=== PATIENT | female | born 1935 | race Caucasian/White ===

== ENCOUNTER 2019-10-03 09:41 | Inpatient (IN) | payer OTHER, BC ==
--- NOTE | 2019-10-04 11:31 | R.PREADM ---
SCREENING DATE AND TIME 10/04/2019 11:08 (CDT) ANTICIPATED REHAB ADMISSION DATE 10/06/2019 REFERRING FACILITY Acute care hospital REFERRAL DATE AND TIME 10/04/2019 11:08 (CDT) REFERRAL OFFICE PHONE REFERRAL ROOM# [id number] ACUTE ADMIT DATE 09/29/2019 Previous Rehabilitation(s): No. 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 Turner Gomes M.D. MR# [id number] NAME RHEA LINK ADDRESS [address] [address] [address] [facility] [id number] DATE OF 1935 AGE 83 SSN# [id number] GENDER female MARITAL STATUS RACE white ADMIT FROM 02 - [facility] PRE-HOSPITAL LIVING SETTING 01 - Home (private home/apt. board/care, assisted living, usp, transitional living) HOME TYPE AND DETAILS Type of home: single family house # of levels in the residence: 1 # of steps within the residence: 0 # of steps to enter the residence: 0 PRE-HOSPITAL LIVING WITH Family/Relatives FAMILY SUPPORT Yes PRIMARY FAMILY CONTACT NAME DAVID MARCELINO PRIMARY FAMILY CONTACT PHONE PHONE PRIMARY FAMILY CONTACT ON ADM.? no IS PRIMARY FAMILY CONTACT AUTH. REP.? no 1ST EMERGENCY CONTACT DAVID MARCELINO 1ST CONTACT PHONE PHONE 1ST CONTACT ON ADM. no IS 1ST CONTACT AUTH. REP.? no PHONE 2ND CONTACT ON ADM.? no PATIENT EMPLOYMENT STATUS Retired (for age) PATIENT EMPLOYER No Employer PAYOR INFORMATION: 1ST PAYOR NAME Medicare 1ST PAYOR PHONE 1ST PAYOR INJURY/ILLNESS DUE TO ACCIDENT? No ANOTHER [employer] PARTY RESPONSIBLE? 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 is a 83 yo Right-handed white female. On 09/25/2019 she was admitted to Acute care hospital with diagnosis THORACIC SPINAL CORD COMPRESSION . Her impairment category is Spinal Cord Dysfunction 04 - Other Non-traumatic Spinal Cord Dysfunction (04.130). Pre-morbidly, Pt. was independent/mod-I in Self-Care, Communication, Transfers Control, Social Cognit ion, and Safety Awareness; and she had good Locomotion and Endurance. Currently, she has deficits of Locomotion, Self-Care, Balance, Endurance, Transfers Control, and Soci al Cognition. Pt. is now referred to [facility] for acute in-patient rehabilitation in order to maximize patient's functional independence in activities of daily living, strength, ROM, and mobi lity. Patient has realistic goal of being discharged at assistance level 3-modA to reside at Home with Fam micaela/Relatives. Rhea Link is a 83 year old female that lives at home independently with her . She has children that live near and help keep them active. She has a history of HTN, DE, CAD, CHF, SSS, Afib, chronic back pain and falls who presented with BLE weakness. She underwent thoracic laminectomy 09/27/19 but condition become unbearable. Bilateral lower weakness has gotten to the point where she is unable to take more than a few steps without lower extremities giving out on her. [facility] not [facility] up for procedure at this time. [facility] Inpatient rehabilitation and is hemodynamically stable with relatively stable labs. She is now medically stable but in need of 24 hour nursing, doctor supervision and The patient is reasonably expected to participate in 3 hours of therapy a day/15 hours per week and receive care with intensive interdisciplinary approach. COVID-19 screening performed; spoke with patient via phone. Patient denies new onset of fever, cough, difficulty breathing, sore throat, body aches and non-allergy nasal congestion in the past 24 hours. Patient denies travel outside of [place] in the past 14 days. Patient denies any contact with someone who has a confirmed diagnosis of or is under investigation for COVID-19 in the past 14 days. MEDICATION ALLERGIES: No Known Drug Allergies (NKDA) ENVIRONMENTAL ALLERGIES: - Substance Allergies None Known - Other Allergies None Known CODE STATUS: Full code WEIGHT/HEIGHT/BMI: WEIGHT 154 lbs HEIGHT 152.4' BMI N/A DIET: - Diet Type Regular - Diet - Solid Texture Regular - Diet - Liquid Texture Regular - Tube Feed N/A REVIEW OF SYSTEMS: - Gen Alert and awake Lying in bed No apparent distress Oriented to: person, time, and place - Vital Signs Temperature: 98.1 F SBP/DBP: 118/67 Pulse: 70 Resp: 20 Vital signs stable, afebrile - CVS RRR VITAL SIGNS Temperature: 98.1 F SBP/DBP: 118/67 Pulse: 70 Resp: 20 Vital signs stable, afebrile MEDICATIONS/TREATMENT: Other- See attached MAR (Medication Administration Record). CURRENT SPHINCTER CONTROL: Pre-hospital bladder status: continent # of bladder accidents in the last 7 days prior to screenin Pre-hospital bowel status: continent # of bowel accidents in the last 7 days prior to screenin Last Bowel Movement Date: 10/02/2019 CURRENT LOCOMOTION STATUS: distance walked 3 feet DETAILED CURRENT FUNCTIONAL STATUS: - Bladder accident frequency: Ind - No accidents in the past 7 days - Bowel accident frequency: Ind - No accidents in the past 7 days - Walking score based on distance walked: 0(N/A) score based on distance walked: 1(<=50ft) - Wheelchair score based on distance traveled: 0(N/A) QI SCORES: - Self-Care A. Eating 06-Independent B. Oral hygiene 06-Independent C. Toileting hygiene 03-Partial/moderate assistance E. Shower/bathe self 03-Partial/moderate assistance F. Upper body dressing 04-Supervision or touching assistance G. Lower body dressing 88-Not attempted due to medical condition or safety concerns H. Putting on/taking off footwear 88-Not attempted due to medical condition or safety concerns - Mobility A. Roll left and right 04-Supervision or touching assistance B. Sit to lying 04-Supervision or touching assistance C. Lying to sitting on side of bed 02-Substantial/maximal assistance D. Sit to stand 02-Substantial/maximal assistance E. Chair/[id number] transfer 02-Substantial/maximal assistance F. Toilet transfer 02-Substantial/maximal assistance G. Car transfer 88-Not attempted due to medical condition or safety concerns I. Walk 10 feet 88-Not attempted due to medical condition or safety concerns J. Walk 50 feet with two turns 88-Not attempted due to medical condition or safety concerns K. Walk 150 feet 88-Not attempted due to medical condition or safety concerns L. Walking 10 feet on uneven surfaces 88-Not attempted due to medical condition or safety concerns M. 1 step (curb) 88-Not attempted due to medical condition or safety concerns N. 4 steps 88-Not attempted due to medical condition or safety concerns O. 12 steps 88-Not attempted due to medical condition or safety concerns P. Picking up object 06-Independent R. Wheel 50 feet with two turns 88-Not attempted due to medical condition or safety concerns S. Wheel 150 feet 88-Not attempted due to medical condition or safety concerns - Bladder and Bowel Bladder continence 0-Always continent Bowel continence 0-Always continent - Endurance Fair - Balance Fair - Safety Awareness Fair CURRENT FUNC. DEFICITS: Mobility, Endurance, Safety Awareness, Balance, and Self-Care CURRENT / PREVIOUS ASSISTIVE DEVICES: 3-in-1 [facility] Bed Rolling Walker Tub Bench Wheelchair HISTORY OF FALLS. HAS THE PATIENT HAD TWO OR MORE FALLS IN THE PAST YEAR OR ANY FALL WITH INJURY IN T HE PAST YEAR?: No PRIOR SURGERY. DID THE PATIENT HAVE MAJOR SURGERY DURING THE 100 DAYS PRIOR TO ADMISSION?: No THERAPY NOTES FROM ACUTE CARE: Attached. SPECIAL NEEDS: - Safety Concerns Skin breakdown precautions needed due to skin breakdown risk PATIENT NEEDS ACTIVE AND ONGOING THERAPEUTIC INTERVENTION OF MULTIPLE THERAPY DISCIPLINES, INCLUDING: - Orthotics/Prosthetics Orthotic Evaluation. Splinting/Casting. - Dietary and Nutrition Adequate Nutrition. Nutritional Education. Nutritional Supplements. PATIENT NEEDS CLOSE MEDICAL SUPERVISION BY A REHABILITATION PHYSICIAN FOR: Coordination of Treatment Team PATIENT REQUIRES 24X7 REHAB NURSING FOR MEDICAL AND FUNCTIONAL MGT. OF THE FOLLOWING DEFICITS: Disease Management Medication Management Patient/Family Education Providing Safe Environment PATIENT REQUIRES INTENSIVE, COORDINATED INTERDISCIPLINARY APPROACH TO REHAB: Arranging Home Equipment/Services Discharge Planning Family Intervention/Training [place] Roofer/Case Management PATIENT REHAB POTENTIAL: Abelardo LINK is able and expected to receive 3 hours of individualized therapy daily on at least 5 of ev samir 7 days Abelardo LINK's prognosis for significant practical improvement within a reasonable period of time appear s Good Expected level of measurable improvement will be of a practical value to Abelardo LINK's functional capac ity or adaptations to impairments Has a viable Discharge Plan Medically appropriate; condition is sufficiently stable to participate in intensive rehab program DISCHARGE PLAN: - Estimated Length of Stay (days) 16. - Consensus on plan Discharge plan has been discussed with primary caregiver. Patient/Family is in agreement with the jazmyne n. Primary caregiver is in agreement with the plan. - Patient/Family Goals Return home independently. - Planned Living Setting Upon Discharge Home, to live with Family/Relatives. Transitional Living. RECOMMENDED CARE LEVEL: IRF RECOMMENDATION DETAILS: Recommended Admission to Comprehensive Rehabilitation Program to Increase Functional [place] SCREENER'S COMPLETENESS CONFIRMATION: - Screening Confirmation The patient data collection on this preadmission screening form is finished PHYSICIANS REVIEW AND ADMISSION DETERMINATION Admit - Based on my review of the Pre-Admission Screening results, in my medical judgment and experie nce, I concur with the findings and recommend admission to [facility], as this patient requires an IRF level of care. SIGNATURE PANEL: Unitizer - [electronically] signed by Jaime Finney on 10/04/2019 at 11:09 (CDT) Clinical Liaison - [electronically] signed by Ally Herrera RN on 10/04/2019 at 11:10 (CDT) Physician Reviewer - [electronically] signed by Dr. Turner Gomes M.D. on 10/04/2019 at 11:30 (CDT )
--- OUTSIDE RECORDS SUMMARY | 2019-10-04 18:41 | XMS REPORT | Clinical Summary ---
:1935 Author Organization [facility] Address [address] [place] [address] Care Team Providers Name Role Phone Lee Mosqueda MD Primary Care Provider Allergies Active Allergy Reactions Severity Noted Date Comments Aspirin Tinnitus High 10/31/2016 Severe ringing in ears and can not hear an ything Povidone-Iodine Other (See Comments) High 09/21/2018 Topi chapis Iodine and betadine cause her skin peel. Patient states she is NOT allergic to the IV Iodine Meperidine Hallucinations 09/27/2019 Iodine Rash Low 12/06/2017 Topical Iodine and betadine cause her skin peel. Patient states she is NOT allergic to the IV Iodine Levofloxacin Rash High 10/31/2016 Red itchy rash all over the body Tramadol Other (See Comments) High 10/31/2016 Halluci nations Medications Medication Sig Dispensed Refills Start Date End Date Status DULoxetine Take 60 mg by 0 Activ e (CYMBALTA) 60 MG mouth 2 (two) capsule times a day. gabapentin Take 800 mg 0 Active (NEURONTIN) 800 mg by mouth 3 tablet (three) times a day. thyroid, pork, Take 60 mg by 0 A ctive (ARMOUR THYROID) 60 mouth daily. mg tablet montelukast Take 10 mg by 0 Acti ve (SINGULAIR) 10 mg mouth tablet nightly. rosuvastatin Take 10 mg by 0 Act karli (CRESTOR) 10 MG mouth tablet nightly. spironolactone Take 25 mg by 0 A ctive (ALDACTONE) 25 MG mouth daily. tablet losartan (COZAAR) Take 25 mg by 0 Active 25 MG tablet mouth daily as needed (SBP>140). SBP > 140 apixaban (ELIQUIS) Take 5 mg by 0 Active 5 mg tablet mouth 2 (two) times a day. carvediloL (COREG) Take 3.125 mg 0 Active 3.125 MG tablet by mouth 2 (two) times a day with meals. furosemide (LASIX) Take 80 mg by 0 Active 40 mg tablet mouth daily. immun glob Inject 1 0 Active G,IgG,/pro/IgA 0-50 Syringe under (HIZENTRA SUBQ) the skin once a week. Home infusion on tuesdays at 3pm pantoprazole Take 1 tablet 30 tablet 0 10/05/2019 11/04/19 Ac tive (PROTONIX) 40 MG EC (40 mg total) 20 tablet by mouth daily for 30 days. sennosides-docusate Take 2 60 tablet 0 10/04/2019 11/03/19 Active sodium (SENOKOT-S) tablets by 20 8.6-50 mg per mouth nightly tablet for 30 days. acetaminophen-codei Take 1 tablet 20 tablet 0 10/04/201910/10 Active ne (TYLENOL WITH by mouth 20 CODEINE #3) 300-30 every 4 mg per (four) hours tabletIndications: as needed for acute pain moderate pain for up to 7 days .acute pain. amIODarone Take 200 mg 0 05/29/19 Discont inued (PACERONE) 200 MG by mouth 20 (M ed List tablet nightly. Cleanup) carvedilol (COREG) Take 12.5 mg 0 05/29/19 Discontinued 12.5 MG tablet by mouth 2 20 (Med List (two) times a Cleanu p) day with meals. furosemide (LASIX) Take 40 mg by 0 0 Discontinued 40 mg tablet mouth 2 (two) 20 (Me d List times a day. Cleanup ) alum-mag Take 30 mL by 3840 mL 0 09/23/2018 10/24/19 Expir ed hydroxide-simeth mouth 4 19 (MAALOX PLUS) (four) times 200-200-20 mg/5 mL a day before suspension meals and nightly for 30 days. colchicine 0.6 mg Take 0.5 30 tablet 0 09/23/2018 10/24/19 E xpired tablet tablets (0.3 19 mg total) by mouth 2 (two) times a day for 30 days. pantoprazole Take 1 tablet 60 tablet 0 09/23/2018 10/24/19 Ex pired (PROTONIX) 40 MG EC (40 mg total) 19 tablet by mouth 2 (two) times a day for 30 days. methocarbamol Take 1 tablet 120 tablet 0 06/02/2019 07/02/19 (ROBAXIN) 500 MG (500 mg 20 tablet total) by mouth 4 (four) times a day for 30 days. Active Problems Problem Noted Date Lumbar stenosis 09/25/2019 Atrial fibrillation, persistent 09/22/2018 Hypotension 12/06/2017 Resolved Problems Problem Noted Date Resolved Date Weakness of both lower extremities 05/29/201906/01 Encounters Date Type Specialty Care Team Description 09/27/2019 Anesthesia Event General Surgery Brenda Salazar MD Felan, Veronica Lynn, NP 09/27/2019 Surgery General Surgery Zeb Jenkins, THORACIC LAMINECTOMY T10 T11 09/25/2019 - Hospital Encounter Neurosurgery Alyssa Thibodeaux M D Spinal stenosis, lumbar region with neur ogenic claudication; 10/04/2019 Gia Galvez, Zachariah spond ylosis with myelopathy, thoracic region Rosita Bustos MD 09/25/2019 Travel 07/04/2019 Documentation Neurosurgery Zeb Jenkins MD 05/29/2019 - Hospital Encounter General Internal Pito Riley Weak ness of both lower extremities (Primary Dx); 06/01/2019 Medicine MD Ramon Chronic bilateral low back pain without sciatica; [facility] [place] MRI safe car diac pacemaker in situ DO Morelia Sigala Umar, MD after 10/03/2018 Social History Tobacco Use Types Packs/Day Years Used Date Never Smoker Smokeless Tobacco: Never Used Alcohol Use Drinks/Week oz/Week Comments No Alcohol Habits Answer Date Recorded How often do you have a drink containing alcohol? Never 07/17/2018 How many drinks containing alcohol do you have on a typical Not asked day when you are drinking? How often do you have six or more drinks on one occasion? No t asked Sex Assigned at Date Recorded Not on file Job Start Date Occupation Industry Not on file Not on file Not on file Travel History Travel Start Travel End No recent travel history available. COVID-19 Exposure Response Date Recorded In the last month, have you been in contact with No / Unsure 09/25/2019 9:23 AM CDT someone who was confirmed or suspected to have Coronavirus / COVID-19? Last Filed Vital Signs Vital Sign Reading Time Taken Comments Blood Pressure 142/73 10/04/2019 11:49 AM CDT Pulse 69 10/04/2019 11:49 AM CDT Temperature 36.6 C (97.9 F) 10/04/2019 11:49 AM CDT Respiratory Rate 18 10/04/2019 11:49 AM CDT Oxygen Saturation 97% 10/04/2019 11:49 AM CDT Inhaled Oxygen Concentration - - Weight 69.9 kg (154 lb) 09/27/2019 10:10 AM CDT Height 152.4 cm (5') 09/27/2019 10:10 AM CDT Body Mass Index 30.08 09/27/2019 10:10 AM CDT Plan of Treatment Health Maintenance Due Date Last Done Comments INFLUENZA VACCINE 11/17/2019 02/28/2019, 01/30/2018, 2016 65+ PNEUMOCOCCAL VACCINE Completed 02/18/2013, 02/18/2009 SHINGLES VACCINES Completed 10/16/2018, 06/21/2018, 2015 Implants Implanted Type Area Social Media Marketing Specialist Device Shelf Model / Identifier Expiration Serial / Date Lot Cardiac Cardiac Pacemakers And Pacemakers and Related Related Products Products Material Bone Hmsts Wtrsolbl 2.5g Ostene - [id number] Orthopedic N/A: N/A 02/16/2024 [id number] / Implanted: 09/27/2019 at [facility] (Quantity not on file) Trauma / Implants [id number] Pacemaker Procedures Procedure Name Priority Date/Time Associated Comments Diagnosis ESTIMATED GFR Routine 10/04/2019 5:35 Results fo r this AM CDT procedure are i n the results section. COMPREHENSIVE METABOLIC Routine 10/04/2019 5:35 Results for this PANEL AM CDT procedure are i n the results section. CBC WITH PLATELET AND Routine 10/04/2019 5:35 Re sults for this DIFFERENTIAL AM CDT procedure are i n the results section. ESTIMATED GFR Routine 10/03/2019 5:35 Results fo r this AM CDT procedure are i n the results section. COMPREHENSIVE METABOLIC Routine 10/03/2019 5:35 Results for this PANEL AM CDT procedure are i n the results section. HC COMPLETE BLD COUNT Routine 10/03/2019 5:35 Re sults for this W/AUTO DIFF AM CDT procedure are i n the results section. XR LUMBAR SPINE 2 OR 3 Routine 10/01/2019 1:34 R esults for this VW PM CDT procedure are i n the results section. XR THORACIC SPINE 2 VW Routine 10/01/2019 1:33 R esults for this PM CDT procedure are i n the results section. ESTIMATED GFR Routine 09/30/2019 12:04 Results fo r this PM CDT procedure are i n the results section. BASIC METABOLIC PANEL Routine 09/30/2019 12:04 Re sults for this PM CDT procedure are i n the results section. PARTIAL THROMBOPLASTIN Routine 09/30/2019 12:04 R esults for this TIME (PTT) PM CDT procedure are i n the results section. PROTHROMBIN TIME WITH Routine 09/30/2019 12:04 Re sults for this INR PM CDT procedure are i n the results section. HC COMPLETE BLD COUNT Routine 09/30/2019 12:04 Re sults for this W/AUTO DIFF PM CDT procedure are i n the results section. ESTIMATED GFR Routine 09/29/2019 3:25 Results fo r this AM CDT procedure are i n the results section. HC COMPLETE BLD COUNT Routine 09/29/2019 3:25 Re sults for this W/AUTO DIFF AM CDT procedure are i n the results section. BASIC METABOLIC PANEL Routine 09/29/2019 3:25 Re sults for this AM CDT procedure are i n the results section. XR THORACOLUMBAR SPINE Routine 09/28/2019 4:09 R esults for this 2 VW PM CDT procedure are i n the results section. ESTIMATED GFR Routine 09/28/2019 3:30 Results fo r this AM CDT procedure are i n the results section. HC COMPLETE BLD COUNT Routine 09/28/2019 3:30 Re sults for this W/AUTO DIFF AM CDT procedure are i n the results section. BASIC METABOLIC PANEL Routine 09/28/2019 3:30 Re sults for this AM CDT procedure are i n the results section. PARTIAL THROMBOPLASTIN Routine 09/28/2019 3:30 R esults for this TIME (PTT) AM CDT procedure are i n the results section. XR LUMBAR SPINE 1 VW Routine 09/27/2019 3:58 Res ults for this PM CDT procedure are i n the results section. ARTERIAL LINE Routine 09/27/2019 2:57 Results fo r this PM CDT procedure are i n the results section. PA AN ELECTIVE Routine 09/27/2019 2:11 Results f or this ENDOTRACHEAL AIRWAY PM CDT procedur e are in the results section. XR LUMBAR SPINE 1 VW Routine 09/27/2019 2:03 Res ults for this PM CDT procedure are i n the results section. FUSION, SPINE, LUMBAR, 09/27/2019 12:55 Spinal stenosi s, POSTERIOR APPROACH PM CDT lumbar region with neurogenic claudication Other spondylosis with myelopathy, thoracic region Case Notes ALLERGY-IODINE, TBA 06/0 9, TF ~1200, REQ EAP, PRONE, MICROSCOPE, PRO-AXIS, TRIMLINE RETRACTOR, MIDAS RE X DRILLL, INSULATED BI POLAR; @ 1234 [facility] ACCEPTED MOVE TO 1030 MED Special Needs ALLERGY-IODINE,TF ~1030, REQ EAP, PRONE, MICROSCOPE, PRO-AXIS, TRIMLINE RETRACTOR, MIDAS JORDI DRILLL, INSULATED BI POLAR LAMINECTOMY, SPINE, 09/27/2019 12:55 PM CDT Spinal maryellen nosis, lumbar region THORACIC, POSTERIOR with neuroge talita claudication APPROACH, FOR Other spondylosis with DECOMPRESSION myelopathy, thoracic region Case Notes ALLERGY-IODINE, TBA 06/0 9, TF ~1200, REQ EAP, PRONE, MICROSCOPE, PRO-AXIS, TRIMLINE RETRACTOR, MIDAS RE X DRILLL, INSULATED BI POLAR; @ 1234 [facility] ACCEPTED MOVE TO 1030 MED Special Needs ALLERGY-IODINE,TF ~1030, REQ EAP, PRONE, MICROSCOPE, PRO-AXIS, TRIMLINE RETRACTOR, MIDAS JORDI DRILLL, INSULATED BI POLAR ECG 12-LEAD STAT 09/27/2019 12:00 PM Results for this CDT procedure are i n the results section. PROTHROMBIN TIME WITH Routine 09/27/2019 2:30 AM Results for this INR CDT procedure are i n the results section. TYPE AND SCREEN Routine 09/27/2019 2:30 AM Resul ts for this CDT procedure are i n the results section. PARTIAL THROMBOPLASTIN Routine 09/27/2019 2:30 AM Results for this TIME (PTT) CDT procedure are i n the results section. COVID-19 QUALITATIVE PCR Routine 09/26/2019 6:30 PM Results for this CDT procedure are i n the results section. ECG 12-LEAD Routine 09/26/2019 9:29 AM Results for this CDT procedure are i n the results section. URINE CULTURE Routine 09/26/2019 7:54 AM Results for this CDT procedure are i n the results section. URINALYSIS SCREEN AND Routine 09/26/2019 6:00 AM Results for this MICROSCOPY, WITH REFLEX CDT proc edure are in TO CULTURE the results section. ESTIMATED GFR Routine 09/26/2019 4:00 AM Results for this CDT procedure are i n the results section. B NATRIURETIC PEPTIDE Routine 09/26/2019 4:00 AM Results for this CDT procedure are i n the results section. HC COMPLETE BLD COUNT Routine 09/26/2019 4:00 AM Results for this W/AUTO DIFF CDT procedure are i n the results section. MAGNESIUM LEVEL Routine 09/26/2019 4:00 AM Resul ts for this CDT procedure are i n the results section. BASIC METABOLIC PANEL Routine 09/26/2019 4:00 AM Results for this CDT procedure are i n the results section. MRI THORACIC SPINE WO Routine 06/01/2019 10:45 AM Results for this CONTRAST TECHNICAL PRODUCT MANAGER procedure are i n the results section. MRI CERVICAL SPINE WO Routine 06/01/2019 10:45 AM Results for this CONTRAST TECHNICAL PRODUCT MANAGER procedure are i n the results section. HC COMPLETE BLD COUNT Routine 06/01/2019 5:20 AM Results for this W/AUTO DIFF TECHNICAL PRODUCT MANAGER procedure are i n the results section. POC GLUCOSE Routine 05/31/2019 9:00 PM Results for this TECHNICAL PRODUCT MANAGER procedure are i n the results section. POC GLUCOSE Routine 05/31/2019 6:00 PM Results for this TECHNICAL PRODUCT MANAGER procedure are i n the results section. POC GLUCOSE Routine 05/31/2019 1:02 PM Results for this TECHNICAL PRODUCT MANAGER procedure are i n the results section. POC GLUCOSE Routine 05/31/2019 8:00 AM Results for this TECHNICAL PRODUCT MANAGER procedure are i n the results section. URINALYSIS, AUTOMATED STAT 05/30/2019 10:10 PM Results for this WITH MICROSCOPY TECHNICAL PRODUCT MANAGER procedure ar e in the results section. URINE DRUGS OF ABUSE STAT 05/30/2019 10:10 PM Results for this SCREEN TECHNICAL PRODUCT MANAGER procedure are i n the results section. POC GLUCOSE Routine 05/30/2019 5:22 PM Results for this TECHNICAL PRODUCT MANAGER procedure are i n the results section. PA MOTOR &/SENS 13/> NRV Routine 05/30/2019 4:30 PM Results for this CNDJ PRECONF ELTRODE TECHNICAL PRODUCT MANAGER procedu re are in LIMB the results section. MRI BRAIN WO CONTRAST Routine 05/30/2019 2:09 PM Results for this TECHNICAL PRODUCT MANAGER procedure are i n the results section. MRI LUMBAR SPINE WO Routine 05/30/2019 2:09 PM R esults for this CONTRAST TECHNICAL PRODUCT MANAGER procedure are i n the results section. XR CHEST 2 VW Routine 05/30/2019 11:00 AM MRI safe cardiac Res ults for this TECHNICAL PRODUCT MANAGER pacemaker in situ procedure are in the results section. MAG ANTIBODY TITER IGM Routine 05/30/2019 9:55 AM Results for this BY IFA TECHNICAL PRODUCT MANAGER procedure are i n the results section. SERUM ELECTROPHORESIS Routine 05/30/2019 9:55 AM Results for this TECHNICAL PRODUCT MANAGER procedure are i n the results section. POC GLUCOSE Routine 05/30/2019 8:52 AM Results for this TECHNICAL PRODUCT MANAGER procedure are i n the results section. ESTIMATED GFR Routine 05/30/2019 1:50 AM Results for this TECHNICAL PRODUCT MANAGER procedure are i n the results section. HIV AG/AB COMBINATION STAT 05/30/2019 1:50 AM Results for this TECHNICAL PRODUCT MANAGER procedure are i n the results section. SYPHILIS TOTAL ANTIBODY STAT 05/30/2019 1:50 AM Results for this TECHNICAL PRODUCT MANAGER procedure are i n the results section. T3 STAT 05/30/2019 1:50 AM Results for this TECHNICAL PRODUCT MANAGER procedure are i n the results section. T4, FREE STAT 05/30/2019 1:50 AM Results for this TECHNICAL PRODUCT MANAGER procedure are i n the results section. THYROID STIMULATING STAT 05/30/2019 1:50 AM R esults for this HORMONE TECHNICAL PRODUCT MANAGER procedure are i n the results section. RHEUMATOID FACTOR STAT 05/30/2019 1:50 AM Res ults for this TECHNICAL PRODUCT MANAGER procedure are i n the results section. SEDIMENTATION RATE STAT 05/30/2019 1:50 AM Re sults for this TECHNICAL PRODUCT MANAGER procedure are i n the results section. VITAMIN D 1,25 DIHYDROXY STAT 05/30/2019 1:50 AM Results for this LEVEL, SERUM TECHNICAL PRODUCT MANAGER procedure are i n the results section. CORTISOL LEVEL, RANDOM STAT 05/30/2019 1:50 AM Results for this TECHNICAL PRODUCT MANAGER procedure are i n the results section. HOMOCYSTINE, PLASMA STAT 05/30/2019 1:50 AM R esults for this TECHNICAL PRODUCT MANAGER procedure are i n the results section. C-REACTIVE PROTEIN STAT 05/30/2019 1:50 AM Re sults for this TECHNICAL PRODUCT MANAGER procedure are i n the results section. VITAMIN B12 LEVEL STAT 05/30/2019 1:50 AM Res ults for this TECHNICAL PRODUCT MANAGER procedure are i n the results section. FOLATE LEVEL STAT 05/30/2019 1:50 AM Results for this TECHNICAL PRODUCT MANAGER procedure are i n the results section. ANGELICA STAT 05/30/2019 1:50 AM Results for this TECHNICAL PRODUCT MANAGER procedure are i n the results section. COMPREHENSIVE METABOLIC Routine 05/30/2019 1:50 AM Results for this PANEL TECHNICAL PRODUCT MANAGER procedure are i n the results section. HC COMPLETE BLD COUNT Routine 05/30/2019 1:50 AM Results for this W/AUTO DIFF TECHNICAL PRODUCT MANAGER procedure are i n the results section. URINE CULTURE Routine 05/29/2019 10:26 PM Results for this TECHNICAL PRODUCT MANAGER procedure are i n the results section. URINALYSIS SCREEN AND Routine 05/29/2019 9:45 PM Results for this MICROSCOPY, WITH REFLEX TECHNICAL PRODUCT MANAGER proc edure are in TO CULTURE the results section. ECG 12-LEAD STAT 05/29/2019 4:31 PM Results for this TECHNICAL PRODUCT MANAGER procedure are i n the results section. ECG ED PRELIMINARY Routine 05/29/2019 2:14 PM Re sults for this INTERPRETATION TECHNICAL PRODUCT MANAGER procedure are in the results section. ESTIMATED GFR STAT 05/29/2019 1:59 PM Results for this TECHNICAL PRODUCT MANAGER procedure are i n the results section. BASIC METABOLIC PANEL STAT 05/29/2019 1:59 PM Results for this TECHNICAL PRODUCT MANAGER procedure are i n the results section. PARTIAL THROMBOPLASTIN STAT 05/29/2019 1:59 PM Results for this TIME (PTT) TECHNICAL PRODUCT MANAGER procedure are i n the results section. PROTHROMBIN TIME WITH STAT 05/29/2019 1:59 PM Results for this INR TECHNICAL PRODUCT MANAGER procedure are i n the results section. HC COMPLETE BLD COUNT STAT 05/29/2019 1:59 PM Results for this W/AUTO DIFF TECHNICAL PRODUCT MANAGER procedure are i n the results section. after 10/03/2018 Results Estimated GFR (10/04/2019 5:35 AM CDT)Only the most recent of8 resultswithin the time period is included. Estimated GFR 68 mL/min/1.73 [facility] Comment: [facility] Catergory Units Interpretation G1 >=90 Normal or high G2 60-89 Mildly decreased G3a 45-59 Mildly to moderately decreas ed G3b 30-44 Moderately to severely decre ased G4 15-29 Severely decreased G5 <15 Kidney failure The eGFR was calculated using the Chronic Kidney Disea se Epidemiology Collaboration (CKD-EPI) equation. Interpretation is based on recommendations of the National Kidney Foundation-Kidney Disease Outcomes Rico lity Initiative (NKF-KDOQI) published in 2014. Specimen Performing Organization Address City/[facility]/Zipcode Phone Number [facility] DEPARTMENT OF PATHOLOGY AND [address] [place] [address] [phone] GENOMIC MEDICINE [facility] [address] [place] [id number] CBC with platelet and differential (10/04/2019 5:35 AM CDT)Only the most recent of9 resultswithin the time period is included. WBC 6.92 4.50 - 11.00 [facility] k/uL [facility] RBC 4.11 (L) 4.20 - 5.50 [facility] m/[facility] HGB 10.0 (L) 12.0 - 16.0 [facility] HCT 33.4 (L) 37.0 - 47.0 % [facility] MCV 81.3 (L) 82.0 - 100.0 [facility] MCH 24.3 (L) 27.0 - 34.0 pg [facility] MCHC 29.9 (L) 31.0 - 37.0 [facility] g/dL [facility] RDW - SD 47.0 37.0 - 55.0 fL [facility] MPV 9.6 8.8 - 13.2 fL [facility] Platelet count 296 150 - 400 k/uL [facility] Nucleated RBC 0.00 /100 WBC [facility] Neutrophils 63.9 39.0 - 69.0 % [facility] Lymphocytes 24.1 (L) 25.0 - 45.0 % [facility] Monocytes 8.8 0.0 - 10.0 % [facility] Eosinophils 2.2 0.0 - 5.0 % [facility] Basophils 0.6 0.0 - 1.0 % [facility] Immature granulocytes 0.4Comment: 0.0 - 1.0 % [facility] "Immature HOSPITAL granulocytes" (promyelocytes , myelocytes, metamyelocytes ) Specimen Blood Performing Organization Address City/[facility]/Zipcode Phone Number [facility] DEPARTMENT OF PATHOLOGY AND [address] [place] [address] [phone] [facility] [address] [place] [address] Comprehensive metabolic panel (10/04/2019 5:35 AM CDT)Only the most recent of3 resultswithin the time period is included. Sodium 139 135 - 148 [facility] mEq/L [facility] Potassium 3.6 3.5 - 5.0 [facility] mEq/L [facility] Chloride 93 (L) 98 - 112 [facility] mEq/L [facility] CO2 33 (H) 24 - 31 mEq/L [facility] Anion gap 13@ANIO 7 - 15 mEq/L [facility] BUN 11 8 - 23 mg/dL [facility] Creatinine 0.81 0.50 - 0.90 [facility] mg/dL [facility] Glucose 99 65 - 99 mg/dL [facility] Calcium 9.4 8.8 - 10.2 [facility] mg/dL [facility] Protein 6.6 6.3 - 8.3 [facility] Comment: g/dL [facility] [place] 4.6-7.0 g/dL 1 week 4.4-7.6 g/dL 7 months-1year 5.1-7.3 g/dL 1-2 years 5.6-7.5 g/dL >3 years 6.0-8.0 g/dL 18-150 6.3-8.3 g/dL Albumin 2.2 (L) 3.5 - 5.0 [facility] g/dL [facility] A/G ratio 0.5 (L) 0.7 - 3.8 [facility] Alkaline phosphatase 129 (H) 35 - 104 U/L [facility] AST 19 10 - 35 U/L [facility] ALT 6 5 - 50 U/L [facility] Total bilirubin <0.2 0.0 - 1.2 [facility] mg/dL [facility] Specimen Blood Performing Organization Address City/State/Zipcode Phone Number [facility] DEPARTMENT OF PATHOLOGY AND [address] [place], [place] [phone] [facility] [address] [place] [address] XR Lumbar Spine 2 Or 3 Vw (10/01/2019 1:34 PM CDT) Specimen Narrative Performed At EXAMINATION: XR LUMBAR SPINE 2 OR 3 VW [facility] COMPARISON: October 27, 2019. CLINICAL HISTORY: back pain COMMENTS: Frontal and lateral views of the lumbar spine are provided. FINDINGS: There is grade 1 anterior subluxation of L 4 upon L5. There is minimal anterior subluxation of L5 on S1. There is mild retrolisthesis of L1 with respect to L2 and to lesser degree L2 with respect to L3. There is moderate anterio r spondylosis. There is multilevel disc height narrowing, endplate sc lerosis and vacuum disc most prominent at L4-5 and L5-S1. Surgical ludin are noted in the midlin e at the posterior skin. IMPRESSION: Degenerative change and young bluxations again noted. [id number] Procedure Note Interface, Radiology Results Incoming - 10/01/2019 1:43 PM CDT EXAMINATION: XR LUMBAR SPINE 2 OR 3 VW COMPARISON: October 27, 2019. CLINICAL HISTORY: back pain COMMENTS: Frontal and lateral views of the lumbar spine are provided. FINDINGS: There is grade 1 anterior sub luxation of L4 upon L5. There is minimal anterior subluxation of L5 on S1. There is mild retrolisthesis of L1 with respect to L2 and to lesser degree L2 with respect to L3. There is moderate anterior spondylosis. There is multilevel disc height narrowin g, endplate sclerosis and vacuum disc most prominent at L4-5 and L5-S1. Surgical ludin are noted in the midlin e at the posterior skin. IMPRESSION: Degenerative change and sub luxations again noted. [id number] Performing Organization Address City/State/Zipcode Phone Number [facility] [address] [place] [address] XR Thoracic Spine 2 Vw (10/01/2019 1:33 PM CDT) Specimen Narrative Performed At EXAMINATION: XR THORACIC SPINE 2 VW [facility] COMPARISON: September 28, 2019. CLINICAL HISTORY: back pain COMMENTS: Frontal and lateral views of the thoracic spine are provided. FINDINGS: There is spondylosis and endplate sclerosi s most prominent in the lower thoracic spine. No definite acute fractur e or subluxation is identified. There is minimal curvature of the lower thoracic spine convex towards the right. This may be positional. Left subclavian dual pacing wires are no jeane. Midline surgical ludin project in the lower thoracic region. IMPRESSION: Degenerative change again noted. [id number] Procedure Note Interface, Radiology Results Incoming - 10/01/2019 1:51 PM CDT EXAMINATION: XR THORACIC SPINE 2 VW COMPARISON: September 28, 2019. CLINICAL HISTORY: back pain COMMENTS: Frontal and lateral views of the thoracic spine are provided. FINDINGS: There is spondylosis and endp late sclerosis most prominent in the lower thoracic spine. No definite acute fracture or subluxation is identified. There is minimal curvature of the lower thoracic spine convex towards the right. This may be positional. Left subclavian dual pacing wires are no jeane. Midline surgical ludin project in the lower thoracic region. IMPRESSION: Degenerative change again n oted. [id number] Performing Organization Address [facility]/Zipcode Phone Number [facility] [address] [place] [phone] Partial thromboplastin time, activated (09/30/2019 12:04 PM CDT)Only the most recent of4 resultswithin the time period is included. [facility] PTT 33.2 23.0 - 36.0 [facility] Comment: [facility] PTT therapeutic range for unfractionated heparin is 61.0-112.0 seconds which corresponds to Anti-Xa 0.3-0.7 U/ml. Specimen Blood Performing Organization Address [facility] Centercoal Phone Number [facility] DEPARTMENT OF PATHOLOGY AND [address] [place] [address] [phone] [address] Prothrombin time with INR (09/30/2019 12:04 PM CDT)Only the most recent of3 resultswithin the time period is included. [facility] Prothrombin time 15.3 (H) 11.5 - 14.5 [facility] INR 1.2 [place] Comment: SIKHISM The International Normalized Ratio (INR) is a therapeu [facility] monitoring tool for patients who are stable on oral anticoagulant therapy. An INR of 2.0-3.0 is suggested for deep vein thrombosis/pulmonary embolism. Specimen Blood Performing Organization Address [facility] Centercode Phone Number [facility] DEPARTMENT OF PATHOLOGY AND [address] [place] [address] [phone] [address] Basic metabolic panel (09/30/2019 12:04 PM CDT)Only the most recent of5 results within the time period is included. [facility] Sodium 136 135 - 148 mEq/L [facility] L Potassium 3.4 (L) 3.5 - 5.0 mEq/L [facility] L Chloride 97 (L) 98 - 112 mEq/L [facility] CO2 26 24 - 31 mEq/L [facility] Anion gap 13@ANIO 7 - 15 mEq/L [facility] BUN 15 8 - 23 mg/dL [facility] Creatinine 0.85 0.50 - 0.90 mg/dL [facility] Glucose 233 (H) 65 - 99 mg/dL [facility] Calcium 8.9 8.8 - 10.2 mg/dL [facility] Specimen Blood Performing Organization Address City/State/Zipcode Phone Number [facility] DEPARTMENT OF PATHOLOGY AND [address] [place], [place] [address] [facility]OMIC MEDICINE [facility] [address] [place] [address] XR Thoracolumbar Spine 2 Vw (09/28/2019 4:09 PM CDT) Specimen Narrative Performed At EXAMINATION: XR THORACOLUMBAR SPINE 2 VW RADIANT CLINICAL HISTORY: S P LAMINECTOMY COMPARISON: None IMPRESSION: Frontal and lateral views of the thoracic and lumbar s pine were obtained. Pacemaker wires are noted over the right hea rt. Postop changes are noted with skin ludin in the lower thoracic post erior back and lower lumbar spine from prior surgery. G rade 2 anterolisthesis of L4 is again noted with complete los s of disc height at L4-5 and L5-S1 as well as throughout the lower thor acic and upper lumbar spine. Soft tissue drains are noted in the posterior back mid line soft tissues in the areas of the skin ludin. There is mild rightward curvature at T9 and leftward c urvature at L2. There is retrolisthesis of L1, L2 and L3. Aorta is ect atic with dense calcifications. No metallic foreign objects identified. [id number] Procedure Note Hm Interface, Radiology Results Incoming - 09/28/2019 4:55 PM CDT EXAMINATION: XR THORACOLUMBAR SPINE 2 VW CLINICAL HISTORY: S P LAMINECTOMY COMPARISON: None IMPRESSION: Frontal and lateral views of the thoraci c and lumbar spine were obtained. Pacemaker wires are noted over the right heart. Postop changes are noted with skin ludin in the lower thoracic posterior back and lower lumbar spine from prior surgery. Grade 2 anterolisthesis of L4 is again noted wit h complete loss of disc height at L4-5 and L5-S1 as well as throughout the lower thoracic and upper lumbar spine. Soft tissue drains are noted in the post erior back midline soft tissues in the areas of the skin ludin. There is mild rightward curvature at T9 and leftward curvature at L2. There is retrolisthesis of L1, L2 and L3. Aorta is ectatic with dense calcifications. No metallic foreign objects identified. [facility]-[id number] Performing Organization Address [facility] Centercode Phone Number [facility] [address] [place] [address] XR Lumbar Spine 1 Vw (09/27/2019 3:58 PM CDT)Only the most recent of2 results within the time period is included. Specimen Narrative Performed At EXAMINATION: XR LUMBAR SPINE 1 VW RADIANT CLINICAL HISTORY: Lumbar radiculopathy COMPARISON: Intraoperative x-ray from earlier today. FINDINGS: There are radiopaque instruments in the posterior par aspinal soft tissues overlapping the posterior elements at the L5-S 1 level. One instrument tip overlaps the anterior canal at the L5 p edicle level. There are diffuse degenerative changes. There are radiopaque wires and leads. IMPRESSION: Lateral portable crosstable intraoperative radiograph of the lumbar spine for localization during lumbar spi ne surgery. [facility]-[id number] Procedure Note Hm Interface, Radiology Results Incoming - 09/27/2019 4:40 PM CDT EXAMINATION: XR LUMBAR SPINE 1 VW CLINICAL HISTORY: Lumbar radiculopathy COMPARISON: Intraoperative x-ray from e vince today. FINDINGS: There are radiopaque instruments in the posterior paraspinal soft tissues overlapping the posterior elements at the L5-S1 level. One instrument tip overlaps the anterior canal at the L5 pedicle level. There are diffuse degenerative changes. There are radiopaque wires and leads. IMPRESSION: Lateral portable crosstable intraoperati ve radiograph of the lumbar spine for localization during lumbar spine surgery. [facility]-[id number] Performing Organization Address City/[facility]/Zipcode Phone Number [facility] [address] [place] [address] Arterial line (09/27/2019 2:57 PM CDT) Narrative Performed At Kishore Mixon CRNA 09/27/2019 2: 57 PM Arterial line Performed by: Kishore Mixon CRNA Authorized by: Brenda Salazar MD Patient Location: OR Staff: Resident/WEATHER OBSERVER/AA: Kishore Mixon CR NA Performed by: Resident/WEATHER OBSERVER/SAROJ Pre-procedure: patient identified, IV ch ecked, site and side verified, risks and benefits discussed, procedure verified, surgical consent complete, patient position confirmed, mo nitors and equipment checked, pre-op evaluation complete and timeout p erformed prior to procedure MSBT: antiseptic used, all elements of maximal sterile barrier technique followed, hand hygiene performed, cap/go wn used by other personnel and solutions labeled Indications: Indications: hemodynamic monitoring Anesthesia: Anesthesia: General Procedure Details: Arterial Line placement: Placed pos t induction Line placement site: Radial Line placement side: Left Arterial line gauge: 20 G Number of attempts: 1 Ultrasound guidance used: No Post-procedure: Post-procedure: Sterile dressing ap plied Post procedure circulation, sensation, movement: Normal and unchanged Patient tolerance: Patient tolerate d the procedure well with no immediate complications Airway (09/27/2019 2:11 PM CDT) Narrative Performed At Kishore Mixon CRNA 09/27/2019 2: 12 PM Airway Performed by: Kishore Mixon CRNA Authorized by: Brenda Salazar MD Location: OR Urgency: Elective Difficult Airway: No Resident/NICOLAS/AA: Kishore Mixon CRNA Performed by: resident/NICOLAS/SAROJ Preoxygenated with 100% O2: Yes C-spine Precautions Maintained Throughou t: Yes Mask Ventilation: Easy mask Final Airway Type: Endotracheal airway Final Endotracheal Airway: ETT Cuffed: Yes Technique Used: Direct laryngoscopy Devices/Methods Used in Placement: Int ubating stylet Insertion Site: Oral Blade Type: Mattson Laryngoscope Blade/Videolaryngoscope Wilder de Size: 2 ETT Size (mm): 7.0 Cuff at minimum occlusion pressure: Yes Measured from: Lips ETT to Lips (cm): 20 Placement Verified by: CO2 detection, di rect visualization and equal breath sounds Laryngoscopic view: Grade I - full vie w of glottis Rapid Sequence Induction (RSI): No Modified RSI: No Number of Attempts at Approach: 1 atraumatic ECG 12 lead (09/27/2019 12:00 PM CDT)Only the most recent of3 resultswithin the time period is included. Pathologist Sig nature Ventricular rate 69 [facility] Atrial rate 69 [facility] PA interval 160 [facility] QRSD interval 142 [facility] QT interval 468 [facility] QTC interval 501 [facility] P axis 1 65 [facility] QRS axis 1 -37 [facility] T wave axis 108 [facility] EKG impression Sinus rhythm with [facility] premature atrial complexes-Left axis deviation-Left bundle branch block-Abnormal ECG-No previous ECGs available-Electronicall y Signed By Vanessa Yan MD ([id number]) on 09/27/2019 6:25:10 PM Specimen Narrative Performed At This result has an attachment that is no t available. Performing Organization Address City/State/Zipcode Phone Number [facility] MUSE [address] [place] [address] Type and screen (09/27/2019 2:30 AM CDT) Pathologist Sig nature ABO grouping B [facility] Rh type POS [facility] Antibody screen (gel) NEG [facility] Specimen Blood Performing Organization Address City/[facility]/Zipcode Phone Number [facility] DEPARTMENT OF PATHOLOGY AND [address] [place] [address] [address] COVID-19 qualitative PCR (09/26/2019 6:30 PM CDT) Pathologist [facility] Interpretation Negative results do not prec lude 2019-nCoV infection and should not be used as the sole basis for treatment or other patient management decisions. Negative results must be combined with clinical observations, patient history, and epidemiological GALEANA information. [facility] COVID-19 qualitative Not-Detected Not-Detecte [place] PCR result d [facility] COVID-19 qualitative See link below for [facility] PCR PDF Lab SIKHISM ReportComment: Case HOSPITAL Number: [id number] Specimen Performing Organization Address City/State/Zipcode Phone Number [facility] DEPARTMENT OF PATHOLOGY AND [address] [place] [address] 0 [place] [phone] [facility] Urine culture (09/26/2019 7:54 AM CDT)Only the most recent of2 resultswithin the time period is included. Pathologist [facility] Urine culture Escherichia coli [facility] isolate >10-5 cfu/ml HOSPITAL The performance characteristics of this assay on this isolate were validated by the Microbiology Laboratory at [facility]. This source has not been approve d by the U.S. Food and Drug Administration. The results are n ot intended to be used as the sole means for clinical reynold gnosis or patient management. The Microbiology Laboratory i s authorized under the clinical Laboratory Improvement Amendments of 1988 (CLIA-88) to perform high complexit y testing. (A) Comment: Specimen Information Specimen Source: Urine Specimen Site: Clean catch Specimen Urine Organism Antibiotic Method Susceptibility Escherichia coli Ampicillin LAINE <=2 mcg/mL: Irina ceptible Escherichia coli Amoxicillin/Clavulanate LAINE <=2/1 m cg/mL: Susceptible Escherichia coli Amikacin LAINE <=4 mcg/mL: Irina ceptible Escherichia coli Aztreonam LAINE <=1 mcg/mL: Irina ceptible Escherichia coli Ceftazidime LAINE <=0.5 mcg/mL: S usceptible Escherichia coli Ciprofloxacin LAINE <=0.5 mcg/mL: S usceptible Escherichia coli Ceftriaxone LAINE <=0.5 mcg/mL: S usceptible Escherichia coli Cefuroxime Sodium LAINE <=4 mcg/mL: S usceptible Escherichia coli Cefazolin LAINE <=1 mcg/mL: Irina ceptible Escherichia coli Cefepime LAINE <=0.5 mcg/mL: S usceptible Escherichia coli Nitrofurantoin LAINE <=16 mcg/mL: Young sceptible Escherichia coli Cefoxitin LAINE <=4 mcg/mL: Irina ceptible Escherichia coli Gentamicin LAINE <=1 mcg/mL: Irina ceptible Escherichia coli Imipenem LAINE <=0.25 mcg/mL: Susceptible Escherichia coli Levofloxacin LAINE <=1 mcg/mL: Irina ceptible Escherichia coli Meropenem LAINE <=0.125 mcg/mL: Susceptible Escherichia coli Tobramycin LAINE 1 mcg/mL: Susce ptible Escherichia coli Ampicillin/Sulbactam LAINE 2/1 mcg/mL : Susceptible Escherichia coli Trimethoprim/Sulfamethoxazole LAINE < =0.5/9.5 mcg/mL: Susceptible Escherichia coli Tetracycline LAINE <=1 mcg/mL: Irina ceptible Escherichia coli Piperacillin/Tazobactam LAINE <=2/4 m cg/mL: Susceptible Escherichia coli Ertapenem LAINE <=0.125 mcg/mL: Susceptible Escherichia coli Tigecycline LAINE <=0.5 mcg/mL: S usceptible Performing Organization Address City/[facility]/Zipcode Phone Number [facility] DEPARTMENT OF PATHOLOGY AND [address] [place] [address] [phone] [address] Urinalysis screen and microscopy, with reflex to culture (09/26/2019 6:00 AM CDT)Only the most recent of2 resultswithin the time period is included. Specimen site Clean catch [facility] Color, UA Yellow [facility] Appearance, UA Cloudy [facility] Specific gravity, UA 1.006 1.001 - 1.035 [facility] pH, UA 7.0 5.0 - 8.5 [facility] Protein, UA Negative Negative [facility] Glucose, UA Negative Negative [facility] Ketones, UA Negative Negative [facility] Bilirubin, UA Negative Negative [facility] Blood, UA Negative Negative [facility] Nitrite, UA Positive (A) Negative [facility] Urobilinogen, UA <2.0 <2.0 [facility] Leukocyte esterase, Large (A) Negative [facility] Round epithelial 3 (H) 0 - 1 /HPF [facility] cells, HOSPITAL WBC, UA 98 (H) 0 - 4 /HPF [facility] RBC, UA 1 0 - 5 /HPF [facility] Bacteria, UA Many (A) None seen [facility] WBC clumps, UA Few (A) [facility] Yeast, UA Moderate (A) [facility] Yeast with None seen [facility] pseudohyphae, UA HOSPITAL Specimen Urine Performing Organization Address City/[facility]/Zipcode Phone Number [facility] DEPARTMENT OF PATHOLOGY AND [address] [place] [address] [phone] [address] B natriuretic peptide (09/26/2019 4:00 AM CDT) Pathologist Sig nature BNP 82 0 - 100 pg/mL [facility] Specimen Blood Performing Organization Address City/[facility]/Zipcode Phone Number [facility] DEPARTMENT OF PATHOLOGY AND [address] [place] [address] [phone] [address] Magnesium level (09/26/2019 4:00 AM CDT) Pathologist Sig nature Magnesium 1.9 1.6 - 2.4 mg/dL [facility] L Specimen Blood Performing Organization Address City/State/Zipcode Phone Number [facility] DEPARTMENT OF PATHOLOGY AND [address] [place], [place] [address] GENOMIC MEDICINE [facility] [address] [place] [phone] MRI Thoracic Spine Wo Contrast (06/01/2019 10:45 AM TECHNICAL PRODUCT MANAGER) Specimen Narrative Performed At EXAMINATION: MRI THORACIC SPINE WO CON TRAST HM RADIANT CLINICAL HISTORY: thoracic spinal cord compression leg weakness COMPARISON: None. IMAGING DEVICE: 3.0 Emily MR. 3-D reconstructions were processed off-line TECHNIQUE: Multiplanar and multisequence MRI imaging o f the Thoracic spine obtained. CONTRAST: No IV contrast administered. FINDINGS: Exam is limited due to motion artifact PARASPINAL AREA: Limited views shows no evidence of pe rivertebral fluid collections, cystic lesions, masses or l ymphadenopathy. DISCS: Moderate to severe multilevel degenerative disc opathy changes worse at the following levels: *T6-T7: Shows a a 6 x 8 mm (AP by transverse) right young barticular and foraminal disc protrusion *T11-T12: Shows a 5 mm (AP) broad-based central disc protrusion *Less than 3 mm broad-based central bulging noted at t he remaining intervertebral disc levels BONES: Negative for displaced fractures, dislocations or retropulsed bone fragments. Moderate multilevel endplate osteophyt osis and degenerative facet arthropathy worse at the T11-T12 le majo. There is severe stenosis of the vertebral canal a t T11-12 level, within the limitations given by motion artifact , the estimated AP diameter of the thecal sac is 5 mm CORD: The spinal cord appears flattened at the T11-T12 level, within the limitations given by motion artifact there is question able slightly increased cord T2 signal intensity concerning for unde rlying myelopathy contacted at T6-T7 and T9-T10 levels OTHER: Negative. IMPRESSION: 1. Limited exam due to motion artifact 2. 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 Severe stenosis of the vertebral canal at T11-T12 l evel, the spinal cord is contacted and ventrally flattened with questio nable increased intrinsic T2 signal intensity concerning for underlying myelopathy [id number] Procedure Note Hm Interface, Radiology Results Incoming - 06/01/2019 12:14 PM TECHNICAL PRODUCT MANAGER EXAMINATION: MRI THORACIC SPINE WO CONTRAST CLINICAL HISTORY: thoracic spinal cord compression leg weakness COMPARISON: None. IMAGING DEVICE: 3.0 Emily MR. 3-D recons tructions were processed off-line TECHNIQUE: Multiplanar and multisequence MRI imaging of the Thoracic spine obtained. CONTRAST: No IV contrast administered. FINDINGS: Exam is limited due to motion artifact PARASPINAL AREA: Limited views shows no evidence of perivertebral fluid collections, cystic lesions, masses or lymphadenopathy. DISCS: Moderate to severe multilevel deg enerative discopathy changes worse at the following levels: *T6-T7: Shows a a 6 x 8 mm (AP by transv erse) right subarticular and foraminal disc protrusion *T11-T12: Shows a 5 mm (AP) broad-based central disc protrusion *Less than 3 mm broad-based central bulg ing noted at the remaining intervertebral disc levels BONES: Negative for displaced fractures, dislocations or retropulsed bone fragments. Moderate multilevel endplate osteophytosis and degenerative facet arthropathy worse at the T11-T12 level. There is severe stenosis of the vertebral canal at T11-12 level, within the limitations given by m otion artifact, the estimated AP diameter of the thecal sac is 5 mm CORD: The spinal cord appears flattened at the T11-T12 level, within the limitations given by motion artifact there is questionable slightly increased cord T2 signal intensity concerning for underlying myelopathy contacted at T6-T7 and T9-T10 levels OTHER: Negative. IMPRESSION: 1. Limited exam due to motion artifact 2. Moderate multilevel degenerative disc opathy changes and thoracic spondylosis worse at the T6-T7, T9-T10 and T11-T12 intervertebral disc levels 3. Severe stenosis of the vertebral mariposa l at T11-T12 level, the spinal cord is contacted and ventrally flattened with questionable increased intrinsic T2 signal intensity concerning for underlying myelopathy [id number] Performing Organization Address City/State/Zipcode Phone Number [facility] [address] [place] [address] MRI Cervical Spine Wo Contrast (06/01/2019 10:45 AM TECHNICAL PRODUCT MANAGER) Specimen Narrative Performed At This result has an attachment that is no t available. EXAMINATION: MRI CERVICAL SPINE WO CONTRAST RADI[facility] COMPARISON: None CLINICAL HISTORY: neck pain shoulder pain leg we akness COMMENTS: Sagittal and axial MR images of the cervic al spine were obtained. FINDINGS: The images are suboptimal due to motion ar tifact. C3-4 shows mild spondylosis towards the right side. There is asymmetric narrowing of the right-sided foramen due to facet and uncovertebral joint degenerative change. There is mild right-sided facet dis ease and uncovertebral joint degenerative change. There is minimal anterior subluxation of C3 on C4. C4-5 shows mild endplate degenerative ch sayda. There is moderate disc height narrowing. There is mild posterior spondylosis with minimal contact with the cord. There is mild facet and uncovertebral joint degenerative change with neural foramen stenosis slightly greater on the left. C5-6 shows mild spondylosis greater towa rds the left side. There is mild facet and uncovertebral joint degenerative change with neural foramen stenosis greater on the left. There is minimal endplate degenerative change. C6-7 shows mild central spondylosis that is broad-based. There is facet and uncovertebral joint degenerative change with asymmetric narrowing left-sided foramen. The spondylosis has minimal indentation upon the cord. Minimal retrolisthesis of C6 with respect to C7. C7-T1 shows mild facet disease. There is minimal anterior subluxation of C7 on T1. The signal within the cord is intact. IMPRESSION: Multilevel degenerative ch sayda. No cord compression. Suboptimal study due to motion artifact. [id number] Procedure Note Interface, Radiology Results Incoming - 06/01/2019 11:09 AM TECHNICAL PRODUCT MANAGER EXAMINATION: MRI CERVICAL SPINE WO CONTRAST COMPARISON: None CLINICAL HISTORY: neck pain shoulder p ain leg weakness COMMENTS: Sagittal and axial MR images of the cervical spine were obtained. FINDINGS: The images are suboptimal due to motion artifact. C3-4 shows mild spondylosis towards the right side. There is asymmetric narrowing of the right-sided foramen due to facet and uncovertebral joint degenerative change. There is mild right-sided facet disease and uncovertebral joint degenerative change. There is minimal anterior subluxation of C3 on C4. C4-5 shows mild endplate degenerative ch sayda. There is moderate disc height narrowing. There is mild posterior spondylosis with minimal contact with the cord. There is mild facet and uncovertebral joint degenerative change with neural foramen stenosis slightly greater on the left. C5-6 shows mild spondylosis greater towa rds the left side. There is mild facet and uncovertebral joint degenerative change with neural foramen stenosis greater on the left. There is minimal endplate degenerative change. C6-7 shows mild central spondylosis that is broad-based. There is facet and uncovertebral joint degenerative change with asymmetric narrowing left-sided foramen. The spondylosis has minimal indentation upon the cord. Minimal retrolisthesis of C6 with respect to C7. C7-T1 shows mild facet disease. There is minimal anterior subluxation of C7 on T1. The signal within the cord is intact. IMPRESSION: Multilevel degenerative maria teresa nge. No cord compression. Suboptimal study due to motion artifact. [id number] Performing Organization Address City/[facility]/Zipcode Phone Number [address] [address] POC glucose (05/31/2019 9:00 PM TECHNICAL PRODUCT MANAGER)Only the most recent of6 resultswithin the time period is included. POC glucose 126 (H) 65 - 99 mg/dL [facility] Comment: [facility] Clutch Inspector Name: Alejandra Sheikh Device ID: [id number] Chartable: [facility] Notified RN Specimen Performing Organization Address City/[facility] Centercode Phone Number [facility] DEPARTMENT OF PATHOLOGY AND [address] [place] [phone] GENOMIC MEDICINE [address] [address] Urine drugs of abuse screen (05/30/2019 10:10 PM TECHNICAL PRODUCT MANAGER) Pathologist [facility] Amphetamine screen, Negative [place] urine [facility] Barbiturate screen, Negative [place] urine [facility] Benzodiazepine Negative [place] screen, urine [facility] Cocaine screen, urine Negative [facility] Methadone metabolite Negative [place] (EDDP), urine [facility] Opiates screen, urine Positive (A) [facility] Oxycodone screen, Negative [place] urine [facility] Phencyclidine screen, Negative [place] urine [facility] Tricyclic screen, Negative [place] urine [facility] Cannabinoid screen, Negative [place] urine Comment: [place] Drug screen minimum concentration of detectability [facility] Amphetamines 1000 ng/mL Barbiturates 200 ng/mL Benzodiazepines 300 ng/mL Cocaine 300 ng/mL Methadone 300 ng/mL Opiates 300 ng/mL Oxycodone 300 ng/mL Phencyclidine 25 ng/mL Cannabinoids 50 ng/mL Tricyclics 1000 ng/mL Results are from screening tests and should only be used for medical evaluation. Drug testing for legal purposes requires definitive (or confirmatory) testing methods, which are available upon request. Contact the laboratory if definitive testing is requir ed. Specimen Urine Performing Organization Address City/[facility] Centercode Phone Number [facility] DEPARTMENT OF PATHOLOGY AND [address] [place] [address] 0 [facility] [address] [place] [phone] Urinalysis, automated with microscopy (05/30/2019 10:10 PM TECHNICAL PRODUCT MANAGER) Pathologist Sig nature Color, UA Yellow [facility] Appearance, UA Hazy [facility] Specific gravity, UA 1.010 1.001 - 1.035 [facility] pH, UA 6.0 5.0 - 8.5 [facility] Protein, UA Negative Negative [facility] Glucose, UA Negative Negative [facility] Ketones, UA Negative Negative [facility] Bilirubin, UA Negative Negative [facility] Blood, UA Negative Negative [facility] Nitrite, UA Negative Negative [facility] Urobilinogen, UA <2.0 <2.0 [facility] Leukocyte esterase, Large (A) Negative [facility] Epithelial cells, UA 1 /HPF [facility] WBC, UA 68 (H) 0 - 4 /HPF [facility] RBC, UA 1 0 - 5 /HPF [facility] Bacteria, UA None seen None seen [facility] WBC clumps, UA Few (A) [facility] Yeast, UA None seen [facility] Yeast with None seen [facility] pseudohyphae, [facility] Specimen Urine Performing Organization Address City/[facility]/Zipcode Phone Number [facility] DEPARTMENT OF PATHOLOGY AND [address] [place] [address] [address] EMG General Request (05/30/2019 4:30 PM TECHNICAL PRODUCT MANAGER) Narrative Performed At This result has an attachment that is no t available. Electromyogram and NCS Report [facility] Neurological [place] [address] [id number] T: [phone], F: [phone] Patient: Rhea Mas Physician: Elisabeth Ortega MD Sex: Female Test Date: 05/30/19 Age: 83 Height: 60 inches Weight: 145 lbs Ref. M.D.: Domingo Parry MD Date 1935 History/Comments: This is an 83 y/o F in the [facility] lab for evaluation of p rogressive LE weakness which has worsened lately. Per patient she bautista s been unsteady for years and has sustained multiple falls. On exam UE 4+/ 5, LE 4/5, DTR absent. Temp: RUE:32.8 RLE:29.4 LLE:30.1 Motor Nerve Study Right Median Nerve Rec Site: APB Lat (ms) Amp (mV) Dist (mm) C.V. (m/s) STIM SITE Wrist 5.2 1.8 65 Elbow 9.3 1.7 190 46.5 Right Ulnar Nerve Rec Site: ADM Lat (ms) Amp (mV) Dist (mm) C.V. (m/s) STIM SITE Wrist 3.2 9.0 65 B.Elbow 5.8 8.4 135 52.3 A.Elbow 7.6 8.2 100 52.5 Peroneal Nerve Rec Site: EDB Lat (ms) Amp (mV) Dist (mm) C.V. (m/s) STIM SITE L R L R L R L R Ankle NR NR 70 70 Tibial Nerve Rec Site: AH Lat (ms) Amp (mV) Dist (mm) C.V. (m/s) STIM SITE L R L R L R L R Ankle NR NR 90 90 Peron@TA Nerve Rec Site: Tibialis Ant Lat (ms) Amp (mV) Dist (mm) C.V . (m/s) STIM SITE L R L R L R L R Fib.Head 3.4 3.0 3.4 2.4 100 100 Pop.Fos. 5.0 4.8 2.9 2.4 67 80 42.3 43.6 Sensory Nerve Study Right Median Nerve Rec Site: Wrist Pk Lat (ms) Amp (uV) STIM SITE ssThumb NR NR Sensory Nerve Study Right Ulnar Nerve Rec Site: Wrist Pk Lat (ms) Amp (uV) STIM SITE 5th dig NR NR Right Radial Nerve Rec Site: Wrist Pk Lat (ms) Amp (uV) STIM SITE Index 2.8 16.3 Sural Nerve Rec Site: Ankle Pk Lat (ms) Amp (uV) STIM SITE L R L R mid calf NR NR NR NR Superperon Nerve Rec Site: Ankle Pk Lat (ms) Amp (uV) STIM SITE L R L R Lower leg NR NR NR NR F-Wave Study Right Median Nerve Rec Site: APB Latency Stim Site: Wrist ms F wave NR Right Ulnar Nerve Rec Site: ADM Latency Stim Site: Wrist ms F wave 30.42 Peroneal Nerve Rec Site: EDB Latency Stim Site: Ankle ms L R F wave NR NR Tibial Nerve Rec Site: AH Latency Stim Site: Ankle ms L R F wave NR NR H Reflex Study Tibial Nerve Rec Site: Soleus Latency Stim Site: Pop.Fos. ms L R H wave NR NR EMG Study Name Ins Act Fibs PSW Fascics Polyph MU Amp MU Dur Config Pattern Recruit TEXT R. Deltoid norm none none none inc 1+ norm norm poly norm -1 R. Biceps Brac norm none none none inc 1+ norm inc 1 + poly norm -2 CRDs R. Triceps norm none none none inc 1+ norm norm poly norm -1 R. Brachioradi norm none none none inc 1+ inc 1+ inc 2+ poly norm -3 R. First DI norm none none none inc 1+ inc 1+ inc 2+ poly norm -3 R. Vastus Lat. norm none none none none norm norm po ly norm norm R. Adductor Ln norm none none none inc 1+ norm norm poly norm norm R. Tibialis An norm none none none inc 1+ norm inc 1 + poly norm -[address] norm none none none inc 1+ norm norm poly norm -3 Ankle fusion R. Gastroc.Med inc+ 2+ 3+ none none Ankle fu jon L. Tibialis An norm none none none inc 1+ inc 2+ inc 2+ poly norm -3 L. Gastroc.Med inc+ 2+ 3+ none none norm norm poly n orm -4 Nerve conduction study: 1. Prolonged distal latency, reduced amplitude and slo wing conduction velocity in right median motor response. 2. Normal distal latency, amplitude and conduction majo ocity in right ulnar and left peroneal (TA) motor responses. 3. Absent bilateral peroneal (EDB) and TA motor respon ses. 4. Normal distal latency, reduced amplitude and normal conduction velocity in right peroneal (TA) motor response. 5. Normal peak latency and amplitude in right radial s ensory response. 6. Absent right median, ulnar, bilateral sural and sup erficial peroneal sensory responses. 7. F-waves: Normal in right ulnar nerve. Absent in rig ht median, bilateral peroneal and tibial nerves. 8. H-reflex: Absent bilaterally. Electromyography: Using a sterile monopolar needle intramuscular recordi ngs were evaluated in the RUE & RLE. There is increased insertional activ ity/ fibrillations/ positive sharp waves in bilateral gastrocnemius sugges tive of active denervation. There were polyphasic/ normal-large ampli tude/ long duration motor units with reduced recruitment in all the right UE muscles, right peroneus longus, bilateral TA and left gastrocnemius s uggestive of chronic denervation. There were runs of CRDs in right biceps s uggestive of chronic denervation. Impression: Abnormal EMG/NCS 1. 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 2. Additionally, a chronic active bilateral S1 radicul opathy. 3. 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 4. A diffuse polyradiculopathy cannot be excluded. 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 Diffuse franc yradiculopathy can be caused by sarcoidosis, infections (Eg: WNV, TB, CMV ), arachnoiditis, leptomeningeal disease, post-polio syndrome or inflamm atory polyradiculoneuropathy (CIDP/AIDP), structural (multil evel spondylosis, imaging of C & T spine). Use of wrist splints if possible for carpal tunnel syn drome. Natalia Ortega MD Manager [employer] in Clinical neurology Adjunct Manager [employer] [facility] ine Neurology, Neuromuscular Medicine, Electrodiagnostic m edicine [address] [facility], [facility], Justin Pino Department of Neurology [facility] Neurological [place], [facility], [place] [address] Office: [phone] MRI Lumbar Spine Wo Contrast (05/30/2019 2:09 PM TECHNICAL PRODUCT MANAGER) Specimen Narrative Performed At This result has an attachment that is no t available. EXAMINATION: MRI LUMBAR SPINE WO CONTRAST HM RADIANT CLINICAL HISTORY: BLE weakness r o cord compression Pacemaker MRI conditional pt has paperwork COMPARISON: None TECHNIQUE: Multiplanar multisequence non enhanced MRI examination was performed of the Lumbar spine. FINDINGS: There are 5 non-rib bearing lumbar type vertebrae. Acute fracture of the S4 vertebral body without signif icant displacement. Degenerative 6 mm anterolisthesis of L4 on L5 and L5-S1, with severe facet arthropathy and degenerative disc disease at these levels. Severe degenerative disc disease is also present at T10-L3 with Schmorl's nodes, severe disc height loss, endplate osteophytes. There are Modic type II end plate changes at T12-L1 and L2-3 as well as Modic type I endplate change at T10-11. Conus medullaris terminates at the level of L1-L2. There is severe spinal canal stenosis at T10-11 secondary to endplate osteophytes, disc bulge, facet arthropathy, with evidence of spinal cord compression in elevated T2 signal the spinal cord.. Evaluation of the visualized soft tissue s demonstrates no mass, adenopathy or aneurysm. Axial images through the disc spaces demonstrate the f ollowing: L1-L2: Small disc bulge and endplate ost eophytes and mild facet arthropathy contributes to mild to moderate left and mild right subarticular zone stenosis as well as moderate left and severe right neural foraminal stenosis. L2-L3: Small disc bulge and endplate ost eophytes as well as mild facet arthropathy ligament flavum infolding contributes to moderate to severe bilateral subarticular zone stenosis, with contact and possible compression of the traversing bilateral L3 nerve roots. There is mild spinal canal stenosis. There is severe bilateral neural frontal stenosis with evidence of compression of the exiting L2 nerve roots. L3-L4: Prominence of dorsal epidural fat , moderate facet arthropathy with small facet joint effusions, and small disc bulge with endplate osteophytes contributes to moderate bilateral neural foraminal s tenosis as well as mild to moderate left and mild right subarticular zone stenosis and mild spinal canal stenosis. L4-L5: Severe facet arthropathy with deg enerative grade 1 anterolisthesis contributes to severe spinal canal, subarticular zone, and bilateral neural foraminal stenosis, with compression of the traversing and exiting nerve roots. L5-S1: Severe facet arthropathy with deg enerative grade 1 anterolisthesis contributes to severe spinal canal, subarticular zone, and bilateral neural foraminal stenosis, with compression of the traversing and exiting nerve roots. IMPRESSION: 1. Severe spinal canal stenosis at T10-1 1 secondary to disc bulge, endplate osteophytes, and facet arthropathy, partially imaged. There is compression of the spinal cord with elevated T2 signal, which may represent edema or myelomalacia. Recommend dedicated MRI of the thoracic spine for further assess ment. 2. Multilevel severe degenerative change s of the lumbar spine, most notably at L4-5 and L5-S1 as detailed above. 3. Acute fracture of the S4 vertebral body without sig nificant displacement. Findings were discussed with and acknowl edged by ANGELIKA Watson at 05/30/2019 4:18 PM who verbalized understanding. [id number] Procedure Note Hm Interface, Radiology Results Incoming - 05/30/2019 4:22 PM TECHNICAL PRODUCT MANAGER EXAMINATION: MRI LUMBAR SPINE WO CONTRAST CLINICAL HISTORY: BLE weakness r o cord compression Pacemaker MRI conditional pt has paperwork COMPARISON: None TECHNIQUE: Multiplanar multisequence non enhanced MRI examination was performed of the Lumbar spine. FINDINGS: There are 5 non-rib bearing lumbar type vertebrae. Acute fracture of the S4 vertebral body without significant displacement. Degenerative 6 mm anterolisthesis of L4 on L5 and L5-S1, with severe facet arthropathy and degenerative disc disease at these levels. Severe degenerative disc disease is also present at T10-L3 with Schmorl's nodes, severe disc height loss, endplate osteophytes. There are Modic type II end plate changes at T12-L1 and L2-3 as well as Modic type I endplate change at T10-11. Conus medullaris terminates at the level of L1-L2. There is severe spinal canal stenosis at T10-11 secondary to endplate osteophytes, disc bulge, facet arthropathy, with evidence of spinal cord compression in elevated T2 signal the spinal cord.. Evaluation of the visualized soft tissue s demonstrates no mass, adenopathy or aneurysm. Axial images through the disc spaces dem onstrate the following: L1-L2: Small disc bulge and endplate ost eophytes and mild facet arthropathy contributes to mild to moderate left and mild right subarticular zone stenosis as well as moderate left and severe right neural foraminal stenosis. L2-L3: Small disc bulge and endplate ost eophytes as well as mild facet arthropathy ligament flavum infolding contributes to moderate to severe bilateral subarticular zone stenosis, with contact and possible compression of the traversing bilateral L3 nerve roots. There is mild spinal canal stenosis. There is severe bilateral neural frontal stenosis with evidence of compression of the exiting L2 nerve roots. L3-L4: Prominence of dorsal epidural fat , moderate facet arthropathy with small facet joint effusions, and small disc bulge with endplate osteophytes contributes to moderate bilateral neural foraminal stenosis as well as mild to moderate left and mild right subarticular zone stenosis and mil d spinal canal stenosis. L4-L5: Severe facet arthropathy with deg enerative grade 1 anterolisthesis contributes to severe spinal canal, subarticular zone, and bilateral neural foraminal stenosis, with compression of the traversing and exiting nerve roots. L5-S1: Severe facet arthropathy with deg enerative grade 1 anterolisthesis contributes to severe spinal canal, subarticular zone, and bilateral neural foraminal stenosis, with compression of the traversing and exiting nerve roots. IMPRESSION: 1. Severe spinal canal stenosis at T10-1 1 secondary to disc bulge, endplate osteophytes, and facet arthropathy, partially imaged. There is compression of the spinal cord with elevated T2 signal, which may represent edema or myelomalacia. Recommend dedicated MRI of the thoracic spine for further assessment. 2. Multilevel severe degenerative change s of the lumbar spine, most notably at L4-5 and L5-S1 as detailed above. 3. Acute fracture of the S4 vertebral mj dy without significant displacement. Findings were discussed with and acknowl edged by ANGELIKA Watson at 05/30/2019 4:18 PM who verbalized understanding. [id number] Performing Organization Address City/State/Zipcode Phone Number [facility] [address] [place] [address] MRI Brain Wo Contrast (05/30/2019 2:09 PM TECHNICAL PRODUCT MANAGER) Specimen Narrative Performed At EXAMINATION: MRI BRAIN WO CONTRAST AMEE CLINICAL HISTORY: Stroke follow up COMPARISON: CT brain dated 07/25/2017. FINDINGS: Noncontrast MRI of the brain i s interpreted. Diffusion imaging demonstrates no abnorm al restricted diffusion. Minimal chronic small vessel ischemic changes are note d in the cerebral white matter. Moderate involutional edwards ges of the brain are present. No extra-axial collection or mass effect is seen. No hemorrhage is identified. IMPRESSION: No evidence of recent infarct or other acute intracran ial abnormality is seen. [id number] Procedure Note Interface, Radiology Results Incoming - 05/30/2019 3:35 PM TECHNICAL PRODUCT MANAGER EXAMINATION: MRI BRAIN WO CONTRAST CLINICAL HISTORY: Stroke follow up COMPARISON: CT brain dated 07/25/2017. FINDINGS: Noncontrast MRI of the brain i s interpreted. Diffusion imaging demonstrates no abnorm al restricted diffusion. Minimal chronic small vessel ischemic ch anges are noted in the cerebral white matter. Moderate involutional changes of the brain are present. No extra-axial collection or mass effect is seen. No hemorrhage is identified. IMPRESSION: No evidence of recent infarct or other a cute intracranial abnormality is seen. [id number] Performing Organization Address [facility] Centercoal Phone Number [facility] [address] [place] [address] XR Chest 2 Vw (05/30/2019 11:00 AM TECHNICAL PRODUCT MANAGER) Specimen Narrative Performed At EXAMINATION: XR CHEST 2 VW RADIANT CLINICAL HISTORY: Z95.0 Presence of cardiac pacemake r, CHECK PACEMAKER FOR ABANDON BROKEN OR DETACHED LEADS COMPARISON: 12/06/2017 IMPRESSION: 1.Lungs are clear. 2.Normal heart size. Aorta is atheroscle rotic. Left chest pacing device. 3.Degenerative changes in the spine. [id number] Procedure Note Interface, Radiology Results Incoming - 05/30/2019 11:14 AM TECHNICAL PRODUCT MANAGER EXAMINATION: XR CHEST 2 VW CLINICAL HISTORY: Z95.0 Presence of car diac pacemaker, CHECK PACEMAKER FOR ABANDON BROKEN OR DETACHED LEADS COMPARISON: 12/06/2017 IMPRESSION: 1.Lungs are clear. 2.Normal heart size. Aorta is atheroscle rotic. Left chest pacing device. 3.Degenerative changes in the spine. [id number] Performing Organization Address [facility] Centercoal Phone Number [facility] [address] [place] [address] MAG antibody titer IgM by IFA (05/30/2019 9:55 AM TECHNICAL PRODUCT MANAGER) Pathologist Sig nature MAG IgM 0 0 - 999 [facility] Comment: INTERPRETIVE INFORMATION: MAG Antibody, IgM ZONIA An elevated IgM antibody concentration greater than 99 9 TU against myelin-associated glycoprotein (MAG) suggests active d emyelination in peripheral neuropathy. A normal concentration (less than 999 TU) generally rules out an anti-MAG antibody-associate d peripheral neuropathy. TU=Titer Units Test developed and characteristics determined by [facility]. See Compliance Statement D: [employer]/ Performed by [facility], [address] [place] [address] [email or web address], Jaxon Garcia MD, Lab. Director Specimen Serum Performing Organization Address [facility] Centercode Phone Number [facility] [address] [place] [address] [facility] [address] [place] [phone] Serum electrophoresis (05/30/2019 9:55 AM TECHNICAL PRODUCT MANAGER) Protein 6.9 6.3 - 8.3 [facility] Comment: g/dL [facility] Exlrpho3732.6-7.0 g/dL 1 nocq6636.4-7.6 g/dL 7 months-0olpg156.1-7.3 g/dL 1-2 uyaol615.6-7.5 g/dL >3 aroco115.0-8.0 g/dL 18-5738122.3-8.3 g/dL SPE albumin 4.16 4.00 - 5.30 [facility] g/dL [facility] SPE alpha 1 0.22 0.10 - 0.25 [facility] g/dL [facility] SPE alpha 2 0.73 0.58 - 0.84 [facility] g/dL [facility] SPE beta 0.75 0.50 - 1.10 [facility] g/dL [facility] SPE gamma 1.04 0.60 - 1.30 [facility] g/dL [facility] SPE extended See [facility] interpretation CommentComment: HOSPITAL A normal serum protein study.1 SPE interpretation See [facility] CommentComment: [facility] mor Jimenes MD, PhD.; Jenelle Mckinley, PhD.; Jonathan Plummer MD. Specimen Serum Performing Organization Address City/[facility]/Zipcode Phone Number [facility] DEPARTMENT OF PATHOLOGY AND [address] [place] [phone] GENOMIC MED[address] [address] Syphilis total antibody (05/30/2019 1:50 AM TECHNICAL PRODUCT MANAGER) Syphilis total Non-reactiveComment Non-reactive [facility] antibody : No serological HOSPITAL evidence of syphilis infection. Specimen Serum Narrative Performed At [facility]ED [facility] E[facility] OF PATHOLOGY AND [address] 05/30/2019 03:54 Performing Organization Address City/[facility] Centercode Phone Number [facility] DEPARTMENT OF PATHOLOGY AND [address] [place] [address] [phone] [address] HIV Ag/Ab combination (05/30/2019 1:50 AM TECHNICAL PRODUCT MANAGER) Pathologist [facility] HIV Ag/Ab combination Non-reactive Non-reactive [facility] Specimen Blood Narrative Performed At [facility]ED [facility] OF PATHOLOGY AND [address] 05/30/2019 03:54 Performing Organization Address [facility] Centercode Phone Number [facility] DEPARTMENT OF PATHOLOGY AND [address] [place] [address] [address] Homocystine, plasma (05/30/2019 1:50 AM TECHNICAL PRODUCT MANAGER) [facility] Homocysteine Footnote 0.0 - 15.0 [facility] Comment: umol/L HOSPITAL The risk for coronary vascular disease increases progr essively with homocysteine concentration. A 3.4 times greater risk is associated with a homocysteine concentration of greate r than 15.8 umol/L as compared to a concentration below 14.1 umol/L. Specimen Plasma specimen Performing Organization Address [facility] Phone Number [facility] DEPARTMENT OF PATHOLOGY AND [address] [place] [phone] Vitamin D 1,25 dihydroxy level, serum (05/30/2019 1:50 AM TECHNICAL PRODUCT MANAGER) [facility] Vit D, 51.44 18.00 - [place] 1,25-Dihydroxy Comment: 78.00 pg/mL SIKHISM This test was developed and its performance paddy acteristics determined by HOSPITAL the Department of Pathology and Genomic Medicine, [facility]. Serum 1,25 Dihydroxy Vitamin D is tested by LC-MS/MS. It has not been cleared or approved by FDA. The laboratory is reg ulated under CLIA as qualified to perform high-complexity testing. This hossein t is used for clinical purposes. It should not be regarded as investigational or for research. Specimen Blood Narrative Performed At CALLED HEMOLYZED [facility] RECOLLECT TO [facility] SURGERY ENT OF PATHOLOGY AND [address] 05/30/2019 03:54 Performing Organization Address [facility] Phone Number [facility] DEPARTMENT OF PATHOLOGY AND [address] [place] [phone] Sedimentation rate (05/30/2019 1:50 AM TECHNICAL PRODUCT MANAGER) Pathologist Sig nature Sedimentation rate 11 0 - 20 mm/hr [facility] Specimen Blood Performing Organization Address [facility] Phone Number [facility] DEPARTMENT OF PATHOLOGY AND [address] [place] [phone] Rheumatoid factor (05/30/2019 1:50 AM TECHNICAL PRODUCT MANAGER) Pathologist Sig nature Rheumatoid factor <10 0 - 13 IU/mL [facility] Specimen Plasma specimen Performing Organization Address [facility] Phone Number [facility] DEPARTMENT OF PATHOLOGY AND [address] [place] [phone] C-reactive protein (05/30/2019 1:50 AM TECHNICAL PRODUCT MANAGER) Pathologist Sig nature CRP 0.69 (H) 0.00 - 0.50 mg/dL [facility] Specimen Plasma specimen Performing Organization Address [facility] Phone Number [facility] DEPARTMENT OF PATHOLOGY AND [address] [place] [phone] ANGELICA (05/30/2019 1:50 AM TECHNICAL PRODUCT MANAGER) ANGELICA screen Negative Negative [facility] Comment: HOSPITAL Test performed using [employer] Lite DAPI ANGELICA kit (Indirect Immunofluorescence Assay) for Anti-Nuclear Antibody on [employer] 160 Analyzer. Specimen Blood Narrative Performed At CALLED [facility] RECOLLECT TO [facility] ENT OF PATHOLOGY AND [address] 05/30/2019 03:54 Performing Organization Address City/State/Zipcode Phone Number [facility] DEPARTMENT OF PATHOLOGY AND [address] [place] [address] [phone] [address] T3 (05/30/2019 1:50 AM TECHNICAL PRODUCT MANAGER) Pathologist Sig nature T3 73 (L) 80 - 200 ng/dL [facility] Specimen Plasma specimen Narrative Performed At [facility] DEPART ENT OF PATHOLOGY AND [address] 05/30/2019 03:54 Performing Organization Address City/State/Zipcode Phone Number [facility] DEPARTMENT OF PATHOLOGY AND [address] [place] [address] [phone] [address] Thyroid stimulating hormone (05/30/2019 1:50 AM TECHNICAL PRODUCT MANAGER) Pathologist Sig nature TSH 5.22 (H) 0.27 - 4.20 uIU/mL [facility] Specimen Plasma specimen Narrative Performed At [facility] DEPART ENT OF PATHOLOGY AND [address] 05/30/2019 03:54 Performing Organization Address City/[facility]/Zipcode Phone Number [facility] DEPARTMENT OF PATHOLOGY AND [address] [place] [address] [phone] [address] T4, free (05/30/2019 1:50 AM TECHNICAL PRODUCT MANAGER) Pathologist Sig [facility] T4, free 0.9 0.9 - 1.7 ng/dL [facility] Specimen Plasma specimen Narrative Performed At [facility] ENT OF PATHOLOGY AND [address] 05/30/2019 03:54 Performing Organization Address City/[facility]/Zipcode Phone Number [facility] DEPARTMENT OF PATHOLOGY AND [address] [place] [address] [phone] [address] Folate level (05/30/2019 1:50 AM TECHNICAL PRODUCT MANAGER) Pathologist Sig nature Folate >20.0 4.8 - 24.2 ng/mL [facility] Specimen Serum Narrative Performed At [facility] ENT OF PATHOLOGY AND [address] 05/30/2019 03:54 Performing Organization Address City/[facility] Phone Number [facility] DEPARTMENT OF PATHOLOGY AND [address] [place] [address] [place] [phone] Vitamin B12 level (05/30/2019 1:50 AM TECHNICAL PRODUCT MANAGER) Vitamin B12 1,066 (H) 211 - 946 [facility] Comment: pg/mL HOSPITAL Significant overlap exists between normal and deficien cy states. However, most patients with deficiencies will have Ser um B12 <200 pg/mL. Specimen Serum Narrative Performed At CALLED [facility]ED [facility] RECOLLECT TO [facility] ENT OF PATHOLOGY AND [address] 05/30/2019 03:54 Performing Organization Address [facility] Phone Number [facility] DEPARTMENT OF PATHOLOGY AND [address] [place] [phone] Cortisol level, random (05/30/2019 1:50 AM TECHNICAL PRODUCT MANAGER) Cortisol, random 4 ug/dL [facility] Comment: HOSPITAL Reference Ranges are not established for non-timed Cor tisol levels. Reference Range for Timed Cortisol: 6 - 10 AM 6 - 18 ug/d l 4 - 8 PM 3 - 11 ug/ dl Specimen Plasma specimen Narrative Performed At CALLED [facility]ED [facility] RECOLLECT TO [facility] ENT OF PATHOLOGY AND [address] 05/30/2019 03:54 Performing Organization Address [facility] Phone Number [facility] DEPARTMENT OF PATHOLOGY AND [address] [place] [phone] [place] [phone] ECG ED Preliminary Interpretation - Not an Order (05/29/2019 2:14 PM TECHNICAL PRODUCT MANAGER) Narrative Performed At Pito Riley MD 05/30/2019 4:23 PM ECG ED Preliminary Interpretation - Not an Order Performed by: Pito Riley MD Authorized by: Pito Riley MD ECG reviewed by ED Physician in the abse nce of a land clearer: yes Interpretation: Interpretation: abnormal Rate: ECG rate: 71 Rhythm: Rhythm: sinus rhythm Ectopy: Ectopy: none QRS: QRS axis: Normal QRS intervals: Normal Conduction: Conduction: abnormal Abnormal conduction: complete RBBB T waves: T waves: inverted Inverted: AVL after 10/03/2018 Insurance Payer Benefit Plan / Subscriber ID Effective Dates Phone Addre ss Type Group MEDICARE MEDICARE PART A xxxxxxxxxxx 2002-Present [place] Medicare AND B BCBS BCBS PAR/TRAD xxxxxxxxxxxx 2016-Present Indemnity PLAN Advance Directives For more information, please contact: [phone] Type Date Recorded Patient Wool Brusher Explanati on Advance Directives, Living Will 07/05/2017 10:12 AM and 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
--- OUTSIDE RECORDS SUMMARY | 2019-10-04 18:43 | XMS REPORT | Continuity of Care Document ---
:1935 Author Organization [facility] t Address [address] [place] [address] Care Team Providers Name Role Phone Jaylin SERNA, Lee Primary Care Physician Morelia SERNA Attending Clinician Leonor SERNA Attending Clinician Gilles SERNA Attending Clinician Gregory SERNA, Marcos. Attending Clinician Martin SENRA, Larry Attending Clinician Donna Phillips NP Attending Clinician Lee Mosqueda MD Attending Clinician Hayden MERCHANDISE BUYER, K Attending Clinician Unavailable Vick Fay PT Attending Clinician Unavailable Ramon Riley MD Attending Clinician Jovon Covington DO Attending Clinician MORELIA Admitting Clinician Unavailable NADYA Admitting Clinician Unavailable Payers Payer Name Policy Policy Number Effective Expiration Source Type Date Date MEDICAREMEDICARE PART xxxxxxxxxxx 2002 Jeremiah Howard AND 00:00:00 [facility] Bxxxxxxxxxxx2002- [facility] [place] BCBSBCBS PAR/TRAD xxxxxxxxxxxx 2016 [place] PLANxxxxxxxxxxxx/04/19 00:00:00 Met cony 017-PresentIndemnity Problems Condition Condition Condition Status Onset Resolution Last Treating Co mments Source Name Details Category Date Date Treatment Clinician Date Lumbar Lumbar Disease Active [place] stenosis stenosis 09-24 Method i 00:00: st 00 Atrial Atrial Disease Active [place] fibrillati fibrillati 09-22 Me thodi on, on, 00:00: st persistent persistent 00 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 12-06 Methodi 00:00: st 00 Allergies, Adverse Reactions, Alerts Allergy Allergy Status Severity Reaction(s) Onset Inactive Treating Comm ents Source Name Type Date Date Clinician Meperidi Propensi Active Hallucinatio [place] ne ty to ns 09-26 Methodi adverse 00:00: st reaction 00 s to drug Povidone Propensi Active Other (See Topical [place] -Iodine ty to Comments) 09-21 Iodine Method i adverse 00:00: and st reaction 00 betadine s to cause her drug skin peel.Rachell ent states she is NOT allergic to the IV Iodine Iodine Propensi Active Rash Topical [place] ty to 12-06 Iodine Methodi adverse 00:00: and st reaction 00 betadine s to cause her drug skin peel.Rachell ent states she is NOT allergic to the IV Iodine Aspirin Propensi Active Tinnitus Severe [place] ty to 10-31 ringing Methodi adverse 00:00: in ears st reaction 00 and can s to not hear drug anything Levoflox Propensi Active Rash Red itchy [place] st[place] acin ty to 10-31 rash all Methodi adverse 00:00: over the st reaction 00 body s to drug Tramadol Propensi Active Other (See Hallucina [place] ty to Comments) 10-31 tions Methodi adverse 00:00: st reaction 00 s to drug aspirin DA Active [facility] 08-30 [place] [facility] soap DA [facility] 08[facility] [facility] povidone DA Active [facility] -iodine 5-15 [place] 00:00[facility] levoflox DA Active [facility] acin 5-15 [place] 00:00[facility] Social History Social Habit Start Date Stop Date Quantity Comments [facility] Binge Sex Assigned At [place] M ethodist Exposure to Not sure [place] Metho dist SARS-CoV-2 (event) Alcohol intake 2019-10-01 2019-10-01 Current [place] Me thodist 00:00:00 00:00:00 non-drinker of alcohol (finding) History SDOH 2018-07-17 2018-07-17 1 [place] Meth odist Alcohol Frequency 00:00:00 00:00:00 Smoking Status Start Date Stop Date Source Never smoker [place] Methodis t Medications Ordered Filled Start Stop Current Ordering Indication Dosage Frequency Signature Comments Components Source Medication Medication Date Date Medication? Clinician (SIG) Name Name DULoxetine 2019-0 Yes 60mg Q.5D Take 60 mg [place] (CYMBALTA) 6-18 by mouth 2 Met hodi 60 MG 16:28: (two) st capsule 01 times a day. gabapentin 2020-0 Yes 800mg Q.[id number] Take 800 [place] (NEURONTIN) 6-18 [id number] mg by M ethodi 800 mg 16:28: 3D mouth 3 st tablet 01 (three) times a day. thyroid, 2020-0 Yes 60mg QD Take 60 mg [place] pork, 6-18 by mouth Methodi (ARMOUR 16:28: daily. st THYROID) 60 01 mg tablet montelukast 2020-0 Yes 10mg QD Take 10 mg [place] (SINGULAIR) 6-18 by mouth Meth michael 10 mg 16:28: nightly. st tablet 01 rosuvastati 2020-0 Yes 10mg QD Take 10 mg [place] n (CRESTOR) 6-18 by mouth Meth michael 10 MG 16:28: nightly. st tablet 01 spironolact 2020-0 Yes 25mg QD Take 25 mg [place] one 6-18 by mouth Methodi (ALDACTONE) 16:28: daily. st 25 MG 01 tablet losartan 2020-0 Yes 25mg Q24H Take 25 mg [place] (COZAAR) 25 6-18 by mouth Meth michael MG tablet 16:28: daily as st 01 needed (SBP>140). SBP > 140 apixaban 2020-0 Yes 5mg Q.5D Take 5 mg [place] (ELIQUIS) 5 6-18 by mouth 2 Me thodi mg tablet 16:28: (two) st 01 times a day. carvediloL 2020-0 Yes 3.125mg Q.5D Take 3.125 [place] (COREG) 6-18 mg by Methodi 3.125 MG 16:28: mouth 2 st tablet 01 (two) times a day with meals. furosemide 2019-0 Yes 80mg QD Take 80 mg [place] (LASIX) 40 6-18 by mouth Metho di mg tablet 16:28: daily. st 01 immun glob 2019-0 Yes 1{syrin Q7D Inject 1 [place] G,IgG,/pro/ 6-18 ge} Syringe Metho di IgA 0-50 16:28: under the st (HIZENTRA 01 skin once SUBQ) a week. Home infusion on tuesdays at 3pm sennosides- 2019-0 2020- Yes 2{tbl} QD Take 2 [place] docusate 6-18 07-18 tablets by Meth michael sodium 00:00: 23:[address] (SENOKOT-S) 00 :00 nightly 8.6-50 mg for 30 per tablet days. acetaminoph 2019-0 2020- Yes acute pain 1{tbl} Q4H Take 1 [place] en-codeine 6-18 06-25 tablet by Met guerin (TYLENOL 00:00: 23:[address] WITH 00 :00 every 4 CODEINE #3) (four) 300-30 mg hours as per tablet needed for moderate pain for up to 7 days .acute pain. methocarbam 2019-0 2020- No 500mg Q.25D Take 1 [place] ol 2-15 03-16 tablet Methodi (ROBAXIN) 00:00: 23:59 ([address] 500 MG 00 :00 total) by tablet mouth 4 (four) times a day for 30 days. furosemide 2019-0 2020- No 40mg Q.5D Take 40 mg [place] (LASIX) 40 2-11 02-11 by mouth 2 Me thodi mg tablet 20:50: 00:00 (two) st 05 :00 times a day. carvedilol 2019- No 12.5mg Q.5D Take 12.5 [place] (COREG) 2-11 02-11 mg by Methodi 12.5 MG 20:49: 00:[address] tablet 13 :00 (two) times a day with meals. amIODarone 2019- No 200mg QD Take 200 [place] (PACERONE) 2-11 02-11 mg by Methodi 200 MG 20:48: 00:[address] tablet 52 :00 nightly. alum-mag 2018- No 30mL Q.25D Take 30 mL [place] hydroxide-s 09-23-08 by mouth 4 M ethodi imeth 00:00: 23:59 (four) st (MAALOX 00 :00 times a PLUS) day before 200-200-20 meals and mg/5 mL nightly suspension for 30 days. colchicine 2019- No .3mg Q.5D Take 0.5 [place] 0.6 mg 09-23-08 tablets Methodi tablet 00:00: 23:59 (0.[address] 00 :00 total) by mouth 2 (two) times a day for 30 days. pantoprazol 2018- No 40mg Q.5D Take 1 Amy [place]on e 09-23-08 tablet (40 Methodi (PROTONIX) 00:00: 23:59 mg total) s t 40 MG EC 00 :00 by mouth 2 tablet (two) times a day for 30 days. Vital Signs Vital Name Observation Time Observation Value Comments Source Systolic blood 2019-10-04 11:49:01 142 mm[Hg] Rony n [facility] pressure Diastolic blood 2019-10-04 11:49:01 73 mm[Hg] [place] on [facility] pressure Heart rate 2019-10-04 11:49:01 69 /min Ander Dennis Body temperature 2019-10-04 11:49:01 36.61 Raegan [place] ton [facility] Respiratory rate 2019-10-04 11:49:01 18 /min [place] Dennis Oxygen saturation in 2019-10-04 11:49:01 97 /min Ander Dennis Arterial blood by Pulse oximetry Body height 2019-09-27 10:10:00 152.4 cm Ander Dennis Body weight 2019-09-27 10:10:00 69.854 kg Ander Dennis BMI 2019-09-27 10:10:00 30.08 kg/m2 Ander Dennis Procedures Procedure Date / Time Performing Clinician Source Performed CBC WITH PLATELET AND 2019-10-04 05:35:00 Rosita Campoverde [facility] DIFFERENTIAL COMPREHENSIVE METABOLIC 2019-10-04 05:35:00 Rosita Campoverde [facility] PANEL ESTIMATED GFR 2019-10-04 05:35:00 Lei Campoverdemary [place] Meth odist HC COMPLETE BLD COUNT 2019-10-03 05:35:00 Rosita Campoverde [facility] W/AUTO DIFF COMPREHENSIVE METABOLIC 2019-10-03 05:35:00 Rosita Campoverde [facility] PANEL ESTIMATED GFR 2019-10-03 05:35:00 Gilles Rosita Johnson odist XR LUMBAR SPINE 2 OR 3 VW 2019-10-01 13:34:07 Keon Breaux Esteban XR THORACIC SPINE 2 VW 2019-10-01 13:33:36 Keon Breaux on [facility] Esteban HC COMPLETE BLD COUNT 2019-09-30 12:04:00 Gia Galvez [facility] W/AUTO DIFF PROTHROMBIN TIME WITH INR 2019-09-30 12:04:00 Gia Galvez PARTIAL THROMBOPLASTIN 2019-09-30 12:04:00 Gia Galvez on [facility] TIME (PTT) BASIC METABOLIC PANEL 2019-09-30 12:04:00 Gia Galvez [facility] ESTIMATED GFR 2019-09-30 12:04:00 Gia Galvez odist BASIC METABOLIC PANEL 2019-09-29 03:25:00 Gia Galvez [facility] HC COMPLETE BLD COUNT 2019-09-29 03:25:00 Gia Galvez [facility] W/AUTO DIFF ESTIMATED GFR 2019-09-29 03:25:00 Gia Galvez Meth odist XR THORACOLUMBAR SPINE 2 2019-09-28 16:09:40 Anali Andre [facility] VW PARTIAL THROMBOPLASTIN 2019-09-28 03:30:00 Anali Andre [facility] TIME (PTT) BASIC METABOLIC PANEL 2019-09-28 03:30:00 Gia Galvez HC COMPLETE BLD COUNT 2019-09-28 03:30:00 Gia Galvez W/AUTO DIFF ESTIMATED GFR 2019-09-28 03:30:00 Gia Galvez Meth odist XR LUMBAR SPINE 1 VW 2019-09-27 15:58:00 Zeb Jenkins ARTERIAL LINE 2019-09-27 14:57:29 Kishore Mixon Meth odist HI AN ELECTIVE 2019-09-27 14:11:57 Kishore Mixon Meth odist ENDOTRACHEAL AIRWAY XR LUMBAR SPINE 1 VW 2019-09-27 14:03:00 Zeb Jenkins LAMINECTOMY, SPINE, 2019-09-27 12:55:00 Zeb Jenkins THORACIC, POSTERIOR APPROACH, FOR DECOMPRESSION FUSION, SPINE, LUMBAR, 2019-09-27 12:55:00 Zeb Jenkins on [facility] POSTERIOR APPROACH ECG 12-LEAD 2019-09-27 12:00:42 Zeb Jenkins odist PARTIAL THROMBOPLASTIN 2019-09-27 02:30:00 Mo Frarell [facility] TIME (PTT) TYPE AND SCREEN 2019-09-27 02:30:00 Mo Farrell PROTHROMBIN TIME WITH INR 2019-09-27 02:30:00 January Jackson [facility] COVID-19 QUALITATIVE PCR 2019-09-26 18:30:00 Anali Andre [facility] ECG 12-LEAD 2019-09-26 09:29:01 Mo Farrell URINE CULTURE 2019-09-26 07:54:00 Mo Farrell URINALYSIS SCREEN AND 2019-09-26 06:00:00 Mo Farrell MICROSCOPY, WITH REFLEX TO CULTURE BASIC METABOLIC PANEL 2019-09-26 04:00:00 Gia Galvez MAGNESIUM LEVEL 2019-09-26 04:00:00 Gia Galvez Meth odist HC COMPLETE BLD COUNT 2019-09-26 04:00:00 Gia Galvez W/AUTO DIFF B NATRIURETIC PEPTIDE 2019-09-26 04:00:00 BudMo hopkins Alberto Dennis ESTIMATED GFR 2019-09-26 04:00:00 Gia Galvez Ander Meth odist MRI CERVICAL SPINE WO 2019-06-01 10:45:00 Anali Andre [facility] CONTRAST MRI THORACIC SPINE WO 2019-06-01 10:45:00 Anali Andre CONTRAST HC COMPLETE BLD COUNT 2019-06-01 05:20:00 Morelia Alyssa Dennis W/AUTO DIFF POC GLUCOSE 2019-05-31 21:00:00 Morelia mercedes [place] Meth odist POC GLUCOSE 2019-05-31 18:00:00 Morelia, [facility] Meth odist POC GLUCOSE 2019-05-31 13:02:00 Morelia [facility] Meth odist POC GLUCOSE 2019-05-31 08:00:00 Morelia [facility] Meth odist URINE DRUGS OF ABUSE 2019-05-30 22:10:00 Domingo Parry SCREEN URINALYSIS, AUTOMATED WITH 2019-05-30 22:10:00 Domingo Parry MICROSCOPY POC GLUCOSE 2019-05-30 17:22:00 Morelia mercedes [place] Meth odist HI MOTOR &/SENS 13/> NRV 2019-05-30 16:30:37 Domingo Parry CNDJ PRECONF ELTRODE LIMB MRI LUMBAR SPINE WO 2019-05-30 14:09:00 Pito Riley CONTRAST MRI BRAIN WO CONTRAST 2019-05-30 14:09:00 Domingo Parry XR CHEST 2 VW 2019-05-30 11:00:00 Jayden Covington Jovon SERUM ELECTROPHORESIS 2019-05-30 09:55:00 Domingo Parry MAG ANTIBODY TITER IGM BY 2019-05-30 09:55:00 Domingo Parry IFA POC GLUCOSE 2019-05-30 08:52:00 Nadya Jayden Ander Johnson odist Jovon HC COMPLETE BLD COUNT 2019-05-30 01:50:00 Mo Farrell [facility] W/AUTO DIFF COMPREHENSIVE METABOLIC 2019-05-30 01:50:00 Mo Farrell [facility] PANEL ANGELICA 2019-05-30 01:50:00 Sohan, [facility] Meth odist FOLATE LEVEL 2019-05-30 01:50:00 Sohan, [facility] Meth odist VITAMIN B12 LEVEL 2019-05-30 01:50:00 Sohan, [facility] thodist C-REACTIVE PROTEIN 2019-05-30 01:50:00 [facility] ethodist HOMOCYSTINE, PLASMA 2019-05-30 01:50:00 Sohan, Domingo Dennis CORTISOL LEVEL, RANDOM 2019-05-30 01:50:00 Sohan, Domingo [place] on [facility] VITAMIN D 1,25 DIHYDROXY 2019-05-30 01:50:00 [facility], [facility] par[facility] LEVEL, SERUM SEDIMENTATION RATE 2019-05-30 01:50:00 [facility], [facility] ethodist RHEUMATOID FACTOR 2019-05-30 01:50:00 Sohan, [facility] thodist THYROID STIMULATING 2019-05-30 01:50:00 Sohan, Domingo [place] [facility] HORMONE T4, FREE 2019-05-30 01:50:00 Sohan, [facility] odist T3 2019-05-30 01:50:00 Sohan, [facility] odist SYPHILIS TOTAL ANTIBODY 2019-05-30 01:50:00 SohanDomingo [facility] HIV AG/AB COMBINATION 2019-05-30 01:50:00 Sohan, Domingo Uribe n [facility] ESTIMATED GFR 2019-05-30 01:50:00 Mo Farrell URINE CULTURE 2019-05-29 22:26:00 Pito Riley Ak thodist URINALYSIS SCREEN AND 2019-05-29 21:45:00 Pito Riley MICROSCOPY, WITH REFLEX TO CULTURE ECG 12-LEAD 2019-05-29 16:31:49 Pito Riley Ak thodist ECG ED PRELIMINARY 2019-05-29 14:14:10 Pito Riley INTERPRETATION HC COMPLETE BLD COUNT 2019-05-29 13:59:00 Pito Riley W/AUTO DIFF PROTHROMBIN TIME WITH INR 2019-05-29 13:59:00 Pito Riley PARTIAL THROMBOPLASTIN 2019-05-29 13:59:00 Pito Riley stonick [facility] TIME (PTT) BASIC METABOLIC PANEL 2019-05-29 13:59:00 Pito Riley ESTIMATED GFR 2019-05-29 13:59:00 Pito Riley Ak thodist Plan of Care Planned Activity Planned Date Details Comments Source Future Scheduled 2019-11-17 INFLUENZA VACCINE Rony romero [facility] Test 00:00:00 [code = INFLUENZA VACCINE] Medication 2019-10-05 [address] [place] Methodi st 00:00:00 (PROTONIX) 40 MG EC tablet [code = 083833] Encounters Start End Encounter Admission Attending Care Care Encounter Source Date/Time Date/Time Type Type Clinicians Facility Department ID 2019-09-25 2019-10-04 [id number] [place] 00:00:00 00:00:[address] GIA [address] 2019-09-24 2019-09-24 Telephone Jaylin [id number] 00:00:00 00:00:00 Helen Alas [id number] Ren[place] [id number] Professio [phone] [facility] [address] [facility] 2019-09-20 2019-09-[id number] 14:39:34 15:19:34 Visit Cristine Alas [id number] Renuka [id number] Professio [phone] [facility] 179 [facility] 2019-09-19 2019-09-19 [facility] [id number] 13:04:45 13:44:45 Visit Cristine Alas [id number] Renuka [id number] Professio [phone] nal 179 Building 2019-09-12 2019-09-12 Ancillary Hayden [facility] [id number] 13:57:22 14:57:22 Visit Cristine Alas [id number] [place] [id number] Professio [phone] [facility] 179 Building 2019-09-07 2019-09-07 Juan Blake [facility] [id number] 13:03:43 14:03:43 Visit Cristine Alas [id number] [place] [id number] Professio [phone] [facility] 179 Building 2019-09-05 2019-09-05 Juan Blake [facility] [id number] 13:02:47 14:02:47 Visit Cristine Alas [id number] [place] [id number] Professio [phone] [facility] 179 Building 2019-08-31 2019-08-31 Juan Blake [facility] [id number] 13:37:16 14:37:16 Visit Cristine Alas [id number] [place] [id number] Professio [phone] [facility] 179 [facility] 2019-08-29 2019-08-29 Juan Blake [facility] [id number] 12:59:11 13:59:11 Visit Cristine Alas [id number] [place] [id number] Professio [phone] [facility] 179 [facility] 2019-08-24 2019-08-24 Juan Blake [facility] [id number] 13:04:55 13:44:55 Visit Cristine Alas [id number] [place] [id number] Professio [phone] [facility] 179 Building 2019-08-22 2019-08-24 Juan Hickman [facility] [id number] 12:55:43 09:54:11 Visit Evette Fay 350.1.13.10 [facility] 4.2.7.2.686 [phone] [facility] 179 [facility] 2019-05-29 2019-06-01 Inpatient ALYSSA REILLY [facility] [id number] [place] 00:00:00 00:00:[address] Results Test Description Test Time Test Comments Results Result Comments Source Comprehensive metabolic panel 2019-10-04 07:19:57 Test Item Value Reference Range Interpretation Comme nts Sodium (test code = 2951-2) 139 135- 148 mEq/L Potassium (test code = 2823-3) 3.6 3.5- 5.0 mEq/L Chloride (test code = 2075-0) 93 98- 112 mEq/L L CO2 (test code = 2027-9) 33 24- 31 mEq/L H Anion gap (test code = 55339-8) 13@ANIO 7- 15 mEq/L BUN (test code = 3094-0) 11 mg/dL 8-23 Creatinine (test code = 2160-0) 0.81 mg/dL 0.5-0.9 Glucose (test code = 2345-7) 99 mg/dL 65-99 Calcium (test code = 99412-1) 9.4 mg/dL 8.8-10.2 Protein (test code = 2885-2) 6.6 g/dL 6.3-8.3 - 4.6-7.0 g/dL1 week 4. 4-7.6 g/dL7 months-1y ear 5.1-7.3 g/d L1-2 years 5.6-7.5 g/dL>3 years 6.0 -8.0 g/cN25-643 6.3-8.3 g/d L Albumin (test code = 1751-7) 2.2 g/dL 3.5-5 L A/G ratio (test code = 1759-0) 0.5 0.7-3.8 L Alkaline phosphatase (test code = 129 U/L 35-104 H 6768-6) AST (test code = 1920-8) 19 U/L 10-35 ALT (test code = 1742-6) 6 U/L 5-50 Total bilirubin (test code = <0.2 0-1.2 1974-2) Lab Interpretation (test code = Abnormal 84054-8) Ander MethodistEstimated [id number] 07:19:56 Test Item Value Reference Range Interpretation Comments Estimated GFR (test 68 mL/min/1.73 m2 Julienne champion Units code = 5488) InterpretationG 1 >=90 Normal or highG2 60-89 Mildly ichwuqrjlH8e 45-59 Mildly to mode rately rffelccalS6a 30-44 Moderately to severely decreasedG4 15-29 Severely decre asedG5 <15 Kidn ey failureThe eGFR was calculated nolberto ferro the Chronic Kidney Disease Epidemiology Co llaboration (CKD-EPI) equat ion. Interpretation is based on recommendations of the National Kidney Foundation-Kidn ey Disease Outcomes Qualit y Initiative (NKF-KDOQI) pub lished in 2014. Ander MethodistCBC with platelet and [id number] 06:36:04 Test Item Value Reference Range Interpretation Comments WBC (test code = 74257-9) 6.92 4.50- 11.00 k/uL RBC (test code = 20342-6) 4.11 m/uL 4.2-5.5 L HGB (test code = 718-7) 10.0 g/dL 12-16 L HCT (test code = 4544-3) 33.4 % 37-47 L MCV (test code = 787-2) 81.3 fL 82-100 L MCH (test code = 785-6) 24.3 pg 27-34 L MCHC (test code = 786-4) 29.9 g/dL 31-37 L RDW - SD (test code = 47.0 fL 37-55 72905-6) MPV (test code = 84290-0) 9.6 fL 8.8-13.2 Platelet count (test code 296 150- 400 k/uL = 09875-3) Nucleated RBC (test code 0.00 /100 WBC = 33205-4) Neutrophils (test code = 63.9 % 39-69 24618-6) Lymphocytes (test code = 24.1 % 25-45 L 38430-2) Monocytes (test code = 8.8 % 0-10 43518-5) Eosinophils (test code = 2.2 % 0-5 29241-2) Basophils (test code = 0.6 % 0-1 34757-2) Immature granulocytes 0.4 % 0-1 "Immat ure (test code = 61910-9) granul ocytes" (promyelocytes, myelocytes, metamyelocytes) Lab Interpretation (test Abnormal code = 45672-9) Ander MethodistXR Thoracic Spine 2 [id number] 13:48:05Hm Interface, Radiology Results 10/01/2019 1:51 PM CDTEXAMINATION: XR THORACIC SPINE 2 VWCOMPARISON: September 28, 2019.CLINICAL HISTORY: back painCOMMENTS: Frontal and lateral views of the thoracic spine are provided.FINDINGS: There is spondylosis and endplate sclerosis most prominent in the lower thoracic spine. No definite acute fracture or subluxation is identified. There is minimal cu rvature of the lower thoracic spine convex towards the right. This may be positional.Left subclaviandual pacing wires are noted.Midline surgical ludin project in the lower thoracic region.IMPRESSION: Degenerative change again noted.[facility]-[id number] MethodistXR Lumbar Spine 2 Or 3 [id number] 13:40:22Hm Interface, Radiology Results 10/01/2019 1:43 PM CDTEXAMINATION: XR LUMBAR SPINE 2 OR3 VWCOMPARISON: October 27, 2019.CLINICAL HISTORY: back painCOMMENTS: Frontal and lateral views of the lumbar spine are provided.FINDINGS: There is grade 1 anterior subluxation of L4 upon L5. There isminimal anterior subluxation of L5 on S1. There is mild retrolisthesis of L1 with respect to L2 and to lesser degree L2 with respect to L3. There is moderate anterior spondylosis. There is multilevel disc height narrowing, endplate sclerosis and vacuum disc most prominent at L4-5 and L5-S1.Surgical ludin are noted in the midline at the posterior skin.IMPRESSION: Degenerative change and subluxations again noted.[facility]-[id number] MethodistPartial thromboplastin time, [id number] 13:07:10 Test Item Value Reference Range Interpretation Comments PTT (test code = 33.2 23.0- 36.0 [place] [address]-1) unfractionated heparin is61.0-112.0 se conds which corresponds to Anti-Xa0.3-0.7 U/ml. [place] MethodistProthrombin time with [id number] 13:06:27 Test Item Value Reference Range Interpretation Comments Prothrombin time (test 15.3 11.5- 14.5 sec H code = 5902-2) INR (test code = 1.2 [facility] 30173-1) Normalized Rati o (INR) is a therapeuti c monitoring tool for patients who ar e stable on oral anticoagulant t herapy. An INR of 2.0-3 .0 is suggested for d eep vein thrombosis/pulm onary embolism. Lab Interpretation Abnormal (test code = 25954-8) [place] MethodistBasic metabolic [id number] 12:56:28 Test Item Value Reference Range Interpretation Comments Sodium (test code = 2951-2) 136 135- 148 mEq/L Potassium (test code = 2823-3) 3.4 3.5- 5.0 mEq/L L Chloride (test code = 2075-0) 97 98- 112 mEq/L L CO2 (test code = 8-9) 26 24- 31 mEq/L Anion gap (test code = 45938-9) 13@ANIO 7- 15 mEq/L BUN (test code = 3094-0) 15 mg/dL 8-23 Creatinine (test code = 2160-0) 0.85 mg/dL 0.5-0.9 Glucose (test code = 2345-7) 233 mg/dL 65-99 H Calcium (test code = 34707-3) 8.9 mg/dL 8.8-10.2 Lab Interpretation (test code = Abnormal 23755-1) [place] MethodistXR Thoracolumbar Spine 2 [id number] 16:51:57Hm Interface, Radiology Results 09/28/2019 4:55 PM CDTEXAMINATION: XR THORACOLUMBAR SPINE 2 VWCLINICAL HISTORY: S P LAMINECTOMYCOMPARISON: NoneIMPRESSION:Frontal and lateral views of the thoracic and lumbar spine were obtained. Pacemaker wires are noted over the right heart. Postop changes are noted with skin ludin in the lower thoracic posterior back and lower lumbar spine from prior surgery. Grade 2 anterolisthesis of L4 is again noted with complete loss of disc height at L4-5 and L5-S1 as well as throughout the lower thoracic and upper lumbar spine.Soft tissue drains are noted in the posterior back midline soft tissues in the areas of the skin ludin.There is mild rightward curvature at T9 and leftward curvature at L2. There is retrolisthesis of L1, L2 and L3. Aorta is ectatic with dense calcifications.No metallic foreign objects identified.[facility]-[id number] MethodistECG 12 [id number] 18:25:17 Test Item Value Reference Range Interpretation Comments Ventricular rate (test 69 code = 253) Atrial rate (test code = 69 255) HI interval (test code = 160 266) QRSD interval (test code 142 = 260) QT interval (test code = 468 264) QTC interval (test code 501 = 265) P axis 1 (test code = 65 267) QRS axis 1 (test code = -37 268) T wave axis (test code = 108 270) EKG impression (test Sinus rhythm with code = 273) premature atrial complexes-Left axis deviation-Left bundle branch block-Abnormal ECG-No previous ECGs available-Electronica lly Signed By Vanessa Yan MD ([id number]) on 09/27/2019 6:25:10 PM [place] MethodistXR Lumbar Spine 1 [id number] 16:37:23Hm Interface, Radiology Results Incoming - 09/27/2019 4:40 PM CDTEXAMINATION: XR LUMBAR SPINE 1 [facility] INICAL HISTORY: Lumbar radiculopathyCOMPARISON: Intraoperative x-ray from earlier today.FINDINGS: There are radiopaque instruments in the posterior paraspinal soft tissues overlapping the posterior elements at the L5-S1 level. One instrument tip overlaps the anterior canal at the L5 pedicle level. There are diffuse degenerative changes. There are radiopaque wires and leads.IMPRESSION:Lateral portable crosstable intraoperative radiograph of the lumbar spine for localization during lumbar spine surgery.[facility]-[id number] MethodistArterial [id number] 14:57:29Kishore Mixon CRNA 09/27/2019 2:57 PMArterial linePerformed by: Kishore Mixon CRNAAuthorized by: Brenda Salazar MD Patient Location: ORStaff: Resident/CASE FOLDER/AA: Kishore Mixon CRNA Performed by: Resident/CASE FOLDER/AAPre-procedure: patient identified, IV checked, site and side verified, risks and benefits discussed, procedure verified, surgical consent complete, patient position confirmed, monitors and equipment checked, pre-op evaluation complete and timeout performed prior to procedure M SBT: antiseptic used, all elements of maximal sterile barrier technique followed, hand hygiene performed, cap/gown used by other personnel and solutions labeled Indications: Indications: hemodynamicmonitoring Anesthesia: Anesthesia: GeneralProcedure Details: Arterial Line placement: Placed post induction Line placement site: RadialLine placement side: Left Arterial line gauge: 20 GNumber of attempts: 1Ultrasound guidance used: No Post-procedure: Post-procedure: Sterile dressing applied Post procedure circulation, sensation, movement: Normal and unchanged Patient tolerance: Patient tolerated the procedure well with no immediate complicationsAnder Dennis [id number] 14:11:57Kishore Mixon CRNA 09/27/2019 2:12 PMAirwayPerformed by: Kishore Mixon CRNAAuthorized by: Brenda Salazar MD Location: ORUrgency: ElectiveDifficult Airway: No Resident/CASE FOLDER/AA: Kishore Mixon CRNAPerformed by: resident/NICOLAS/AAPreoxygenated with 100% O2: Yes C- spine Precautions Maintained Throughout: Yes Mask Ventilation: Easy maskFinal Airway Type: Endotracheal airwayFinal Endotracheal Airway: ETTCuffed: Yes Technique Used: Direct laryngoscopyDevices/Methods Used in Placement: Intubating styletInsertion Site: OralBlade Type: MillerLaryngoscope Blade/Videolaryngoscope Blade Size: 2ETT Size (mm): 7.0Cuff at minimum occlusion pressure: Yes Measured from: LipsETT to Lips(cm): 20Placement Verified by: CO2 detection, direct visualization and equal breath sounds Laryngoscopic view: Grade I - full view of glottisRapid Sequence Induction (RSI): No Modified RSI: No Number of Attempts at Approach: 1 atraumatic Ander MethodistType and [id number] 04:29:00 Test Item Value Reference Range Interpretation Comments ABO grouping (test code = 883-9) B Rh type (test code = 30267-2) POS Antibody screen (gel) (test code = NEG 890-4) Ander RojasistCOVID-19 qualitative [id number] 22:31:18 Test Item Value Reference Range Interpretation Comments Interpretation (test Negative results do code = 7272041) not preclude 2019-nCoV infection and should not be used as the sole basis for treatment or other patient management decisions. Negative results must be combined with clinical observations, patient history, and epidemiological information. COVID-19 qualitative Not-Detected Not-Detected PCR result (test code = 76293-8) COVID-19 qualitative See link below for C ase Number: PCR (test code = PDF Lab Report [id number]) Ander MethodistUrinalysis screen and microscopy, with reflex to culture 2019-09-26 08:07:30 Test Item Value Reference Range Interpretation Comments Specimen site (test code = Clean catch 7767496) Color, UA (test code = 5778-6) Yellow Appearance, UA (test code = Cloudy 5767-9) Specific gravity, UA (test code = 1.006 1.001-1.035 5811-5) pH, UA (test code = 5803-2) 7.0 5.0-8.5 Protein, UA (test code = 03389-3) Negative Negative Glucose, UA (test code = 38364-5) Negative Negative Ketones, UA (test code = 2514-8) Negative Negative Bilirubin, UA (test code = Negative Negative 5770-3) Blood, UA (test code = 5794-3) Negative Negative Nitrite, UA (test code = 5802-4) Positive Negative A Urobilinogen, UA (test code = <2.0 <2.0 86959-1) Leukocyte esterase, UA (test code Large Negative A = 5799-2) Round epithelial cells, UA (test 3 0- 1 /HPF H code = 65772-1) WBC, UA (test code = 5821-4) 98 0- 4 /HPF H RBC, UA (test code = 70424-7) 1 0- 5 /HPF Bacteria, UA (test code = Many None seen A 24054-4) WBC clumps, UA (test code = Few A 37056-6) Yeast, UA (test code = 32841-5) Moderate A Yeast with pseudohyphae, UA (test None seen code = 36696-8) Lab Interpretation (test code = Abnormal 86643-2) Ander MethodistB natriuretic [id number] 06:06:08 Test Item Value Reference Range Interpretation Comments BNP (test code = 43355-7) 82 pg/mL 0-100 [place] QuakerMagnesium [id number] 05:46:10 Test Item Value Reference Range Interpretation Comments Magnesium (test code = 39401-2) 1.9 mg/dL 1.6-2.4 [place] MethodjoleenMAG antibody titer IgM by [id number] 18:58:38 Test Item Value Reference Range Interpretation Comments MAG IgM (test code 0 0-999 INTERPRET INOCENTE INFORMATION: MAG = 62603-9) Antibody, IgM E LISAAn elevated IgM an tibody concentration g reater than 999 TU against myelin-associat ed glycoprotein (M AG) suggests active demyelin ation in peripheral neur opathy. A normal concentr ation (less than 999 TU) ge nerally rules out an anti-MAG antibody-associ ated peripheral neuropathy.TU=T iter UnitsTest developed and c haracteristics determined by [facility]. S ee Compliance Statement D: [employer]/CSP erformed by [employer] ,[address] [address] 08 kfv .[employer], Jaxon Garcia MD, Lab. Director [facility] Thoracic Spine Wo Jmlcpvzo6686-28-02 11:21:06Hm Interface, Radiology Results 06/01/2019 12:14 PM CSTEXAMINATION: MRI THORACIC SPINE WO CONTRASTCLINICAL HISTORY: thoracic spinal cord compression leg weaknessCOMPARISON: None.IMAGING DEVICE: 3.0 Emily MR. 3-D reconstructions were processed off-lineTECHNIQUE: Multiplanar and multisequence MRI imaging of the Thoracic spine obtained.CONTRAST: No IV contrast administered.FINDINGS: Examis limited due to motion artifactPARASPINAL AREA: Limited views shows no evidence of perivertebral fluid collections, cystic lesions, masses or lymphadenopathy. DISCS: Moderate to severe multilevel degenerative discopathy changes worse at the following levels:*T6-T7: Shows a a 6 x 8 mm (AP by transverse) right subarticular and foraminal disc protrusion*T11-T12: Shows a 5 mm (AP) broad- based central disc protrusion*Less than 3 mm broad-based central bulging noted at the remaining intervertebral disclevelsBONES: Negative for displaced fractures, dislocations or retropulsed bone fragments. Moderate multilevel endplate osteophytosis and degenerative facet arthropathy worse at the T11-T12 level. There is severe stenosis of the vertebral canal at T11-12 level, within the limitations given by motion artifact, the estimated AP diameter of the thecal sac is 5 mmCORD: The spinal cord appears flattened at the T11-T12 level, within the limitations given by motion artifact there is questionable slightly increased cord T2 signal intensity concerning for underlying myelopathy contacted at T6-T7 and T9-T10 levels OTHER: Negative. IMPRESSION:1. Limited exam due to motion artifact 2. Moderate multilevel degenerative discopathy changes and thoracic spondylosis worse at the T6-T7, T9-T10 and T11-T12 intervertebral disc levels 3. Severe stenosis of the vertebral canal at T11-T12 level, the spinal cord is contacted and ventrally flattened with questionable increased intrinsic T2 signal intensity concerning for underlying myelopathy [facility]-[id number] MethodistI Cervical Spine Wo Vovahmue7011-85-37 11:06:07Hm Interface, Radiology Results 06/01/2019 11:09 AM CSTEXAMINATION: MRI CERVICAL SPINE WO CONTRASTCOMPARISON: NoneCLINICAL HISTORY: neck pain shoulder pain leg weaknessCOMMENTS: Sagittal and axial MR images of the cervical spine were obtained.FINDINGS: The images are suboptimal due to motion artifact.C3-4 shows mild spondylosis towards the right side. There is asymmetric narrowing of the right-sided foramen due to facet and uncovertebral joint degenerative change. There is mild right-sided facet disease and uncovertebral joint degenerative change. There is minimal anterior subluxat ion of C3 on C4.C4-5 shows mild endplate degenerative change. There is moderate disc height narrowing. There is mild posterior spondylosis with minimal contact with the cord. There is mild facet and uncovertebral joint degenerative change with neural foramen stenosis slightly greater on the left.C5-6 shows mild spondylosis greater towards the left side. There is mild facet and uncovertebral joint degenerative change with neural foramen stenosis greater on the left. There is minimal endplate degenerative change.C6-7 shows mild central spondylosis that is broad-based. There is facet and uncovertebraljoint degenerative change with asymmetric narrowing left-sided foramen. The spondylosis has minimal indentation upon the cord. Minimal retrolisthesis of C6 with respect to C7.C7-T1 shows mild facet disease. There is minimal anterior subluxation of C7 on T1. The signal within the cord is intact.IMPRESSION: Multilevel degenerative change. No cord compression. Suboptimal study due to motion artifact.[id number] MethodistVitamin D 1,25 dihydroxy level, vphok8476-08-07 08:28:45 Test Item Value Reference Range Interpretation Comments Vit D, 51.44 pg/mL This test was d eveloped 1,25-Dihydrox and its perfor anton y (test code characteristics = 23970-0) determined by [facility] Department of P athology and [facility], [facility]. Serum 1,25 Dihydroxy Vitam in D is tested by LC-MS /MS. It has not been cl eared or approved by FDA . The laboratory is r egulated under CLIA as q ualified to perform high-complexity testing. This t est is used for clinic al purposes. It sh ould not be regarded as investigational or for research. RAY (test CALLED HEMOLYZED code = RAY) HCYT RECOLLECT TO RN ANA DUPONT\\J8 LSB 05/30/2019 03:54 [facility]istP[facility] [id number] 21:18:54 Test Item Value Reference Range Interpretation Comments POC glucose (test code = 126 mg/dL 65-99 H Ope rator Name: [id number]) Alejandra Conroy ID: [id number] able: [facility] Notified direct casting operator Interpretation (test Abnormal code = 35901-1) [facility] PlanoistSerum osgpilnvgcjznyv0421-46-18 15:46:30 Test Item Value Reference Range Interpretation Comments Protein (test code = 6.9 g/dL 6.3-8.3 [place] 9994.6-7.0 2885-2) g/dL1 abri6684.4-7.6 g/dL7 months-4knvn422 .1- 7.3 g/dL1-2 mbowf214.6-7.5 g/dL>3 kyczt399.0-8.0 g/iL21-0171976. 3-8 .3 g/dL SPE albumin (test code = 4.16 g/dL 4-5.3 2862-1) SPE alpha 1 (test code = 0.22 g/dL 0.1-0.25 2865-4) SPE alpha 2 (test code = 0.73 g/dL 0.58-0.84 2868-8) SPE beta (test code = 0.75 g/dL 0.5-1.1 2871-2) SPE gamma (test code = 1.04 g/dL 0.6-1.3 2874-6) SPE extended See Comment A normal serum interpretation (test protein study.1 code = 30741-3) SPE interpretation (test See Comment Pal alfredo del code = 2218) MD Jalil, PhD.; Jenelle Naryaanan i, PhD.; Jonathan Plummer MD. [facility] drugs of abuse [id number] 23:46:20 Test Item Value Reference Interpretation Comments Range Amphetamine screen, Negative urine (test code = 3349-8) Barbiturate screen, Negative urine (test code = 3377-9) Benzodiazepine Negative screen, urine (test code = 3390-2) Cocaine screen, Negative urine (test code = 3397-7) Methadone Negative metabolite (EDDP), urine (test code = 31288-0) Opiates screen, Positive A urine (test code = 3879-4) Oxycodone screen, Negative urine (test code = 85995-7) Phencyclidine Negative screen, urine (test code = 3936-2) Tricyclic screen, Negative urine (test code = 73597-7) Cannabinoid screen, Negative Drug scr een minimum urine (test code = concentra tion of 3427-2) detectabilityAm phetamines 1000 ng/mLBarbiturat es 200 ng/mLBe nzodiazepines 300 ng/mLCocaine 300 ng/mLMethadone 300 ng/mLOp iates 300 ng/mLOxycodone 300 ng/mLPh encyclidine 25 ng/mLCannabinoi ds 50 ng/mLTr icyclics 1000 ng/mLResults are from screen ing tests and should only be used for medical evaluat ion. Drug testing for leg al purposes requires defini tive (or confirmatory) t esting methods, which are available upon request. C ontact the laboratory if d efinitive testing is requ ired. Lab Interpretation Abnormal (test code = 59632-1) [place] MethodistUrinalysis, automated with hoyvwrnccl1549-81-75 23:33:29 Test Item Value Reference Range Interpretation Comments Color, UA (test code = 5778-6) Yellow Appearance, UA (test code = 5767-9) Hazy Specific gravity, UA (test code = 1.010 1.001-1.035 5811-5) pH, UA (test code = 5803-2) 6.0 5.0-8.5 Protein, UA (test code = 67055-3) Negative Negative Glucose, UA (test code = 36307-4) Negative Negative Ketones, UA (test code = 2514-8) Negative Negative Bilirubin, UA (test code = 5770-3) Negative Negative Blood, UA (test code = 5794-3) Negative Negative Nitrite, UA (test code = 5802-4) Negative Negative Urobilinogen, UA (test code = <2.0 <2.0 21791-3) Leukocyte esterase, UA (test code = Large Negative A 5799-2) Epithelial cells, UA (test code = 1 /HPF 5787-7) WBC, UA (test code = 5821-4) 68 0- 4 /HPF H RBC, UA (test code = 11394-1) 1 0- 5 /HPF Bacteria, UA (test code = 55588-2) None seen None seen WBC clumps, UA (test code = Few A 92187-8) Yeast, UA (test code = 28006-9) None seen Yeast with pseudohyphae, UA (test None seen code = 94637-4) Lab Interpretation (test code = Abnormal 61018-5) [place] MethodistEMG General Zzvwjsz3086-07-91 18:43:50Electromyogram and NCS ReportNOVANT [facility]ALTH [facility]OWAN [facility]ENTER Neurological [address], [facility] [address]I: , F: [phone] Patient: ChaceRhea bess Physician: CELINE Hauserex: Female Test Date:05/30/19Age: 83Height: 60 inchesWeight: 145 lbsRef. M.D.: Domingo Parry MDBirth Date 1935 History/Comments:This is an 83 y/o F in the EMG lab for evaluation of progressive LE weakness which has worsened lately. Per patient she has been unsteady for years and has sustained multiple falls. On examUE 4+/5, LE 4/5, DTR absent.Temp: RUE:32.8 RLE:29.4 LLE:30.1 Motor Nerve Study Right Median NerveRecSite: APB Lat (ms) Amp (mV) Dist (mm) C.V. (m/s)STIM SITEWrist 5.2 1.8 65 Elbow 9.3 1.7 190 46.5 Right Ulnar NerveRec Site: ADM Lat (ms) Amp (mV) Dist (mm) C.V. (m/s)STIM SITEWrist 3.2 9.0 65 B.Elbow 5.8 8.4 135 52.3 A.Elbow 7.6 8.2 100 52.5 Peroneal NerveRec Site: EDB Lat (ms) Amp (mV) Dist (mm) C.V. (m/s)STIM SITE L R L R L R L RAnkle NR NR 70 70 Tibial NerveRec Site: AH Lat (ms) Amp (mV) Dist (mm) C.V. (m/s)STIM SITE L R L R L R L RAnkle NR NR 90 90 Peron@TA NerveRec Site: Tibialis Ant Lat (ms) Amp (mV) Dist (mm) C.V. (m/s)STIM SITE L R L R L R L RFib.Head 3.4 3.0 3.42.4 100 100 Pop.Fos. 5.0 4.8 2.9 2.4 67 80 42.3 43.6 Sensory Nerve Study Right Median NerveRec Site: Wrist Pk Lat (ms) Amp (uV)STIM SITEssThumb NR NR Sensory Nerve Study Right Ulnar NerveRec Site: Wrist Pk Lat (ms) Amp (uV)STIM APRZ3kd dig NR NR Right Radial NerveRec Site: Wrist Pk Lat (ms) Amp (uV)STIM SITEIndex 2.8 16.3 Sural NerveRec Site: Ankle Pk Lat (ms) Amp (uV)STIM SITE L R L Rmidcalf NR NR NR NR Superperon NerveRec Site: Ankle Pk Lat (ms) Amp (uV)STIM SITE L R L RLower leg NR NR NR NR F-Wave Study Right Median NerveRec Site: APB LatencyStim Site: Wrist msF wave NR RightUlnar NerveRec Site: ADM LatencyStim Site: Wrist msF wave 30.42 Peroneal NerveRec Site: EDB LatencyStim Site: Ankle ms L RF wave NR NR Tibial NerveRec Site: AH LatencyStim Site: Ankle ms L RF wave NR NR H Reflex Study Tibial NerveRec Site: Soleus LatencyStim Site: Pop.Fos. ms L RH wave NR NR EMG Study Name Ins Act Fibs PSW Fascics Polyph MU Amp MU Dur Config Pattern Recruit TEXTR. Deltoid norm none none none inc 1+ norm norm poly norm -1R. Biceps Brac norm none none none inc 1+ norm inc 1+ poly norm -2 CRDs R. Triceps norm none none none inc 1+ norm norm poly norm -1R. Brachioradi norm nonenone none inc 1+ inc 1+ inc 2+ poly norm -3R. First DI norm none none none inc 1+ inc 1+ inc 2+ poly norm -3R. Vastus Lat. norm none none none none norm norm poly norm normR. Adductor Ln norm none none none inc 1+ norm norm poly norm normR. Tibialis An norm none none none inc 1+ norm inc 1+ poly norm -2R. Peroneus Ln norm none none none inc 1+ norm norm poly norm -3 Ankle fusion R. Gastroc.Med inc+ 2+ 3+ none none Ankle fusionL. Tibialis An norm none none none inc 1+ inc 2+ inc 2+ poly norm - 3L. Gastroc.Med inc+ 2+ 3+ none none norm norm poly norm -4 Nerve conduction study:1. Prolongeddistal latency, reduced amplitude and slowing conduction velocity in right median motor response.2. Normal distal latency, amplitude and conduction velocity in right ulnar and left peroneal (TA) motor responses.3. Absent bilateral peroneal (EDB) and TA motor responses.4. Normal distal latency, reducedamplitude and normal conduction velocity in right peroneal (TA) motor response.5. Normal peak latency and amplitude in right radial sensory response.6. Absent right median, ulnar, bilateral sural and superficial peroneal sensory responses.7. F-waves: Normal in right ulnar nerve. Absent in right median, bilateral peroneal and tibial nerves. 8. H-reflex: Absent bilaterally. Electromyography:Using a sterile monopolar needle intramuscular recordings were evaluated in the RUE & RLE. There is increased insertional activity/ fibrillations/ positive sharp waves in bilateral gastrocnemius suggestive of active denervation. There were polyphasic/ normal-large amplitude/ long duration motor units with reduced recruitment in all the right UE muscles, right peroneus longus, bilateral TA and left gastrocnemius suggestive of chronic denervation. There were runs of CRDs in right biceps suggestive of chronicdenervation. Impression: Abnormal EMG/NCS1. 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 2. Additionally, a chronic active bilateral S1 radiculopathy.3. 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 4. A diffuse polyradiculopathy cannot be excluded. Comments:Evaluation of sensorimotor polyaxonopathy. Diffuse poly radiculopathy can be caused by sarcoidosis, infections (Eg: WNV, TB, CMV), arachnoiditis, leptomeningeal disease, post-polio syndrome or inflammatory polyradiculoneuropathy (CIDP/AIDP), structural (multilevel spondylosis, imaging of C & T spine). Use of wrist splints if possible for carpal tunnel s yndrome. Brian Polanco Professor in Clinical neurologyAdjunct Manufacturing Technology Analyst [place] [facility] of MedicineNeurology, Neuromuscular Medicine, Electrodiagnostic [id number] [facility] [address],Justin Pino Department of [facility]rology[facility] Neurological [place],[facility],[place], [place] [address]Ywfsfd: [phone]: [phone] [facility] PlanoUdyjjxuplJLY0365-47-66 17:27:41 Test Item Value Reference Range Interpretation Comments ANGELICA screen Negative Negative Test performed using [employer]OVA (test code = Lite DAPI ANGELICA k it 550) (Indirect Immunofluoresce nce Assay) for Anti-Nuclea r Antibody on [employer] QUANTA -Lyser 160 Analyzer. RAY (test CALLED HEMOLYZED code = RAY) HCYT RECOLLECT TO ANGELIKA DUPONT\\J8 LSB 05/30/2019 03:54 [facility] Lumbar Spine Wo Rmnjvnei8265-60-26 16:19:26Hm Interface, Radiology Results - 05/30/2019 4:22 PM CSTEXAMINATION: MRI LUMBAR SPINE WO CONTRASTCLINICAL HISTORY: BLE weakness r o cord compression Pacemaker MRI conditional pt has paperworkCOMPARISON: NoneTECHNIQUE: Multiplanar multisequence nonenhanced MRI examination was performed of the Lumbar spine.FINDINGS: There are 5 non-rib bearing lumbar type vertebrae.Acute fracture of the T2xdlelqmuz body without significant displacement.Degenerative 6 mm anterolisthesis of L4 on L5 and L5-S1, with severe facet arthropathy and degenerative disc disease at these levels. Severe degenerativedisc disease is also present at T10-L3 with Schmorl's nodes, severe disc height loss, endplate osteophytes. There are Modic type II endplate changes at T12-L1 and L2-3 as well as Modic type I endplate change at T10-11.Conus medullaris terminates at the level of L1-L2. There is severe spinal canal stenosis at T10-11 secondary to endplate osteophytes, disc bulge, facet arthropathy, with evidence of spinal cord compression in elevated T2 signal the spinal cord.. Evaluation of the visualized soft tissues demonstrates no mass, adenopathy or aneurysm. Axial images through the disc spaces demonstrate thefollowing:L1-L2: Small disc bulge and endplate osteophytes and mild facet arthropathy contributes tomild to moderate left and mild right subarticular zone stenosis as well as moderate left and severe right neural foraminal stenosis.L2-L3: Small disc bulge and endplate osteophytes as well as mild facet arthropathy ligament flavum infolding contributes to moderate to severe bilateral subarticular zonestenosis, with contact and possible compression of the traversing bilateral L3 nerve roots. There ismild spinal canal stenosis. There is severe bilateral neural frontal stenosis with evidence of compression of the exiting L2 nerve roots.L3-L4: Prominence of dorsal epidural fat, moderate facet arthropathy with small facet joint effusions, and small disc bulge with endplate osteophytes contributes to m oderate bilateral neural foraminal stenosis as well as mild to moderate left and mild right subarticular zone stenosis and mild spinal canal stenosis.L4-L5: Severe facet arthropathy with degenerative grade 1 anterolisthesis contributes to severe spinal canal, subarticular zone, and bilateral neural foraminal stenosis, with compression of the traversing and exiting nerve roots.L5-S1: Severe facet arthropathy with degenerative grade 1 anterolisthesis contributes to severe spinal canal, subarticular zone, and bilateral neural foraminal stenosis, with compression of the traversing and exiting nerve roots.IMPRESSION: 1. Severe spinal canal stenosis at T10-11 secondary to disc bulge, endplate osteophytes, and facet arthropathy, partially imaged. There is compression of the spinal cord with elevated T2 signal, which may represent edema or myelomalacia. Recommend dedicated MRI of the thoracic spine for further assessment.2. Multilevel severe degenerative changes of the lumbar spine, most notably at L4-5 and L5-S1 as detailed above.3. Acute fracture of the S4 vertebral body without significant displacement.Findings were discussed with and acknowledged by ANGELIKA Watson at 05/30/2019 4:18 PM who verbalized understanding. [id number] Bobunm hospitalMRI Brain Wo Dbdnplzz7472-38-61 15:32:51Hm Interface, Radiology Results - 05/30/2019 3:35 PM CSTEXAMINATION: MRI BRAIN WO CONTRASTCLINICAL HISTORY: Stroke follow upCOMPARISON: CT brain dated 07/25/2017.FINDINGS: Noncontrast MRI ofthe brain is interpreted.Diffusion imaging demonstrates no abnormal restricted diffusion.Minimal chronic small vessel ischemic changes are noted in the cerebral white matter. Moderate involutional changes of the brain are present.No extra-axial collection or mass effect is seen.No hemorrhage is identified.IMPRESSION:No evidence of recent infarct or other acute intracranial abnormality is seen.[id number] [place] Syphilis total cqqgvidf2895-57-89 13:37:13 Test Item Value Reference Range Interpretation Comments Syphilis total Non-reactive Non-reactive No serologica l antibody (test evidence of code = 6194) syphilis infect ion. RAY (test code = CALLED HEMOLYZED RAY) HCYT RECOLLECT TO ANGELIKA DUPONT\\Marcos8 LSB 05/30/2019 03:54 [place] MethodistXR Chest 2 [id number] 11:11:19Hm Interface, Radiology Results - 05/30/2019 11:14 AM CSTEXAMINATION: XR CHEST 2 VWCLINICAL HISTORY: Z95.0 Presence of cardiac pacemaker, CHECK PACEMAKER FOR ABANDON BROKEN OR DETACHED LEADSCOMPARISON: 12/06/2017IMPRESSION:1.Lungs are clear.2.Normal heart size. Aorta is atherosclerotic. Left chest pacing device.3.Degenerative changes in the spine.[id number] MethodistHIV Ag/Ab [id number] 04:41:57 Test Item Value Reference Range Interpretation Comments HIV Ag/Ab combination Non-reactive Non-reactive (test code = 5299) RAY (test code = RAY) CALLED HEMOLYZED HCYT RECOLLECT TO ANGELIKA [facility] 05/30/2019 03:54 Ander MethodjoleenThyroid stimulating [id number] 04:37:34 Test Item Value Reference Range Interpretation Comments TSH (test code = 3016-3) 5.22 0.27- 4.20 uIU/mL H RAY (test code = RAY) CALLED HEMOLYZED HCYT RECOLLECT TO ANGELIKA [facility] 05/30/2019 03:54 Lab Interpretation (test Abnormal code = 39060-3) Ander DennisCortisol level, [id number] 04:11:28 Test Item Value Reference Range Interpretation Comments Cortisol, random 4 ug/dL Reference R anges are (test code = not established for 2142-09) non-timed Corti bairon levels.Referenc e Range for Timed Cortisol: 6 - 10 AM 6 - 18 ug/dl 4 - 8 PM 3 - 11 ug/dl RAY (test code = CALLED HEMOLYZED RAY) HCYT RECOLLECT TO AN[facility]ELIKA [facility] 05/30/2019 03:54 Ander MethodistT4, [id number] 04:11:28 Test Item Value Reference Range Interpretation Comments T4, free (test code 0.9 ng/dL 0.9-1.7 = 3024-7) RAY (test code = CALLED HEMOLYZED HCYT RAY) RECOLLECT TO ANGELIKA R[facility] 05/30/2019 03:54 Ander [id number] 04:11:28 Test Item Value Reference Range Interpretation Comments T3 (test code = 3053-6) 73 ng/dL 80-200 L RAY (test code = RAY) CALLED HEMOLYZED HCYT RECOLLECT TO ANGELIKA RICHMOND [facility] 05/30/2019 03:54 Lab Interpretation (test Abnormal code = 01603-7) [place] MethodistVitamin B12 [id number] 03:58:23 Test Item Value Reference Range Interpretation Comments Vitamin B12 (test 1066 pg/mL 211-946 H Significan t code = 2132-9) overlap exist s between normal and deficiency states.However, most patients w ith deficiencies wi ll have Serum B12 <200 pg/mL. RAY (test code = RAY) CALLED HEMOLYZED HCYT RECOLLECT TO ANGELIKA DUPONT\\Tboy B 05/30/2019 03:54 Lab Interpretation Abnormal (test code = 61442-7) [place] MethodistFolate [id number] 03:58:23 Test Item Value Reference Range Interpretation Comments Folate (test code = >20.0 4.8-24.2 2284-8) RAY (test code = RAY) CALLED HEMOLYZED HCYT RECOLLECT TO ANGELIKA DUPONT\\Toby [facility] 05/30/2019 03:54 [place] MethodistSedimentation [id number] 03:52:00 Test Item Value Reference Range Interpretation Comments Sedimentation rate (test code = 11 0- 20 mm/hr 49773-1) [facility] [id number] 03:47:04 Test Item Value Reference Range Interpretation Comments CRP (test code = 1987-5) 0.69 mg/dL 0-0.5 H Lab Interpretation (test code = Abnormal 62707-2) [place] MethodistRheumatoid [id number] 03:47:04 Test Item Value Reference Range Interpretation Comments Rheumatoid factor (test code = 58687-0) <10 0- 13 IU/mL [place] MethodistHomocystine, [id number] 03:46:58 Test Item Value Reference Range Interpretation Comments Homocysteine (test Footnote 0-15 The risk for coronary code = 33736-9) vascular dis ease increases progr essively with homocystei ne concentration. A 3.4 times greater r isk is associated with a homocysteine concentration o f greater than 15.8 umol/L as rebekah red to a concentration b elow 14.1 umol/L. [place] MethodistEC ED Preliminary Interpretation - Not an [id number] 14:14:10 Test Item Value Reference Range Interpretation Comments RAY (test code = RAY) Pito Riley MD 05/30/2019 4:23 PMECG ED Preliminary Interpretation - Not an OrderPerformed by: Pito Riley MDAuthorized by: Pito Riley MD ECG reviewed by ED Physician in the absence of a gig tender: yes Interpretation: Interpretation: abnormal Rate: ECG rate: 71Rhythm: Rhythm: sinus rhythm Ectopy: Ectopy: none QRS: QRS axis: Normal QRS intervals: NormalConduction: Conduction: abnormal Abnormal conduction: complete RBBB T waves: T waves: inverted Inverted: AVL Lab Interpretation Abnormal (test code = 46149-0) Ander Dennis
--- OUTSIDE RECORDS SUMMARY | 2019-10-04 18:44 | XMS REPORT | Summary of Care ---
:1935 Author Organization [facility] Address [address] [place] [address] Care Team Providers Name Role Phone Lee Mosqueda MD Primary Care Provider Donte Unavailable Tammy Toussaint Unavailable Prabhjot Gallegos DO Social Media Project Manager Reason for Visit Reason Comments Follow-up Re-evaluation (Routine) Status Reason Specialty Diagnoses / Referred By Referred To Procedures Contact Contact Authorized Physical Therapy Procedures Hayden Mosqueda Melissa K, JENNIFER THERAPEUTIC Helen Howard MD STAPLE FIBER WASHER EXERCISES [address] [place] [address] TED JONAS,1+ AREAS, [address] [place] 15 [place] [address] MT MANUAL THER [address] TECH,1+REGIONS,EA Phone: 15 MIN [phone] MT THERAPEUT Fax: ACTVITY DIRECT PT [phone] CONTACT EACH 15 MIN MT SELF-CARE/HOME MGMT TRAINING EACH 15 MINUTES MT PHYSICAL THERAPY RE-EVAL EST PLAN CARE 20 MINS FOLLOW-UP 45 Encounter Details Date Type Department Care Team Description 08/22/2019 Ancillary Visit [facility] Dana Mosqueda MD [address] [place] [address] [address] Muscle weakness (Primary Dx); Physical Therapy- Omayra Underwood, PT [address] [place] [address] Gait instability; [place] Balance problem; Professional Office History of falling; Building Decreased functional activit y tolerance [address] [facility] [address] [place] [address] Allergies Active Allergy Reactions Severity Noted Date Comments Aspirin Other - See comments 02/09/2017 Ringing in the ears and hearing loss Iodine Other - See comments 02/09/2017 When us ed topically, skin comes off Levofloxacin Rash 02/09/2017 Tramadol Hallucinations 02/09/2017 documented as of this encounter (statuses as of 08/24/2019) Medications Medication Sig Dispensed Refills Start Date End Date Status albuterol 90 Inhale 1-2 Puffs 0 Active mcg/actuation inhaler 4 (four) times daily. thyroid 60 mg tablet Take 60 mg by 0 Active mouth every morning. montelukast 10 mg Take 10 mg by 0 Active tablet mouth daily. rosuvastatin 10 mg Take 10 mg by 0 Active tablet mouth daily. spironolactone 25 mg Take 25 mg by 0 Active tablet mouth daily. fluticasone-vilanterol Inhale 1 Puff 0 Active 200-25 mcg/dose DsDv daily. calcium carb and Take 1,200 mg by 0 Active citrate-vitD3 mouth 2 (two) (CITRACAL + D SLOW times daily. RELEASE) 600 mg calcium- 500 unit TbSR gabapentin 800 mg Take 800 mg by 0 Active tablet mouth 3 (three) times daily. mupirocin 2 % Apply to 22 g 1 12/13/2017 Activ e ointmentIndications: area(s) 3 Fall, subsequent (three) times encounter daily. apixaban 5 mg tablet Take 1 tablet by 0 12/21/2018 Active mouth 2 (two) times daily. sodium chloride 7% Inhale 4 mL 4 mL 1 01/18/2019 Active nebulizer daily. solutionIndications: Acute pulmonary edema carvedilol 3.125 mg Take 3.125 mg by 0 Active tablet mouth 2 (two) times daily with meals. losartan 25 mg tablet Take 1 tablet by 0 02/12/2019 Active mouth daily. Take only is systolic is over 149. acetaminophen-codeine Take 1 tablet by 90 tablet 1 03/29/2019 Active (TYLENOL-CODEINE #3) mouth every 6 300-30 mg (six) hours as tabletIndications: needed (severe Arthritis arthritis pain, unable to take NSAIDs due to history of MA). DULOXETINE 60 mg TAKE ONE CAPSULE 180 capsule 3 06/12/2019 Active capsuleIndications: BY MOUTH TWICE A Other chronic pain DAY documented as of this encounter (statuses as of 08/24/2019) Active Problems Problem Noted Date CHF (congestive heart failure) 01/15/2019 NSTEMI (non-ST elevated myocardial infarction) 019 PAF (paroxysmal atrial fibrillation) 12/28/2017 Pacemaker 12/28/2017 LBBB (left bundle branch block) 12/28/2017 SOB (shortness of breath) 12/28/2017 Coronary artery disease involving muscogee coronary sarahy ry of muscogee heart 02/26/2017 without angina pectoris Essential hypertension 02/13/2017 Hypothyroidism, unspecified type 02/13/2017 Decreased telephone messenger strength 01/13/2017 Decreased pinch strength 01/13/2017 Weakness of upper extremity 01/13/2017 Cataract High cholesterol MA (myocardial infarction) Arthritis Overview: multiple joints documented as of this encounter (statuses as of 08/24/2019) Resolved Problems Problem Noted Date Resolved Date Viral upper respiratory tract infection 01/15/2019 06/03/2019 CHF exacerbation 01/14/2019 06/03/2019 Acute on chronic diastolic congestive heart failure 12/28/19 18 06/03/2019 HTN (hypertension) 02/13/2017 Hypothyroidism 02/13/2017 documented as of this encounter (statuses as of 08/24/2019) Immunizations Name Administration Dates Next Due Influenza High Dose 02/28/2019, 01/30/2018, 02/02/2017 Pneumococcal 13 Conjugate, PCV13 (Prevnar 02/18/2013 13) Pneumococcal Polysaccharide, PPSV23 02/18/2009 (PNEUMOVAX) Zoster Vaccine Recombinant 10/16/2018, 06/21/2018 Zoster(Zostavax)(Shingles) 02/19/2016 documented as of this encounter Social History Tobacco Use Types Packs/Day Years Used Date Never Smoker Smokeless Tobacco: Never Used Alcohol Use Drinks/Week oz/Week Comments No Sex Assigned at Date Recorded Not on file Job Start Date Occupation Industry Not on file Not on file Not on file Travel History Travel Start Travel End No recent travel history available. documented as of this encounter Last Filed Vital Signs Not on filedocumented in this encounter Progress Notes Omayra Underwood, PT - 08/22/2019 1:00 PM CDT Re-Evaluation Date: August 22, 2019 Date of initial visit: 06/08/2019 (date of re evaluation after hospitalization) Date of reassessment visit: 08/22/2019 Total number of visits: 8 (for this round). Patient placed on hold for therapy due to COVID-19 precautions. Patient reports she has declined since her last visit with us. Patient has had 2 falls at home due to inability to hold herself up. No other things to report at this time. Diagnosis: 1. Muscle weakness 2. Gait instability 3. Balance problem 4. History of falling 5. Decreased functional activity tolerance Subjective: " I tried my hardest to not lose what I gained while on the break but I definitely got weaker." Pt very emotional with the changes she has experienced functionally. Objective: Outpatient PT Re-Evaluation Row Name 08/22/19 1300 General Visit Number 8 Chart Reviewed Yes Family/Caregiver Present No General Comments Visit 8 of 10, POC visit, PT on hold due to COVID precautions, pt will benefit from 8 more visits Precautions Precautions Falls Pain Assessment Pain Assessment 0-10 Pain Score 6 Post-Treatment Pain Score 6 Pain Location Back Pain Orientation Lower;Mid Pain Descriptors Dull;Aching Activity Tolerance Endurance Tolerates 10 - 20 min exercise with multiple rests Sitting Balance Moves/returns trunkal midpoint 1-2 inches in multiple planes Activity Tolerance Comments Pt with marked decrease in activity tolernace since last session. Sensation Therapy Sensation Options Numbness present BLEs, lower leg more posteriorly, deep pressure loss Postural Control Postural Control Deficits on evaluation Head Control forward head, rounded shoulders Trunk Control increased kyphosis present Static Sitting Balance Static Sitting-Balance Support Feet supported;Unilateral upper extremity supported Static Sitting-Level of Assistance Close supervision;Independent Dynamic Sitting Balance Dynamic Sitting-Balance Support Feet supported;Unilateral upper extremity supported Static Standing Balance Static Standing-Balance Support Left upper extremity supported;Right upper extremity supported Static Standing-Level of Assistance Moderate assistance Dynamic Standing Balance Dynamic Standing-Balance Support Left upper extremity supported;Right upper extremity supported Transfers Transfer Yes Transfer 1 Transfer From 1 Wheelchair Transfer Type 1 To and from Transfer to 1 Mat Technique 1 Stand pivot;Sit to stand;Stand to sit Transfer Level of Assistance 1 Moderate assistance Trials/Comments 1 Pt very weak with transfers, hip and LEs weak. Ambulation Ambulation No Pt too weak to perform gait RUE Assessment RUE Assessment WFL LUE Assessment LUE Assessment WFL RLE Assessment RLE Assessment X Strength RLE R Hip Flexion 3/5 R Hip ABduction 3+/5 R Hip ADduction 3+/5 R Knee Flexion 4/5 4-/5 R Knee Extension 3+/5 R Ankle Dorsiflexion 4/5 LLE Assessment LLE Assessment X Strength LLE L Hip Flexion 4/5 4-/5 L Hip ABduction 4/5 L Hip ADduction 4/5 L Knee Flexion 4/5 L Knee Extension 4/5 L Ankle Dorsiflexion 4/5 OTHER Pain Type Chronic pain;Neuropathic pain;Deep somatic pain Pain Radiating Towards B hips and lateral side of legs Pain Frequency Constant/continuous Pain Onset Progressive Clinical Progression Gradually worsening Effect of Pain on Daily Activities Not able to do much activities when in pain, pt with decline instatus and not able to do much now Patient's Stated Pain Goal decrease pain to manageable Result of Injury No Work-Related Injury No Treatment: See Outpatient PT Treatment Flowsheet Assessment: Pt with decreased strength, decreased functional mobility and decreased functional balance. Patient with a decline in overall status since she was last seen and requires much more assistance with transfers and strengthening. Patient will benefit from continued skilled therapy intervention to assist with mobility, however, patient will also benefit from returning to [place] for follow up to seethe changes since her last appointment. No progress made towards previously set goals, patient has declined. Updated goals; 1. Pt will report decreased pain to < 8/10 2. Pt will increase strength of LLE by 1/2 grade to improve mobility. 3. Patient will perform transfers from chair to mat with Min A/CGA Director Teen Post Goals: To be met in 8 visits: 1. Pt will report less pain to <4/10 on average 2. Pt will be able to perform functional tasks without increased pain 3. Patient will tolerate at least 30 mins of exercises Plan of Care There ex, there act, gait trg., manual therapy prn, modalities prn, and patient education. Frequency: 2x/week Duration: 8 sessions Omayra Hickman, PT [place] PT License [id number] [facility] (phone) (fax) I have reviewed this report and agree with the Physical Therapist's recommendations. Signature Date documented in this encounter Plan of Treatment Date Type Specialty Care Team Description 08/24/2019 Ancillary Visit Physical Therapy Esther Mosqueda MD [address] [place] [address] [phone] Cristine Blake, [address] [address] 08/29/2019 Ancillary Visit Physical Therapy Cristine Blake, [address] [address] 08/31/2019 Ancillary Visit Physical Therapy Cristine Blake, [address] [address] 10/26/2019 Office Visit Internal Medicine Maribel Mosqueda MD [address] [place] [address] [phone] Health Maintenance Due Date Last Done Comments Medicare Wellness Visit 12/22/2019 12/21/2018 DTaP,Tdap,and Td Vaccines (1 05/04/2020 Pos tponed from 1948 - Tdap) (Refused) Osteoporosis Screening 01/03/2029 01/03/2019 PNEUMOCOCCAL VACCINES 65+ Completed 02/18/2013, 02/18/2009 Zoster Recombinant Vaccine Completed 10/16/2018, (SHINGRIX) 06/21/2018, 02/19/2016 INFLUENZA VACCINE Completed 02/28/2019, 01/30/2018, 02/02/2017 documented as of this encounter Goals Goal Patient Goal Associated Recent Patient-Stated? Author Type Problems Progress patient states General Yes Vick she wants to Sumeet walk again, ELSA Cutler she wants to get stronger documented as of this encounter Implants Implanted Type Area Crm Analyst Device Identifier Shelf Exp iration Model / Date Serial / L ot Pacemaker PACEMAKER documented as of this encounter Results Not on filedocumented in this encounter Visit Diagnoses Diagnosis Muscle weakness - Primary Muscle weakness (generalized) Gait instability Abnormality of gait Balance problem Other symptoms involving nervous and mus culoskeletal systems History of falling Personal history of fall Decreased functional activity tolerance documented in this encounter Insurance Payer Benefit Plan / Subscriber ID Effective Phone Address T ype Group Dates MEDICARE MEDICARE PART A xxxxxxxxxxx 2002-Pres [phone] [address] Medicare & B ent [id number] DANYELLE NGUYEN [phone] BCBS OF BCBS [id number] 2016-Pres [phone] [facility] TRADITIONAL ent [phone] [place] [address] documented as of this encounter
--- OUTSIDE RECORDS SUMMARY | 2019-10-04 18:44 | XMS REPORT | Summary of Care ---
:1935 Author Organization [facility] Address [address] [place] [address] Care Team Providers Name Role Phone Lee Mosqueda MD Primary Care Provider Donte Unavailable Tammy Toussaint Unavailable Prabhjot Gallegos DO Bomb Squad Officer Reason for Visit Reason Comments Follow-up Encounter Details Date Type Department Care Team Description 08/03/2019 Telemedicine Visit [facility] Mosqueda, Spinal st enosis, unspecified spinal region (Primary Dx); Pediatric and Helen Howard MD Weakness; Adult Primary [address] Recurrent UTI; [facility] [address] Cough; [address] [place], [place] Arthritis; [address], [address] [address] Essential hypertension [place], [place] [phone] Allergies Active Allergy Reactions Severity Noted Date Comments Aspirin Other - See comments 02/09/2017 Ringing in the ears and hearing loss Iodine Other - See comments 02/09/2017 When us ed topically, skin comes off Levofloxacin Rash 02/09/2017 Tramadol Hallucinations 02/09/2017 documented as of this encounter (statuses as of 08/16/2019) Medications Medication Sig Dispensed Refills Start Date [...] to take NSAIDs due to history of NV). DULOXETINE 60 mg TAKE ONE CAPSULE 180 capsule 3 06/12/2019 Active capsuleIndications: BY MOUTH TWICE A Other chronic pain DAY documented as of this encounter (statuses as of 08/16/2019) Active Problems Problem Noted Date CHF (congestive heart failure) 01/15/2019 NSTEMI (non-ST elevated myocardial infarction) 019 PAF (paroxysmal atrial fibrillation) 12/28/2017 Pacemaker 12/28/2017 LBBB (left bundle branch block) 12/28/2017 SOB (shortness of breath) 12/28/2017 Coronary artery disease involving andreafski coronary sarahy ry of andreafski heart 02/26/2017 without angina pectoris Essential hypertension 02/13/2017 Hypothyroidism, unspecified type 02/13/2017 Decreased diplomatic officer strength 01/13/2017 Decreased pinch strength 01/13/2017 Weakness of upper extremity 01/13/2017 Cataract High cholesterol NV (myocardial infarction) Arthritis Overview: multiple joints documented as of this encounter (statuses as of 08/16/2019) Resolved Problems Problem Noted Date Resolved Date Viral upper respiratory tract infection 01/15/2019 06/03/2019 CHF exacerbation 01/14/2019 06/03/2019 Acute on chronic diastolic congestive heart failure 12/28/19 18 06/03/2019 HTN (hypertension) 02/13/2017 Hypothyroidism 02/13/2017 documented as of this encounter (statuses as of 08/16/2019) Immunizations Name Administration Dates Next Due Influenza [...] on filedocumented in this encounter Progress Notes Helen Mosqueda MD - 08/03/2019 9:40 AM CDT DOS: 08/03/2019 CC: Follow up of chronic conditions Verbal consent obtained from Patient: Rhea Mas due to the COVID-19 pandemic for telehealthservices provided below. Communication with patient was conducted via Telephone due to patient unable to obtain video call option. Location of Patient: Home Location of Provider: Clinic Date of Service: 08/03/2019 HPI: Rhea Mas is a 83 year old female with PMH including has a past medical history of Anemia, Arthritis, Asthma, CAD (coronary artery disease), Cataract, High cholesterol, HTN (hypertension), Hypothyroidism, NV (myocardial infarction), Osteopenia, Transfusion history, and Urinary incontinence. who is being seen today for follow up of chronic conditions. She reports her legs are weaker, she feels like they are turning to butter. She reports she needs any wheelchair. It would help if and legs and arm rest. Adjustable armrest would be better. She is in her wheelchair or sitting most of the day. However she is unable to stand for very long. Her current wheelchair has a broken brake, its not safe for her to fall back into as it doesn't always stay put. She is thinking about calling the surgeon. She reports she has hard falls into chairs. When she lets go she can stand only for a few seconds before she collapses.skin is she wants to continue PT but theyare not doing it right now. She is in the chair so much she thinks that is why her fatigue has not improved. She is not doing what she needs to do because she can't reach it. Standing wears her out. She is still on supplements, including anterior cruciate ligament. She did order a different flavor. She does have a little feelingin her feet but her legs are cold to touch. She started using bidet and no UTI since then. Her blood pressures have improved, her systolic blood pressures are 120s and 130s now. The essentialoils aren't really helping with her shoulder pain and she is running low. When she rubs it into her shoulder she puts the remaining of it on her hands and also is helping her hand pain. She still has a cough. She continues with the throat clearing. She only coughs. Four times a day. She takes Zyrtec every night. She also takes Flonase and local honey. Medications reviewed in EPIC, past medical history and allergies reviewed. Review of Systems Constitutional: Positive for fatigue. PE: Physical Exam Constitutional: Alert and oriented Pulmonary/Chest: Breath sounds normal. No respiratory distress. She has no wheezes. Breathing comfortably Neurological: Answers questions appropriately Psychiatric: She has a normal mood and affect. Thought content normal. A total of 25 minutes was spent on the Telephone due to patient unable to obtain video call option with the patient. A/P: Rhea Mas is a 83 year old female with PMH including has a past medical history of Anemia,Arthritis, Asthma, CAD (coronary artery disease), Cataract, High cholesterol, HTN (hypertension), Hypothyroidism, NV (myocardial infarction), Osteopenia, Transfusion history, and Urinary incontinence. who is being seen today for follow up of chronic conditions. Spinal stenosis, unspecified spinal region (primary encounter diagnosis), Weakness Comment: Doing worse. When the coronavirus pandemic improves she is going to try physical therapy again. She is going to contact the surgeon about potential surgery. We did discuss sit and be fit in other ways to do exercises while sitting. This might help strengthen her son. Plan: Continue physical therapy, do exercises as much as possible.she needs any Welcher. We'll work on getting her one. Recurrent UTI Comment: resolved using bidet Plan: continue using bidet Cough Comment: not gone back a little bit better. Still clearing throat. Plan: continue Flonase, continue Zyrtec, take local honey one to 2 tablespoons daily. Arthritis Comment: much improved with essential oils blend. Plan: she will continue to use this. Essential hypertension Comment: doing well. Plan: monitor. Plan of care, desired health behaviors, goals,& medication discussed with patient and educational resources and self management tools provided as appropriate. Patient/family/guardian voices understanding. Patient verbalized understanding & agrees to plan of care. Barriers to care: none Ability to manage care: good Return in about 2 months (around 10/03/2019) for Chronic [place] [id number] 08/16/2019 11:22 AM Outside Plant Supervisor of Internal Medicine [facility] Wheelchair: I certify that Rhea Mas is under my care and that I had a face to face encounter with this patient on 08/03/2019 . The patient is unable to safely complete ADLs with the assistance from a cane, walker or crutchesdue to muscle weakness/spinal stenosis. I am ordering and certify that based on my findings, the following is medically necessary durable medical equipment: standard wheelchair- The patient has muscle weakness/spinal stenosis that significantly impairs his/her ability to participate in one or more mobility-related activities of daily living such as toileting, feeding, dressing, grooming, and bathing in customary locations in the home. Prevents the patient from accomplishing an MRADL entirely, or places the patient at reasonably determined heightened risk of morbidity or mortality secondary to the attempts to perform an MRADL or prevents the patient from completing an MRADL within a reasonable time frame. The patients muscle weakness/spinal stenosis cannot be sufficiently resolved by the use of an appropriately fitted cane or walker. The patients home provides adequate access between rooms, maneuvering space and surfaces for use of the manual wheelchair that is provided. Use of a manual wheelchair will significantly improve the patients ability to participate in MRADLs and the patient will use it on a regular basis in the home. The patient has not expressed an unwillingness to use the manual wheelchair that is provided in the home. patient has a caregiver who is available/willing and able to provide assistance with the wheelchair. Height: Ht Readings from Last 1 Encounters: 03/29/19 5' (1.524 m) Weight: Wt Readings from Last 1 Encounters: 06/15/19 149 lb 1.6 oz (67.6 kg) Duration of need: 99 months. documented in this encounter Plan of Treatment Date Type Specialty Care Team Description 08/22/2019 Ancillary Visit Physical Therapy Omayra Underwood, PT [address] [place] [address] 08/24/2019 Ancillary Visit Physical Therapy Cristine Blake, APPOINTMENT CLERK [address] [place] [address] 10/26/2019 Office Visit Internal Medicine Maribel Mosqueda MD [address] [place] [address] [phone] Health Maintenance Due Date Last Done Comments [...] states General Yes Vick she wants to Sumeet, walk again, Omayra, PT she wants to get stronger documented as of this encounter Implants Implanted Type Area Feather Separator Device Identifier Shelf Exp iration Model / Date Serial / L ot Pacemaker PACEMAKER documented as of this encounter Results Not on filedocumented in this encounter Visit Diagnoses Diagnosis Spinal stenosis, unspecified spinal rogelio on - Primary Weakness Other malaise and fatigue Recurrent UTI Urinary tract infection, site not specif ied Cough Arthritis Arthropathy, unspecified, site unspecifi ed Essential hypertension Unspecified essential hypertension documented in this encounter Insurance Payer Benefit Plan / Subscriber ID Effective Phone Address T ype Group Dates MEDICARE MEDICARE PART A xxxxxxxxxxx 2002-Pres [phone] P. [address]. SUR[place] X Medicare & B ent [id number] DANYELLE NGUYEN [phone] BCBS OF BCBS [id number] 2016-Pres [phone] O [facility] TRADITIONAL ent [phone] [place] [address] documented as of this encounter
--- OUTSIDE RECORDS SUMMARY | 2019-10-04 18:44 | XMS REPORT | Summary of Care ---
:1935 Author Organization [facility] Address [address] [place] [address] Care Team Providers Name Role Phone Lee Mosqueda MD Primary Care Provider Donte Unavailable Tammy Toussaint Unavailable Prabhjot Gallegos DO Housekeeping Room Attendant Reason for Visit Reason Comments Follow-up (Routine) Status Reason Specialty Diagnoses / Referred By Referred To Procedures Contact Contact Authorized Physical Therapy Procedures Hayden Mosqueda Melissa K, [place] THERAPEUTIC Helen Howard MD ARCH PAD CEMENTER EXERCISES [address] [place] [address] TED JONAS,1+ AREAS, [place] [address] [place], [place] EA 15 [place] [address] [place] MANUAL THER [id number] TECH,1+REGIONS,EA Phone: 15 MIN [phone] [place] THERAPEUT Fax: ACTVITY DIRECT PT [phone] CONTACT EACH 15 MIN [place] SELF-CARE/HOME MGMT TRAINING EACH 15 MINUTES [place] PHYSICAL THERAPY RE-EVAL EST PLAN CARE 20 MINS FOLLOW-UP 45 Encounter Details Date Type Department Care Team Description 08/29/2019 Ancillary Visit [facility] Lennox Norwood MD [address] [place] [phone] Muscle weakness (Primary Dx); Physical Therapy- Cristine Blake, ARCH PAD CEMENTER [address] [place] [address] Gait instability; [place] History of falling; Professional Office Decrease d functional activity tolerance [address] [place] [phone] Allergies Active Allergy Reactions Severity Noted Date Comments Aspirin Other - See comments 02/09/2017 Ringing in the ears and hearing loss Iodine Other - See comments 02/09/2017 When us ed topically, skin comes off Levofloxacin Rash 02/09/2017 Tramadol Hallucinations 02/09/2017 documented as of this encounter (statuses as of 08/29/2019) Medications Medication Sig Dispensed Refills Start Date [...] to take NSAIDs due to history of ME). DULOXETINE 60 mg TAKE ONE CAPSULE 180 capsule 3 06/12/2019 Active capsuleIndications: BY MOUTH TWICE A Other chronic pain DAY documented as of this encounter (statuses as of 08/29/2019) Active Problems Problem Noted Date CHF (congestive heart failure) 01/15/2019 NSTEMI (non-ST elevated myocardial infarction) 019 PAF (paroxysmal atrial fibrillation) 12/28/2017 Pacemaker 12/28/2017 LBBB (left bundle branch block) 12/28/2017 SOB (shortness of breath) 12/28/2017 Coronary artery disease involving douglas coronary sarahy ry of douglas heart 02/26/2017 without angina pectoris Essential hypertension 02/13/2017 Hypothyroidism, unspecified type 02/13/2017 Decreased detention sergeant strength 01/13/2017 Decreased pinch strength 01/13/2017 Weakness of upper extremity 01/13/2017 Cataract High cholesterol ME (myocardial infarction) Arthritis Overview: multiple joints documented as of this encounter (statuses as of 08/29/2019) Resolved Problems Problem Noted Date Resolved Date Viral upper respiratory tract infection 01/15/2019 06/03/2019 CHF exacerbation 01/14/2019 06/03/2019 Acute on chronic diastolic congestive heart failure 12/28/19 18 06/03/2019 HTN (hypertension) 02/13/2017 Hypothyroidism 02/13/2017 documented as of this encounter (statuses as of 08/29/2019) Immunizations Name Administration Dates Next Due Influenza [...] on filedocumented in this encounter Progress Notes Crsitine Blake, ARCH PAD CEMENTER - 08/29/2019 1:00 PM CDT Physical Therapy Treatment Date: August 29, 2019 Subjective: Pt reports she hurts a lot this afternoon. She stated that the HP and stretches helped lower pain level. 1. Muscle weakness 2. Gait instability 3. History of falling 4. Decreased functional activity tolerance Objective: Outpatient PT Treatment Row Name 08/29/19 1300 General Visit Number 10 Chart Reviewed Yes Family/Caregiver Present No General Comments Visit 10 of 16 Pain Assessment Pain Assessment 0-10 Pain Location Back Therapeutic Exercise Therapeutic Exercise Activity 1 Supine- Hip Adduction x 10 with ball, Hip Abduction w/ TB x 10, L2 Therapeutic Exercise Activity 2 Supine; glut sets and abdominal bracing 5"x10, SAQ's x10ea, SLR's AA x2ea, Bridging with ball between knees x5 Therapeutic Exercise Acitivity 3 Seated: LAQ's x10ea, marching x10ea, HS curls w/Tband L2: x8ea Therapeutic Exercise Activity 4 Manual HS, SKC, and piriformis stretches 1'ea Modalities Moist Heat (min) with elliot exercises HEP: Continue HEP as able. Assessment: Pt was able to lift leg with SLR's and min A. She required cues for foot placement with pivot transfer. She exhibited fatigue after session. Pt tolerated treatment poor+. Plan: Continue with POC 2 x 8 sessions to increase strength, balance, endurance, and functional mobility. Will add/advance exercises as patient tolerates. Cristine Blake PTA [place] Lic#[id number] Supervised by: Omayra Hickman, ELSA [facility] Rehabilitation Services Dept. [phone] (phone) documented in this encounter Plan of Treatment Date Type Specialty Care Team Description 08/31/2019 Ancillary Visit Physical Therapy Lennox Norwood MD [address] [place] [phone] Cristine Blake PTA [address] [place] [address] 09/05/2019 Ancillary Visit Physical Therapy Cristine Blake PTA [address] [place] [address] 09/07/2019 Ancillary Visit Physical Therapy Cristine Blake PTA [address] [place], [place] [address] [place] [address] 10/26/2019 Office Visit Internal Medicine Maribel Mosqueda MD [address] [facility] [address] [place], [place] [address] [phone] Health Maintenance Due Date Last Done Comments [...] Vick she wants to Sumeet, walk again, ELSA Cutler she wants to get stronger documented as of this encounter Implants Implanted Type Area Manager Forms Device Identifier Shelf Exp iration Model / Date Serial / L ot Pacemaker PACEMAKER documented as of this encounter Results Not on filedocumented in this encounter Visit Diagnoses Diagnosis Muscle weakness - Primary Muscle weakness (generalized) Gait instability Abnormality of gait History of falling Personal history of fall Decreased functional activity tolerance documented in this encounter Insurance Payer Benefit Plan / Subscriber ID Effective Phone Address T ype Group Dates MEDICARE MEDICARE PART A xxxxxxxxxxx 2002-Pres [phone] P. O. SURAJ X Medicare & B ent [id number] DANYELLE NUGYEN [id number] BCBS OF BCBS [id number] 2016-Pres [phone] O [address] [facility] TRADITIONAL ent [phone] [place] [address] documented as of this encounter
--- OUTSIDE RECORDS SUMMARY | 2019-10-04 18:44 | XMS REPORT | Summary of Care ---
:1935 Author Organization [facility] Address [address] [place] [address] Care Team Providers Name Role Phone Lee Mosqueda MD Primary Care Provider Donte Unavailable Tammy Toussaint Unavailable Prabhjot Gallegos DO Rehabilitation Tech Reason for Visit Reason Comments Follow-up Re-evaluation (Routine) Status Reason Specialty Diagnoses / Referred By Referred To Procedures Contact Contact Authorized Physical Therapy Procedures Hayden Mosqueda Melissa K, JENNIFER THERAPEUTIC Helen Howard MD KALSOMINER EXERCISES [address] [place] [address] [place] [address] TED JONAS,1+ AREAS, [address] [place] [address] [place] MANUAL THER [id number] TECH,1+REGIONS,EA Phone: 15 MIN [phone] [place] THERAPEUT Fax: ACTVITY DIRECT PT [phone] CONTACT EACH 15 MIN [place] SELF-CARE/HOME MGMT TRAINING EACH 15 MINUTES [place] PHYSICAL THERAPY RE-EVAL EST PLAN CARE 20 MINS FOLLOW-UP 45 Encounter Details Date Type Department Care Team Description 08/22/2019 Ancillary Visit [facility] Dana Mosqueda MD [address] [place] [address] [address] Muscle weakness (Primary Dx); Physical Therapy- Omayra Underwood, PT [address] [place] [address] Gait instability; [place] Balance problem; Professional Office History of falling; Building Decreased functional activit y tolerance [address] [facility] [address] [place] [address] Allergies Active Allergy Reactions Severity [...] to take NSAIDs due to history of [place]). DULOXETINE 60 mg TAKE ONE CAPSULE 180 [...] of breath) 12/28/2017 Coronary artery disease involving morongo coronary sarahy ry of morongo heart 02/26/2017 without angina pectoris Essential hypertension 02/13/2017 Hypothyroidism, unspecified type 02/13/2017 Decreased director of training strength 01/13/2017 Decreased pinch strength 01/13/2017 Weakness of upper extremity 01/13/2017 Cataract High cholesterol CO (myocardial infarction) Arthritis Overview: multiple joints documented [...] from chair to mat with Min A/CGA Managing Partner [employer] [place] Goals: To be met in 8 visits: [...] sessions Omayra Hickman, PT [place] PT License [id number] [facility] Rehabilitation Services Department (phone) (fax) I have reviewed this report and agree with the Physical Therapist's recommendations. Signature Date documented in this encounter Plan of Treatment Date Type Specialty Care Team Description 08/24/2019 Ancillary Visit Physical Therapy Esther Mosqueda MD [address] [place] [address] [phone] Cristine Blake, [address] [address] 08/29/2019 Ancillary Visit Physical Therapy Cristine Blake, [address] [address] 08/31/2019 Ancillary Visit Physical Therapy Cristine Blake, [address] [address] 10/26/2019 Office Visit Internal Medicine Maribel Mosqueda MD [address] [place] [address] [phone] Health Maintenance Due Date Last Done Comments [...] of this encounter Implants Implanted Type Area Hemodialysis Technician Device Identifier Shelf Exp iration Model / [...] SURAJ X Medicare & B ent [id number] DANYELLE NGUYEN [phone] BCBS OF BCBS [id number] 2016-Pres [phone] [address] [facility] TRADITIONAL ent [id number] [place] [address] documented as of this encounter
--- OUTSIDE RECORDS SUMMARY | 2019-10-04 18:44 | XMS REPORT | Summary of Care ---
:1935 Author Organization [facility] Address [address] [place] [address] Care Team Providers Name Role Phone Lee Mosqueda MD Primary Care Provider Donte Unavailable Tammy Toussaint Unavailable Prabhjot Gallegos DO Bulk Receiver Reason for Visit Reason Comments Follow-up (Routine) Status Reason Specialty Diagnoses / Referred By Referred To Procedures Contact Contact Authorized Physical Therapy Procedures Hayden Mosqueda Melissa K, JENNIFER THERAPEUTIC Helen Howard MD COTTON MACHINE OPERATOR EXERCISES [address] [place] [address] TED JONAS,1+ AREAS, [address] [place] 15 [place] [address] [place] MANUAL THER [id number] TECH,1+REGIONS,EA Phone: 15 MIN [phone] [place] THERAPEUT Fax: ACTVITY DIRECT PT [phone] CONTACT EACH 15 MIN [place] SELF-CARE/HOME MGMT TRAINING EACH 15 MINUTES [place] PHYSICAL THERAPY RE-EVAL EST PLAN CARE 20 MINS FOLLOW-UP 45 Encounter Details Date Type Department Care Team Description 08/24/2019 Ancillary Visit [facility] Dana Mosqueda MD [address] [place] [address] [address] Muscle weakness (Primary Dx); Physical Therapy- Cristine Blake, COTTON MACHINE OPERATOR [address] [place] [address] Gait instability; [place] History of falling; Professional Office Decrease d functional activity tolerance [address] [place] [phone] Allergies Active Allergy Reactions Severity Noted Date [...] to take NSAIDs due to history of [place]). DULOXETINE 60 mg TAKE ONE CAPSULE 180 [...] of breath) 12/28/2017 Coronary artery disease involving [place] coronary sarahy ry of [place] heart 02/26/2017 without angina pectoris Essential hypertension 02/13/2017 Hypothyroidism, unspecified type 02/13/2017 Decreased dressmaker helper strength 01/13/2017 Decreased pinch strength 01/13/2017 Weakness of upper extremity 01/13/2017 Cataract High cholesterol [place] (myocardial infarction) Arthritis Overview: multiple joints documented [...] on filedocumented in this encounter Progress Notes Cristine Blake, COTTON MACHINE OPERATOR - 08/24/2019 1:00 PM CDT Physical Therapy Treatment Date: August 24, 2019 Subjective: Pt reports that her back hurts, but she did not rate pain level. She states slid down (controled fall) onto the floor when trying to get back in bed this morning, and it took her an hour toget back up. 1. Muscle weakness 2. Gait instability 3. History of falling 4. Decreased functional activity tolerance Objective: Outpatient PT Treatment Row Name 08/24/19 1300 General Visit Number 9 Chart Reviewed Yes Family/Caregiver Present No General Comments Visit 9 of 16 Pain Assessment Pain Assessment 0-10 Pain Location Back Therapeutic Exercise Therapeutic Exercise Activity 1 Sitting- Hip Adduction x 10 with ball, Hip Abduction w/ TB x 10, L2 Therapeutic Exercise Activity 2 Supine; glut sets, abdominal bracing, SAQ's 3 x5ea, SLR's AA x1ea,Bridging with ball between knees x5 Therapeutic Exercise Acitivity 3 Seated: LAQ's x10ea, marching x5ea, HS curls w/Tband L2: x5ea HEP: Continue HEP as able. Assessment: Pt was able to attempt bridging with ball squeeze. She exhibited BLE weakness and fatigue after session. Pt tolerated treatment poor+. Plan: Continue with POC 2 x 8 sessions to increase strength, balance, endurance, and functional mobility. Will add/advance exercises as patient tolerates. Cristine Blake PTA [place] Lic#[id number] Supervised by: Omayra Hickman PT [facility] Dept. [phone] (phone) documented in this encounter Plan of Treatment Date Type Specialty Care Team Description 08/29/2019 Ancillary Visit Physical Therapy Cristine Blake PTA [address] [place] [address] 08/31/2019 Ancillary Visit Physical Therapy Cristine Blake PTA [address] [place] [address] 10/26/2019 Office Visit Internal Medicine Maribel Mosqueda MD [address] [place] [address]75 15 [phone] Health Maintenance Due Date Last Done Comments [...] Vick she wants to Sumeet, walk again, Omayra PT she wants to get stronger documented as of this encounter Implants Implanted Type Area Freezer Machine Operator Device Identifier Shelf Exp iration Model / [...] SURAJ X Medicare & B ent [id number] DANYELLE NGUYEN [id number] BCBS OF BCBS [id number] 2016-Pres [phone]- P O BOX [facility] TRADITIONAL ent [phone] [id number] [place] [address] documented as of this encounter
--- OUTSIDE RECORDS SUMMARY | 2019-10-04 18:45 | XMS REPORT | Summary of Care ---
:1935 Author Organization [facility] Address [address] [place] [address] Care Team Providers Name Role Phone Lee Mosqueda MD Primary Care Provider Donte Unavailable Tammy Toussaint Unavailable Prabhjot Gallegos DO Industrial Maintenance Repairer Helper Reason for Visit Reason Comments Follow-up (Routine) Status Reason Specialty Diagnoses / Referred By Referred To Procedures Contact Contact Authorized Physical Therapy Procedures Hayden Mosqueda Melissa K, [place] THERAPEUTIC Helen Howard MD SITE AUDITOR EXERCISES [address] [place] [address] TED JONAS,1+ AREAS, [address] [place], [place] 15 [place] [address] [place] MANUAL THER [id number] TECH,1+REGIONS,EA Phone: 15 MIN [phone] [place] THERAPEUT Fax: ACTVITY DIRECT PT [phone] CONTACT EACH 15 MIN [place] SELF-CARE/HOME MGMT TRAINING EACH 15 MINUTES [place] PHYSICAL THERAPY RE-EVAL EST PLAN CARE 20 MINS FOLLOW-UP 45 Encounter Details Date Type Department Care Team Description 09/05/2019 Ancillary Visit [facility] Lennox Norwood MD [address] [place] [phone] Muscle weakness (Primary Dx); Physical Therapy- Cristine Blake, SITE AUDITOR [address] [place] [address] Gait instability; [place] History of falling; Professional Office Decrease d functional activity tolerance [address] [place] [phone] Allergies Active Allergy Reactions Severity Noted Date Comments Aspirin Other - See comments 02/09/2017 Ringing in the ears and hearing loss Iodine Other - See comments 02/09/2017 When us ed topically, skin comes off Levofloxacin Rash 02/09/2017 Tramadol Hallucinations 02/09/2017 documented as of this encounter (statuses as of 09/05/2019) Medications Medication Sig Dispensed Refills Start Date [...] to take NSAIDs due to history of [place]). DULOXETINE 60 mg TAKE ONE CAPSULE 180 capsule 3 06/12/2019 Active capsuleIndications: BY MOUTH TWICE A Other chronic pain DAY documented as of this encounter (statuses as of 09/05/2019) Active Problems Problem Noted Date CHF (congestive heart failure) 01/15/2019 NSTEMI (non-ST elevated myocardial infarction) 019 PAF (paroxysmal atrial fibrillation) 12/28/2017 Pacemaker 12/28/2017 LBBB (left bundle branch block) 12/28/2017 SOB (shortness of breath) 12/28/2017 Coronary artery disease involving [place] coronary sarahy ry of [place] heart 02/26/2017 without angina pectoris Essential hypertension 02/13/2017 Hypothyroidism, unspecified type 02/13/2017 Decreased weatherization specialist strength 01/13/2017 Decreased pinch strength 01/13/2017 Weakness of upper extremity 01/13/2017 Cataract High cholesterol [place] (myocardial infarction) Arthritis Overview: multiple joints documented as of this encounter (statuses as of 09/05/2019) Resolved Problems Problem Noted Date Resolved Date Viral upper respiratory tract infection 01/15/2019 06/03/2019 CHF exacerbation 01/14/2019 06/03/2019 Acute on chronic diastolic congestive heart failure 12/28/19 18 06/03/2019 HTN (hypertension) 02/13/2017 Hypothyroidism 02/13/2017 documented as of this encounter (statuses as of 09/05/2019) Immunizations Name Administration Dates Next Due Influenza [...] in this encounter Progress Notes Cristine Blake, SITE AUDITOR - 09/05/2019 1:00 PM CDT Physical Therapy Treatment Date: September 05, 2019 Subjective: Pt reports her back surgery should be the first week of September. 1. Muscle weakness 2. Gait instability 3. History of falling 4. Decreased functional activity tolerance Objective: Outpatient PT Treatment Row Name 09/05/19 1300 General Visit Number 12 Chart Reviewed Yes Family/Caregiver Present No General Comments Visit 12 of 16 Activity Tolerance Endurance Tolerates 30 min exercise with multiple rests Pain Assessment Pain Location Back Therapeutic Exercise Therapeutic Exercise Activity 1 Seated- Hip Adduction x 15 with ball, Hip Abduction w/ TB L2 x 15 Therapeutic Exercise Activity 2 Supine; glut sets and abdominal bracing 5"x10, SAQ's 2x10ea, SLR'sMin A x5ea, Bridging with ball between knees x5 Therapeutic Exercise Acitivity 3 Seated: LAQ's x10ea, marching x10ea, HS curls w/Tband L2 x10ea Therapeutic Exercise Activity 4 Manual HS, SKC, and piriformis stretches 1'ea HEP: Continue HEP as able. Pt reports compliance. Assessment: Pt was able to participate in therapy today better than anticipated. She did exhibit fatigue after session. Pt tolerated treatment fair. Plan: Continue with POC 2 x 8 sessions to increase strength, balance, endurance, and functional mobility. Will add/advance exercises as patient tolerates. Cristine Blake PTA [place] Lic#[id number] Supervised by: Omayra Hickman PT [facility] Dept. [phone] (phone) documented in this encounter Plan of Treatment Date Type Specialty Care Team Description 09/07/2019 Ancillary Visit Physical Therapy Lennox Norwood MD [address] [place] [phone] Cristine Blake PTA [address] [place] [address] 10/26/2019 Office Visit Internal Medicine Maribel Mosqueda MD [address] [facility] [address] [place], [place] [address] [phone] Health Maintenance Due Date Last Done Comments [...] of this encounter Implants Implanted Type Area Hand Cigar Making Supervisor Device Identifier Shelf Exp iration Model / [...] SURAJ X Medicare & B ent [id number] DANYELLE NGUYEN [id number] BCBS OF BCBS [id number] 2016-Pres [phone] [address] [facility] TRADITIONAL ent [phone] [place] [address] documented as of this encounter
--- OUTSIDE RECORDS SUMMARY | 2019-10-04 18:45 | XMS REPORT | Summary of Care ---
:1935 Author [address] [facility] Address [address] [place] [address] Care Team Providers Name Role Phone Lee Mosqudea MD Primary Care Provider Donte Unavailable Tammy Toussaint Unavailable Prabhjot Gallegos DO Cant Hooker Reason for Visit Reason Comments Follow-up (Routine) Status Reason Specialty Diagnoses / Referred By Referred To Procedures Contact Contact Authorized Physical Therapy Procedures Hayden Mosqueda Melissa K, MD THERAPEUTIC Helen Howard MD SUPERVISOR ERECTION SHOP EXERCISES [address] [place] [address] TED JONAS,1+ AREAS, Tay [address] [place], [place] 15 [place] [address] MD MANUAL THER [id number] TECH,1+REGIONS,EA Phone: 15 MIN [phone] [place] THERAPEUT Fax: ACTVITY DIRECT PT [phone] CONTACT EACH 15 MIN MD SELF-CARE/HOME MGMT TRAINING EACH 15 MINUTES MD PHYSICAL THERAPY RE-EVAL EST PLAN CARE 20 MINS FOLLOW-UP 45 Encounter Details Date Type Department Care Team Description 09/07/2019 Ancillary Visit [facility] Lennox Norwood MD [address] [place] [phone] Muscle weakness (Primary Dx); Physical Therapy- Cristine Blake, SUPERVISOR ERECTION SHOP [address] [place] [address] Gait instability; [place] History of falling; Professional Office Decrease d functional activity tolerance [address] [place] [phone] Allergies Active Allergy Reactions Severity Noted Date Comments Aspirin Other - See comments 02/09/2017 Ringing in the ears and hearing loss Iodine Other - See comments 02/09/2017 When us ed topically, skin comes off Levofloxacin Rash 02/09/2017 Tramadol Hallucinations 02/09/2017 documented as of this encounter (statuses as of 09/07/2019) Medications Medication Sig Dispensed Refills Start Date [...] to take NSAIDs due to history of [place]). DULOXETINE 60 mg TAKE ONE CAPSULE 180 capsule 3 06/12/2019 Active capsuleIndications: BY MOUTH TWICE A Other chronic pain DAY documented as of this encounter (statuses as of 09/07/2019) Active Problems Problem Noted Date CHF (congestive heart failure) 01/15/2019 NSTEMI (non-ST elevated myocardial infarction) 019 PAF (paroxysmal atrial fibrillation) 12/28/2017 Pacemaker 12/28/2017 LBBB (left bundle branch block) 12/28/2017 SOB (shortness of breath) 12/28/2017 Coronary artery disease involving [place] coronary sarahy ry of redding heart 02/26/2017 without angina pectoris Essential hypertension 02/13/2017 Hypothyroidism, unspecified type 02/13/2017 Decreased attenuator strength 01/13/2017 Decreased pinch strength 01/13/2017 Weakness of upper extremity 01/13/2017 Cataract High cholesterol [place] (myocardial infarction) Arthritis Overview: multiple joints documented as of this encounter (statuses as of 09/07/2019) Resolved Problems Problem Noted Date Resolved Date Viral upper respiratory tract infection 01/15/2019 06/03/2019 CHF exacerbation 01/14/2019 06/03/2019 Acute on chronic diastolic congestive heart failure 12/28/19 18 06/03/2019 HTN (hypertension) 02/13/2017 Hypothyroidism 02/13/2017 documented as of this encounter (statuses as of 09/07/2019) Immunizations Name Administration Dates Next Due Influenza [...] in this encounter Progress Notes Cristine Blake, SUPERVISOR ERECTION SHOP - 09/07/2019 1:00 PM CDT Physical Therapy Treatment Date: September 07, 2019 Subjective: Pt continues to c/o back pain (she did not rate) and B leg weakness. She is hoping surgery will go through for the first week of September. 1. Muscle weakness 2. Gait instability 3. History of falling 4. Decreased functional activity tolerance Objective: Outpatient PT Treatment Row Name 09/07/19 1300 General Visit Number 13 Chart Reviewed Yes Family/Caregiver Present No General Comments Visit 12 of 16 Activity Tolerance Endurance Tolerates 30 min exercise with multiple rests Pain Assessment Pain Location Back Therapeutic Exercise Therapeutic Exercise Activity 1 Seated- Hip Adduction x 15 with ball, Hip Abduction w/ TB L2 x 15 Therapeutic Exercise Activity 2 Supine; glut sets and abdominal bracing 5"x10, SAQ's 2x15ea, SLR'sMin A x5ea, Bridging with ball between knees x5 Therapeutic Exercise Acitivity 3 Seated: LAQ's x15ea, marching x15ea, HS curls w/Tband L2 x15ea Therapeutic Exercise Activity 4 Manual HS, SKC, and piriformis stretches 1'ea HEP: Continue HEP as able. Pt reports compliance. Assessment: Pt pushed herself to participate with therapy, she even managed to increase reps with a few exercises. She exhibited core and BLE fatigue after session. Pt tolerated treatment fair. Plan: Continue with POC 2 x 8 sessions to increase strength, balance, endurance, and functional mobility. Will add/advance exercises as patient tolerates. Cristine Blake PTA [place] Lic#[id number] Supervised by: Nati Quintero PT [facility] Dept. [phone] (phone) documented in this encounter Plan of Treatment Date Type Specialty Care Team Description 09/12/2019 Ancillary Visit Physical Therapy Omayra Underwood, ELSA [address] [place] [address] 10/26/2019 Office Visit Internal Medicine Maribel Mosqueda MD [address] [place] [address]75 [address] [phone] Health Maintenance Due Date Last Done Comments [...] of this encounter Implants Implanted Type Area Assembler Show Motor Device Identifier Shelf Exp iration Model / [...] SURAJ X Medicare & B ent [id number] DANYELLE NGUYEN [id number] BCBS OF BCBS [id number] 2016-Pres [phone] P O [facility] TRADITIONAL ent [id number] [place] [address] documented as of this encounter
--- OUTSIDE RECORDS SUMMARY | 2019-10-04 18:45 | XMS REPORT | Summary of Care ---
:1935 Author Organization [facility] Address [address] [place] [address] Care Team Providers Name Role Phone Lee Mosqueda MD Primary Care Provider Donte Unavailable Tammy Toussaint Unavailable Prabhjot Gallegos DO Mental Health Associate Reason for Visit Reason Comments Follow-up (Routine) Status Reason Specialty Diagnoses / Referred By Referred To Procedures Contact Contact Authorized Physical Therapy Procedures Hayden Mosqueda Melissa K, [place] THERAPEUTIC Helen Howard MD CAREER EDUCATION TEACHER EXERCISES [address] [place] [address] TED JONAS,1+ AREAS, Tay [address] [place], [place] 15 [place] [address] [place] MANUAL THER [id number] TECH,1+REGIONS,EA Phone: 15 MIN [phone] [place] THERAPEUT Fax: ACTVITY DIRECT PT [phone] CONTACT EACH 15 MIN [place] SELF-CARE/HOME MGMT TRAINING EACH 15 MINUTES [place] PHYSICAL THERAPY RE-EVAL EST PLAN CARE 20 MINS FOLLOW-UP 45 Encounter Details Date Type Department Care Team Description 08/31/2019 Ancillary Visit [facility] Lennox Norwood MD [address] [place] [phone] Muscle weakness (Primary Dx); Physical Therapy- Cristine Blake, CAREER EDUCATION TEACHER [address] [place] [address] Gait instability; [place] History of falling; Professional Office Decrease d functional activity tolerance [address] [place] [phone] Allergies Active Allergy Reactions Severity Noted Date Comments Aspirin Other - See comments 02/09/2017 Ringing in the ears and hearing loss Iodine Other - See comments 02/09/2017 When us ed topically, skin comes off Levofloxacin Rash 02/09/2017 Tramadol Hallucinations 02/09/2017 documented as of this encounter (statuses as of 08/31/2019) Medications Medication Sig Dispensed Refills Start Date [...] to take NSAIDs due to history of [place]). DULOXETINE 60 mg TAKE ONE CAPSULE 180 capsule 3 06/12/2019 Active capsuleIndications: BY MOUTH TWICE A Other chronic pain DAY documented as of this encounter (statuses as of 08/31/2019) Active Problems Problem Noted Date CHF (congestive heart failure) 01/15/2019 NSTEMI (non-ST elevated myocardial infarction) 019 PAF (paroxysmal atrial fibrillation) 12/28/2017 Pacemaker 12/28/2017 LBBB (left bundle branch block) 12/28/2017 SOB (shortness of breath) 12/28/2017 Coronary artery disease involving [place] coronary sarahy ry of [place] heart 02/26/2017 without angina pectoris Essential hypertension 02/13/2017 Hypothyroidism, unspecified type 02/13/2017 Decreased sewing machine assembler strength 01/13/2017 Decreased pinch strength 01/13/2017 Weakness of upper extremity 01/13/2017 Cataract High cholesterol [place] (myocardial infarction) Arthritis Overview: multiple joints documented as of this encounter (statuses as of 08/31/2019) Resolved Problems Problem Noted Date Resolved Date Viral upper respiratory tract infection 01/15/2019 06/03/2019 CHF exacerbation 01/14/2019 06/03/2019 Acute on chronic diastolic congestive heart failure 12/28/19 18 06/03/2019 HTN (hypertension) 02/13/2017 Hypothyroidism 02/13/2017 documented as of this encounter (statuses as of 08/31/2019) Immunizations Name Administration Dates Next Due Influenza [...] in this encounter Progress Notes Cristine Blake, CAREER EDUCATION TEACHER - 08/31/2019 11:00 AM CDT Physical Therapy Treatment Date: August 31, 2019 Subjective: Pt reports that she has a Dr's appointment next week for her back. She states she has been using a HP a lot the last several days. Cautioned about heat level and against accidental brooks. 1. Muscle weakness 2. Gait instability 3. History of falling 4. Decreased functional activity tolerance Objective: Outpatient PT Treatment Row Name 08/31/19 1400 Pain Assessment Pain Location Back Therapeutic Exercise Therapeutic Exercise Activity 1 Supine- Hip Adduction x 15 with ball, Hip Abduction w/ TB L3 x 15 Therapeutic Exercise Activity 2 Supine; glut sets and abdominal bracing 5"x10, SAQ's x15ea, SLR's Kim x5ea, Bridging with ball between knees x5 Therapeutic Exercise Acitivity 3 Seated: LAQ's x10ea, marching x10ea, HS curls w/Tband L3: x10ea Therapeutic Exercise Activity 4 Manual HS, SKC, and piriformis stretches 1'ea Modalities Moist Heat (min) with elliot exercises HEP: Continue HEP as able. Pt reports compliance. Assessment: Pt was able to perform SLR's with min A as precaution on decent; strength is slowly improving. She self transferred and ended up crossing her legs showing how she ends up falling. Demonstrated foot placement with transfers to avoid crossing BLE. She exhibited fatigue after session. Pt tolerated treatment fair. Plan: Continue with POC 2 x 8 sessions to increase strength, balance, endurance, and functional mobility. Will add/advance exercises as patient tolerates. Cristine Blake PTA [place] Lic#[id number] Supervised by: Omayra Hickman PT [facility] Dept. [phone] (phone) documented in this encounter Plan of Treatment Date Type Specialty Care Team Description 09/05/2019 Ancillary Visit Physical Therapy Cristine Blake PTA [address] [place] [address] 09/07/2019 Ancillary Visit Physical Therapy Cristine Blake PTA [address] [place] [address] 10/26/2019 Office Visit Internal Medicine Maribel Mosqueda MD [address] [place] [address]75 [address] [phone] Health Maintenance Due Date Last Done Comments [...] of this encounter Implants Implanted Type Area Director Gift Device Identifier Shelf Exp iration Model / [...] SURAJ X Medicare & B ent [id number] DANYELLE NGUYEN [address] BCBS OF BCBS [id number] 2016-Pres [phone] P O [facility] TRADITIONAL ent [phone] [id number] [place] [address] documented as of this encounter
--- OUTSIDE RECORDS SUMMARY | 2019-10-04 18:46 | XMS REPORT | Summary of Care ---
:1935 Author Organization [facility] Address [address] [place] [address] Care Team Providers Name Role Phone Lee Mosqueda MD Primary Care Provider Donte Unavailable Tammy Toussaint Unavailable Prabhjot Gallegos DO Assistant Health Educator Reason for Visit Reason Comments Follow-up (Routine) Status Reason Specialty Diagnoses / Referred By Referred To Procedures Contact Contact Closed Physical Therapy Procedures aHyden Mosqueda Melissa K, JENNIFER THERAPEUTIC Helen Howard MD RELAY ASSEMBLER EXERCISES [address] [place] [address] [place] [address] [place] NEUROMUSC [address] REEDUCAT,1+ AREAS, [place], [place] EA 15 MIN [address] [place] MANUAL THER Phone: TECH,1+REGIONS,EA 15 MIN [place] THERAPEUT ACTVITY DIRECT PT CONTACT EACH 15 MIN [place] SELF-CARE/HOME MGMT TRAINING EACH 15 MINUTES [place] PHYSICAL THERAPY RE-EVAL EST PLAN CARE 20 MINS FOLLOW-UP 45 Encounter Details Date Type Department Care Team Description 09/12/2019 Ancillary Visit [facility] Dana Mosqueda MD [address] [place] [address] [address] [place] [address] Muscle weakness (Primary Dx); Physical Therapy- Cristine Blake, RELAY ASSEMBLER [address] [place] [address] Gait instability; [place] History of falling; Professional Office Decrease d functional activity tolerance [address] [place] [phone] Allergies Active Allergy Reactions Severity Noted Date Comments Aspirin Other - See comments 02/09/2017 Ringing in the ears and hearing loss Iodine Other - See comments 02/09/2017 When us ed topically, skin comes off Levofloxacin Rash 02/09/2017 Tramadol Hallucinations 02/09/2017 documented as of this encounter (statuses as of 09/12/2019) Medications Medication Sig Dispensed Refills Start Date [...] to take NSAIDs due to history of [place]). DULOXETINE 60 mg TAKE ONE CAPSULE 180 capsule 3 06/12/2019 Active capsuleIndications: BY MOUTH TWICE A Other chronic pain DAY documented as of this encounter (statuses as of 09/12/2019) Active Problems Problem Noted Date CHF (congestive heart failure) 01/15/2019 NSTEMI (non-ST elevated myocardial infarction) 019 PAF (paroxysmal atrial fibrillation) 12/28/2017 Pacemaker 12/28/2017 LBBB (left bundle branch block) 12/28/2017 SOB (shortness of breath) 12/28/2017 Coronary artery disease involving [place] coronary sarahy ry of [place] heart 02/26/2017 without angina pectoris Essential hypertension 02/13/2017 Hypothyroidism, unspecified type 02/13/2017 Decreased retrofit installer strength 01/13/2017 Decreased pinch strength 01/13/2017 Weakness of upper extremity 01/13/2017 Cataract High cholesterol [place] (myocardial infarction) Arthritis Overview: multiple joints documented as of this encounter (statuses as of 09/12/2019) Resolved Problems Problem Noted Date Resolved Date Viral upper respiratory tract infection 01/15/2019 06/03/2019 CHF exacerbation 01/14/2019 06/03/2019 Acute on chronic diastolic congestive heart failure 12/28/19 18 06/03/2019 HTN (hypertension) 02/13/2017 Hypothyroidism 02/13/2017 documented as of this encounter (statuses as of 09/12/2019) Immunizations Name Administration Dates Next Due Influenza [...] in this encounter Progress Notes Cristine Blake, RELAY ASSEMBLER - 09/12/2019 2:00 PM CDT Physical Therapy Treatment Date: September 12, 2019 Subjective: Pt reports her back surgery has been put on hold until her baggagemaster clears her. She continues to report occasional BLE dysfunction. 1. Muscle weakness 2. Gait instability 3. History of falling 4. Decreased functional activity tolerance Objective: Outpatient PT Treatment Row Name 09/12/19 1400 Therapeutic Exercise Therapeutic Exercise Activity 1 Seated- Hip Adduction x 15 with ball, Hip Abduction w/ TB L2 x 15 Therapeutic Exercise Activity 2 Supine; glut sets and abdominal bracing 5"x10, SAQ's 2x15ea, SLR'sMin A x10ea, Bridging with ball between knees x8 Therapeutic Exercise Acitivity 3 Seated: LAQ's x15ea, marching x15ea, HS curls w/Tband L2 x15ea Therapeutic Exercise Activity 4 Manual HS, SKC, and piriformis stretches 1'ea HEP: Continue HEP as able. Pt reports compliance. Assessment: Pt pushed herself to increase reps with a few exercises. She exhibited core and BLE fatigue after session. Pt tolerated treatment fair. Plan: Continue with POC 2 x 8 sessions to increase strength, balance, endurance, and functional mobility. Will add/advance exercises as patient tolerates. Cristine Blake PTA [place] Lic#[id number] Supervised by: Omayra Hickman PT [facility] Rehabilitation Services Dept. [phone] (phone) documented in this encounter Plan of Treatment Date Type Specialty Care Team Description 09/19/2019 Ancillary Visit Physical Therapy Cristine Blake PTA [address] [place] [address] 09/21/2019 Ancillary Visit Physical Therapy Cristine Blake PTA [address] [place] [address] 09/26/2019 Ancillary Visit Physical Therapy Cristine Blake PTA [address] [place] [address] 09/28/2019 Ancillary Visit Physical Therapy Cristine Blake PTA [address] [place] [address] 10/26/2019 Office Visit Internal Medicine Maribel Mosqueda MD [address] [place] [address] 15 [phone] Health Maintenance Due Date Last Done Comments [...] of this encounter Implants Implanted Type Area Batch Dumper Device Identifier Shelf Exp iration Model / [...] SURAJ X Medicare & B ent [id number] DANYELLE NGUYEN [id number] BCBS OF BCBS [id number] 2016-Pres [phone] O [facility] TRADITIONAL ent [phone] [place] [address] documented as of this encounter
--- OUTSIDE RECORDS SUMMARY | 2019-10-04 18:46 | XMS REPORT | Summary of Care ---
:1935 Author Organization [facility] Address [address] [place] [address] Care Team Providers Name Role Phone Lee Mosqueda MD Primary Care Provider Donte Unavailable Tammy Toussaint Unavailable Prabhjot Gallegos DO Child Guidance Counselor Reason for Visit Reason Comments Follow-up (Routine) Status Reason Specialty Diagnoses / Referred By Referred To Procedures Contact Contact Authorized Physical Therapy Procedures Hayden Mosqueda Melissa K, [place] THERAPEUTIC Helen Howard MD NEUROSCIENTIST EXERCISES [address] [place] [address] [address] TED JONAS,1+ AREAS, [address] [place], [place] 15 [place] [address] [place] MANUAL THER [id number] TECH,1+REGIONS,[place] Phone: 15 MIN [phone] [place] THERAPEUT Fax: ACTVITY DIRECT PT [phone] CONTACT EACH 15 MIN [place] SELF-CARE/HOME MGMT TRAINING EACH 15 MINUTES [place] PHYSICAL THERAPY RE-EVAL EST PLAN CARE 20 MINS FOLLOW-UP 45 Encounter Details Date Type Department Care Team Description 09/19/2019 Ancillary Visit [facility] Lennox Norwood MD [address] [place] [phone] Muscle weakness (Primary Dx); Physical Therapy- Cristine Blake, NEUROSCIENTIST [address] [place] [address] Gait instability; [place] History of falling; Professional Office Decrease d functional activity tolerance; Building Balance problem [address] [facility] [address] [place] [address] Allergies Active Allergy Reactions Severity Noted Date Comments Aspirin Other - See comments 02/09/2017 Ringing in the ears and hearing loss Iodine Other - See comments 02/09/2017 When us ed topically, skin comes off Levofloxacin Rash 02/09/2017 Tramadol Hallucinations 02/09/2017 documented as of this encounter (statuses as of 09/19/2019) Medications Medication Sig Dispensed Refills Start Date [...] to take NSAIDs due to history of [place]). DULOXETINE 60 mg TAKE ONE CAPSULE 180 capsule 3 06/12/2019 Active capsuleIndications: BY MOUTH TWICE A Other chronic pain DAY documented as of this encounter (statuses as of 09/19/2019) Active Problems Problem Noted Date CHF (congestive heart failure) 01/15/2019 NSTEMI (non-ST elevated myocardial infarction) 019 PAF (paroxysmal atrial fibrillation) 12/28/2017 Pacemaker 12/28/2017 LBBB (left bundle branch block) 12/28/2017 SOB (shortness of breath) 12/28/2017 Coronary artery disease involving [place] coronary sarahy ry of [place] heart 02/26/2017 without angina pectoris Essential hypertension 02/13/2017 Hypothyroidism, unspecified type 02/13/2017 Decreased leather belt loop cutter strength 01/13/2017 Decreased pinch strength 01/13/2017 Weakness of upper extremity 01/13/2017 Cataract High cholesterol [place] (myocardial infarction) Arthritis Overview: multiple joints documented as of this encounter (statuses as of 09/19/2019) Resolved Problems Problem Noted Date Resolved Date Viral upper respiratory tract infection 01/15/2019 06/03/2019 CHF exacerbation 01/14/2019 06/03/2019 Acute on chronic diastolic congestive heart failure 12/28/19 18 06/03/2019 HTN (hypertension) 02/13/2017 Hypothyroidism 02/13/2017 documented as of this encounter (statuses as of 09/19/2019) Immunizations Name Administration Dates Next Due Influenza [...] in this encounter Progress Notes Cristine Blake, NEUROSCIENTIST - 09/19/2019 1:00 PM CDT Physical Therapy Treatment Date: September 19, 2019 Subjective: Pt reports she may get to have her back surgery next week. She did not rate current backpain, just stated that it is there. 1. Muscle weakness 2. Gait instability 3. History of falling 4. Decreased functional activity tolerance 5. Balance problem Objective: Outpatient PT Treatment Row Name 09/19/19 1300 General Visit Number 15 Chart Reviewed Yes Family/Caregiver Present No General Comments Visit 15 of 16 Pain Assessment Pain Location Back Therapeutic Exercise Therapeutic Exercise Activity 1 Seated- Hip Adduction x 20 with ball, Hip Abduction w/ TB L3 x 20 Therapeutic Exercise Activity 2 Supine; glut sets and abdominal bracing 5"x15, SAQ's 2x15ea, SLR'sMin A x10ea, Bridging with ball between knees x8 Therapeutic Exercise Acitivity 3 Seated: LAQ's x15ea, marching x15ea, HS curls w/Tband L3 x15ea Therapeutic Exercise Activity 4 Manual HS, SKC, and piriformis stretches 1'ea HEP: Continue HEP as able. Pt reports compliance. Assessment: Pt was able to increase resistance today. She exhibited BLE fatigue after session. Pt tolerated treatment fair. Plan: Continue with POC 2 x 8 sessions to increase strength, balance, endurance, and functional mobility. Will add/advance exercises as patient tolerates. Cristine Blake PTA [place] Lic#[id number] Supervised by: Omayra Hickman PT [facility] Rehabilitation Services Dept. [phone] (phone) documented in this encounter Plan of Treatment Date Type Specialty Care Team Description 09/21/2019 Ancillary Visit Physical Therapy Lennox Norwood MD [address] [place] [address] Cristine Blake PTA [address] [place] [address] 09/26/2019 Ancillary Visit Physical Therapy Lennox Norwood MD [address] [place] [address] Omayra Underwood, PT [address] [place] [address] 09/28/2019 Ancillary Visit Physical Therapy Lennox Norwood MD [address] [place] [address] [place] [phone] Cristine Blake, NEUROSCIENTIST [address] [place] [address] 10/26/2019 Office Visit Internal Medicine Maribel Mosqueda MD [address] [facility] [address] [place], [place] [address] [phone] Health Maintenance Due Date Last Done Comments Medicare Wellness Visit 12/22/2019 12/21/2018 Depression Screening 03/29/2020 03/29/2019 DTaP,Tdap,and Td Vaccines (1 05/04/2020 Pos tponed [...] of this encounter Implants Implanted Type Area Filleter Device Identifier Shelf Exp iration Model / Date Serial / L ot Pacemaker PACEMAKER documented as of this encounter Results Not on filedocumented in this encounter Visit Diagnoses Diagnosis Muscle weakness - Primary Muscle weakness (generalized) Gait instability Abnormality of gait History of falling Personal history of fall Decreased functional activity tolerance Balance problem Other symptoms involving nervous and mus culoskeletal systems documented in this encounter Insurance Payer Benefit Plan / Subscriber ID Effective Phone Address T ype Group Dates MEDICARE MEDICARE PART A xxxxxxxxxxx 2002-Pres [phone] P. O. SURAJ X Medicare & B ent [id number] [id number] DANYELLE NGUYEN [phone] BCBS OF BCBS [id number] 2016-Pres [phone] [facility] ent [id number] [place] [address] documented as of this encounter
--- OUTSIDE RECORDS SUMMARY | 2019-10-04 18:47 | XMS REPORT | Summary of Care ---
:1935 Author Organization [facility] - [facility] Address [address] [place] [address] Care Team Providers Name Role Phone Lee Mosqueda MD Primary Care Provider Donte Unavailable Tammy Toussaint Unavailable Prabhjot Gallegos DO [place]. Commissioner Reason for Visit Reason Comments Notification Encounter Details Date Type Department Care Team Description 09/24/2019 Telephone [facility] Pediatric and Esther Mosqueda, Notification Adult Primary Care- MD Alas [address] [facility] [address] [place] [address] [address] [place] [address] [place] [address] [phone] Allergies Active Allergy Reactions Severity Noted Date Comments Aspirin Other - See comments 02/09/2017 Ringing in the ears and hearing loss Iodine Other - See comments 02/09/2017 When us ed topically, skin comes off Levofloxacin Rash 02/09/2017 Tramadol Hallucinations 02/09/2017 documented as of this encounter (statuses as of 09/28/2019) Medications Medication Sig Dispensed Refills Start Date [...] to take NSAIDs due to history of [place]). DULOXETINE 60 mg TAKE ONE CAPSULE 180 capsule 3 06/12/2019 Active capsuleIndications: BY MOUTH TWICE A Other chronic pain DAY documented as of this encounter (statuses as of 09/28/2019) Active Problems Problem Noted Date CHF (congestive heart failure) 01/15/2019 NSTEMI (non-ST elevated myocardial infarction) 019 PAF (paroxysmal atrial fibrillation) 12/28/2017 Pacemaker 12/28/2017 LBBB (left bundle branch block) 12/28/2017 SOB (shortness of breath) 12/28/2017 Coronary artery disease involving [place] coronary sarahy ry of [place] heart 02/26/2017 without angina pectoris Essential hypertension 02/13/2017 Hypothyroidism, unspecified type 02/13/2017 Decreased heel lining paster strength 01/13/2017 Decreased pinch strength 01/13/2017 Weakness of upper extremity 01/13/2017 Cataract High cholesterol [place] (myocardial infarction) Arthritis Overview: multiple joints documented as of this encounter (statuses as of 09/28/2019) Resolved Problems Problem Noted Date Resolved Date Viral upper respiratory tract infection 01/15/2019 06/03/2019 CHF exacerbation 01/14/2019 06/03/2019 Acute on chronic diastolic congestive heart failure 12/28/19 18 06/03/2019 HTN (hypertension) 02/13/2017 Hypothyroidism 02/13/2017 documented as of this encounter (statuses as of 09/28/2019) Immunizations Name Administration Dates Next Due Influenza [...] Signs Not on filedocumented in this encounter Plan of Treatment Date Type Specialty Care Team Description 10/26/2019 Office Visit Internal Medicine Maribel Mosqueda MD [address] [place] [address] 15 [phone] Health Maintenance Due Date Last Done Comments [...] of this encounter Implants Implanted Type Area Horticultural Technical Officer Device Identifier Shelf Exp iration Model / Date Serial / L ot Pacemaker PACEMAKER documented as of this encounter Results Not on filedocumented in this encounter Insurance Payer Benefit Plan / Subscriber ID Effective Phone Address T e Group Dates MEDICARE MEDICARE PART A xxxxxxxxxxx 2002-Pres [phone] P. O. SURAJ X Medicare & B ent [id number] DANYELLE NGUYEN [phone] BCBS OF BCBS [id number] 2016-Pres [phone] O [facility] ent [id number] [place] [address] documented as of this encounter
--- OUTSIDE RECORDS SUMMARY | 2019-10-04 18:47 | XMS REPORT | Summary of Care ---
:1935 Author Organization [facility] Address [address] [place] [address] Care Team Providers Name Role Phone Lee Mosqueda MD Primary Care Provider Donte Unavailable Tammy Toussaint Unavailable Prabhjot Gallegos DO Exhaust Tender Reason for Visit Reason Comments Follow-up (Routine) Status Reason Specialty Diagnoses / Referred By Referred To Procedures Contact Contact Authorized Physical Therapy Procedures Hayden Mosqueda Melissa K, [place] THERAPEUTIC Helen Howard MD DRAFTER STRUCTURAL EXERCISES [address] [place] [address] [address] TED JONAS,1+ AREAS, Tay [address] [place], [place] 15 [place] [address] [place] MANUAL THER [id number] TECH,1+REGIONS,EA Phone: 15 MIN [phone] [place] THERAPEUT Fax: ACTVITY DIRECT PT [phone] CONTACT EACH 15 MIN [place] SELF-CARE/HOME MGMT TRAINING EACH 15 MINUTES [place] PHYSICAL THERAPY RE-EVAL EST PLAN CARE 20 MINS FOLLOW-UP 45 Encounter Details Date Type Department Care Team Description 09/20/2019 Ancillary Visit [facility] Lennox Norwood MD [address] [place] [phone] Muscle weakness (Primary Dx); Physical Therapy- Cristine Blake, DRAFTER STRUCTURAL [address] [place] [address] Gait instability; [place] History of falling; Professional Office Decrease d functional activity tolerance [address] [place] [phone] Allergies Active Allergy Reactions Severity Noted Date Comments Aspirin Other - See comments 02/09/2017 Ringing in the ears and hearing loss Iodine Other - See comments 02/09/2017 When us ed topically, skin comes off Levofloxacin Rash 02/09/2017 Tramadol Hallucinations 02/09/2017 documented as of this encounter (statuses as of 09/21/2019) Medications Medication Sig Dispensed Refills Start Date [...] to take NSAIDs due to history of [place]). DULOXETINE 60 mg TAKE ONE CAPSULE 180 capsule 3 06/12/2019 Active capsuleIndications: BY MOUTH TWICE A Other chronic pain DAY documented as of this encounter (statuses as of 09/21/2019) Active Problems Problem Noted Date CHF (congestive heart failure) 01/15/2019 NSTEMI (non-ST elevated myocardial infarction) 019 PAF (paroxysmal atrial fibrillation) 12/28/2017 Pacemaker 12/28/2017 LBBB (left bundle branch block) 12/28/2017 SOB (shortness of breath) 12/28/2017 Coronary artery disease involving [place] coronary sarahy ry of [place] heart 02/26/2017 without angina pectoris Essential hypertension 02/13/2017 Hypothyroidism, unspecified type 02/13/2017 Decreased release and technical records clerk strength 01/13/2017 Decreased pinch strength 01/13/2017 Weakness of upper extremity 01/13/2017 Cataract High cholesterol [place] (myocardial infarction) Arthritis Overview: multiple joints documented as of this encounter (statuses as of 09/21/2019) Resolved Problems Problem Noted Date Resolved Date Viral upper respiratory tract infection 01/15/2019 06/03/2019 CHF exacerbation 01/14/2019 06/03/2019 Acute on chronic diastolic congestive heart failure 12/28/19 18 06/03/2019 HTN (hypertension) 02/13/2017 Hypothyroidism 02/13/2017 documented as of this encounter (statuses as of 09/21/2019) Immunizations Name Administration Dates Next Due Influenza [...] in this encounter Progress Notes Cristine Blake, DRAFTER STRUCTURAL - 09/21/2019 1:00 PM CDT Physical Therapy Treatment Date: September 21, 2019 Subjective: Pt reports she will be having surgery on her back next week. She will have a family member call afterward to let us know her status. 1. Muscle weakness 2. Gait instability 3. History of falling 4. Decreased functional activity tolerance Objective: Outpatient PT Treatment Row Name 09/21/19 1300 General Visit Number 16 Chart Reviewed Yes Family/Caregiver Present No General Comments Visit 16 of 16 Pain Assessment Pain Location Back Therapeutic Exercise Therapeutic Exercise Activity 1 Seated- Hip Adduction x 20 with ball, Hip Abduction w/ TB L2 x 20 Therapeutic Exercise Activity 2 Supine; glut sets and abdominal bracing 5"x15, SAQ's 2x15ea, SLR'sMod A x10ea, Bridging with ball between knees x8 Therapeutic Exercise Acitivity 3 Seated: LAQ's x15ea, marching x15ea, HS curls w/Tband L2 x15ea Therapeutic Exercise Activity 4 Manual HS, SKC, and piriformis stretches 1'ea HEP: Continue HEP as able. Pt reports compliance. Assessment: Pt was able to complete exercises as noted today. She exhibited fatigue after session. Pt tolerated treatment fair. Reassessment at next session. Plan: Continue with POC 2 x 8 sessions to increase strength, balance, endurance, and functional mobility. Will add/advance exercises as patient tolerates. Cristine Blake PTA [place] Lic#[id number] Supervised by: Nati Quintero PT [facility] Rehabilitation Services Dept. [phone] (phone) documented in this encounter Plan of Treatment Date Type Specialty Care Team Description 09/26/2019 Ancillary Visit Physical Therapy Lennox Norwood MD [address] [place] [address] Omayra Underwood, PT [address] [place] [address] 09/28/2019 Ancillary Visit Physical Therapy Lennox Norwood MD [address] [place] [address] Cristine Blake PTA [address] [place] [address] 10/26/2019 Office Visit Internal Medicine Maribel Mosqueda MD [address] [facility] [address] [place], [place] [address] [phone] Health Maintenance Due Date Last Done Comments [...] of this encounter Implants Implanted Type Area Ceramic Artist Device Identifier Shelf Exp iration Model / [...] SURAJ X Medicare & B ent [id number] DANYELLE NGUYEN [id number] BCBS OF BCBS [id number] 2016-Pres [phone] [address] [facility] ent [id number] [place] [address] documented as of this encounter
[2019-10-04] MEDS ORDERED: APIXABAN 5 MG TABLET PO SCH (20:00)
[2019-10-04] MEDS ORDERED: LOSARTAN POTASSIUM 50 MG TABLET PO PRN (20:12)
[2019-10-04] MEDS ORDERED: GABAPENTIN 300 MG CAP PO SCH (21:00)
[2019-10-04] MEDS: CODEINE 30MG/APAP 300MG TAB PO PRN (21:23)
[2019-10-04] MEDS: ROSUVASTATIN 10 MG TAB PO SCH (21:26)
[2019-10-04] MEDS: DOCUSATE NA/SENNA CONC 1 TAB PO PRN (21:27)
[2019-10-04] MEDS: DULOXETINE 30 MG CAP PO SCH (21:27)
[2019-10-04] MEDS: MONTELUKAST 10 MG TAB PO SCH (21:27)
[2019-10-05] MEDS: APIXABAN 5 MG TABLET PO SCH ×3 (00:41→19:44)
[2019-10-05] MEDS: PANTOPRAZOLE 40MG TABLET PO SCH (05:20)
[2019-10-05] MEDS: THYROID 30 MG TAB PO SCH (05:20)
[2019-10-05 06:20] LABS: Absolute Lymphocytes (CBC) 1.6 K/uL (0.7-4.9); Basophils % 1.1 % (0-1.3); Hematocrit 31.1 % (36.0-45.0); Lymphocytes % 24.8 % (15.3-44.8); MPV 7.8 fL (7.6-11.3); RBC Red Blood Cell Count 4.06 M/uL (3.86-4.86)
[2019-10-05 06:22] LABS: Urine Appearance CLEAR; Urine Bilirubin NEGATIVE (NEG); Urine Blood NEGATIVE (NEG); Urine Color YELLOW; Urine Glucose NEGATIVE (NEG); Urine Protein NEGATIVE (NEG); Urine Specific Gravity <=1.005 (1.005-1.030)
[2019-10-05 06:31] LABS: Albumin 2.3 g/dL (3.4-5.0); Magnesium 2.1 mg/dL (1.8-2.4); Potassium 3.3 mmol/L (3.5-5.1); Prealbumin 10.7 mg/dL (20-40)
[2019-10-05 07:06] LABS: Urine Bacteria 20-50 /HPF (<20); Urine Culture Reflex Order NOT NEEDED; Urine RBC <5 /HPF (NONE SEEN)
[2019-10-05] MEDS: CODEINE 30MG/APAP 300MG TAB PO PRN ×3 (07:35→19:45)
[2019-10-05] MEDS: FUROSEMIDE 40 MG TABLET PO SCH (07:38)
[2019-10-05] MEDS: SPIRONOLACTONE 25 MG TABLET PO SCH (07:38)
[2019-10-05] MEDS: DULOXETINE 30 MG CAP PO SCH ×2 (07:39→19:44)
[2019-10-05] MEDS: carvediloL 3.125 MG TAB PO SCH ×2 (07:39→16:31)
[2019-10-05] MEDS: GABAPENTIN 400 MG CAP PO SCH ×3 (07:45→21:31)
--- NOTE | 2019-10-05 10:20 | P.RH.PN ---
Estimated Length of Stay: 10 Expected Discharge Date: 10/15/19 Family Support: Yes Central Station Operator Goal: Mobility, Transfers, Self Care Vital Signs: Last Vital Signs Temp 97.3 F 10/05/19 09:24 Pulse 67 10/05/19 09:24 Resp 67 H 10/05/19 09:24 BP 155/66 H 10/05/19 09:24 Pulse Ox 97 10/05/19 09:24 Laboratory: Laboratory Last Values WBC 6.6 K/uL (4.3-10.9) 10/05/19 05:41 RBC 4.06 M/uL (3.86-4.86) 10/05/19 05:41 Hgb 10.2 g/dL (12.0-15.0) L 10/05/19 05:41 Hct 31.1 % (36.0-45.0) L 10/05/19 05:41 MCV 76.6 fL (80-100) L D 10/05/19 05:41 MCH 25.0 pg (27.0-35.0) L D 10/05/19 05:41 MCHC 32.7 g/dL (32.0-36.0) 10/05/19 05:41 RDW 16.2 % (12.1-15.2) H 10/05/19 05:41 Plt Count 349 K/uL (152-406) 10/05/19 05:41 MPV 7.8 fL (7.6-11.3) 10/05/19 05:41 Neutrophils % 62.5 % (41.7-73.7) 10/05/19 05:41 Lymphocytes % 24.8 % (15.3-44.8) 10/05/19 05:41 Monocytes % 9.4 % (3.3-12.3) 10/05/19 05:41 Eosinophils % 2.2 % (0-4.4) 10/05/19 05:41 Basophils % 1.1 % (0-1.3) 10/05/19 05:41 Absolute Neutrophils 4.1 K/uL (1.8-8.0) 10/05/19 05:41 Absolute Lymphocytes 1.6 K/uL (0.7-4.9) 10/05/19 05:41 Absolute Monocytes 0.6 K/uL (0.1-1.3) 10/05/19 05:41 Absolute Eosinophils 0.1 K/uL (0-0.5) 10/05/19 05:41 Absolute Basophils 0.1 K/uL (0-0.5) 10/05/19 05:41 Sodium 139 mmol/L (136-145) 10/05/19 05:41 Potassium 3.3 mmol/L (3.5-5.1) L 10/05/19 05:41 Chloride 98 mmol/L (98-107) 10/05/19 05:41 Carbon Dioxide 34 mmol/L (21-32) H 10/05/19 05:41 BUN 13 mg/dL (7-18) 10/05/19 05:41 Creatinine 0.80 mg/dL (0.55-1.3) 10/05/19 05:41 Estimated GFR 69 mL/min (=/>90) L 10/05/19 05:41 Glucose 104 mg/dL (74-106) 10/05/19 05:41 Calcium 8.7 mg/dL (8.5-10.1) 10/05/19 05:41 Magnesium 2.1 mg/dL (1.8-2.4) 10/05/19 05:41 Albumin 2.3 g/dL (3.4-5.0) L 10/05/19 05:41 Prealbumin 10.7 mg/dL (20-40) L 10/05/19 05:41 Urine Color Yellow 10/05/19 05:15 Urine Appearance Clear 10/05/19 05:15 Urine pH 7.0 (5.0-7.0) 10/05/19 05:15 Ur Specific [place] <=1.005 (1.005-1.030) 10/05/19 05:15 Glucose (UA)(Auto) Negative (NEG) 10/05/19 05:15 Urine Ketones Negative (NEG) 10/05/19 05:15 Urine Blood Negative (NEG) 10/05/19 05:15 Urine Nitrite Negative (NEG) 10/05/19 05:15 Urine Bilirubin Negative (NEG) 10/05/19 05:15 Urine Urobilinogen 1.0 mg/dL (0.2-1.0) 10/05/19 05:15 Ur Leukocyte Esterase Negative (NEG) 10/05/19 05:15 Urine RBC <5 /HPF (NONE SEEN) 10/05/19 05:15 Urine WBC <5 /HPF (<5) 10/05/19 05:15 Ur Squamous Epith Cells 5-10 /HPF (NONE SEEN) H 10/05/19 05:15 Urine Bacteria 20-50 /HPF (<20) H 10/05/19 05:15 Urine Culture Reflexed Not needed 10/05/19 05:15 Urine Total Protein Negative (NEG) 10/05/19 05:15 Weight: 154 lb 4.8 oz Physician Update: Labs reviewed and are stable. She just walked 6 steps for the first time since April 2019. Summary: Patient's care plan and snf goals have been reviewed and revised as necessary. Please see the Rehabilitation Signature page for all necessary signatures.
[2019-10-05] MEDS: LIDOCAINE 4% PATCH TOP SCH (12:58)
--- NOTE | 2019-10-05 14:11 | R.HP ---
FACILITY: [facility] ENCOUNTER DATE AND TIME: 10/05/2019 13:56 (CDT) MR#: [id number] NAME RHEA LINK ADDRESS: [address] [place] [address] CITY: [place]IP [id number] PHONE: DATE OF : 1935 AGE: 83 SSN# [id number] GENDER: Female DEXTERITY Right-handed MARITAL STATUS RACE White PRE-HOSPITAL LIVING SETTING 01 - Home (private home/apt. board/care, assisted living, mcc, transitional living) PRE-HOSPITAL LIVING WITH Family/Relatives ENCOUNTER PHYSICIAN: Dr. Turner Gomes M.D. REFERRING DOCTOR: RODRIGO REILLY MD DATE OF ADMISSION: 10/05/2019 11:57 (CDT) REFERRING FACILITY Acute care hospital HOME TYPE AND DETAILS: Type of home: single family house # of levels in the residence: 1 # of steps within the residence: 0 # of steps to enter the residence: 0 ONSET DATE: 09/27/2019 PRIMARY DIAGNOSIS-RELATED SURGERIES: ANKLE FUSION CARDIAC ELECTOPHYSOILOGY PROCEDURE CARDIAC PACEMAKER PLACEMENT TOTAL KNEE REPLACEMENT HISTORY OF PRESENT ILLNESS (HPI): Pt. is a 83 yo Right-handed white female. On 09/25/2019 she was admitted to Acute care hospital with diagnosis THORACIC SPINAL CORD COMPRESSION . Her impairment category is Spinal Cord Dysfunction 04 - Other Non-traumatic Spinal Cord Dysfunction (04.130). Pre-morbidly, Pt. was independent/mod-I in Self-Care, Communication, Transfers Control, Social Cognit ion, and Safety Awareness; and she had good Locomotion and Endurance. Currently, she has deficits of Locomotion, Self-Care, Balance, Endurance, Transfers Control, and Soci al Cognition. Pt. is now referred to [facility] for acute in-patient rehabilitation in order to maximize patient's functional independence in activities of daily living, strength, ROM, and mobi lity. Patient has realistic goal of being discharged at assistance level 3-modA to reside at Home with Fam micaela/Relatives. Rhea Link is a 83 year old female that lives at home independently with her . She has children that live near and help keep them active. She has a history of HTN, PR, CAD, CHF, SSS, Afib, chronic back pain and falls who presented with BLE weakness. She underwent thoracic laminectomy 09/27/19 but condition become unbearable. Bilateral lower weakness has gotten to the point where she is unable to take more than a few steps without lower extremities giving out on her. Patient was admitted to [facility] not followed up for procedure at this time. [facility] Inpatient rehabilitation and is hemodynamically stable with relatively stable labs. She is now medically stable but in need of 24 hour nursing, doctor supervision and The patient is reasonably expected to participate in 3 hours of therapy a day/15 hours per week and receive care with intensive interdisciplinary approach. COVID-19 screening performed; spoke with patient via phone. Patient denies new onset of fever, cough, difficulty breathing, sore throat, body aches and non-allergy nasal congestion in the past 24 hours. Patient denies travel outside of [place] in the past 14 days. Patient denies any contact with someone who has a confirmed diagnosis of or is under investigation for COVID-19 in the past 14 days. MEDICATION ALLERGIES: No Known Drug Allergies (NKDA) ENVIRONMENTAL ALLERGIES: - Substance Allergies None Known - Other Allergies None Known FAMILY HISTORY: Family history is not contributory. SOCIAL HISTORY: - Home Living Family/Relatives REVIEW OF SYSTEMS: - Gen No Chills Fatigue No Fever - Eyes No Double Vision No itchiness - ENMT No Difficulty Swallowing - CVS Chest Discomfort No Chest Pain Fatigue No Weight Gain - Resp No Cough No Shortness of Breath - GI Continent No Abdominal Pain Constipation No Diarrhea - Continent No Kidney Pain No Painful Urination No Urinary Urgency - MSK No Joint Pain Muscle Cramps Stiffness - Skin No Itching No Rash No Suspicious Lesions - Neuro Coordination Difficulty No Difficulty with Concentration No Memory Loss No Seizures Weakness - Psych No Anxiety No Depression No HIV Exposure No Persistent Infections No Seasonal Allergies - Endo No Cold/Heat Intolerance No Excessive Hunger No Excessive Thirst No Excessive Urination PHYSICAL EXAM - Gen Alert and awake Lying in bed No apparent distress Oriented to: person, time, and place - Skin Thoracic incisions intact No abnormalities - Eyes No abnormalities - ENMT No abnormalities - Neck No pain No cervical adenopathy - CVS RRR - Chest Clear - Abd Soft - GI Non distended Deferred - No abnormalities - Ext Mild bilateral lower extremity edema. - MSK 4+/5 weakness in both lower extremities. - Neuro No focal deficits - Psych No abnormalities VITAL SIGNS Temperature: 98.1 F SBP/DBP: 118/67 Pulse: 70 Resp: 20 NURSING: - Shower allowing shower - Bladder care per protocol - Skin care per protocol ACTIVITIES OOB only with supervision QI SCORES: - Self-Care A. Eating 06-Independent B. Oral hygiene 06-Independent C. Toileting hygiene 03-Partial/moderate assistance E. Shower/bathe self 03-Partial/moderate assistance F. Upper body dressing 04-Supervision or touching assistance G. Lower body dressing 88-Not attempted due to medical condition or safety concerns H. Putting on/taking off footwear 88-Not attempted due to medical condition or safety concerns - Mobility A. Roll left and right 04-Supervision or touching assistance B. Sit to lying 04-Supervision or touching assistance C. Lying to sitting on side of bed 02-Substantial/maximal assistance D. Sit to stand 02-Substantial/maximal assistance E. Chair/tub-dp-iboyu transfer 02-Substantial/maximal assistance F. Toilet transfer 02-Substantial/maximal assistance G. Car transfer 88-Not attempted due to medical condition or safety concerns I. Walk 10 feet 88-Not attempted due to medical condition or safety concerns J. Walk 50 feet with two turns 88-Not attempted due to medical condition or safety concerns K. Walk 150 feet 88-Not attempted due to medical condition or safety concerns L. Walking 10 feet on uneven surfaces 88-Not attempted due to medical condition or safety concerns M. 1 step (curb) 88-Not attempted due to medical condition or safety concerns N. 4 steps 88-Not attempted due to medical condition or safety concerns O. 12 steps 88-Not attempted due to medical condition or safety concerns P. Picking up object 06-Independent R. Wheel 50 feet with two turns 88-Not attempted due to medical condition or safety concerns S. Wheel 150 feet 88-Not attempted due to medical condition or safety concerns - Bladder and Bowel Bladder continence 0-Always continent Bowel continence 0-Always continent - Endurance Fair - Balance Fair - Safety Awareness Fair CURRENT FUNC. DEFICITS: Mobility, Endurance, Safety Awareness, Balance, and Self-Care MEDICATIONS: - Other See attached MAR (Medication Administration Record) ASSESSMENT: Pt. is a 83 yo Right-handed white female.On 09/25/2019 she was admitted to [facility] with d iagnosis THORACIC SPINAL CORD COMPRESSION.Her impairment category is Spinal Cord Dysfunction 04 - Ot her Non-traumatic Spinal Cord Dysfunction (04.130).Pre-morbidly, Pt. was independent/mod-I in Self-Ca re, Communication, Transfers Control, Social Cognition, and Safety Awareness; and she had good Locomo tion and Endurance.Currently, she has deficits of Locomotion, Self-Care, Balance, Endurance, Transfer s Control, and Social Cognition.Pt. is now referred to [facility] for acute in -patient rehabilitation in order to maximize patient's functional independence in activities of daily living, strength, ROM, and mobility.- Rehab Goal Patient has realistic goal of being discharged at assistance level 3-modA to reside at Home with Fam micaela/Relatives. Rhea Link is a 83 year old female that lives at home independently with her . She has children that live near and help keep them active. She has a history of HTN, PR, CAD, CHF, SSS, Afib, chronic back pain and falls who presented with BLE weakness. She underwent thoracic laminectomy 09/27/19 but condition become unbearable. Bilateral lower weakness has gotten to the point where she is unable to take more than a few steps without lower extremities giving out on her. Patient was admitted to [facility] not followed up for procedure at this time. [facility] Inpatient rehabilitation and is hemodynamically stable with relatively stable labs. She is now medically stable but in need of 24 hour nursing, doctor supervision and The patient is reasonably expected to participate in 3 hours of therapy a day/15 hours per week and receive care with intensive interdisciplinary approach. COVID-19 screening performed; spoke with patient via phone. Patient denies new onset of fever, cough, difficulty breathing, sore throat, body aches and non-allergy nasal congestion in the past 24 hours. Patient denies travel outside of [place] in the past 14 days. Patient denies any contact with someone who has a confirmed diagnosis of or is under investigation for COVID-19 in the past 14 days.REHAB PLAN: - Physical Therapy Gait dysfunction - to improve, our physical therapists will perform initial evaluation of pt's status upon admission and devise an individualized program for Gait Training, and Wheel Chair mobility Inability to transfer - to improve, our physical therapists will perform initial evaluation of pt's s tatus upon admission and devise an individualized program for Bed mobility Need for home safety evaluation - to improve, our physical therapists will perform initial evaluation of pt's status upon admission and devise an individualized program for Home Evaluation Need in caregiver upon discharge - to improve, our physical therapists will perform initial evaluatio n of pt's status upon admission and devise an individualized program for Caregiver Training New precaution - to improve, our physical therapists will perform initial evaluation of pt's status u any admission and devise an individualized program for Patient precaution education Edema - to improve, our physical therapists will perform initial evaluation of pt's status upon admi ssion and devise an individualized program for Elevation Training, and Lymphedema Therapy Poor balance - to improve, our physical therapists will perform initial evaluation of pt's status upo n admission and devise an individualized program for Balance Training Poor endurance - to improve, our physical therapists will perform initial evaluation of pt's status u any admission and devise an individualized program for Endurance Training Weakness - to improve, our physical therapists will perform initial evaluation of pt's status upon ad mission and devise an individualized program for Aquatic Therapy, Neuromuscular Reeducation, and Stre ngthening Achieving independence - to improve, our physical therapists will perform initial evaluation of pt's status upon admission and devise an individualized program for Community Reintegration Activities - Occupational Therapy ADL deficits - to improve, our occupation therapists will perform initial evaluation of pt's status u any admission and devise an individualized program for Bathing, Bed mobility, Community Reintegration , Cooking, Dressing, Eating, Fine Motor Skills, Grooming, Homemaking, Kitchen Mobility, Laundry, Rachell ent Education, Safety Awareness, Splinting - Positioning, Transfers(Toilet, Tub, Shower), and Wheel C hair Management Cognitive deficits - to improve, our occupation therapists will perform initial evaluation of pt's st atus upon admission and devise an individualized program for Cognition - orientation Need for rn critical care - to improve, our occupation therapists will perform initial evaluation of pt's s tatus upon admission and devise an individualized program for Caregiver Training Weakness - to improve, our occupation therapists will perform initial evaluation of pt's status upon admission and devise an individualized program for Aquatic Therapy, Balance, Endurance, UE ROM, and U E strengthening MEDICAL PLAN: - Diet Type Start Regular - Diet - Liquid Texture Start Regular - Tube Feed Start N/A - Bladder care per protocol - Skin care per protocol - Other See attached MAR (Medication Administration Record) - Diet - Solid Texture Regular - Shower shower DISCHARGE PLAN: - Estimated Length of Stay (days) 16. - Consensus on plan Discharge plan has been discussed with primary caregiver. Patient/Family is in agreement with the jazmyne n. Primary caregiver is in agreement with the plan. - Patient/Family Goals Return home independently. - Planned Living Setting Upon Discharge Home, to live with Family/Relatives. Transitional Living. SIGNATURE PANEL: (CDT)
--- NOTE | 2019-10-05 14:13 | PAPE ---
PATIENT: [facility] MR# [id number] REFERRING DOCTOR RODRIGO RIELLY MD EVALUATION DATE AND TIME 10/05/2019 14:11 (CDT) NAME BENOIT LINK DATE OF 1935 AGE 83 PHONE SSN# [id number] GENDER female EVALUATING PHYSICIAN Dr. Turner Gomes M.D. ADMISSION DIAGNOSIS: THORACIC SPINAL CORD COMPRESSION ONSET DATE 09/27/2019 POST-ADMISSION FUNCTIONAL/MEDICAL STATUS: - Bladder Same accident frequency: Ind - No accidents in the past 7 days - Bowel Same accident frequency: Ind - No accidents in the past 7 days - Walking Same score based on distance walked: 0(N/A) Same score based on distance walked: 1(<=50ft) - Wheelchair Same score based on distance traveled: 0(N/A) STATUS CHANGE EVALUATION: No change in Functional or Medical Status is identified compared with Pre-Admission screening. PATIENT NEEDS CLOSE MEDICAL SUPERVISION BY A REHABILITATION PHYSICIAN FOR: Coordination of Treatment Team PATIENT REQUIRES 24X7 REHAB NURSING FOR MEDICAL AND FUNCTIONAL MGT. OF THE FOLLOWING DEFICITS: Disease Management Medication Management Patient/Family Education Providing Safe Environment PATIENT REQUIRES INTENSIVE, COORDINATED INTERDISCIPLINARY APPROACH TO REHAB: Arranging Home Equipment/Services Discharge Planning Family Intervention/Training Dermatology Physician Assistant/Case Management LIST OF IDENTIFIED AND POTENTIAL PROBLEMS: Alteration in leisure activities Bladder, Incontinence Bowel, Incontinence Infection, Actual or Potential Mobility Impaired Pain, Alteration in Comfort Self Care Deficit Skin Integrity, Actual or Potential Urinary Tract Infection (UTI), Actual or Potential PATIENT COULD BE AT RISK FOR COMPLICATIONS FROM ADVERSE MEDICAL CONDITIONS DUE TO HIS/HER COMORBIDITI ES AND THE RIGORS OF THE INTENSIVE REHABILLITATION PROGRAM. METHODS OR INTERVENTIONS TO AVOID COMPLIC ATIONS INCLUDE: - Infection Clinical staff to assess and manage the signs and symptoms of infection including fever, redness, war mth, etc. - Urinary Tract Infection - Falls Patient will be evaluated for Fall Precautions and will be placed on Fall Precautions as indicated pe r protocol. - Skin Breakdown Nursing will assess skin daily using assessment tool and will place on Skin Breakdown Precautions as indicated per protocol. - Pain Clinical staff may employ non-medication methods such as massage, distraction, decrease stimulus, etc . as needed. Clinical staff will assess patient's pain level every shift per protocol to assess and e nsure pain management effectiveness. Medications will be given and the pain level re-assessed. PRELIMINARY PLAN OF CARE: - Physical Therapy Patient needs Physical Therapy for a daily minimum of 1.5 hours at least 5 out of 7 days, to improve: Mobility, Strengthening, Transfers, Stretching, ROM, Endurance, Ability to manage stairs, Gait, and Balance. - Speech Therapy Patient needs Speech Therapy for a daily minimum of 0.5 hours at least 5 out of 7 days, to improve: S wallowing, Cognition, Language Skills, and Compensatory Strategies. - Rehabilitation Nursing Patient requires 24x7 Rehabilitation Nursing for: Pain Issues, Identifying and preventing risk factor s, Monitoring and reporting current medical conditions, Assisting with ambulation and transfer, Gay ting with all ADL-s, Teaching patients about disease process and medications, Family teaching, Provid ing safe environment, Bowel and Bladder Issues, Skin Integrity, and Medication Management. Patient needs Dermatology Physician Assistant and/or Case Management for: Discharge Planning, Arranging Home Equipmen t or Services, and Family Interventions. - Dietary and Nutrition Services Patient needs Dietary and Nutrition Services for: Adequate Nutrition, Nutritional Supplements, and Nu tritional Education. - Occupational Therapy Patient needs Occupational Therapy for a daily minimum of 1.5 hours at least 5 out of 7 days, to impr ove Activities of Daily Living, including: Eating, Grooming, Bathing, Dressing, Toileting, Toilet Tra nsfers, Community Reintegration, Higher functional activities, Adaptive Equipment, Splinting, Househo ld Tasks, and Other activities as determined. QI SCORES: - Self-Care A. Eating 06-Independent B. Oral hygiene 06-Independent C. Toileting hygiene 03-Partial/moderate assistance E. Shower/bathe self 03-Partial/moderate assistance F. Upper body dressing 04-Supervision or touching assistance G. Lower body dressing 88-Not attempted due to medical condition or safety concerns H. Putting on/taking off footwear 88-Not attempted due to medical condition or safety concerns - Mobility A. Roll left and right 04-Supervision or touching assistance B. Sit to lying 04-Supervision or touching assistance C. Lying to sitting on side of bed 02-Substantial/maximal assistance D. Sit to stand 02-Substantial/maximal assistance E. Chair/rgx-fx-ppucv transfer 02-Substantial/maximal assistance F. Toilet transfer 02-Substantial/maximal assistance G. Car transfer 88-Not attempted due to medical condition or safety concerns I. Walk 10 feet 88-Not attempted due to medical condition or safety concerns J. Walk 50 feet with two turns 88-Not attempted due to medical condition or safety concerns K. Walk 150 feet 88-Not attempted due to medical condition or safety concerns L. Walking 10 feet on uneven surfaces 88-Not attempted due to medical condition or safety concerns M. 1 step (curb) 88-Not attempted due to medical condition or safety concerns N. 4 steps 88-Not attempted due to medical condition or safety concerns O. 12 steps 88-Not attempted due to medical condition or safety concerns P. Picking up object 06-Independent R. Wheel 50 feet with two turns 88-Not attempted due to medical condition or safety concerns S. Wheel 150 feet 88-Not attempted due to medical condition or safety concerns - Bladder and Bowel Bladder continence 0-Always continent Bowel continence 0-Always continent - Endurance Fair - Balance Fair - Safety Awareness Fair POTENTIAL FUNCTIONAL GOALS FOR PATIENT TO ACHIEVE BY DISCHARGE: - Safety Precaution Patient will remain free from falls or injury at time of discharge. - Bed Mobility Patient will perform bed mobility at 4-Hank level of assistance. - Transfers Patient will complete transfers from bed to chair at 4-Hank level of assistance. - Mobility Patient will ambulate 150 ft with 4-Hank level of assistance with RW. PATIENT REHAB POTENTIAL Abelardo LINK is able and expected to receive 3 hours of individualized therapy daily on at least 5 of ev samir 7 days Abelardo LINK's prognosis for significant practical improvement within a reasonable period of time appear s Good Expected level of measurable improvement will be of a practical value to Abelardo LINK's functional capac ity or adaptations to impairments Has a viable Discharge Plan Medically appropriate; condition is sufficiently stable to participate in intensive rehab program DISCHARGE PLAN: - Estimated Length of Stay (days) 16. - Consensus on plan Discharge plan has been discussed with primary caregiver. Patient/Family is in agreement with the jazmyne n. Primary caregiver is in agreement with the plan. - Patient/Family Goals Return home independently. - Planned Living Setting Upon Discharge Home, to live with Family/Relatives. Transitional Living. CONCLUSION ON REHABILITATION NECESSITY: I have evaluated patient's pre-admission functional status and, comparing it to the patient's post-ad mission functional status now, I conclude that the pre-admission assessment was accurate. Patient's c ondition on admission supports the medical necessity of admission to [facility]. It is safe to proceed with patient's therapy program. SIGNATURE PANEL: (CDT)
[2019-10-05] MEDS: DOCUSATE NA/SENNA CONC 1 TAB PO PRN (19:45)
[2019-10-05] MEDS: MONTELUKAST 10 MG TAB PO SCH (21:31)
[2019-10-05] MEDS: ROSUVASTATIN 10 MG TAB PO SCH (21:31)
[2019-10-06] MEDS: THYROID 30 MG TAB PO SCH (05:30)
[2019-10-06] MEDS: PANTOPRAZOLE 40MG TABLET PO SCH (07:16)
[2019-10-06] MEDS: LIDOCAINE 4% PATCH TOP SCH (08:16)
[2019-10-06] MEDS: DULOXETINE 30 MG CAP PO SCH ×2 (08:16→21:05)
[2019-10-06] MEDS: carvediloL 3.125 MG TAB PO SCH ×2 (08:17→16:36)
[2019-10-06] MEDS: APIXABAN 5 MG TABLET PO SCH ×2 (08:17→21:06)
[2019-10-06] MEDS: SPIRONOLACTONE 25 MG TABLET PO SCH (08:17)
[2019-10-06] MEDS: GABAPENTIN 400 MG CAP PO SCH ×3 (08:18→21:05)
[2019-10-06] MEDS: PROMOD 30 ML DOSE PO SCH (08:18)
[2019-10-06] MEDS: FUROSEMIDE 40 MG TABLET PO SCH (09:45)
[2019-10-06] MEDS: CODEINE 30MG/APAP 300MG TAB PO PRN ×3 (09:45→21:05)
[2019-10-06] MEDS: ROSUVASTATIN 10 MG TAB PO SCH (21:05)
[2019-10-06] MEDS: MONTELUKAST 10 MG TAB PO SCH (21:06)
[2019-10-06] MEDS: DOCUSATE NA/SENNA CONC 1 TAB PO PRN (21:06)
[2019-10-07] MEDS: PANTOPRAZOLE 40MG TABLET PO SCH (05:24)
[2019-10-07] MEDS: THYROID 30 MG TAB PO SCH (05:24)
[2019-10-07] MEDS: LIDOCAINE 4% PATCH TOP SCH (06:58)
[2019-10-07] MEDS: carvediloL 3.125 MG TAB PO SCH ×2 (07:13→16:41)
[2019-10-07] MEDS: DULOXETINE 30 MG CAP PO SCH ×2 (07:13→20:30)
[2019-10-07] MEDS: APIXABAN 5 MG TABLET PO SCH ×2 (07:13→20:30)
[2019-10-07] MEDS: GABAPENTIN 400 MG CAP PO SCH ×3 (07:14→20:32)
[2019-10-07] MEDS: FUROSEMIDE 40 MG TABLET PO SCH (07:14)
[2019-10-07] MEDS: SPIRONOLACTONE 25 MG TABLET PO SCH (07:14)
[2019-10-07] MEDS: PROMOD 30 ML DOSE PO SCH (07:15)
[2019-10-07] MEDS: CODEINE 30MG/APAP 300MG TAB PO PRN ×2 (13:47→20:31)
[2019-10-07] MEDS: ROSUVASTATIN 10 MG TAB PO SCH (20:30)
[2019-10-07] MEDS: MONTELUKAST 10 MG TAB PO SCH (20:31)
[2019-10-08] MEDS: THYROID 30 MG TAB PO SCH (05:10)
[2019-10-08] MEDS: PANTOPRAZOLE 40MG TABLET PO SCH (06:36)
[2019-10-08] MEDS: DULOXETINE 30 MG CAP PO SCH ×2 (08:35→20:50)
[2019-10-08] MEDS: APIXABAN 5 MG TABLET PO SCH ×2 (08:35→20:50)
[2019-10-08] MEDS: LIDOCAINE 4% PATCH TOP SCH (08:35)
[2019-10-08] MEDS: CODEINE 30MG/APAP 300MG TAB PO PRN ×2 (08:35→20:50)
[2019-10-08] MEDS: carvediloL 3.125 MG TAB PO SCH ×2 (08:36→17:15)
[2019-10-08] MEDS: SPIRONOLACTONE 25 MG TABLET PO SCH (08:36)
[2019-10-08] MEDS: FUROSEMIDE 40 MG TABLET PO SCH (08:37)
[2019-10-08] MEDS: GABAPENTIN 400 MG CAP PO SCH ×3 (08:37→20:50)
[2019-10-08] MEDS: PROMOD 30 ML DOSE PO SCH (08:42)
--- NOTE | 2019-10-08 18:02 | R.PN ---
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 SUBJECTIVE: Pt denied any depression. Pt denied any Shortness of Breath. Ambulated 275' with contact guard assistance. Self-propelled wheelchair 250' with standby assistance. Up and down 3 steps with minimum assistance. VITAL SIGNS Temperature: 97.0 F SBP/DBP: 124/68 Pulse: 78 Resp: 20 MEDICATION ALLERGIES: No Known Drug Allergies (NKDA) ENVIRONMENTAL ALLERGIES: - Substance Allergies None Known - Other Allergies None Known NURSING: - Shower allowing shower - Bladder care per protocol - Skin care per protocol ACTIVITIES OOB only with supervision THERAPIES: - Orthotics/Prosthetics Orthotic Evaluation. Splinting/Casting. - Dietary and Nutrition Adequate Nutrition. Nutritional Education. Nutritional Supplements. PHYSICAL EXAM - Gen Alert and awake Lying in bed No apparent distress Oriented to: person, time, and place - Skin Thoracic incisions intact No abnormalities - Eyes No abnormalities - ENMT No abnormalities - Neck No pain No cervical adenopathy - CVS RRR - Chest Clear - Abd Soft - GI Non distended Deferred - No abnormalities - Ext Mild bilateral lower extremity edema. - MSK 4+/5 weakness in both lower extremities. - Neuro No focal deficits - Psych No abnormalities ASSESSMENT: Pt. is a 83 yo Right-handed white female.On 09/25/2019 she was admitted to [facility] hospital with d iagnosis THORACIC SPINAL CORD COMPRESSION.Her impairment category is Spinal Cord Dysfunction 04 - Ot her Non-traumatic Spinal Cord Dysfunction (04.130).Pre-morbidly, Pt. was independent/mod-I in Self-Ca re, Communication, Transfers Control, Social Cognition, and Safety Awareness; and she had good Locomo tion and Endurance.Currently, she has deficits of Locomotion, Self-Care, Balance, Endurance, Transfer s Control, and Social Cognition.Pt. is now referred to [facility] for acute in -patient rehabilitation in order to maximize patient's functional independence in activities of daily living, strength, ROM, and mobility.- Rehab Goal Patient has realistic goal of being discharged at assistance level 3-modA to reside at Home with Fam micaela/Relatives. MDM/PLAN: - Physical Therapy Gait dysfunction - to improve, our physical therapists will perform initial evaluation of pt's statu s upon admission and devise an individualized program for Gait Training, and Wheel Chair mobility Inability to transfer - to improve, our physical therapists will perform initial evaluation of pt's status upon admission and devise an individualized program for Bed mobility Need for home safety evaluation - to improve, our physical therapists will perform initial evaluatio n of pt's status upon admission and devise an individualized program for Home Evaluation Need in caregiver upon discharge - to improve, our physical therapists will perform initial evaluati on of pt's status upon admission and devise an individualized program for Caregiver Training Edema - to improve, our physical therapists will perform initial evaluation of pt's status upon admis jon and devise an individualized program for Elevation Training, and Lymphedema Therapy New precaution - to improve, our physical therapists will perform initial evaluation of pt's status upon admission and devise an individualized program for Patient precaution education Poor balance - to improve, our physical therapists will perform initial evaluation of pt's status up on admission and devise an individualized program for Balance Training Poor endurance - to improve, our physical therapists will perform initial evaluation of pt's status upon admission and devise an individualized program for Endurance Training Weakness - to improve, our physical therapists will perform initial evaluation of pt's status upon a dmission and devise an individualized program for Aquatic Therapy, Neuromuscular Reeducation, and Str engthening Achieving independence - to improve, our physical therapists will perform initial evaluation of pt's status upon admission and devise an individualized program for Community Reintegration Activities - Occupational Therapy ADL deficits - to improve, our occupation therapists will perform initial evaluation of pt's status upon admission and devise an individualized program for Bathing, Bed mobility, Community Reintegratio n, Cooking, Dressing, Eating, Fine Motor Skills, Grooming, Homemaking, Kitchen Mobility, Laundry, Pat ient Education, Safety Awareness, Splinting - Positioning, Transfers(Toilet, Tub, Shower), and Wheel Chair Management Cognitive deficits - to improve, our occupation therapists will perform initial evaluation of pt's s tatus upon admission and devise an individualized program for Cognition - orientation Need for childcare administrator - to improve, our occupation therapists will perform initial evaluation of pt's status upon admission and devise an individualized program for Caregiver Training Weakness - to improve, our occupation therapists will perform initial evaluation of pt's status upon admission and devise an individualized program for Aquatic Therapy, Balance, Endurance, UE ROM, and UE strengthening - Other See attached MAR (Medication Administration Record) - Diet Type Continue Regular - Diet - Liquid Texture Continue Regular - Tube Feed Continue N/A - Bladder care per protocol - Skin care per protocol - Diet - Solid Texture Continue Regular - Shower allowing shower FUNCTIONAL STATUS: UPDATED AT WEEKLY TEAM CONFERENCE - Bladder Same accident frequency: 7-Ind - No accidents in the past 7 days - Bowel Same accident frequency: 7-Ind - No accidents in the past 7 days - Walking Same score based on distance walked: 0(N/A) Same score based on distance walked: 1(<=50ft) - Wheelchair Same score based on distance traveled: 0(N/A) FUNCTIONAL STATUS: - Self-Care A. Eating Ind B. Grooming Hank C. Bathing modA D. Dressing - Upper Hank E. Dressing - Lower modA F. Toileting Hank - Sphincter Control G. Bladder control sup H. Bowel control sup - Transfers Control I. Bed/Chair/Wheelchair Hank J. Toilet Hank K. Tub/Shower Hank - Locomotion L. Walk/Wheelchair (B) modA M. Stairs ADNO - Communication N. Comprehension (B) Jaskaran O. Expression (B) Jaskaran - Social Cognition P. Social Interaction Ind Q. Problem Solving Ind R. Memory Ind - Endurance Good - Balance Good - Safety Awareness Good QI SCORES: - Self-Care A. Eating 06-Independent B. Oral hygiene 06-Independent C. Toileting hygiene 03-Partial/moderate assistance E. Shower/bathe self 03-Partial/moderate assistance F. Upper body dressing 04-Supervision or touching assistance G. Lower body dressing 88-Not attempted due to medical condition or safety concerns H. Putting on/taking off footwear 88-Not attempted due to medical condition or safety concerns - Mobility A. Roll left and right 04-Supervision or touching assistance B. Sit to lying 04-Supervision or touching assistance C. Lying to sitting on side of bed 02-Substantial/maximal assistance D. Sit to stand 02-Substantial/maximal assistance E. Chair/[id number]-[id number] transfer 02-Substantial/maximal assistance F. Toilet transfer 02-Substantial/maximal assistance G. Car transfer 88-Not attempted due to medical condition or safety concerns I. Walk 10 feet 88-Not attempted due to medical condition or safety concerns J. Walk 50 feet with two turns 88-Not attempted due to medical condition or safety concerns K. Walk 150 feet 88-Not attempted due to medical condition or safety concerns L. Walking 10 feet on uneven surfaces 88-Not attempted due to medical condition or safety concerns M. 1 step (curb) 88-Not attempted due to medical condition or safety concerns N. 4 steps 88-Not attempted due to medical condition or safety concerns O. 12 steps 88-Not attempted due to medical condition or safety concerns P. Picking up object 06-Independent R. Wheel 50 feet with two turns 88-Not attempted due to medical condition or safety concerns S. Wheel 150 feet 88-Not attempted due to medical condition or safety concerns - Bladder and Bowel Bladder continence 0-Always continent Bowel continence 0-Always continent - Endurance Fair - Balance Fair - Safety Awareness Fair CURRENT [facility]. DEFICITS: Mobility, Endurance, Safety Awareness, Balance, and Self-Care SIGNATURE PANEL: (CDT)
[2019-10-08] MEDS: DOCUSATE NA/SENNA CONC 1 TAB PO PRN (20:50)
[2019-10-08] MEDS: MONTELUKAST 10 MG TAB PO SCH (20:50)
[2019-10-08] MEDS: ROSUVASTATIN 10 MG TAB PO SCH (20:50)
[2019-10-09] MEDS: PANTOPRAZOLE 40MG TABLET PO SCH (06:36)
[2019-10-09] MEDS: THYROID 30 MG TAB PO SCH (06:36)
[2019-10-09] MEDS: LIDOCAINE 4% PATCH TOP SCH (06:40)
[2019-10-09] MEDS: CODEINE 30MG/APAP 300MG TAB PO PRN ×2 (08:37→20:30)
[2019-10-09] MEDS: FUROSEMIDE 40 MG TABLET PO SCH (08:37)
[2019-10-09] MEDS: carvediloL 3.125 MG TAB PO SCH ×2 (08:38→17:13)
[2019-10-09] MEDS: APIXABAN 5 MG TABLET PO SCH ×2 (08:38→20:29)
[2019-10-09] MEDS: SPIRONOLACTONE 25 MG TABLET PO SCH (08:38)
[2019-10-09] MEDS: GABAPENTIN 400 MG CAP PO SCH ×3 (08:38→20:30)
[2019-10-09] MEDS: DULOXETINE 30 MG CAP PO SCH ×2 (08:38→20:32)
[2019-10-09] MEDS: PROMOD 30 ML DOSE PO SCH (08:39)
[2019-10-09] MEDS ORDERED: DIPHENHYDRAMINE 25 MG TAB/CAP PO ONE (14:30)
[2019-10-09] MEDS ORDERED: ACETAMINOPHEN 500 MG TAB PO ONE (14:30)
[2019-10-09] MEDS: HIZENTRA SQ SCH (15:00)
--- NOTE | 2019-10-09 18:06 | R.PN ---
ENCOUNTER DATE AND TIME: 10/09/2019 18:04 (CDT) NAME BENOIT LINK DATE OF : 1935 DATE OF ADMISSION: 10/05/2019 11:57 (CDT) THORACIC SPINAL CORD COMPRESSIONCHIEF COMPLAINT: Thoracic spinal cord compression s/p decompression. SUBJECTIVE: Pt denied any depression. Pt denied any Shortness of Breath. Ambulated 82' with minimum assistance. Self-propelled wheelchair 500' with standby assistance. Up and down 3 steps with minimum assistance. VITAL SIGNS Temperature: 97.0 F SBP/DBP: 134/75 Pulse: 65 Resp: 16 MEDICATION ALLERGIES: No Known Drug Allergies (NKDA) ENVIRONMENTAL ALLERGIES: - Substance Allergies None Known - Other Allergies None Known NURSING: - Shower allowing shower - Bladder care per protocol - Skin care per protocol ACTIVITIES OOB only with supervision THERAPIES: - Orthotics/Prosthetics Orthotic Evaluation. Splinting/Casting. - Dietary and Nutrition Adequate Nutrition. Nutritional Education. Nutritional Supplements. PHYSICAL EXAM - Gen Alert and awake Lying in bed No apparent distress Oriented to: person, time, and place - Skin Thoracic incisions intact No abnormalities - Eyes No abnormalities - ENMT No abnormalities - Neck No pain No cervical adenopathy - CVS RRR - Chest Clear - Abd Soft - GI Non distended Deferred - No abnormalities - Ext Mild bilateral lower extremity edema. - MSK 4+/5 weakness in both lower extremities. - Neuro No focal deficits - Psych No abnormalities ASSESSMENT: Pt. is a 83 yo Right-handed white female.On 09/25/2019 she was admitted to [facility] hospital with d iagnosis THORACIC SPINAL CORD COMPRESSION.Her impairment category is Spinal Cord Dysfunction 04 - Ot her Non-traumatic Spinal Cord Dysfunction (04.130).Pre-morbidly, Pt. was independent/mod-I in Self-Ca re, Communication, Transfers Control, Social Cognition, and Safety Awareness; and she had good Locomo tion and Endurance.Currently, she has deficits of Locomotion, Self-Care, Balance, Endurance, Transfer s Control, and Social Cognition.Pt. is now referred to [facility] for acute in -patient rehabilitation in order to maximize patient's functional independence in activities of daily living, strength, ROM, and mobility.- Rehab Goal Patient has realistic goal of being discharged at assistance level 3-modA to reside at Home with Fam micaela/Relatives. MDM/PLAN: - Physical Therapy Gait dysfunction - to improve, our physical therapists will perform initial evaluation of pt's statu s upon admission and devise an individualized program for Gait Training, and Wheel Chair mobility Inability to transfer - to improve, our physical therapists will perform initial evaluation of pt's status upon admission and devise an individualized program for Bed mobility Need for home safety evaluation - to improve, our physical therapists will perform initial evaluatio n of pt's status upon admission and devise an individualized program for Home Evaluation Need in caregiver upon discharge - to improve, our physical therapists will perform initial evaluati on of pt's status upon admission and devise an individualized program for Caregiver Training Edema - to improve, our physical therapists will perform initial evaluation of pt's status upon admi ssion and devise an individualized program for Elevation Training, and Lymphedema Therapy New precaution - to improve, our physical therapists will perform initial evaluation of pt's status upon admission and devise an individualized program for Patient precaution education Poor balance - to improve, our physical therapists will perform initial evaluation of pt's status up on admission and devise an individualized program for Balance Training Poor endurance - to improve, our physical therapists will perform initial evaluation of pt's status upon admission and devise an individualized program for Endurance Training Weakness - to improve, our physical therapists will perform initial evaluation of pt's status upon a dmission and devise an individualized program for Aquatic Therapy, Neuromuscular Reeducation, and Str engthening Achieving independence - to improve, our physical therapists will perform initial evaluation of pt's status upon admission and devise an individualized program for Community Reintegration Activities - Occupational Therapy ADL deficits - to improve, our occupation therapists will perform initial evaluation of pt's status upon admission and devise an individualized program for Bathing, Bed mobility, Community Reintegratio n, Cooking, Dressing, Eating, Fine Motor Skills, Grooming, Homemaking, Kitchen Mobility, Laundry, Pat ient Education, Safety Awareness, Splinting - Positioning, Transfers(Toilet, Tub, Shower), and Wheel Chair Management Cognitive deficits - to improve, our occupation therapists will perform initial evaluation of pt's s tatus upon admission and devise an individualized program for Cognition - orientation Need for personal carer - to improve, our occupation therapists will perform initial evaluation of pt's status upon admission and devise an individualized program for Caregiver Training Weakness - to improve, our occupation therapists will perform initial evaluation of pt's status upon admission and devise an individualized program for Aquatic Therapy, Balance, Endurance, UE ROM, and UE strengthening - Other See attached MAR (Medication Administration Record) - Diet Type Continue Regular - Diet - Liquid Texture Continue Regular - Tube Feed Continue N/A - Bladder care per protocol - Skin care per protocol - Diet - Solid Texture Continue Regular - Shower allowing shower FUNCTIONAL STATUS: UPDATED AT WEEKLY TEAM CONFERENCE - Bladder Same accident frequency: 7-Ind - No accidents in the past 7 days - Bowel Same accident frequency: 7-Ind - No accidents in the past 7 days - Walking Same score based on distance walked: 0(N/A) Same score based on distance walked: 1(<=50ft) - Wheelchair Same score based on distance traveled: 0(N/A) FUNCTIONAL STATUS: - Self-Care A. Eating Ind B. Grooming Hank C. Bathing modA D. Dressing - Upper Hank E. Dressing - Lower modA F. Toileting Hank - Sphincter Control G. Bladder control sup H. Bowel control sup - Transfers Control I. Bed/Chair/Wheelchair Hank J. Toilet Hank K. Tub/Shower aHnk - Locomotion L. Walk/Wheelchair (B) modA M. Stairs ADNO - Communication N. Comprehension (B) Jaskaran O. Expression (B) Jaskaran - Social Cognition P. Social Interaction Ind Q. Problem Solving Ind R. Memory Ind - Endurance Good - Balance Good - Safety Awareness Good QI SCORES: - Self-Care A. Eating 06-Independent B. Oral hygiene 06-Independent C. Toileting hygiene 03-Partial/moderate assistance E. Shower/bathe self 03-Partial/moderate assistance F. Upper body dressing 04-Supervision or touching assistance G. Lower body dressing 88-Not attempted due to medical condition or safety concerns H. Putting on/taking off footwear 88-Not attempted due to medical condition or safety concerns - Mobility A. Roll left and right 04-Supervision or touching assistance B. Sit to lying 04-Supervision or touching assistance C. Lying to sitting on side of bed 02-Substantial/maximal assistance D. Sit to stand 02-Substantial/maximal assistance E. Chair/arg-tf-vqbtu transfer 02-Substantial/maximal assistance F. Toilet transfer 02-Substantial/maximal assistance G. Car transfer 88-Not attempted due to medical condition or safety concerns I. Walk 10 feet 88-Not attempted due to medical condition or safety concerns J. Walk 50 feet with two turns 88-Not attempted due to medical condition or safety concerns K. Walk 150 feet 88-Not attempted due to medical condition or safety concerns L. Walking 10 feet on uneven surfaces 88-Not attempted due to medical condition or safety concerns M. 1 step (curb) 88-Not attempted due to medical condition or safety concerns N. 4 steps 88-Not attempted due to medical condition or safety concerns O. 12 steps 88-Not attempted due to medical condition or safety concerns P. Picking up object 06-Independent R. Wheel 50 feet with two turns 88-Not attempted due to medical condition or safety concerns S. Wheel 150 feet 88-Not attempted due to medical condition or safety concerns - Bladder and Bowel Bladder continence 0-Always continent Bowel continence 0-Always continent - Endurance Fair - Balance Fair - Safety Awareness Fair CURRENT [facility]. DEFICITS: Mobility, Endurance, Safety Awareness, Balance, and Self-Care SIGNATURE PANEL: (CDT)
[2019-10-09] MEDS: MONTELUKAST 10 MG TAB PO SCH (20:29)
[2019-10-09] MEDS: ROSUVASTATIN 10 MG TAB PO SCH (20:30)
[2019-10-09] MEDS: DOCUSATE NA/SENNA CONC 1 TAB PO PRN (20:30)
[2019-10-10] MEDS: PANTOPRAZOLE 40MG TABLET PO SCH (06:22)
[2019-10-10] MEDS: THYROID 30 MG TAB PO SCH (06:22)
[2019-10-10] MEDS: CODEINE 30MG/APAP 300MG TAB PO PRN ×3 (06:29→19:02)
[2019-10-10] MEDS: DULOXETINE 30 MG CAP PO SCH ×2 (08:00→19:01)
[2019-10-10] MEDS: LIDOCAINE 4% PATCH TOP SCH (08:20)
[2019-10-10] MEDS: FUROSEMIDE 40 MG TABLET PO SCH (08:22)
[2019-10-10] MEDS: GABAPENTIN 400 MG CAP PO SCH ×3 (08:23→21:04)
[2019-10-10] MEDS: APIXABAN 5 MG TABLET PO SCH ×2 (08:23→19:01)
[2019-10-10] MEDS: carvediloL 3.125 MG TAB PO SCH ×2 (08:24→17:00)
[2019-10-10] MEDS: SPIRONOLACTONE 25 MG TABLET PO SCH (08:24)
[2019-10-10] MEDS: PROMOD 30 ML DOSE PO SCH (08:26)
--- NOTE | 2019-10-10 18:00 | R.PN ---
ENCOUNTER DATE AND TIME: 10/10/2019 17:57 (CDT) NAME BENOIT LINK DATE OF : 1935 DATE OF ADMISSION: 10/05/2019 11:57 (CDT) THORACIC SPINAL CORD COMPRESSIONCHIEF COMPLAINT: Thoracic spinal cord compression s/p decompression. SUBJECTIVE: Pt denied any depression. Pt denied any Shortness of Breath. Ambulated 82' with minimum assistance. Self-propelled wheelchair 500' with standby assistance. Up and down 3 steps with minimum assistance. VITAL SIGNS Temperature: 97.4 F SBP/DBP: 130/78 Pulse: 70 Resp: 16 MEDICATION ALLERGIES: No Known Drug Allergies (NKDA) ENVIRONMENTAL ALLERGIES: - Substance Allergies None Known - Other Allergies None Known NURSING: - Shower allowing shower - Bladder care per protocol - Skin care per protocol ACTIVITIES OOB only with supervision THERAPIES: - Orthotics/Prosthetics Orthotic Evaluation. Splinting/Casting. - Dietary and Nutrition Adequate Nutrition. Nutritional Education. Nutritional Supplements. PHYSICAL EXAM - Gen Alert and awake Lying in bed No apparent distress Oriented to: person, time, and place - Skin Thoracic incisions intact No abnormalities - Eyes No abnormalities - ENMT No abnormalities - Neck No pain No cervical adenopathy - CVS RRR - Chest Clear - Abd Soft - GI Non distended Deferred - No abnormalities - Ext Mild bilateral lower extremity edema. - MSK 4+/5 weakness in both lower extremities. - Neuro No focal deficits - Psych No abnormalities ASSESSMENT: Pt. is a 83 yo Right-handed white female.On 09/25/2019 she was admitted to [facility] hospital with d iagnosis THORACIC SPINAL CORD COMPRESSION.Her impairment category is Spinal Cord Dysfunction 04 - Ot her Non-traumatic Spinal Cord Dysfunction (04.130).Pre-morbidly, Pt. was independent/mod-I in Self-Ca re, Communication, Transfers Control, Social Cognition, and Safety Awareness; and she had good Locomo tion and Endurance.Currently, she has deficits of Locomotion, Self-Care, Balance, Endurance, Transfer s Control, and Social Cognition.Pt. is now referred to [facility] for acute in -patient rehabilitation in order to maximize patient's functional independence in activities of daily living, strength, ROM, and mobility.- Rehab Goal Patient has realistic goal of being discharged at assistance level 3-modA to reside at Home with Fam micaela/Relatives. MDM/PLAN: - Physical Therapy Gait dysfunction - to improve, our physical therapists will perform initial evaluation of pt's statu s upon admission and devise an individualized program for Gait Training, and Wheel Chair mobility Inability to transfer - to improve, our physical therapists will perform initial evaluation of pt's status upon admission and devise an individualized program for Bed mobility Need for home safety evaluation - to improve, our physical therapists will perform initial evaluatio n of pt's status upon admission and devise an individualized program for Home Evaluation Need in caregiver upon discharge - to improve, our physical therapists will perform initial evaluati on of pt's status upon admission and devise an individualized program for Caregiver Training Edema - to improve, our physical therapists will perform initial evaluation of pt's status upon admi ssion and devise an individualized program for Elevation Training, and Lymphedema Therapy New precaution - to improve, our physical therapists will perform initial evaluation of pt's status upon admission and devise an individualized program for Patient precaution education Poor balance - to improve, our physical therapists will perform initial evaluation of pt's status up on admission and devise an individualized program for Balance Training Poor endurance - to improve, our physical therapists will perform initial evaluation of pt's status upon admission and devise an individualized program for Endurance Training Weakness - to improve, our physical therapists will perform initial evaluation of pt's status upon a dmission and devise an individualized program for Aquatic Therapy, Neuromuscular Reeducation, and Str engthening Achieving independence - to improve, our physical therapists will perform initial evaluation of pt's status upon admission and devise an individualized program for Community Reintegration Activities - Occupational Therapy ADL deficits - to improve, our occupation therapists will perform initial evaluation of pt's status upon admission and devise an individualized program for Bathing, Bed mobility, Community Reintegratio n, Cooking, Dressing, Eating, Fine Motor Skills, Grooming, Homemaking, Kitchen Mobility, Laundry, Pat ient Education, Safety Awareness, Splinting - Positioning, Transfers(Toilet, Tub, Shower), and Wheel Chair Management Cognitive deficits - to improve, our occupation therapists will perform initial evaluation of pt's s tatus upon admission and devise an individualized program for Cognition - orientation Need for post anesthesia care unit nurse - to improve, our occupation therapists will perform initial evaluation of pt's status upon admission and devise an individualized program for Caregiver Training Weakness - to improve, our occupation therapists will perform initial evaluation of pt's status upon admission and devise an individualized program for Aquatic Therapy, Balance, Endurance, UE ROM, and UE strengthening - Other See attached MAR (Medication Administration Record) - Diet Type Continue Regular - Diet - Liquid Texture Continue Regular - Tube Feed Continue N/A - Bladder care per protocol - Skin care per protocol - Diet - Solid Texture Continue Regular - Shower allowing shower FUNCTIONAL STATUS: UPDATED AT WEEKLY TEAM CONFERENCE - Bladder Same accident frequency: 7-Ind - No accidents in the past 7 days - Bowel Same accident frequency: 7-Ind - No accidents in the past 7 days - Walking Same score based on distance walked: 0(N/A) Same score based on distance walked: 1(<=50ft) - Wheelchair Same score based on distance traveled: 0(N/A) FUNCTIONAL STATUS: - Self-Care A. Eating Ind B. Grooming Hank C. Bathing modA D. Dressing - Upper Hank E. Dressing - Lower modA F. Toileting Hank - Sphincter Control G. Bladder control sup H. Bowel control sup - Transfers Control I. Bed/Chair/Wheelchair Hank J. Toilet Hank K. Tub/Shower Hank - Locomotion L. Walk/Wheelchair (B) modA M. Stairs ADNO - Communication N. Comprehension (B) Jaskaran O. Expression (B) Jaskaran - Social Cognition P. Social Interaction Ind Q. Problem Solving Ind R. Memory Ind - Endurance Good - Balance Good - Safety Awareness Good QI SCORES: - Self-Care A. Eating 06-Independent B. Oral hygiene 06-Independent C. Toileting hygiene 03-Partial/moderate assistance E. Shower/bathe self 03-Partial/moderate assistance F. Upper body dressing 04-Supervision or touching assistance G. Lower body dressing 88-Not attempted due to medical condition or safety concerns H. Putting on/taking off footwear 88-Not attempted due to medical condition or safety concerns - Mobility A. Roll left and right 04-Supervision or touching assistance B. Sit to lying 04-Supervision or touching assistance C. Lying to sitting on side of bed 02-Substantial/maximal assistance D. Sit to stand 02-Substantial/maximal assistance E. Chair/[id number] transfer 02-Substantial/maximal assistance F. Toilet transfer 02-Substantial/maximal assistance G. Car transfer 88-Not attempted due to medical condition or safety concerns I. Walk 10 feet 88-Not attempted due to medical condition or safety concerns J. Walk 50 feet with two turns 88-Not attempted due to medical condition or safety concerns K. Walk 150 feet 88-Not attempted due to medical condition or safety concerns L. Walking 10 feet on uneven surfaces 88-Not attempted due to medical condition or safety concerns M. 1 step (curb) 88-Not attempted due to medical condition or safety concerns N. 4 steps 88-Not attempted due to medical condition or safety concerns O. 12 steps 88-Not attempted due to medical condition or safety concerns P. Picking up object 06-Independent R. Wheel 50 feet with two turns 88-Not attempted due to medical condition or safety concerns S. Wheel 150 feet 88-Not attempted due to medical condition or safety concerns - Bladder and Bowel Bladder continence 0-Always continent Bowel continence 0-Always continent - Endurance Fair - Balance Fair - Safety Awareness Fair CURRENT [facility]. DEFICITS: Mobility, Endurance, Safety Awareness, Balance, and Self-Care SIGNATURE PANEL: (CDT)
[2019-10-10] MEDS: DOCUSATE NA/SENNA CONC 1 TAB PO PRN (21:03)
[2019-10-10] MEDS: ROSUVASTATIN 10 MG TAB PO SCH (21:03)
[2019-10-10] MEDS: MONTELUKAST 10 MG TAB PO SCH (21:03)
[2019-10-11 05:56] LABS: Absolute Lymphocytes (CBC) 1.5 K/uL (0.7-4.9); Basophils % 0.8 % (0-1.3); Hematocrit 31.1 % (36.0-45.0); Lymphocytes % 19.9 % (15.3-44.8); MPV 7.1 fL (7.6-11.3); RBC Red Blood Cell Count 4.04 M/uL (3.86-4.86)
[2019-10-11 06:08] LABS: Albumin 2.6 g/dL (3.4-5.0); Potassium 4.1 mmol/L (3.5-5.1); Prealbumin 15.5 mg/dL (20-40)
[2019-10-11] MEDS: THYROID 30 MG TAB PO SCH (06:20)
[2019-10-11] MEDS: CODEINE 30MG/APAP 300MG TAB PO PRN ×3 (06:20→21:14)
[2019-10-11] MEDS: PANTOPRAZOLE 40MG TABLET PO SCH (06:20)
[2019-10-11] MEDS: GABAPENTIN 400 MG CAP PO SCH ×3 (08:18→21:14)
[2019-10-11] MEDS: APIXABAN 5 MG TABLET PO SCH ×2 (08:18→21:13)
[2019-10-11] MEDS: DULOXETINE 30 MG CAP PO SCH ×2 (08:18→21:13)
[2019-10-11] MEDS: carvediloL 3.125 MG TAB PO SCH ×2 (08:19→16:55)
[2019-10-11] MEDS: FUROSEMIDE 40 MG TABLET PO SCH (08:19)
[2019-10-11] MEDS: LIDOCAINE 4% PATCH TOP SCH (08:21)
[2019-10-11] MEDS: SPIRONOLACTONE 25 MG TABLET PO SCH (08:21)
[2019-10-11] MEDS: PROMOD 30 ML DOSE PO SCH (08:22)
--- NOTE | 2019-10-11 14:43 | FAST ---
SHIFT START DATE/TIME: 10/11/2019 07:00 (CDT) SHIFT END DATE/TIME: 10/11/2019 19:00 (CDT) NAME BENOIT LINK DATE OF : 1935 DATE OF ADMISSION: 10/05/2019 11:57 (CDT) PHONE: AGE: 83 N# [id number] GENDER: Female ENCOUNTER PHYSICIAN: Dr. Turner Gomes M.D. ADMISSION DIAGNOSIS: - Spinal Cord Dysfunction 04 - Other Non-traumatic Spinal Cord Dysfunction (04.130) THORACIC SPINAL CORD COMPRESSION. EATING: EATING - STEP 1: Does the patient complete the activity by him/herself with no assistance (physical, verbal/nonverbal cueing, setup/clean-up)? No. EATING - STEP 2: Does the patient need only setup/clean-up assistance from one helper? Yes. 1. [id number] ADMISSION PERFORMANCE: Setup or clean-up assistance CODE: 05 ORAL HYGIENE: ORAL HYGIENE - STEP 1: Does the patient complete the activity by him/herself with no assistance (physical, verbal/nonverbal cueing, setup/clean-up)? No. ORAL HYGIENE - STEP 2: Does the patient need only setup/clean-up assistance from one helper? Yes. 1. [id number] ADMISSION PERFORMANCE: Setup or clean-up assistance CODE: 05 TOILETING HYGIENE: TOILETING HYGIENE - STEP 1: Does the patient complete the activity by him/herself with no assistance (physical, verbal/nonverbal cueing, setup/clean-up)? No. TOILETING HYGIENE - STEP 2: Does the patient need only setup/clean-up assistance from one helper? Yes. 1. [id number] ADMISSION PERFORMANCE: Setup or clean-up assistance CODE: 05 BATHING: Not assessed/no information CODE: - DRESSING - UPPER BODY: DRESSING - UPPER BODY - STEP 1: Does the patient complete the activity by him/herself with no assistance (physical, verbal/nonverbal cueing, setup/clean-up)? No. DRESSING - UPPER BODY - STEP 2: Does the patient need only setup/clean-up assistance from one helper? Yes. 1. [id number] ADMISSION PERFORMANCE: Setup or clean-up assistance CODE: 05 DRESSING - LOWER BODY: DRESSING - LOWER BODY - STEP 1: Does the patient complete the activity by him/herself with no assistance (physical, verbal/nonverbal cueing, setup/clean-up)? No. DRESSING - LOWER BODY - STEP 2: Does the patient need only setup/clean-up assistance from one helper? Yes. 1. [id number] ADMISSION PERFORMANCE: Setup or clean-up assistance CODE: 05 PUTTING ON/TAKING OFF FOOTWEAR: FOOTWEAR - STEP 1: Does the patient complete the activity by him/herself with no assistance (physical, verbal/nonverbal cueing, setup/clean-up)? No. FOOTWEAR - STEP 2: Does the patient need only setup/clean-up assistance from one helper? No. FOOTWEAR - STEP 3: Does the patient need only verbal/nonverbal cueing or touching/steadying/contact guard assistance fro m one helper? Yes. 1. [id number] ADMISSION PERFORMANCE: Supervision or touching assistance CODE: 04 ROLL LEFT AND RIGHT: ROLL LEFT AND RIGHT - STEP 1: Does the patient complete the activity by him/herself with no assistance (physical, verbal/nonverbal cueing, setup/clean-up)? No. ROLL LEFT AND RIGHT - STEP 2: Does the patient need only setup/clean-up assistance from one helper? Yes. 1. [id number] ADMISSION PERFORMANCE: Setup or clean-up assistance CODE: 05 SIT TO LYING: SIT TO LYING - STEP 1: Does the patient complete the activity by him/herself with no assistance (physical, verbal/nonverbal cueing, setup/clean-up)? No. SIT TO LYING - STEP 2: Does the patient need only setup/clean-up assistance from one helper? Yes. 1. [id number] ADMISSION PERFORMANCE: Setup or clean-up assistance CODE: 05 LYING TO SITTING: LYING TO SITTING ON SIDE OF BED - STEP 1: Does the patient complete the activity by him/herself with no assistance (physical, verbal/nonverbal cueing, setup/clean-up)? No. LYING TO SITTING ON SIDE OF BED - STEP 2: Does the patient need only setup/clean-up assistance from one helper? Yes. 1. [id number] ADMISSION PERFORMANCE: Setup or clean-up assistance CODE: 05 SIT TO STAND: SIT TO STAND - STEP 1: Does the patient complete the activity by him/herself with no assistance (physical, verbal/nonverbal cueing, setup/clean-up)? No. SIT TO STAND - STEP 2: Does the patient need only setup/clean-up assistance from one helper? Yes. 1. [id number] ADMISSION PERFORMANCE: Setup or clean-up assistance CODE: 05 TRANSFERS: BED, CHAIR: [id number]/[id number] TRANSFER - STEP 1: Does the patient complete the activity by him/herself with no assistance (physical, verbal/nonverbal cueing, setup/clean-up)? No. CHAIR/[id number] TRANSFER - STEP 2: Does the patient need only setup/clean-up assistance from one helper? Yes. 1. [id number] ADMISSION PERFORMANCE: Setup or clean-up assistance CODE: 05 TRANSFER TOILET: TOILET TRANSFER - STEP 1: Does the patient complete the activity by him/herself with no assistance (physical, verbal/nonverbal cueing, setup/clean-up)? No. TOILET TRANSFER - STEP 2: Does the patient need only setup/clean-up assistance from one helper? Yes. 1. [id number] ADMISSION PERFORMANCE: Setup or clean-up assistance CODE: 05 TRANSFERS: CAR: Not assessed/no information CODE: - WALK 10 FEET: Not assessed/no information CODE: - 1 STEP (CURB): Not assessed/no information CODE: - PICKING UP OBJECT: Not assessed/no information CODE: - DOES THE PATIENT USE A WHEELCHAIR/SCOOTER? Q1. DOES THE PATIENT USE A WHEELCHAIR/SCOOTER?: Yes CODE: 1 WHEEL 50 FEET WITH TWO TURNS: WHEEL 50 FEET WITH TWO TURNS - STEP 1: Does the patient complete the activity by him/herself with no assistance (physical, verbal/nonverbal cueing, setup/clean-up)? No. WHEEL 50 FEET WITH TWO TURNS - STEP 2: Does the patient need only setup/clean-up assistance from one helper? Yes. 1. [id number] ADMISSION PERFORMANCE: Setup or clean-up assistance CODE: 05 INDICATE THE TYPE OF WHEELCHAIR/SCOOTER USED: RR1. INDICATE THE TYPE OF WHEELCHAIR/SCOOTER USED.: Manual CODE: 1 WHEEL 150 FEET: WHEEL 150 FEET - STEP 1: Does the patient complete the activity by him/herself with no assistance (physical, verbal/nonverbal cueing, setup/clean-up)? No. WHEEL 150 FEET - STEP 2: Does the patient need only setup/clean-up assistance from one helper? Yes. 1. [id number] ADMISSION PERFORMANCE: Setup or clean-up assistance CODE: 05 INDICATE THE TYPE OF WHEELCHAIR/SCOOTER USED: SS1. INDICATE THE TYPE OF WHEELCHAIR/SCOOTER USED.: Manual CODE: 1 BLADDER AND BOWEL: H350. BLADDER CONTINENCE (3-DAY ASSESSMENT PERIOD): Always continent (no documented incontinence) CODE: 0 H400. BOWEL CONTINENCE (3-DAY ASSESSMENT PERIOD): Always continent CODE: 0 SIGNATURE PANEL: The following modified sections: 1. [id number] Admission Performance, 1. [id number] Admission Performance, 1. [id number] Admission Performance, 1. [id number] Admission Performance, 1. [id number] Admission Performance, 1. [id number] Admission Performance, 1. [id number] Admission Performance, 1. [id number] Admission Performance , 1. [id number] Admission Performance, 1. [id number] Admission Performance, 1. [id number] Admission Performanc e, 1. [id number] Admission Performance, Q1. Does the patient use a wheelchair/scooter?, 1. [id number] Admis jon Performance, RR1. Indicate the type of wheelchair/scooter used., 1. [id number] Admission Performanc e, Code, SS1. Indicate the type of wheelchair/scooter used., H350. Bladder Continence (3-day assessme nt period), H400. Bowel Continence (3-day assessment period) were [electronically] signed by Mary Guerrero [email or web address] on TueOct 11 2019 14:42:29 [facility]-0500 (Central Daylight Time)
--- NOTE | 2019-10-11 18:27 | R.PN ---
ENCOUNTER DATE AND TIME: 10/11/2019 18:21 (CDT) NAME BENOIT LINK DATE OF : 1935 DATE OF ADMISSION: 10/05/2019 11:57 (CDT) THORACIC SPINAL CORD COMPRESSIONCHIEF COMPLAINT: Thoracic spinal cord compression s/p decompression. SUBJECTIVE: Pt denied any depression. Pt denied any Shortness of Breath. Ambulated 150' with minimum assistance. Self-propelled wheelchair 250' with standby assistance. Up an d down 3 steps with minimum assistance. WBC 7.3, Hgb 10.1, prealbumin 15.5 VITAL SIGNS Temperature: 97.6 F SBP/DBP: 131/75 Pulse: 68 Resp: 16 MEDICATION ALLERGIES: No Known Drug Allergies (NKDA) ENVIRONMENTAL ALLERGIES: - Substance Allergies None Known - Other Allergies None Known NURSING: - Shower allowing shower - Bladder care per protocol - Skin care per protocol ACTIVITIES OOB only with supervision THERAPIES: - Orthotics/Prosthetics Orthotic Evaluation. Splinting/Casting. - Dietary and Nutrition Adequate Nutrition. Nutritional Education. Nutritional Supplements. PHYSICAL EXAM - Gen Alert and awake Lying in bed No apparent distress Oriented to: person, time, and place - Skin Thoracic incisions intact No abnormalities - Eyes No abnormalities - ENMT No abnormalities - Neck No pain No cervical adenopathy - CVS RRR - Chest Clear - Abd Soft - GI Non distended Deferred - No abnormalities - Ext Mild bilateral lower extremity edema. - MSK 4+/5 weakness in both lower extremities. - Neuro No focal deficits - Psych No abnormalities ASSESSMENT: Pt. is a 83 yo Right-handed white female.On 09/25/2019 she was admitted to [facility] hospital with d iagnosis THORACIC SPINAL CORD COMPRESSION.Her impairment category is Spinal Cord Dysfunction 04 - Ot her Non-traumatic Spinal Cord Dysfunction (04.130).Pre-morbidly, Pt. was independent/mod-I in Self-Ca re, Communication, Transfers Control, Social Cognition, and Safety Awareness; and she had good Locomo tion and Endurance.Currently, she has deficits of Locomotion, Self-Care, Balance, Endurance, Transfer s Control, and Social Cognition.Pt. is now referred to [facility] for acute in -patient rehabilitation in order to maximize patient's functional independence in activities of daily living, strength, ROM, and mobility.- Rehab Goal Patient has realistic goal of being discharged at assistance level 3-modA to reside at Home with Fam micaela/Relatives. MDM/PLAN: - Physical Therapy Gait dysfunction - to improve, our physical therapists will perform initial evaluation of pt's statu s upon admission and devise an individualized program for Gait Training, and Wheel Chair mobility Inability to transfer - to improve, our physical therapists will perform initial evaluation of pt's status upon admission and devise an individualized program for Bed mobility Need for home safety evaluation - to improve, our physical therapists will perform initial evaluatio n of pt's status upon admission and devise an individualized program for Home Evaluation Need in caregiver upon discharge - to improve, our physical therapists will perform initial evaluati on of pt's status upon admission and devise an individualized program for Caregiver Training Edema - to improve, our physical therapists will perform initial evaluation of pt's status upon admi ssion and devise an individualized program for Elevation Training, and Lymphedema Therapy New precaution - to improve, our physical therapists will perform initial evaluation of pt's status upon admission and devise an individualized program for Patient precaution education Poor balance - to improve, our physical therapists will perform initial evaluation of pt's status up on admission and devise an individualized program for Balance Training Poor endurance - to improve, our physical therapists will perform initial evaluation of pt's status upon admission and devise an individualized program for Endurance Training Weakness - to improve, our physical therapists will perform initial evaluation of pt's status upon a dmission and devise an individualized program for Aquatic Therapy, Neuromuscular Reeducation, and Str engthening Achieving independence - to improve, our physical therapists will perform initial evaluation of pt's status upon admission and devise an individualized program for Community Reintegration Activities - Occupational Therapy ADL deficits - to improve, our occupation therapists will perform initial evaluation of pt's status upon admission and devise an individualized program for Bathing, Bed mobility, Community Reintegratio n, Cooking, Dressing, Eating, Fine Motor Skills, Grooming, Homemaking, Kitchen Mobility, Laundry, Pat ient Education, Safety Awareness, Splinting - Positioning, Transfers(Toilet, Tub, Shower), and Wheel Chair Management Cognitive deficits - to improve, our occupation therapists will perform initial evaluation of pt's s tatus upon admission and devise an individualized program for Cognition - orientation Need for healthcare administration intern - to improve, our occupation therapists will perform initial evaluation of pt's status upon admission and devise an individualized program for Caregiver Training Weakness - to improve, our occupation therapists will perform initial evaluation of pt's status upon admission and devise an individualized program for Aquatic Therapy, Balance, Endurance, UE ROM, and UE strengthening - Other See attached MAR (Medication Administration Record) - Diet Type Continue Regular - Diet - Liquid Texture Continue Regular - Tube Feed Continue N/A - Bladder care per protocol - Skin care per protocol - Diet - Solid Texture Continue Regular - Shower allowing shower FUNCTIONAL STATUS: UPDATED AT WEEKLY TEAM CONFERENCE - Bladder Same accident frequency: 7-Ind - No accidents in the past 7 days - Bowel Same accident frequency: 7-Ind - No accidents in the past 7 days - Walking Same score based on distance walked: 0(N/A) Same score based on distance walked: 1(<=50ft) - Wheelchair Same score based on distance traveled: 0(N/A) FUNCTIONAL STATUS: - Self-Care A. Eating Ind B. Grooming Hank C. Bathing modA D. Dressing - Upper Hank E. Dressing - Lower modA F. Toileting Hank - Sphincter Control G. Bladder control sup H. Bowel control sup - Transfers Control I. Bed/Chair/Wheelchair Hank J. Toilet Hank K. Tub/Shower Hank - Locomotion L. Walk/Wheelchair (B) modA M. Stairs ADNO - Communication N. Comprehension (B) Jaskaran O. Expression (B) Jaskaran - Social Cognition P. Social Interaction Ind Q. Problem Solving Ind R. Memory Ind - Endurance Good - Balance Good - Safety Awareness Good QI SCORES: - Self-Care A. Eating 06-Independent B. Oral hygiene 06-Independent C. Toileting hygiene 03-Partial/moderate assistance E. Shower/bathe self 03-Partial/moderate assistance F. Upper body dressing 04-Supervision or touching assistance G. Lower body dressing 88-Not attempted due to medical condition or safety concerns H. Putting on/taking off footwear 88-Not attempted due to medical condition or safety concerns - Mobility A. Roll left and right 04-Supervision or touching assistance B. Sit to lying 04-Supervision or touching assistance C. Lying to sitting on side of bed 02-Substantial/maximal assistance D. Sit to stand 02-Substantial/maximal assistance E. Chair/[id number] transfer 02-Substantial/maximal assistance F. Toilet transfer 02-Substantial/maximal assistance G. Car transfer 88-Not attempted due to medical condition or safety concerns I. Walk 10 feet 88-Not attempted due to medical condition or safety concerns J. Walk 50 feet with two turns 88-Not attempted due to medical condition or safety concerns K. Walk 150 feet 88-Not attempted due to medical condition or safety concerns L. Walking 10 feet on uneven surfaces 88-Not attempted due to medical condition or safety concerns M. 1 step (curb) 88-Not attempted due to medical condition or safety concerns N. 4 steps 88-Not attempted due to medical condition or safety concerns O. 12 steps 88-Not attempted due to medical condition or safety concerns P. Picking up object 06-Independent R. Wheel 50 feet with two turns 88-Not attempted due to medical condition or safety concerns S. Wheel 150 feet 88-Not attempted due to medical condition or safety concerns - Bladder and Bowel Bladder continence 0-Always continent Bowel continence 0-Always continent - Endurance Fair - Balance Fair - Safety Awareness Fair CURRENT [facility], [facility]. DEFICITS: Mobility, Endurance, Safety Awareness, Balance, and Self-Care SIGNATURE PANEL: (CDT)
[2019-10-11] MEDS: ROSUVASTATIN 10 MG TAB PO SCH (21:13)
[2019-10-11] MEDS: MONTELUKAST 10 MG TAB PO SCH (21:13)
[2019-10-11] MEDS: DOCUSATE NA/SENNA CONC 1 TAB PO PRN (21:13)
[2019-10-12] MEDS: PANTOPRAZOLE 40MG TABLET PO SCH (06:39)
[2019-10-12] MEDS: THYROID 30 MG TAB PO SCH (06:39)
[2019-10-12] MEDS: LIDOCAINE 4% PATCH TOP SCH (07:37)
[2019-10-12] MEDS: CODEINE 30MG/APAP 300MG TAB PO PRN ×2 (07:59→20:24)
[2019-10-12] MEDS: carvediloL 3.125 MG TAB PO SCH ×2 (08:00→16:57)
[2019-10-12] MEDS: DULOXETINE 30 MG CAP PO SCH ×2 (08:00→20:13)
[2019-10-12] MEDS: GABAPENTIN 400 MG CAP PO SCH ×3 (08:00→20:14)
[2019-10-12] MEDS: FUROSEMIDE 40 MG TABLET PO SCH (08:01)
[2019-10-12] MEDS: APIXABAN 5 MG TABLET PO SCH ×2 (08:01→20:14)
[2019-10-12] MEDS: SPIRONOLACTONE 25 MG TABLET PO SCH (08:01)
[2019-10-12] MEDS: PROMOD 30 ML DOSE PO SCH (08:02)
--- NOTE | 2019-10-12 10:10 | P.RH.PN ---
Estimated Length of Stay: 17 Expected Discharge Date: 09/30/19 Discharge Disposition Plan: Home Family Support: Yes [facility] Goal: Mobility, Transfers, Self Care Vital Signs: Last Vital Signs Temp 97.1 F 10/12/19 08:00 Pulse 78 10/12/19 08:01 Resp 17 10/12/19 08:59 BP 1321/68 H 10/12/19 08:01 Pulse Ox 96 10/12/19 08:59 Laboratory: Laboratory Last Values WBC 7.3 K/uL (4.3-10.9) 10/11/19 05:40 RBC 4.04 M/uL (3.86-4.86) 10/11/19 05:40 Hgb 10.1 g/dL (12.0-15.0) L 10/11/19 05:40 Hct 31.1 % (36.0-45.0) L 10/11/19 05:40 MCV 77.0 fL (80-100) L 10/11/19 05:40 MCH 24.9 pg (27.0-35.0) L 10/11/19 05:40 MCHC 32.3 g/dL (32.0-36.0) 10/11/19 05:40 RDW 16.4 % (12.1-15.2) H 10/11/19 05:40 Plt Count 422 K/uL (152-406) H D 10/11/19 05:40 MPV 7.1 fL (7.6-11.3) L 10/11/19 05:40 Neutrophils % 67.0 % (41.7-73.7) 10/11/19 05:40 Lymphocytes % 19.9 % (15.3-44.8) 10/11/19 05:40 Monocytes % 10.3 % (3.3-12.3) 10/11/19 05:40 Eosinophils % 2.0 % (0-4.4) 10/11/19 05:40 Basophils % 0.8 % (0-1.3) 10/11/19 05:40 Absolute Neutrophils 4.9 K/uL (1.8-8.0) 10/11/19 05:40 Absolute Lymphocytes 1.5 K/uL (0.7-4.9) 10/11/19 05:40 Absolute Monocytes 0.8 K/uL (0.1-1.3) 10/11/19 05:40 Absolute Eosinophils 0.2 K/uL (0-0.5) 10/11/19 05:40 Absolute Basophils 0.1 K/uL (0-0.5) 10/11/19 05:40 Sodium 139 mmol/L (136-145) 10/11/19 05:40 Potassium 4.1 mmol/L (3.5-5.1) 10/11/19 05:40 Chloride 104 mmol/L (98-107) 10/11/19 05:40 Carbon Dioxide 29 mmol/L (21-32) 10/11/19 05:40 BUN 22 mg/dL (7-18) H 10/11/19 05:40 Creatinine 0.84 mg/dL (0.55-1.3) 10/11/19 05:40 Estimated GFR 65 mL/min (=/>90) L 10/11/19 05:40 Glucose 105 mg/dL (74-106) 10/11/19 05:40 Calcium 9.5 mg/dL (8.5-10.1) 10/11/19 05:40 Magnesium 2.1 mg/dL (1.8-2.4) 10/05/19 05:41 Albumin 2.6 g/dL (3.4-5.0) L 10/11/19 05:40 Prealbumin 15.5 mg/dL (20-40) L 10/11/19 05:40 Urine Color Yellow 10/05/19 05:15 Urine Appearance Clear 10/05/19 05:15 Urine pH 7.0 (5.0-7.0) 10/05/19 05:15 Ur Specific [place] <=1.005 (1.005-1.030) 10/05/19 05:15 Glucose (UA)(Auto) Negative (NEG) 10/05/19 05:15 Urine Ketones Negative (NEG) 10/05/19 05:15 Urine Blood Negative (NEG) 10/05/19 05:15 Urine Nitrite Negative (NEG) 10/05/19 05:15 Urine Bilirubin Negative (NEG) 10/05/19 05:15 Urine Urobilinogen 1.0 mg/dL (0.2-1.0) 10/05/19 05:15 Ur Leukocyte Esterase Negative (NEG) 10/05/19 05:15 Urine RBC <5 /HPF (NONE SEEN) 10/05/19 05:15 Urine WBC <5 /HPF (<5) 10/05/19 05:15 Ur Squamous Epith Cells 5-10 /HPF (NONE SEEN) H 10/05/19 05:15 Urine Bacteria 20-50 /HPF (<20) H 10/05/19 05:15 Urine Culture Reflexed Not needed 10/05/19 05:15 Urine Total Protein Negative (NEG) 10/05/19 05:15 Weight: 156 lb 9.6 oz Wound Present: No Closed Surgical Incision Present: No Negative Pressure Wound Therapy Present: No Physician Update: Labs reviewed and are stable. She is making fair overall progress with physical walking 250' with contact guard and significant holding to prevent falls. She will likely improve much more over the next week. She needs contact guard assistance with occupational therapy for dressing, toileting. Her back brace is causing some pain. The brace company will be asked to refit the back brace. Functional Improvement: Patient has met all short-term goals and is progressing well through long-term goals. Patient will require more strengthening on B quads to help prevent/control R knee buckling. Summary: Patient's care plan and rn long term care goals have been reviewed and revised as necessary. Please see the Rehabilitation Signature page for all necessary signatures.
--- NOTE | 2019-10-12 10:14 | P.PN ---
Date of Service: 10/12/19 She will require a high strength, light weight wheelchair due to her chronic lower back issues despite ambulating over 150' with much assistance. Furthermore, she is status post lumbar surgical decompression and must wear a heavy back brace. A regular wheelchair will be to heavy for her.
[2019-10-12] MEDS: ROSUVASTATIN 10 MG TAB PO SCH (20:14)
[2019-10-12] MEDS: MONTELUKAST 10 MG TAB PO SCH (20:14)
[2019-10-12] MEDS: DOCUSATE NA/SENNA CONC 1 TAB PO PRN (20:16)
[2019-10-13] MEDS: CODEINE 30MG/APAP 300MG TAB PO PRN ×3 (07:22→20:06)
[2019-10-13] MEDS: PANTOPRAZOLE 40MG TABLET PO SCH (07:22)
[2019-10-13] MEDS: THYROID 30 MG TAB PO SCH (07:22)
[2019-10-13] MEDS: carvediloL 3.125 MG TAB PO SCH ×2 (08:00→16:43)
[2019-10-13] MEDS: PROMOD 30 ML DOSE PO SCH (08:00)
[2019-10-13] MEDS: DULOXETINE 30 MG CAP PO SCH ×2 (08:30→20:07)
[2019-10-13] MEDS: APIXABAN 5 MG TABLET PO SCH ×2 (08:30→20:07)
[2019-10-13] MEDS: SPIRONOLACTONE 25 MG TABLET PO SCH (08:31)
[2019-10-13] MEDS: FUROSEMIDE 40 MG TABLET PO SCH (08:31)
[2019-10-13] MEDS: LIDOCAINE 4% PATCH TOP SCH (08:33)
[2019-10-13] MEDS: GABAPENTIN 400 MG CAP PO SCH ×3 (08:35→20:07)
[2019-10-13] MEDS: ROSUVASTATIN 10 MG TAB PO SCH (20:07)
[2019-10-13] MEDS: MONTELUKAST 10 MG TAB PO SCH (20:07)
[2019-10-13] MEDS: DOCUSATE NA/SENNA CONC 1 TAB PO PRN (20:11)
[2019-10-14] MEDS: PANTOPRAZOLE 40MG TABLET PO SCH (06:27)
[2019-10-14] MEDS: THYROID 30 MG TAB PO SCH (06:27)
[2019-10-14] MEDS: LIDOCAINE 4% PATCH TOP SCH (06:49)
[2019-10-14] MEDS: GABAPENTIN 400 MG CAP PO SCH ×3 (08:19→20:37)
[2019-10-14] MEDS: carvediloL 3.125 MG TAB PO SCH ×2 (08:19→16:48)
[2019-10-14] MEDS: FUROSEMIDE 40 MG TABLET PO SCH (08:20)
[2019-10-14] MEDS: SPIRONOLACTONE 25 MG TABLET PO SCH (08:20)
[2019-10-14] MEDS: DULOXETINE 30 MG CAP PO SCH ×2 (08:20→19:20)
[2019-10-14] MEDS: APIXABAN 5 MG TABLET PO SCH ×2 (08:20→19:20)
[2019-10-14] MEDS: PROMOD 30 ML DOSE PO SCH (08:21)
[2019-10-14] MEDS: CODEINE 30MG/APAP 300MG TAB PO PRN ×2 (13:33→20:38)
[2019-10-14] MEDS: ROSUVASTATIN 10 MG TAB PO SCH (20:36)
[2019-10-14] MEDS: MONTELUKAST 10 MG TAB PO SCH (20:37)
--- NOTE | 2019-10-15 02:31 | FAST ---
SHIFT START DATE/TIME: 10/14/2019 19:00 (CDT) SHIFT END DATE/TIME: 10/15/2019 07:00 (CDT) NAME BENOIT LINK DATE OF : 1935 DATE OF ADMISSION: 10/05/2019 11:57 (CDT) PHONE: AGE: 83 N# [id number] GENDER: Female ENCOUNTER PHYSICIAN: Dr. Turner Gomes M.D. ADMISSION DIAGNOSIS: - Spinal Cord Dysfunction 04 - Other Non-traumatic Spinal Cord Dysfunction (04.130) THORACIC SPINAL CORD COMPRESSION. EATING: Not assessed/no information CODE: - ORAL HYGIENE: Not assessed/no information CODE: - TOILETING HYGIENE: TOILETING HYGIENE - STEP 1: Does the patient complete the activity by him/herself with no assistance (physical, verbal/nonverbal cueing, setup/clean-up)? No. TOILETING HYGIENE - STEP 2: Does the patient need only setup/clean-up assistance from one helper? No. TOILETING HYGIENE - STEP 3: Does the patient need only verbal/nonverbal cueing or touching/steadying/contact guard assistance fro m one helper? Yes. 1. [id number] ADMISSION PERFORMANCE: Supervision or touching assistance CODE: 04 BATHING: Not assessed/no information CODE: - DRESSING - UPPER BODY: Not assessed/no information CODE: - DRESSING - LOWER BODY: Not assessed/no information CODE: - PUTTING ON/TAKING OFF FOOTWEAR: Not assessed/no information CODE: - ROLL LEFT AND RIGHT: Not assessed/no information CODE: - SIT TO LYING: SIT TO LYING - STEP 1: Does the patient complete the activity by him/herself with no assistance (physical, verbal/nonverbal cueing, setup/clean-up)? No. SIT TO LYING - STEP 2: Does the patient need only setup/clean-up assistance from one helper? No. SIT TO LYING - STEP 3: Does the patient need only verbal/nonverbal cueing or touching/steadying/contact guard assistance fro m one helper? Yes. 1. [id number] ADMISSION PERFORMANCE: Supervision or touching assistance CODE: 04 LYING TO SITTING: LYING TO SITTING ON SIDE OF BED - STEP 1: Does the patient complete the activity by him/herself with no assistance (physical, verbal/nonverbal cueing, setup/clean-up)? No. LYING TO SITTING ON SIDE OF BED - STEP 2: Does the patient need only setup/clean-up assistance from one helper? No. LYING TO SITTING ON SIDE OF BED - STEP 3: Does the patient need only verbal/nonverbal cueing or touching/steadying/contact guard assistance fro m one helper? Yes. 1. [id number] ADMISSION PERFORMANCE: Supervision or touching assistance CODE: 04 SIT TO STAND: SIT TO STAND - STEP 1: Does the patient complete the activity by him/herself with no assistance (physical, verbal/nonverbal cueing, setup/clean-up)? No. SIT TO STAND - STEP 2: Does the patient need only setup/clean-up assistance from one helper? No. SIT TO STAND - STEP 3: Does the patient need only verbal/nonverbal cueing or touching/steadying/contact guard assistance fro m one helper? Yes. 1. [id number] ADMISSION PERFORMANCE: Supervision or touching assistance CODE: 04 TRANSFERS: BED, CHAIR: CHAIR/[id number] TRANSFER - STEP 1: Does the patient complete the activity by him/herself with no assistance (physical, verbal/nonverbal cueing, setup/clean-up)? No. CHAIR/[id number] TRANSFER - STEP 2: Does the patient need only setup/clean-up assistance from one helper? No. CHAIR/[id number] TRANSFER - STEP 3: Does the patient need only verbal/nonverbal cueing or touching/steadying/contact guard assistance fro m one helper? Yes. 1. [id number] ADMISSION PERFORMANCE: Supervision or touching assistance CODE: 04 TRANSFER TOILET: TOILET TRANSFER - STEP 1: Does the patient complete the activity by him/herself with no assistance (physical, verbal/nonverbal cueing, setup/clean-up)? No. TOILET TRANSFER - STEP 2: Does the patient need only setup/clean-up assistance from one helper? No. TOILET TRANSFER - STEP 3: Does the patient need only verbal/nonverbal cueing or touching/steadying/contact guard assistance fro m one helper? Yes. 1. [id number] ADMISSION PERFORMANCE: Supervision or touching assistance CODE: 04 TRANSFERS: CAR: Not assessed/no information CODE: - WALK 10 FEET: Not assessed/no information CODE: - 1 STEP (CURB): Not assessed/no information CODE: - PICKING UP OBJECT: Not assessed/no information CODE: - DOES THE PATIENT USE A WHEELCHAIR/SCOOTER? CODE: EXPR WHEEL 50 FEET WITH TWO TURNS: Not assessed/no information CODE: - INDICATE THE TYPE OF WHEELCHAIR/SCOOTER USED: CODE: EXPR WHEEL 150 FEET: Not assessed/no information CODE: - INDICATE THE TYPE OF WHEELCHAIR/SCOOTER USED: CODE: EXPR BLADDER AND BOWEL: H350. BLADDER CONTINENCE (3-DAY ASSESSMENT PERIOD): Always continent (no documented incontinence) CODE: 0 H400. BOWEL CONTINENCE (3-DAY ASSESSMENT PERIOD): Always continent CODE: 0
[2019-10-15] MEDS: CODEINE 30MG/APAP 300MG TAB PO PRN ×3 (06:24→19:57)
[2019-10-15] MEDS: THYROID 30 MG TAB PO SCH (06:24)
[2019-10-15] MEDS: PANTOPRAZOLE 40MG TABLET PO SCH (06:25)
[2019-10-15] MEDS: GABAPENTIN 400 MG CAP PO SCH ×3 (08:18→19:59)
[2019-10-15] MEDS: APIXABAN 5 MG TABLET PO SCH ×2 (08:19→19:57)
[2019-10-15] MEDS: FUROSEMIDE 40 MG TABLET PO SCH (08:19)
[2019-10-15] MEDS: DULOXETINE 30 MG CAP PO SCH ×2 (08:19→19:57)
[2019-10-15] MEDS: SPIRONOLACTONE 25 MG TABLET PO SCH (08:20)
[2019-10-15] MEDS: LIDOCAINE 4% PATCH TOP SCH (08:21)
[2019-10-15] MEDS: carvediloL 3.125 MG TAB PO SCH ×2 (08:21→16:38)
[2019-10-15] MEDS: PROMOD 30 ML DOSE PO SCH (08:22)
--- NOTE | 2019-10-15 17:26 | R.PN ---
ENCOUNTER DATE AND TIME: 10/15/2019 17:22 (CDT) NAME BENOIT LINK DATE OF : 1935 DATE OF ADMISSION: 10/05/2019 11:57 (CDT) THORACIC SPINAL CORD COMPRESSIONCHIEF COMPLAINT: Thoracic spinal cord compression s/p decompression. SUBJECTIVE: Pt denied any depression. Pt denied any Shortness of Breath. Ambulated 500' with minimum assistance using a rolling walker. Self-propelled wheelchair 250' with st andby assistance. Up and down 3 steps with minimum assistance. WBC 7.3, Hgb 10.1, prealbumin 15.5 VITAL SIGNS Temperature: 98.6 F SBP/DBP: 139/76 Pulse: 58 Resp: 16 MEDICATION ALLERGIES: No Known Drug Allergies (NKDA) ENVIRONMENTAL ALLERGIES: - Substance Allergies None Known - Other Allergies None Known NURSING: - Shower allowing shower - Bladder care per protocol - Skin care per protocol ACTIVITIES OOB only with supervision THERAPIES: - Orthotics/Prosthetics Orthotic Evaluation. Splinting/Casting. - Dietary and Nutrition Adequate Nutrition. Nutritional Education. Nutritional Supplements. PHYSICAL EXAM - Gen Alert and awake Lying in bed No apparent distress Oriented to: person, time, and place - Skin Thoracic incisions intact No abnormalities - Eyes No abnormalities - ENMT No abnormalities - Neck No pain No cervical adenopathy - CVS RRR - Chest Clear - Abd Soft - GI Non distended Deferred - No abnormalities - Ext Mild bilateral lower extremity edema. - MSK 4+/5 weakness in both lower extremities. - Neuro No focal deficits - Psych No abnormalities ASSESSMENT: Pt. is a 83 yo Right-handed white female.On 09/25/2019 she was admitted to [facility] hospital with d iagnosis THORACIC SPINAL CORD COMPRESSION.Her impairment category is Spinal Cord Dysfunction 04 - Ot her Non-traumatic Spinal Cord Dysfunction (04.130).Pre-morbidly, Pt. was independent/mod-I in Self-Ca re, Communication, Transfers Control, Social Cognition, and Safety Awareness; and she had good Locomo tion and Endurance.Currently, she has deficits of Locomotion, Self-Care, Balance, Endurance, Transfer s Control, and Social Cognition.Pt. is now referred to [facility] for acute in -patient rehabilitation in order to maximize patient's functional independence in activities of daily living, strength, ROM, and mobility.- Rehab Goal Patient has realistic goal of being discharged at assistance level 3-modA to reside at Home with Fam micaela/Relatives. MDM/PLAN: - Physical Therapy Gait dysfunction - to improve, our physical therapists will perform initial evaluation of pt's statu s upon admission and devise an individualized program for Gait Training, and Wheel Chair mobility Inability to transfer - to improve, our physical therapists will perform initial evaluation of pt's status upon admission and devise an individualized program for Bed mobility Need for home safety evaluation - to improve, our physical therapists will perform initial evaluatio n of pt's status upon admission and devise an individualized program for Home Evaluation Need in caregiver upon discharge - to improve, our physical therapists will perform initial evaluati on of pt's status upon admission and devise an individualized program for Caregiver Training Edema - to improve, our physical therapists will perform initial evaluation of pt's status upon admi ssion and devise an individualized program for Elevation Training, and Lymphedema Therapy New precaution - to improve, our physical therapists will perform initial evaluation of pt's status upon admission and devise an individualized program for Patient precaution education Poor balance - to improve, our physical therapists will perform initial evaluation of pt's status up on admission and devise an individualized program for Balance Training Poor endurance - to improve, our physical therapists will perform initial evaluation of pt's status upon admission and devise an individualized program for Endurance Training Weakness - to improve, our physical therapists will perform initial evaluation of pt's status upon a dmission and devise an individualized program for Aquatic Therapy, Neuromuscular Reeducation, and Str engthening Achieving independence - to improve, our physical therapists will perform initial evaluation of pt's status upon admission and devise an individualized program for Community Reintegration Activities - Occupational Therapy ADL deficits - to improve, our occupation therapists will perform initial evaluation of pt's status upon admission and devise an individualized program for Bathing, Bed mobility, Community Reintegratio n, Cooking, Dressing, Eating, Fine Motor Skills, Grooming, Homemaking, Kitchen Mobility, Laundry, Pat ient Education, Safety Awareness, Splinting - Positioning, Transfers(Toilet, Tub, Shower), and Wheel Chair Management Cognitive deficits - to improve, our occupation therapists will perform initial evaluation of pt's s tatus upon admission and devise an individualized program for Cognition - orientation Need for progressive care nurse - to improve, our occupation therapists will perform initial evaluation of pt's status upon admission and devise an individualized program for Caregiver Training Weakness - to improve, our occupation therapists will perform initial evaluation of pt's status upon admission and devise an individualized program for Aquatic Therapy, Balance, Endurance, UE ROM, and UE strengthening - Other See attached MAR (Medication Administration Record) - Diet Type Continue Regular - Diet - Liquid Texture Continue Regular - Tube Feed Continue N/A - Bladder care per protocol - Skin care per protocol - Diet - Solid Texture Continue Regular - Shower allowing shower FUNCTIONAL STATUS: UPDATED AT WEEKLY TEAM CONFERENCE - Bladder Same accident frequency: 7-Ind - No accidents in the past 7 days - Bowel Same accident frequency: 7-Ind - No accidents in the past 7 days - Walking Same score based on distance walked: 0(N/A) Same score based on distance walked: 1(<=50ft) - Wheelchair Same score based on distance traveled: 0(N/A) FUNCTIONAL STATUS: - Self-Care A. Eating Ind B. Grooming Hank C. Bathing modA D. Dressing - Upper Hank E. Dressing - Lower modA F. Toileting Hank - Sphincter Control G. Bladder control sup H. Bowel control sup - Transfers Control I. Bed/Chair/Wheelchair Hank J. Toilet Hank K. Tub/Shower Hank - Locomotion L. Walk/Wheelchair (B) modA M. Stairs ADNO - Communication N. Comprehension (B) Jaskaran O. Expression (B) Jaskaran - Social Cognition P. Social Interaction Ind Q. Problem Solving Ind R. Memory Ind - Endurance Good - Balance Good - Safety Awareness Good QI SCORES: - Self-Care A. Eating 06-Independent B. Oral hygiene 06-Independent C. Toileting hygiene 03-Partial/moderate assistance E. Shower/bathe self 03-Partial/moderate assistance F. Upper body dressing 04-Supervision or touching assistance G. Lower body dressing 88-Not attempted due to medical condition or safety concerns H. Putting on/taking off footwear 88-Not attempted due to medical condition or safety concerns - Mobility A. Roll left and right 04-Supervision or touching assistance B. Sit to lying 04-Supervision or touching assistance C. Lying to sitting on side of bed 02-Substantial/maximal assistance D. Sit to stand 02-Substantial/maximal assistance E. Chair/[id number] transfer 02-Substantial/maximal assistance F. Toilet transfer 02-Substantial/maximal assistance G. Car transfer 88-Not attempted due to medical condition or safety concerns I. Walk 10 feet 88-Not attempted due to medical condition or safety concerns J. Walk 50 feet with two turns 88-Not attempted due to medical condition or safety concerns K. Walk 150 feet 88-Not attempted due to medical condition or safety concerns L. Walking 10 feet on uneven surfaces 88-Not attempted due to medical condition or safety concerns M. 1 step (curb) 88-Not attempted due to medical condition or safety concerns N. 4 steps 88-Not attempted due to medical condition or safety concerns O. 12 steps 88-Not attempted due to medical condition or safety concerns P. Picking up object 06-Independent R. Wheel 50 feet with two turns 88-Not attempted due to medical condition or safety concerns S. Wheel 150 feet 88-Not attempted due to medical condition or safety concerns - Bladder and Bowel Bladder continence 0-Always continent Bowel continence 0-Always continent - Endurance Fair - Balance Fair - Safety Awareness Fair CURRENT [facility]. DEFICITS: Mobility, Endurance, Safety Awareness, Balance, and Self-Care SIGNATURE PANEL: (CDT)
[2019-10-15] MEDS: MAGNESIUM OXIDE 400 MG TAB PO SCH (19:57)
[2019-10-15] MEDS: DOCUSATE NA/SENNA CONC 1 TAB PO PRN (19:59)
[2019-10-15] MEDS: MONTELUKAST 10 MG TAB PO SCH (20:00)
[2019-10-15] MEDS: ROSUVASTATIN 10 MG TAB PO SCH (20:00)
[2019-10-16] MEDS: PANTOPRAZOLE 40MG TABLET PO SCH (06:30)
[2019-10-16] MEDS: THYROID 30 MG TAB PO SCH (06:30)
[2019-10-16] MEDS: LIDOCAINE 4% PATCH TOP SCH (06:30)
[2019-10-16] MEDS: HIZENTRA SQ SCH (08:00)
[2019-10-16] MEDS: CODEINE 30MG/APAP 300MG TAB PO PRN ×2 (08:33→19:48)
[2019-10-16] MEDS: SPIRONOLACTONE 25 MG TABLET PO SCH (08:34)
[2019-10-16] MEDS: GABAPENTIN 400 MG CAP PO SCH ×3 (08:34→20:07)
[2019-10-16] MEDS: FUROSEMIDE 40 MG TABLET PO SCH (08:35)
[2019-10-16] MEDS: carvediloL 3.125 MG TAB PO SCH ×2 (08:35→17:21)
[2019-10-16] MEDS: DULOXETINE 30 MG CAP PO SCH ×2 (08:36→19:48)
[2019-10-16] MEDS: APIXABAN 5 MG TABLET PO SCH ×2 (08:36→19:48)
[2019-10-16] MEDS: PROMOD 30 ML DOSE PO SCH (08:36)
[2019-10-16] MEDS: MAGNESIUM OXIDE 400 MG TAB PO SCH ×2 (08:36→19:48)
--- NOTE | 2019-10-16 17:52 | R.PN ---
ENCOUNTER DATE AND TIME: 10/16/2019 17:47 (CDT) NAME BENOIT LINK DATE OF : 1935 DATE OF ADMISSION: 10/05/2019 11:57 (CDT) THORACIC SPINAL CORD COMPRESSIONCHIEF COMPLAINT: Thoracic spinal cord compression s/p decompression. SUBJECTIVE: Pt denied any depression. Pt denied any Shortness of Breath. Ambulated 475' with minimum assistance using a rolling walker. Self-propelled wheelchair 250' with mi nimum assistance. Up and down 3 steps with minimum assistance. WBC 7.3, Hgb 10.1, prealbumin 15.5 VITAL SIGNS Temperature: 97.0 F SBP/DBP: 150/75 Pulse: 78 Resp: 18 MEDICATION ALLERGIES: No Known Drug Allergies (NKDA) ENVIRONMENTAL ALLERGIES: - Substance Allergies None Known - Other Allergies None Known NURSING: - Shower allowing shower - Bladder care per protocol - Skin care per protocol ACTIVITIES OOB only with supervision THERAPIES: - Orthotics/Prosthetics Orthotic Evaluation. Splinting/Casting. - Dietary and Nutrition Adequate Nutrition. Nutritional Education. Nutritional Supplements. PHYSICAL EXAM - Gen Alert and awake Lying in bed No apparent distress Oriented to: person, time, and place - Skin Thoracic incisions intact No abnormalities - Eyes No abnormalities - ENMT No abnormalities - Neck No pain No cervical adenopathy - CVS RRR - Chest Clear - Abd Soft - GI Non distended Deferred - No abnormalities - Ext Mild bilateral lower extremity edema. - MSK 4+/5 weakness in both lower extremities. - Neuro No focal deficits - Psych No abnormalities ASSESSMENT: Pt. is a 83 yo Right-handed white female.On 09/25/2019 she was admitted to [facility] hospital with d iagnosis THORACIC SPINAL CORD COMPRESSION.Her impairment category is Spinal Cord Dysfunction 04 - Ot her Non-traumatic Spinal Cord Dysfunction (04.130).Pre-morbidly, Pt. was independent/mod-I in Self-Ca re, Communication, Transfers Control, Social Cognition, and Safety Awareness; and she had good Locomo tion and Endurance.Currently, she has deficits of Locomotion, Self-Care, Balance, Endurance, Transfer s Control, and Social Cognition.Pt. is now referred to [facility] for acute in -patient rehabilitation in order to maximize patient's functional independence in activities of daily living, strength, ROM, and mobility.- Rehab Goal Patient has realistic goal of being discharged at assistance level 3-modA to reside at Home with Fam micaela/Relatives. MDM/PLAN: - Physical Therapy Gait dysfunction - to improve, our physical therapists will perform initial evaluation of pt's statu s upon admission and devise an individualized program for Gait Training, and Wheel Chair mobility Inability to transfer - to improve, our physical therapists will perform initial evaluation of pt's status upon admission and devise an individualized program for Bed mobility Need for home safety evaluation - to improve, our physical therapists will perform initial evaluatio n of pt's status upon admission and devise an individualized program for Home Evaluation Need in caregiver upon discharge - to improve, our physical therapists will perform initial evaluati on of pt's status upon admission and devise an individualized program for Caregiver Training Edema - to improve, our physical therapists will perform initial evaluation of pt's status upon admi ssion and devise an individualized program for Elevation Training, and Lymphedema Therapy New precaution - to improve, our physical therapists will perform initial evaluation of pt's status upon admission and devise an individualized program for Patient precaution education Poor balance - to improve, our physical therapists will perform initial evaluation of pt's status up on admission and devise an individualized program for Balance Training Poor endurance - to improve, our physical therapists will perform initial evaluation of pt's status upon admission and devise an individualized program for Endurance Training Weakness - to improve, our physical therapists will perform initial evaluation of pt's status upon a dmission and devise an individualized program for Aquatic Therapy, Neuromuscular Reeducation, and Str engthening Achieving independence - to improve, our physical therapists will perform initial evaluation of pt's status upon admission and devise an individualized program for Community Reintegration Activities - Occupational Therapy ADL deficits - to improve, our occupation therapists will perform initial evaluation of pt's status upon admission and devise an individualized program for Bathing, Bed mobility, Community Reintegratio n, Cooking, Dressing, Eating, Fine Motor Skills, Grooming, Homemaking, Kitchen Mobility, Laundry, Pat ient Education, Safety Awareness, Splinting - Positioning, Transfers(Toilet, Tub, Shower), and Wheel Chair Management Cognitive deficits - to improve, our occupation therapists will perform initial evaluation of pt's s tatus upon admission and devise an individualized program for Cognition - orientation Need for long term care administrator - to improve, our occupation therapists will perform initial evaluation of pt's status upon admission and devise an individualized program for Caregiver Training Weakness - to improve, our occupation therapists will perform initial evaluation of pt's status upon admission and devise an individualized program for Aquatic Therapy, Balance, Endurance, UE ROM, and UE strengthening - Other See attached MAR (Medication Administration Record) - Diet Type Continue Regular - Diet - Liquid Texture Continue Regular - Tube Feed Continue N/A - Bladder care per protocol - Skin care per protocol - Diet - Solid Texture Continue Regular - Shower allowing shower FUNCTIONAL STATUS: UPDATED AT WEEKLY TEAM CONFERENCE - Bladder Same accident frequency: 7-Ind - No accidents in the past 7 days - Bowel Same accident frequency: 7-Ind - No accidents in the past 7 days - Walking Same score based on distance walked: 0(N/A) Same score based on distance walked: 1(<=50ft) - Wheelchair Same score based on distance traveled: 0(N/A) FUNCTIONAL STATUS: - Self-Care A. Eating Ind B. Grooming Hank C. Bathing modA D. Dressing - Upper Hank E. Dressing - Lower modA F. Toileting Hank - Sphincter Control G. Bladder control sup H. Bowel control sup - Transfers Control I. Bed/Chair/Wheelchair Hank J. Toilet Hank K. Tub/Shower Hank - Locomotion L. Walk/Wheelchair (B) modA M. Stairs ADNO - Communication N. Comprehension (B) Jaskaran O. Expression (B) Jaskaran - Social Cognition P. Social Interaction Ind Q. Problem Solving Ind R. Memory Ind - Endurance Good - Balance Good - Safety Awareness Good QI SCORES: - Self-Care A. Eating 06-Independent B. Oral hygiene 06-Independent C. Toileting hygiene 03-Partial/moderate assistance E. Shower/bathe self 03-Partial/moderate assistance F. Upper body dressing 04-Supervision or touching assistance G. Lower body dressing 88-Not attempted due to medical condition or safety concerns H. Putting on/taking off footwear 88-Not attempted due to medical condition or safety concerns - Mobility A. Roll left and right 04-Supervision or touching assistance B. Sit to lying 04-Supervision or touching assistance C. Lying to sitting on side of bed 02-Substantial/maximal assistance D. Sit to stand 02-Substantial/maximal assistance E. Chair/[id number] transfer 02-Substantial/maximal assistance F. Toilet transfer 02-Substantial/maximal assistance G. Car transfer 88-Not attempted due to medical condition or safety concerns I. Walk 10 feet 88-Not attempted due to medical condition or safety concerns J. Walk 50 feet with two turns 88-Not attempted due to medical condition or safety concerns K. Walk 150 feet 88-Not attempted due to medical condition or safety concerns L. Walking 10 feet on uneven surfaces 88-Not attempted due to medical condition or safety concerns M. 1 step (curb) 88-Not attempted due to medical condition or safety concerns N. 4 steps 88-Not attempted due to medical condition or safety concerns O. 12 steps 88-Not attempted due to medical condition or safety concerns P. Picking up object 06-Independent R. Wheel 50 feet with two turns 88-Not attempted due to medical condition or safety concerns S. Wheel 150 feet 88-Not attempted due to medical condition or safety concerns - Bladder and Bowel Bladder continence 0-Always continent Bowel continence 0-Always continent - Endurance Fair - Balance Fair - Safety Awareness Fair [facility] DEFICITS: Mobility, Endurance, Safety Awareness, Balance, and Self-Care SIGNATURE PANEL: (CDT)
[2019-10-16] MEDS: DOCUSATE NA/SENNA CONC 1 TAB PO PRN (20:08)
[2019-10-16] MEDS: MONTELUKAST 10 MG TAB PO SCH (20:08)
[2019-10-16] MEDS: ROSUVASTATIN 10 MG TAB PO SCH (20:08)
[2019-10-17] MEDS: THYROID 30 MG TAB PO SCH (06:28)
[2019-10-17] MEDS: CODEINE 30MG/APAP 300MG TAB PO PRN ×3 (06:28→21:06)
[2019-10-17] MEDS: PANTOPRAZOLE 40MG TABLET PO SCH (06:29)
[2019-10-17] MEDS: DULOXETINE 30 MG CAP PO SCH ×2 (08:28→21:05)
[2019-10-17] MEDS: APIXABAN 5 MG TABLET PO SCH ×2 (08:28→21:04)
[2019-10-17] MEDS: carvediloL 3.125 MG TAB PO SCH ×2 (08:29→17:00)
[2019-10-17] MEDS: MAGNESIUM OXIDE 400 MG TAB PO SCH ×2 (08:29→21:05)
[2019-10-17] MEDS: FUROSEMIDE 40 MG TABLET PO SCH (08:29)
[2019-10-17] MEDS: GABAPENTIN 400 MG CAP PO SCH ×3 (08:30→21:05)
[2019-10-17] MEDS: SPIRONOLACTONE 25 MG TABLET PO SCH (08:30)
[2019-10-17] MEDS: LIDOCAINE 4% PATCH TOP SCH (08:30)
[2019-10-17] MEDS: PROMOD 30 ML DOSE PO SCH (08:31)
--- NOTE | 2019-10-17 14:54 | FAST ---
ENCOUNTER DATE AND TIME: 10/17/2019 08:00 (CDT) NAME BENOIT LINK DATE OF : 1935 DATE OF ADMISSION: 10/05/2019 11:57 (CDT) PHONE: AGE: 83 SSN# [id number] GENDER: Female ENCOUNTER PHYSICIAN: Dr. Turner Gomes M.D. ADMISSION DIAGNOSIS: - Spinal Cord Dysfunction 04 - Other Non-traumatic Spinal Cord Dysfunction (04.130) THORACIC SPINAL CORD COMPRESSION. EATING: Not assessed/no information CODE: - ORAL HYGIENE: ORAL HYGIENE - STEP 1: Does the patient complete the activity by him/herself with no assistance (physical, verbal/nonverbal cueing, setup/clean-up)? Yes. 1. [id number] ADMISSION PERFORMANCE: Independent CODE: 06 TOILETING HYGIENE: Not assessed/no information CODE: - BATHING: SHOWER/BATHE SELF - STEP 1: Does the patient complete the activity by him/herself with no assistance (physical, verbal/nonverbal cueing, setup/clean-up)? No. SHOWER/BATHE SELF - STEP 2: Does the patient need only setup/clean-up assistance from one helper? No. SHOWER/BATHE SELF - STEP 3: Does the patient need only verbal/nonverbal cueing or touching/steadying/contact guard assistance fro m one helper? Yes. 1. [id number] ADMISSION PERFORMANCE: Supervision or touching assistance CODE: 04 DRESSING - UPPER BODY: DRESSING - UPPER BODY - STEP 1: Does the patient complete the activity by him/herself with no assistance (physical, verbal/nonverbal cueing, setup/clean-up)? No. DRESSING - UPPER BODY - STEP 2: Does the patient need only setup/clean-up assistance from one helper? No. DRESSING - UPPER BODY - STEP 3: Does the patient need only verbal/nonverbal cueing or touching/steadying/contact guard assistance fro m one helper? Yes. 1. [id number] ADMISSION PERFORMANCE: Supervision or touching assistance CODE: 04 DRESSING - LOWER BODY: DRESSING - LOWER BODY - STEP 1: Does the patient complete the activity by him/herself with no assistance (physical, verbal/nonverbal cueing, setup/clean-up)? No. DRESSING - LOWER BODY - STEP 2: Does the patient need only setup/clean-up assistance from one helper? No. DRESSING - LOWER BODY - STEP 3: Does the patient need only verbal/nonverbal cueing or touching/steadying/contact guard assistance fro m one helper? Yes. 1. [id number] ADMISSION PERFORMANCE: Supervision or touching assistance CODE: 04 PUTTING ON/TAKING OFF FOOTWEAR: FOOTWEAR - STEP 1: Does the patient complete the activity by him/herself with no assistance (physical, verbal/nonverbal cueing, setup/clean-up)? No. FOOTWEAR - STEP 2: Does the patient need only setup/clean-up assistance from one helper? No. FOOTWEAR - STEP 3: Does the patient need only verbal/nonverbal cueing or touching/steadying/contact guard assistance fro m one helper? Yes. 1. [id number] ADMISSION PERFORMANCE: Supervision or touching assistance CODE: 04 DOES THE PATIENT USE A WHEELCHAIR/SCOOTER? CODE: EXPR INDICATE THE TYPE OF WHEELCHAIR/SCOOTER USED: CODE: EXPR INDICATE THE TYPE OF WHEELCHAIR/SCOOTER USED: CODE: EXPR BLADDER AND BOWEL: CODE: EXPR CODE: EXPR SIGNATURE PANEL: The following modified sections: 1. [id number] Admission Performance, 1. [id number] Admission Performance, 1. [id number] Admission Performance, 1. [id number] Admission Performance, 1. [id number] Admission Performance were [electronically] signed by RAS Hayden on TueOct 17 2019 14:54:14 T-0500 (Central Daylight Time)
[2019-10-17] MEDS: MONTELUKAST 10 MG TAB PO SCH (21:04)
[2019-10-17] MEDS: ROSUVASTATIN 10 MG TAB PO SCH (21:05)
[2019-10-17] MEDS: DOCUSATE NA/SENNA CONC 1 TAB PO PRN (21:05)
[2019-10-18] MEDS: PANTOPRAZOLE 40MG TABLET PO SCH (06:26)
[2019-10-18] MEDS: THYROID 30 MG TAB PO SCH (06:26)
[2019-10-18 06:48] LABS: Absolute Lymphocytes (CBC) 1.4 K/uL (0.7-4.9); Basophils % 0.9 % (0-1.3); Hematocrit 31.3 % (36.0-45.0); Lymphocytes % 27.6 % (15.3-44.8); MPV 7.6 fL (7.6-11.3); RBC Red Blood Cell Count 4.12 M/uL (3.86-4.86)
[2019-10-18] MEDS: LIDOCAINE 4% PATCH TOP SCH (06:52)
[2019-10-18 07:03] LABS: Albumin 2.8 g/dL (3.4-5.0); Magnesium 2.3 mg/dL (1.8-2.4); Prealbumin 13.3 mg/dL (20-40)
[2019-10-18] MEDS: CODEINE 30MG/APAP 300MG TAB PO PRN ×2 (07:30→20:28)
[2019-10-18] MEDS: SPIRONOLACTONE 25 MG TABLET PO SCH (07:31)
[2019-10-18] MEDS: MAGNESIUM OXIDE 400 MG TAB PO SCH ×2 (07:32→20:00)
[2019-10-18] MEDS: APIXABAN 5 MG TABLET PO SCH ×2 (07:32→20:27)
[2019-10-18] MEDS: GABAPENTIN 400 MG CAP PO SCH ×3 (07:32→20:27)
[2019-10-18] MEDS: PROMOD 30 ML DOSE PO SCH (07:33)
[2019-10-18] MEDS: carvediloL 3.125 MG TAB PO SCH ×2 (07:33→16:46)
[2019-10-18] MEDS: FUROSEMIDE 40 MG TABLET PO SCH (07:33)
[2019-10-18] MEDS: DULOXETINE 30 MG CAP PO SCH ×2 (07:33→20:27)
--- NOTE | 2019-10-18 19:01 | R.PN ---
ENCOUNTER DATE AND TIME: 10/17/2019 18:55 (CDT) NAME BENOIT LINK DATE OF : 1935 DATE OF ADMISSION: 10/05/2019 11:57 (CDT) THORACIC SPINAL CORD COMPRESSIONCHIEF COMPLAINT: Thoracic spinal cord compression s/p decompression. SUBJECTIVE: Pt denied any depression. Pt denied any Shortness of Breath. Ambulated 500' with contact guard assistance using a rolling walker. Self-propelled wheelchair 250' w ith minimum assistance. Up and down 3 steps with minimum assistance. WBC 7.3, Hgb 10.1, prealbumin 15.5 VITAL SIGNS Temperature: 97.0 F SBP/DBP: 149/67 Pulse: 69 Resp: 16 MEDICATION ALLERGIES: No Known Drug Allergies (NKDA) ENVIRONMENTAL ALLERGIES: - Substance Allergies None Known - Other Allergies None Known NURSING: - Shower allowing shower - Bladder care per protocol - Skin care per protocol ACTIVITIES OOB only with supervision THERAPIES: - Orthotics/Prosthetics Orthotic Evaluation. Splinting/Casting. - Dietary and Nutrition Adequate Nutrition. Nutritional Education. Nutritional Supplements. PHYSICAL EXAM - Gen Alert and awake Lying in bed No apparent distress Oriented to: person, time, and place - Skin Thoracic incisions intact No abnormalities - Eyes No abnormalities - ENMT No abnormalities - Neck No pain No cervical adenopathy - CVS RRR - Chest Clear - Abd Soft - GI Non distended Deferred - No abnormalities - Ext Mild bilateral lower extremity edema. - MSK 4+/5 weakness in both lower extremities. - Neuro No focal deficits - Psych No abnormalities ASSESSMENT: Pt. is a 83 yo Right-handed white female.On 09/25/2019 she was admitted to [facility] with d iagnosis THORACIC SPINAL CORD COMPRESSION.Her impairment category is Spinal Cord Dysfunction 04 - Ot her Non-traumatic Spinal Cord Dysfunction (04.130).Pre-morbidly, Pt. was independent/mod-I in Self-Ca re, Communication, Transfers Control, Social Cognition, and Safety Awareness; and she had good Locomo tion and Endurance.Currently, she has deficits of Locomotion, Self-Care, Balance, Endurance, Transfer s Control, and Social Cognition.Pt. is now referred to [facility] for acute in -patient rehabilitation in order to maximize patient's functional independence in activities of daily living, strength, ROM, and mobility.- Rehab Goal Patient has realistic goal of being discharged at assistance level 3-modA to reside at Home with Fam micaela/Relatives. MDM/PLAN: - Physical Therapy Gait dysfunction - to improve, our physical therapists will perform initial evaluation of pt's statu s upon admission and devise an individualized program for Gait Training, and Wheel Chair mobility Inability to transfer - to improve, our physical therapists will perform initial evaluation of pt's status upon admission and devise an individualized program for Bed mobility Need for home safety evaluation - to improve, our physical therapists will perform initial evaluatio n of pt's status upon admission and devise an individualized program for Home Evaluation Need in caregiver upon discharge - to improve, our physical therapists will perform initial evaluati on of pt's status upon admission and devise an individualized program for Caregiver Training Edema - to improve, our physical therapists will perform initial evaluation of pt's status upon admi ssion and devise an individualized program for Elevation Training, and Lymphedema Therapy New precaution - to improve, our physical therapists will perform initial evaluation of pt's status upon admission and devise an individualized program for Patient precaution education Poor balance - to improve, our physical therapists will perform initial evaluation of pt's status up on admission and devise an individualized program for Balance Training Poor endurance - to improve, our physical therapists will perform initial evaluation of pt's status upon admission and devise an individualized program for Endurance Training Weakness - to improve, our physical therapists will perform initial evaluation of pt's status upon a dmission and devise an individualized program for Aquatic Therapy, Neuromuscular Reeducation, and Str engthening Achieving independence - to improve, our physical therapists will perform initial evaluation of pt's status upon admission and devise an individualized program for Community Reintegration Activities - Occupational Therapy ADL deficits - to improve, our occupation therapists will perform initial evaluation of pt's status upon admission and devise an individualized program for Bathing, Bed mobility, Community Reintegratio n, Cooking, Dressing, Eating, Fine Motor Skills, Grooming, Homemaking, Kitchen Mobility, Laundry, Pat ient Education, Safety Awareness, Splinting - Positioning, Transfers(Toilet, Tub, Shower), and Wheel Chair Management Cognitive deficits - to improve, our occupation therapists will perform initial evaluation of pt's s tatus upon admission and devise an individualized program for Cognition - orientation 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 - to improve, our occupation therapists will perform initial evaluation of pt's status upon admission and devise an individualized program for Caregiver Training Weakness - to improve, our occupation therapists will perform initial evaluation of pt's status upon admission and devise an individualized program for Aquatic Therapy, Balance, Endurance, UE ROM, and UE strengthening - Other See attached MAR (Medication Administration Record) - Diet Type Continue Regular - Diet - Liquid Texture Continue Regular - Tube Feed Continue N/A - Bladder care per protocol - Skin care per protocol - Diet - Solid Texture Continue Regular - Shower allowing shower FUNCTIONAL STATUS: UPDATED AT WEEKLY TEAM CONFERENCE - Bladder Same accident frequency: 7-Ind - No accidents in the past 7 days - Bowel Same accident frequency: 7-Ind - No accidents in the past 7 days - Walking Same score based on distance walked: 0(N/A) Same score based on distance walked: 1(<=50ft) - Wheelchair Same score based on distance traveled: 0(N/A) FUNCTIONAL STATUS: - Self-Care A. Eating Ind B. Grooming Hank C. Bathing modA D. Dressing - Upper Hank E. Dressing - Lower modA F. Toileting Hank - Sphincter Control G. Bladder control sup H. Bowel control sup - Transfers Control I. Bed/Chair/Wheelchair Hank J. Toilet Hank K. Tub/Shower Hank - Locomotion L. Walk/Wheelchair (B) modA M. Stairs ADNO - Communication N. Comprehension (B) Jaskaran O. Expression (B) Jaskaran - Social Cognition P. Social Interaction Ind Q. Problem Solving Ind R. Memory Ind - Endurance Good - Balance Good - Safety Awareness Good QI SCORES: - Self-Care A. Eating 06-Independent B. Oral hygiene 06-Independent C. Toileting hygiene 03-Partial/moderate assistance E. Shower/bathe self 03-Partial/moderate assistance F. Upper body dressing 04-Supervision or touching assistance G. Lower body dressing 88-Not attempted due to medical condition or safety concerns H. Putting on/taking off footwear 88-Not attempted due to medical condition or safety concerns - Mobility A. Roll left and right 04-Supervision or touching assistance B. Sit to lying 04-Supervision or touching assistance C. Lying to sitting on side of bed 02-Substantial/maximal assistance D. Sit to stand 02-Substantial/maximal assistance E. Chair/gri-ll-kfvjo transfer 02-Substantial/maximal assistance F. Toilet transfer 02-Substantial/maximal assistance G. Car transfer 88-Not attempted due to medical condition or safety concerns I. Walk 10 feet 88-Not attempted due to medical condition or safety concerns J. Walk 50 feet with two turns 88-Not attempted due to medical condition or safety concerns K. Walk 150 feet 88-Not attempted due to medical condition or safety concerns L. Walking 10 feet on uneven surfaces 88-Not attempted due to medical condition or safety concerns M. 1 step (curb) 88-Not attempted due to medical condition or safety concerns N. 4 steps 88-Not attempted due to medical condition or safety concerns O. 12 steps 88-Not attempted due to medical condition or safety concerns P. Picking up object 06-Independent R. Wheel 50 feet with two turns 88-Not attempted due to medical condition or safety concerns S. Wheel 150 feet 88-Not attempted due to medical condition or safety concerns - Bladder and Bowel Bladder continence 0-Always continent Bowel continence 0-Always continent - Endurance Fair - Balance Fair - Safety Awareness Fair [facility] DEFICITS: Mobility, Endurance, Safety Awareness, Balance, and Self-Care SIGNATURE PANEL: (CDT)
--- NOTE | 2019-10-18 19:08 | R.PN ---
ENCOUNTER DATE AND TIME: 10/18/2019 18:54 (CDT) NAME BENOIT LINK DATE OF : 1935 DATE OF ADMISSION: 10/05/2019 11:57 (CDT) THORACIC SPINAL CORD COMPRESSIONCHIEF COMPLAINT: Thoracic spinal cord compression s/p decompression. SUBJECTIVE: Pt denied any depression. Pt denied any Shortness of Breath. Ambulated 500' with contact guard assistance using a rolling walker. Self-propelled wheelchair 250' w ith minimum assistance. Up and down 3 steps with minimum assistance. WBC 4.9, Hgb 10.0, prealbumin 13.3 VITAL SIGNS Temperature: 97.0 F SBP/DBP: 163/77 Pulse: 70 Resp: 18 MEDICATION ALLERGIES: No Known Drug Allergies (NKDA) ENVIRONMENTAL ALLERGIES: - Substance Allergies None Known - Other Allergies None Known NURSING: - Shower allowing shower - Bladder care per protocol - Skin care per protocol ACTIVITIES OOB only with supervision THERAPIES: - Orthotics/Prosthetics Orthotic Evaluation. Splinting/Casting. - Dietary and Nutrition Adequate Nutrition. Nutritional Education. Nutritional Supplements. PHYSICAL EXAM - Gen Alert and awake Lying in bed No apparent distress Oriented to: person, time, and place - Skin Thoracic incisions intact No abnormalities - Eyes No abnormalities - ENMT No abnormalities - Neck No pain No cervical adenopathy - CVS RRR - Chest Clear - Abd Soft - GI Non distended Deferred - No abnormalities - Ext Mild bilateral lower extremity edema. - MSK 4+/5 weakness in both lower extremities. - Neuro No focal deficits - Psych No abnormalities ASSESSMENT: Pt. is a 83 yo Right-handed white female.On 09/25/2019 she was admitted to [facility] with d iagnosis THORACIC SPINAL CORD COMPRESSION.Her impairment category is Spinal Cord Dysfunction 04 - Ot her Non-traumatic Spinal Cord Dysfunction (04.130).Pre-morbidly, Pt. was independent/mod-I in Self-Ca re, Communication, Transfers Control, Social Cognition, and Safety Awareness; and she had good Locomo tion and Endurance.Currently, she has deficits of Locomotion, Self-Care, Balance, Endurance, Transfer s Control, and Social Cognition.Pt. is now referred to [facility] for acute in -patient rehabilitation in order to maximize patient's functional independence in activities of daily living, strength, ROM, and mobility.- Rehab Goal Patient has realistic goal of being discharged at assistance level 3-modA to reside at Home with Fam micaela/Relatives. MDM/PLAN: - Physical Therapy Gait dysfunction - to improve, our physical therapists will perform initial evaluation of pt's statu s upon admission and devise an individualized program for Gait Training, and Wheel Chair mobility Inability to transfer - to improve, our physical therapists will perform initial evaluation of pt's status upon admission and devise an individualized program for Bed mobility Need for home safety evaluation - to improve, our physical therapists will perform initial evaluatio n of pt's status upon admission and devise an individualized program for Home Evaluation Need in caregiver upon discharge - to improve, our physical therapists will perform initial evaluati on of pt's status upon admission and devise an individualized program for Caregiver Training Edema - to improve, our physical therapists will perform initial evaluation of pt's status upon admi ssion and devise an individualized program for Elevation Training, and Lymphedema Therapy New precaution - to improve, our physical therapists will perform initial evaluation of pt's status upon admission and devise an individualized program for Patient precaution education Poor balance - to improve, our physical therapists will perform initial evaluation of pt's status up on admission and devise an individualized program for Balance Training Poor endurance - to improve, our physical therapists will perform initial evaluation of pt's status upon admission and devise an individualized program for Endurance Training Weakness - to improve, our physical therapists will perform initial evaluation of pt's status upon a dmission and devise an individualized program for Aquatic Therapy, Neuromuscular Reeducation, and Str engthening Achieving independence - to improve, our physical therapists will perform initial evaluation of pt's status upon admission and devise an individualized program for Community Reintegration Activities - Occupational Therapy ADL deficits - to improve, our occupation therapists will perform initial evaluation of pt's status upon admission and devise an individualized program for Bathing, Bed mobility, Community Reintegratio n, Cooking, Dressing, Eating, Fine Motor Skills, Grooming, Homemaking, Kitchen Mobility, Laundry, Pat ient Education, Safety Awareness, Splinting - Positioning, Transfers(Toilet, Tub, Shower), and Wheel Chair Management Cognitive deficits - to improve, our occupation therapists will perform initial evaluation of pt's s tatus upon admission and devise an individualized program for Cognition - orientation Need for care information associate - to improve, our occupation therapists will perform initial evaluation of pt's status upon admission and devise an individualized program for Caregiver Training Weakness - to improve, our occupation therapists will perform initial evaluation of pt's status upon admission and devise an individualized program for Aquatic Therapy, Balance, Endurance, UE ROM, and UE strengthening - Other See attached MAR (Medication Administration Record) - Diet Type Continue Regular - Diet - Liquid Texture Continue Regular - Tube Feed Continue N/A - Bladder care per protocol - Skin care per protocol - Diet - Solid Texture Continue Regular - Shower allowing shower FUNCTIONAL STATUS: UPDATED AT WEEKLY TEAM CONFERENCE - Bladder Same accident frequency: 7-Ind - No accidents in the past 7 days - Bowel Same accident frequency: 7-Ind - No accidents in the past 7 days - Walking Same score based on distance walked: 0(N/A) Same score based on distance walked: 1(<=50ft) - Wheelchair Same score based on distance traveled: 0(N/A) FUNCTIONAL STATUS: - Self-Care A. Eating Ind B. Grooming Hank C. Bathing modA D. Dressing - Upper Hank E. Dressing - Lower modA F. Toileting Hank - Sphincter Control G. Bladder control sup H. Bowel control sup - Transfers Control I. Bed/Chair/Wheelchair Hank J. Toilet Hank K. Tub/Shower Hank - Locomotion L. Walk/Wheelchair (B) modA M. Stairs ADNO - Communication N. Comprehension (B) Jaskaran O. Expression (B) Jaskaran - Social Cognition P. Social Interaction Ind Q. Problem Solving Ind R. Memory Ind - Endurance Good - Balance Good - Safety Awareness Good QI SCORES: - Self-Care A. Eating 06-Independent B. Oral hygiene 06-Independent C. Toileting hygiene 03-Partial/moderate assistance E. Shower/bathe self 03-Partial/moderate assistance F. Upper body dressing 04-Supervision or touching assistance G. Lower body dressing 88-Not attempted due to medical condition or safety concerns H. Putting on/taking off footwear 88-Not attempted due to medical condition or safety concerns - Mobility A. Roll left and right 04-Supervision or touching assistance B. Sit to lying 04-Supervision or touching assistance C. Lying to sitting on side of bed 02-Substantial/maximal assistance D. Sit to stand 02-Substantial/maximal assistance E. Chair/[id number]-og-suzgd transfer 02-Substantial/maximal assistance F. Toilet transfer 02-Substantial/maximal assistance G. Car transfer 88-Not attempted due to medical condition or safety concerns I. Walk 10 feet 88-Not attempted due to medical condition or safety concerns J. Walk 50 feet with two turns 88-Not attempted due to medical condition or safety concerns K. Walk 150 feet 88-Not attempted due to medical condition or safety concerns L. Walking 10 feet on uneven surfaces 88-Not attempted due to medical condition or safety concerns M. 1 step (curb) 88-Not attempted due to medical condition or safety concerns N. 4 steps 88-Not attempted due to medical condition or safety concerns O. 12 steps 88-Not attempted due to medical condition or safety concerns P. Picking up object 06-Independent R. Wheel 50 feet with two turns 88-Not attempted due to medical condition or safety concerns S. Wheel 150 feet 88-Not attempted due to medical condition or safety concerns - Bladder and Bowel Bladder continence 0-Always continent Bowel continence 0-Always continent - Endurance Fair - Balance Fair - Safety Awareness Fair [facility] DEFICITS: Mobility, Endurance, Safety Awareness, Balance, and Self-Care SIGNATURE PANEL: (CDT)
[2019-10-18] MEDS: DOCUSATE NA/SENNA CONC 1 TAB PO PRN (20:27)
[2019-10-18] MEDS: ROSUVASTATIN 10 MG TAB PO SCH (20:27)
[2019-10-18] MEDS: MONTELUKAST 10 MG TAB PO SCH (20:29)
[2019-10-19] MEDS: THYROID 30 MG TAB PO SCH (06:45)
[2019-10-19] MEDS: PANTOPRAZOLE 40MG TABLET PO SCH (06:45)
[2019-10-19] MEDS: CODEINE 30MG/APAP 300MG TAB PO PRN ×3 (06:46→19:59)
[2019-10-19] MEDS: LIDOCAINE 4% PATCH TOP SCH (07:08)
[2019-10-19] MEDS: APIXABAN 5 MG TABLET PO SCH ×2 (07:44→19:59)
[2019-10-19] MEDS: DULOXETINE 30 MG CAP PO SCH ×2 (07:44→19:59)
[2019-10-19] MEDS: FUROSEMIDE 40 MG TABLET PO SCH (07:45)
[2019-10-19] MEDS: carvediloL 3.125 MG TAB PO SCH ×2 (07:45→16:45)
[2019-10-19] MEDS: SPIRONOLACTONE 25 MG TABLET PO SCH (07:45)
[2019-10-19] MEDS: MAGNESIUM OXIDE 400 MG TAB PO SCH ×2 (07:45→19:59)
[2019-10-19] MEDS: PROMOD 30 ML DOSE PO SCH (07:46)
[2019-10-19] MEDS: GABAPENTIN 400 MG CAP PO SCH ×3 (08:10→19:58)
--- NOTE | 2019-10-19 10:02 | P.RH.PN ---
Estimated Length of Stay: 24 Expected Discharge Date: 10/27/19 Discharge Disposition Plan: Home Family Support: Yes Alf Goal: Mobility, Transfers, Self Care Vital Signs: Last Vital Signs Temp 96.8 F 10/19/19 08:12 Pulse 71 10/19/19 08:12 Resp 16 10/19/19 08:12 BP 150/67 H 10/19/19 08:12 Pulse Ox 98 10/19/19 08:12 Laboratory: Laboratory Last Values WBC 4.9 K/uL (4.3-10.9) D 10/18/19 06:15 RBC 4.12 M/uL (3.86-4.86) 10/18/19 06:15 Hgb 10.0 g/dL (12.0-15.0) L 10/18/19 06:15 Hct 31.3 % (36.0-45.0) L 10/18/19 06:15 MCV 75.9 fL (80-100) L 10/18/19 06:15 MCH 24.2 pg (27.0-35.0) L 10/18/19 06:15 MCHC 31.9 g/dL (32.0-36.0) L 10/18/19 06:15 RDW 16.4 % (12.1-15.2) H 10/18/19 06:15 Plt Count 398 K/uL (152-406) 10/18/19 06:15 MPV 7.6 fL (7.6-11.3) 10/18/19 06:15 Neutrophils % 57.8 % (41.7-73.7) 10/18/19 06:15 Lymphocytes % 27.6 % (15.3-44.8) 10/18/19 06:15 Monocytes % 10.2 % (3.3-12.3) 10/18/19 06:15 Eosinophils % 3.5 % (0-4.4) 10/18/19 06:15 Basophils % 0.9 % (0-1.3) 10/18/19 06:15 Absolute Neutrophils 2.8 K/uL (1.8-8.0) 10/18/19 06:15 Absolute Lymphocytes 1.4 K/uL (0.7-4.9) 10/18/19 06:15 Absolute Monocytes 0.5 K/uL (0.1-1.3) 10/18/19 06:15 Absolute Eosinophils 0.2 K/uL (0-0.5) 10/18/19 06:15 Absolute Basophils 0.0 K/uL (0-0.5) 10/18/19 06:15 Sodium 144 mmol/L (136-145) 10/18/19 06:15 Potassium 4.0 mmol/L (3.5-5.1) 10/18/19 06:15 Chloride 108 mmol/L (98-107) H 10/18/19 06:15 Carbon Dioxide 29 mmol/L (21-32) 10/18/19 06:15 BUN 17 mg/dL (7-18) 10/18/19 06:15 Creatinine 0.82 mg/dL (0.55-1.3) 10/18/19 06:15 Estimated GFR 67 mL/min (=/>90) L 10/18/19 06:15 Glucose 104 mg/dL (74-106) 10/18/19 06:15 Calcium 9.0 mg/dL (8.5-10.1) 10/18/19 06:15 Magnesium 2.3 mg/dL (1.8-2.4) 10/18/19 06:15 Albumin 2.8 g/dL (3.4-5.0) L 10/18/19 06:15 Prealbumin 13.3 mg/dL (20-40) L 10/18/19 06:15 Urine Color Yellow 10/05/19 05:15 Urine Appearance Clear 10/05/19 05:15 Urine pH 7.0 (5.0-7.0) 10/05/19 05:15 Ur Specific [place] <=1.005 (1.005-1.030) 10/05/19 05:15 Glucose (UA)(Auto) Negative (NEG) 10/05/19 05:15 Urine Ketones Negative (NEG) 10/05/19 05:15 Urine Blood Negative (NEG) 10/05/19 05:15 Urine Nitrite Negative (NEG) 10/05/19 05:15 Urine Bilirubin Negative (NEG) 10/05/19 05:15 Urine Urobilinogen 1.0 mg/dL (0.2-1.0) 10/05/19 05:15 Ur Leukocyte Esterase Negative (NEG) 10/05/19 05:15 Urine RBC <5 /HPF (NONE SEEN) 10/05/19 05:15 Urine WBC <5 /HPF (<5) 10/05/19 05:15 Ur Squamous Epith Cells 5-10 /HPF (NONE SEEN) H 10/05/19 05:15 Urine Bacteria 20-50 /HPF (<20) H 10/05/19 05:15 Urine Culture Reflexed Not needed 10/05/19 05:15 Urine Total Protein Negative (NEG) 10/05/19 05:15 Weight: 158 lb 9.6 oz Wound Present: No Closed Surgical Incision Present: No Negative Pressure Wound Therapy Present: No Physician Update: Blood worked reviewed and are stable. She is doing very well with physical and occupational therapy. Functional Improvement: Patient has met all short-term goals and is progressing well through long-term goals. Patient will require more strengthening on B quads to help prevent/control R knee buckling. Summary: Patient's care plan and prison goals have been reviewed and revised as necessary. Please see the Rehabilitation Signature page for all necessary signatures.
[2019-10-19] MEDS: ROSUVASTATIN 10 MG TAB PO SCH (19:58)
[2019-10-19] MEDS: DOCUSATE NA/SENNA CONC 1 TAB PO PRN (19:59)
[2019-10-19] MEDS: MONTELUKAST 10 MG TAB PO SCH (19:59)
[2019-10-20] MEDS: PANTOPRAZOLE 40MG TABLET PO SCH (06:42)
[2019-10-20] MEDS: THYROID 30 MG TAB PO SCH (06:42)
[2019-10-20] MEDS: CODEINE 30MG/APAP 300MG TAB PO PRN ×4 (06:42→20:05)
[2019-10-20] MEDS: GABAPENTIN 400 MG CAP PO SCH ×3 (08:12→20:06)
[2019-10-20] MEDS: LIDOCAINE 4% PATCH TOP SCH (08:12)
[2019-10-20] MEDS: MAGNESIUM OXIDE 400 MG TAB PO SCH ×2 (08:13→20:06)
[2019-10-20] MEDS: FUROSEMIDE 40 MG TABLET PO SCH (08:13)
[2019-10-20] MEDS: SPIRONOLACTONE 25 MG TABLET PO SCH (08:13)
[2019-10-20] MEDS: DULOXETINE 30 MG CAP PO SCH ×2 (08:13→20:00)
[2019-10-20] MEDS: carvediloL 3.125 MG TAB PO SCH ×2 (08:13→16:36)
[2019-10-20] MEDS: APIXABAN 5 MG TABLET PO SCH ×2 (08:14→20:06)
[2019-10-20] MEDS: PROMOD 30 ML DOSE PO SCH (10:37)
[2019-10-20] MEDS: DOCUSATE NA/SENNA CONC 1 TAB PO PRN (20:06)
[2019-10-20] MEDS: MONTELUKAST 10 MG TAB PO SCH (20:06)
[2019-10-20] MEDS: ROSUVASTATIN 10 MG TAB PO SCH (20:07)
[2019-10-21] MEDS: THYROID 30 MG TAB PO SCH (07:08)
[2019-10-21] MEDS: PANTOPRAZOLE 40MG TABLET PO SCH (07:08)
[2019-10-21] MEDS: MAGNESIUM OXIDE 400 MG TAB PO SCH ×2 (08:43→20:50)
[2019-10-21] MEDS: LIDOCAINE 4% PATCH TOP SCH (08:43)
[2019-10-21] MEDS: GABAPENTIN 400 MG CAP PO SCH ×3 (08:43→20:50)
[2019-10-21] MEDS: APIXABAN 5 MG TABLET PO SCH ×2 (08:43→20:50)
[2019-10-21] MEDS: DULOXETINE 30 MG CAP PO SCH ×2 (08:44→20:49)
[2019-10-21] MEDS: FUROSEMIDE 40 MG TABLET PO SCH (08:44)
[2019-10-21] MEDS: SPIRONOLACTONE 25 MG TABLET PO SCH (08:45)
[2019-10-21] MEDS: carvediloL 3.125 MG TAB PO SCH ×2 (08:45→16:20)
[2019-10-21] MEDS: PROMOD 30 ML DOSE PO SCH (08:46)
[2019-10-21] MEDS: CODEINE 30MG/APAP 300MG TAB PO PRN ×2 (13:33→20:50)
[2019-10-21] MEDS: DOCUSATE NA/SENNA CONC 1 TAB PO PRN (20:50)
[2019-10-21] MEDS: ROSUVASTATIN 10 MG TAB PO SCH (20:50)
[2019-10-21] MEDS: MONTELUKAST 10 MG TAB PO SCH (20:50)
[2019-10-21] MEDS: SMZ./TMP. 800/160 MG TABLET PO SCH (20:50)
[2019-10-22 03:02] LABS: Urine Appearance CLOUDY; Urine Bilirubin NEGATIVE (NEG); Urine Blood NEGATIVE (NEG); Urine Color YELLOW; Urine Glucose NEGATIVE (NEG); Urine Protein NEGATIVE (NEG); Urine Urobilinogen 0.2 mg/dL (0.2-1.0)
[2019-10-22 03:20] LABS: Urine Microscopic Reflex ORDER UMIC
[2019-10-22 05:10] LABS: Urine Culture Reflex Order REFLEXED
[2019-10-22 05:11] LABS: Urine Bacteria >50 /HPF (<20); Urine RBC <5 /HPF (NONE SEEN)
[2019-10-22] MEDS: LIDOCAINE 4% PATCH TOP SCH (06:38)
[2019-10-22] MEDS: THYROID 30 MG TAB PO SCH (06:38)
[2019-10-22] MEDS: PANTOPRAZOLE 40MG TABLET PO SCH (06:38)
[2019-10-22] MEDS: CODEINE 30MG/APAP 300MG TAB PO PRN ×2 (07:36→19:13)
[2019-10-22] MEDS: GABAPENTIN 400 MG CAP PO SCH ×3 (07:37→19:13)
[2019-10-22] MEDS: PROMOD 30 ML DOSE PO SCH (07:37)
[2019-10-22] MEDS: MAGNESIUM OXIDE 400 MG TAB PO SCH ×2 (07:37→19:12)
[2019-10-22] MEDS: SMZ./TMP. 800/160 MG TABLET PO SCH ×2 (07:38→19:13)
[2019-10-22] MEDS: FUROSEMIDE 40 MG TABLET PO SCH (07:38)
[2019-10-22] MEDS: DULOXETINE 30 MG CAP PO SCH ×2 (07:38→19:13)
[2019-10-22] MEDS: APIXABAN 5 MG TABLET PO SCH ×2 (07:38→19:13)
[2019-10-22] MEDS: SPIRONOLACTONE 25 MG TABLET PO SCH (07:38)
[2019-10-22] MEDS: carvediloL 3.125 MG TAB PO SCH ×2 (07:39→16:52)
[2019-10-22] MEDS: DOCUSATE NA/SENNA CONC 1 TAB PO PRN (19:12)
[2019-10-22] MEDS: ROSUVASTATIN 10 MG TAB PO SCH (19:13)
[2019-10-22] MEDS: MONTELUKAST 10 MG TAB PO SCH (19:13)
[2019-10-23] MEDS: PANTOPRAZOLE 40MG TABLET PO SCH (07:19)
[2019-10-23] MEDS: THYROID 30 MG TAB PO SCH (07:19)
[2019-10-23] MEDS: HIZENTRA SQ SCH (08:00)
[2019-10-23] MEDS: LIDOCAINE 4% PATCH TOP SCH (08:03)
[2019-10-23] MEDS: DULOXETINE 30 MG CAP PO SCH ×2 (08:04→19:36)
[2019-10-23] MEDS: GABAPENTIN 400 MG CAP PO SCH ×3 (08:04→19:36)
[2019-10-23] MEDS: APIXABAN 5 MG TABLET PO SCH ×2 (08:04→19:36)
[2019-10-23] MEDS: SPIRONOLACTONE 25 MG TABLET PO SCH (08:05)
[2019-10-23] MEDS: FUROSEMIDE 40 MG TABLET PO SCH (08:05)
[2019-10-23] MEDS: MAGNESIUM OXIDE 400 MG TAB PO SCH ×2 (08:05→19:37)
[2019-10-23] MEDS: CODEINE 30MG/APAP 300MG TAB PO PRN ×3 (08:06→19:37)
[2019-10-23] MEDS: SMZ./TMP. 800/160 MG TABLET PO SCH ×2 (08:06→19:37)
[2019-10-23] MEDS: carvediloL 3.125 MG TAB PO SCH ×2 (08:07→17:29)
[2019-10-23] MEDS: PROMOD 30 ML DOSE PO SCH (08:10)
[2019-10-23] MEDS: ROSUVASTATIN 10 MG TAB PO SCH (19:35)
[2019-10-23] MEDS: DOCUSATE NA/SENNA CONC 1 TAB PO PRN (19:35)
[2019-10-23] MEDS: MONTELUKAST 10 MG TAB PO SCH (19:36)
--- NOTE | 2019-10-24 00:40 | R.PN ---
ENCOUNTER DATE AND TIME: 10/23/2019 19:44 (CDT) NAME BENOIT LINK DATE OF : 1935 DATE OF ADMISSION: 10/05/2019 11:57 (CDT) THORACIC SPINAL CORD COMPRESSIONCHIEF COMPLAINT: Thoracic spinal cord compression s/p decompression. SUBJECTIVE: Pt denied any depression. Pt denied any Shortness of Breath. Ambulated 500' with contact guard assistance using a rolling walker. Self-propelled wheelchair 250' w ith minimum assistance. Up and down 3 steps with minimum assistance. She reports improved thoracic pain while using a thoracic brace. VITAL SIGNS Temperature: 97.4 F SBP/DBP: 147/73 Pulse: 74 Resp: 16 MEDICATION ALLERGIES: No Known Drug Allergies (NKDA) ENVIRONMENTAL ALLERGIES: - Substance Allergies None Known - Other Allergies None Known NURSING: - Shower allowing shower - Bladder care per protocol - Skin care per protocol ACTIVITIES OOB only with supervision THERAPIES: - Orthotics/Prosthetics Orthotic Evaluation. Splinting/Casting. - Dietary and Nutrition Adequate Nutrition. Nutritional Education. Nutritional Supplements. PHYSICAL EXAM - Gen Alert and awake Lying in bed No apparent distress Oriented to: person, time, and place - Skin Thoracic incisions intact No abnormalities - Eyes No abnormalities - ENMT No abnormalities - Neck No pain No cervical adenopathy - CVS RRR - Chest Clear - Abd Soft - GI Non distended Deferred - No abnormalities - Ext Mild bilateral lower extremity edema. - MSK 4+/5 weakness in both lower extremities. - Neuro No focal deficits - Psych No abnormalities ASSESSMENT: Pt. is a 83 yo Right-handed white female.On 09/25/2019 she was admitted to [facility] with d iagnosis THORACIC SPINAL CORD COMPRESSION.Her impairment category is Spinal Cord Dysfunction 04 - Ot her Non-traumatic Spinal Cord Dysfunction (04.130).Pre-morbidly, Pt. was independent/mod-I in Self-Ca re, Communication, Transfers Control, Social Cognition, and Safety Awareness; and she had good Locomo tion and Endurance.Currently, she has deficits of Locomotion, Self-Care, Balance, Endurance, Transfer s Control, and Social Cognition.Pt. is now referred to [facility] for acute in -patient rehabilitation in order to maximize patient's functional independence in activities of daily living, strength, ROM, and mobility.- Rehab Goal Patient has realistic goal of being discharged at assistance level 3-modA to reside at Home with Fam micaela/Relatives. MDM/PLAN: - Physical Therapy Gait dysfunction - to improve, our physical therapists will perform initial evaluation of pt's statu s upon admission and devise an individualized program for Gait Training, and Wheel Chair mobility Inability to transfer - to improve, our physical therapists will perform initial evaluation of pt's status upon admission and devise an individualized program for Bed mobility Need for home safety evaluation - to improve, our physical therapists will perform initial evaluatio n of pt's status upon admission and devise an individualized program for Home Evaluation Need in caregiver upon discharge - to improve, our physical therapists will perform initial evaluati on of pt's status upon admission and devise an individualized program for Caregiver Training Edema - to improve, our physical therapists will perform initial evaluation of pt's status upon admi ssion and devise an individualized program for Elevation Training, and Lymphedema Therapy New precaution - to improve, our physical therapists will perform initial evaluation of pt's status upon admission and devise an individualized program for Patient precaution education Poor balance - to improve, our physical therapists will perform initial evaluation of pt's status up on admission and devise an individualized program for Balance Training Poor endurance - to improve, our physical therapists will perform initial evaluation of pt's status upon admission and devise an individualized program for Endurance Training Weakness - to improve, our physical therapists will perform initial evaluation of pt's status upon a dmission and devise an individualized program for Aquatic Therapy, Neuromuscular Reeducation, and Str engthening Achieving independence - to improve, our physical therapists will perform initial evaluation of pt's status upon admission and devise an individualized program for Community Reintegration Activities - Occupational Therapy ADL deficits - to improve, our occupation therapists will perform initial evaluation of pt's status upon admission and devise an individualized program for Bathing, Bed mobility, Community Reintegratio n, Cooking, Dressing, Eating, Fine Motor Skills, Grooming, Homemaking, Kitchen Mobility, Laundry, Pat ient Education, Safety Awareness, Splinting - Positioning, Transfers(Toilet, Tub, Shower), and Wheel Chair Management Cognitive deficits - to improve, our occupation therapists will perform initial evaluation of pt's s tatus upon admission and devise an individualized program for Cognition - orientation Need for intensive care unit registered nurse - to improve, our occupation therapists will perform initial evaluation of pt's status upon admission and devise an individualized program for Caregiver Training Weakness - to improve, our occupation therapists will perform initial evaluation of pt's status upon admission and devise an individualized program for Aquatic Therapy, Balance, Endurance, UE ROM, and UE strengthening - Other See attached MAR (Medication Administration Record) - Diet Type Continue Regular - Diet - Liquid Texture Continue Regular - Tube Feed Continue N/A - Bladder care per protocol - Skin care per protocol - Diet - Solid Texture Continue Regular - Shower allowing shower FUNCTIONAL STATUS: UPDATED AT WEEKLY TEAM CONFERENCE - Bladder Same accident frequency: 7-Ind - No accidents in the past 7 days - Bowel Same accident frequency: 7-Ind - No accidents in the past 7 days - Walking Same score based on distance walked: 0(N/A) Same score based on distance walked: 1(<=50ft) - Wheelchair Same score based on distance traveled: 0(N/A) FUNCTIONAL STATUS: - Self-Care A. Eating Ind B. Grooming Hank C. Bathing modA D. Dressing - Upper Hank E. Dressing - Lower modA F. Toileting Hank - Sphincter Control G. Bladder control sup H. Bowel control sup - Transfers Control I. Bed/Chair/Wheelchair Hank J. Toilet Hank K. Tub/Shower Hank - Locomotion L. Walk/Wheelchair (B) modA M. Stairs ADNO - Communication N. Comprehension (B) Jaskaran O. Expression (B) Jaskaran - Social Cognition P. Social Interaction Ind Q. Problem Solving Ind R. Memory Ind - Endurance Good - Balance Good - Safety Awareness Good QI SCORES: - Self-Care A. Eating 06-Independent B. Oral hygiene 06-Independent C. Toileting hygiene 03-Partial/moderate assistance E. Shower/bathe self 03-Partial/moderate assistance F. Upper body dressing 04-Supervision or touching assistance G. Lower body dressing 88-Not attempted due to medical condition or safety concerns H. Putting on/taking off footwear 88-Not attempted due to medical condition or safety concerns - Mobility A. Roll left and right 04-Supervision or touching assistance B. Sit to lying 04-Supervision or touching assistance C. Lying to sitting on side of bed 02-Substantial/maximal assistance D. Sit to stand 02-Substantial/maximal assistance E. Chair/[id number] transfer 02-Substantial/maximal assistance F. Toilet transfer 02-Substantial/maximal assistance G. Car transfer 88-Not attempted due to medical condition or safety concerns I. Walk 10 feet 88-Not attempted due to medical condition or safety concerns J. Walk 50 feet with two turns 88-Not attempted due to medical condition or safety concerns K. Walk 150 feet 88-Not attempted due to medical condition or safety concerns L. Walking 10 feet on uneven surfaces 88-Not attempted due to medical condition or safety concerns M. 1 step (curb) 88-Not attempted due to medical condition or safety concerns N. 4 steps 88-Not attempted due to medical condition or safety concerns O. 12 steps 88-Not attempted due to medical condition or safety concerns P. Picking up object 06-Independent R. Wheel 50 feet with two turns 88-Not attempted due to medical condition or safety concerns S. Wheel 150 feet 88-Not attempted due to medical condition or safety concerns - Bladder and Bowel Bladder continence 0-Always continent Bowel continence 0-Always continent - Endurance Fair - Balance Fair - Safety Awareness Fair [facility]RENT [facility]. DEFICITS: Mobility, Endurance, Safety Awareness, Balance, and Self-Care SIGNATURE PANEL: (CDT)
[2019-10-24] MEDS: THYROID 30 MG TAB PO SCH (06:29)
[2019-10-24] MEDS: PANTOPRAZOLE 40MG TABLET PO SCH (06:29)
[2019-10-24] MEDS: CODEINE 30MG/APAP 300MG TAB PO PRN ×2 (07:40→20:23)
[2019-10-24] MEDS: MAGNESIUM OXIDE 400 MG TAB PO SCH ×2 (07:41→20:22)
[2019-10-24] MEDS: SPIRONOLACTONE 25 MG TABLET PO SCH (07:41)
[2019-10-24] MEDS: SMZ./TMP. 800/160 MG TABLET PO SCH ×2 (07:41→20:22)
[2019-10-24] MEDS: DULOXETINE 30 MG CAP PO SCH ×2 (07:41→20:22)
[2019-10-24] MEDS: carvediloL 3.125 MG TAB PO SCH ×2 (07:42→16:35)
[2019-10-24] MEDS: GABAPENTIN 400 MG CAP PO SCH ×3 (07:42→20:22)
[2019-10-24] MEDS: APIXABAN 5 MG TABLET PO SCH ×2 (07:42→20:22)
[2019-10-24] MEDS: FUROSEMIDE 40 MG TABLET PO SCH (07:42)
[2019-10-24] MEDS: PROMOD 30 ML DOSE PO SCH (07:43)
[2019-10-24] MEDS: LIDOCAINE 4% PATCH TOP SCH (11:06)
--- NOTE | 2019-10-24 14:46 | FAST ---
SHIFT START DATE/TIME: 10/24/2019 07:00 (CDT) SHIFT END DATE/TIME: 10/24/2019 19:00 (CDT) NAME BENOIT LINK DATE OF : 1935 DATE OF ADMISSION: 10/05/2019 11:57 (CDT) PHONE: AGE: 83 N# [id number] GENDER: Female ENCOUNTER PHYSICIAN: Dr. Turner Gomes M.D. ADMISSION DIAGNOSIS: - Spinal Cord Dysfunction 04 - Other Non-traumatic Spinal Cord Dysfunction (04.130) THORACIC SPINAL CORD COMPRESSION. EATING: EATING - STEP 1: Does the patient complete the activity by him/herself with no assistance (physical, verbal/nonverbal cueing, setup/clean-up)? No. EATING - STEP 2: Does the patient need only setup/clean-up assistance from one helper? Yes. 1. [id number] ADMISSION PERFORMANCE: Setup or clean-up assistance CODE: 05 ORAL HYGIENE: ORAL HYGIENE - STEP 1: Does the patient complete the activity by him/herself with no assistance (physical, verbal/nonverbal cueing, setup/clean-up)? No. ORAL HYGIENE - STEP 2: Does the patient need only setup/clean-up assistance from one helper? Yes. 1. [id number] ADMISSION PERFORMANCE: Setup or clean-up assistance CODE: 05 TOILETING HYGIENE: TOILETING HYGIENE - STEP 1: Does the patient complete the activity by him/herself with no assistance (physical, verbal/nonverbal cueing, setup/clean-up)? No. TOILETING HYGIENE - STEP 2: Does the patient need only setup/clean-up assistance from one helper? Yes. 1. [id number] ADMISSION PERFORMANCE: Setup or clean-up assistance CODE: 05 BATHING: Not assessed/no information CODE: - DRESSING - UPPER BODY: DRESSING - UPPER BODY - STEP 1: Does the patient complete the activity by him/herself with no assistance (physical, verbal/nonverbal cueing, setup/clean-up)? No. DRESSING - UPPER BODY - STEP 2: Does the patient need only setup/clean-up assistance from one helper? Yes. 1. [id number] ADMISSION PERFORMANCE: Setup or clean-up assistance CODE: 05 DRESSING - LOWER BODY: DRESSING - LOWER BODY - STEP 1: Does the patient complete the activity by him/herself with no assistance (physical, verbal/nonverbal cueing, setup/clean-up)? No. DRESSING - LOWER BODY - STEP 2: Does the patient need only setup/clean-up assistance from one helper? Yes. 1. [id number] ADMISSION PERFORMANCE: Setup or clean-up assistance CODE: 05 PUTTING ON/TAKING OFF FOOTWEAR: FOOTWEAR - STEP 1: Does the patient complete the activity by him/herself with no assistance (physical, verbal/nonverbal cueing, setup/clean-up)? No. FOOTWEAR - STEP 2: Does the patient need only setup/clean-up assistance from one helper? Yes. 1. [id number] ADMISSION PERFORMANCE: Setup or clean-up assistance CODE: 05 ROLL LEFT AND RIGHT: ROLL LEFT AND RIGHT - STEP 1: Does the patient complete the activity by him/herself with no assistance (physical, verbal/nonverbal cueing, setup/clean-up)? No. ROLL LEFT AND RIGHT - STEP 2: Does the patient need only setup/clean-up assistance from one helper? Yes. 1. [id number] ADMISSION PERFORMANCE: Setup or clean-up assistance CODE: 05 SIT TO LYING: SIT TO LYING - STEP 1: Does the patient complete the activity by him/herself with no assistance (physical, verbal/nonverbal cueing, setup/clean-up)? No. SIT TO LYING - STEP 2: Does the patient need only setup/clean-up assistance from one helper? Yes. 1. [id number] ADMISSION PERFORMANCE: Setup or clean-up assistance CODE: 05 LYING TO SITTING: LYING TO SITTING ON SIDE OF BED - STEP 1: Does the patient complete the activity by him/herself with no assistance (physical, verbal/nonverbal cueing, setup/clean-up)? No. LYING TO SITTING ON SIDE OF BED - STEP 2: Does the patient need only setup/clean-up assistance from one helper? Yes. 1. [id number] ADMISSION PERFORMANCE: Setup or clean-up assistance CODE: 05 SIT TO STAND: SIT TO STAND - STEP 1: Does the patient complete the activity by him/herself with no assistance (physical, verbal/nonverbal cueing, setup/clean-up)? No. SIT TO STAND - STEP 2: Does the patient need only setup/clean-up assistance from one helper? Yes. 1. [id number] ADMISSION PERFORMANCE: Setup or clean-up assistance CODE: 05 TRANSFERS: BED, CHAIR: CHAIR/[id number] TRANSFER - STEP 1: Does the patient complete the activity by him/herself with no assistance (physical, verbal/nonverbal cueing, setup/clean-up)? No. CHAIR/[id number] TRANSFER - STEP 2: Does the patient need only setup/clean-up assistance from one helper? Yes. 1. [id number] ADMISSION PERFORMANCE: Setup or clean-up assistance CODE: 05 TRANSFER TOILET: TOILET TRANSFER - STEP 1: Does the patient complete the activity by him/herself with no assistance (physical, verbal/nonverbal cueing, setup/clean-up)? No. TOILET TRANSFER - STEP 2: Does the patient need only setup/clean-up assistance from one helper? Yes. 1. [id number] ADMISSION PERFORMANCE: Setup or clean-up assistance CODE: 05 TRANSFERS: CAR: Not assessed/no information CODE: - WALK 10 FEET: Not assessed/no information CODE: - 1 STEP (CURB): Not assessed/no information CODE: - PICKING UP OBJECT: Not assessed/no information CODE: - DOES THE PATIENT USE A WHEELCHAIR/SCOOTER? Q1. DOES THE PATIENT USE A WHEELCHAIR/SCOOTER?: Yes CODE: 1 WHEEL 50 FEET WITH TWO TURNS: WHEEL 50 FEET WITH TWO TURNS - STEP 1: Does the patient complete the activity by him/herself with no assistance (physical, verbal/nonverbal cueing, setup/clean-up)? No. WHEEL 50 FEET WITH TWO TURNS - STEP 2: Does the patient need only setup/clean-up assistance from one helper? Yes. 1. [id number] ADMISSION PERFORMANCE: Setup or clean-up assistance CODE: 05 INDICATE THE TYPE OF WHEELCHAIR/SCOOTER USED: RR1. INDICATE THE TYPE OF WHEELCHAIR/SCOOTER USED.: Manual CODE: 1 WHEEL 150 FEET: WHEEL 150 FEET - STEP 1: Does the patient complete the activity by him/herself with no assistance (physical, verbal/nonverbal cueing, setup/clean-up)? No. WHEEL 150 FEET - STEP 2: Does the patient need only setup/clean-up assistance from one helper? Yes. 1. [id number] ADMISSION PERFORMANCE: Setup or clean-up assistance CODE: 05 INDICATE THE TYPE OF WHEELCHAIR/SCOOTER USED: SS1. INDICATE THE TYPE OF WHEELCHAIR/SCOOTER USED.: Manual CODE: 1 BLADDER AND BOWEL: H350. BLADDER CONTINENCE (3-DAY ASSESSMENT PERIOD): Always continent (no documented incontinence) CODE: 0 H400. BOWEL CONTINENCE (3-DAY ASSESSMENT PERIOD): Always continent CODE: 0 SIGNATURE PANEL: The following modified sections: 1. [id number] Admission Performance, 1. [id number] Admission Performance, 1. [id number] Admission Performance, 1. KC3930s Admission Performance, 1. IR5602m Admission Performance, 1. FW3771n Admission Performance, 1. [id number] Admission Performance, 1. [id number] Admission Performance , 1. [id number] Admission Performance, 1. [id number] Admission Performance, 1. [id number] Admission Performanc e, 1. [id number] Admission Performance, Q1. Does the patient use a wheelchair/scooter?, 1. [id number] Admis jon Performance, RR1. Indicate the type of wheelchair/scooter used., 1. [id number] Admission Performanc e, Code, SS1. Indicate the type of wheelchair/scooter used., H350. Bladder Continence (3-day assessme nt period), H400. Bowel Continence (3-day assessment period) were [electronically] signed by Abelardo MacNJonny on TueOct 24 2019 14:45:15 T-0500 (Central Daylight Time)
--- NOTE | 2019-10-24 15:22 | FAST ---
ENCOUNTER DATE AND TIME: 10/24/2019 08:00 (CDT) NAME BENOIT LINK DATE OF : 1935 DATE OF ADMISSION: 10/05/2019 11:57 (CDT) PHONE: AGE: 83 N# [id number] GENDER: Female ENCOUNTER PHYSICIAN: Dr. Turner Gomes M.D. ADMISSION DIAGNOSIS: - Spinal Cord Dysfunction 04 - Other Non-traumatic Spinal Cord Dysfunction (04.130) THORACIC SPINAL CORD COMPRESSION. EATING: Not assessed/no information CODE: - ORAL HYGIENE: ORAL HYGIENE - STEP 1: Does the patient complete the activity by him/herself with no assistance (physical, verbal/nonverbal cueing, setup/clean-up)? Yes. 1. [id number] ADMISSION PERFORMANCE: Independent CODE: 06 TOILETING HYGIENE: Not assessed/no information CODE: - BATHING: SHOWER/BATHE SELF - STEP 1: Does the patient complete the activity by him/herself with no assistance (physical, verbal/nonverbal cueing, setup/clean-up)? No. SHOWER/BATHE SELF - STEP 2: Does the patient need only setup/clean-up assistance from one helper? No. SHOWER/BATHE SELF - STEP 3: Does the patient need only verbal/nonverbal cueing or touching/steadying/contact guard assistance fro m one helper? Yes. 1. [id number] ADMISSION PERFORMANCE: Supervision or touching assistance CODE: 04 DRESSING - UPPER BODY: DRESSING - UPPER BODY - STEP 1: Does the patient complete the activity by him/herself with no assistance (physical, verbal/nonverbal cueing, setup/clean-up)? Yes. 1. [id number] ADMISSION PERFORMANCE: Independent CODE: 06 DRESSING - LOWER BODY: DRESSING - LOWER BODY - STEP 1: Does the patient complete the activity by him/herself with no assistance (physical, verbal/nonverbal cueing, setup/clean-up)? No. DRESSING - LOWER BODY - STEP 2: Does the patient need only setup/clean-up assistance from one helper? No. DRESSING - LOWER BODY - STEP 3: Does the patient need only verbal/nonverbal cueing or touching/steadying/contact guard assistance fro m one helper? Yes. 1. [id number] ADMISSION PERFORMANCE: Supervision or touching assistance CODE: 04 PUTTING ON/TAKING OFF FOOTWEAR: FOOTWEAR - STEP 1: Does the patient complete the activity by him/herself with no assistance (physical, verbal/nonverbal cueing, setup/clean-up)? No. FOOTWEAR - STEP 2: Does the patient need only setup/clean-up assistance from one helper? No. FOOTWEAR - STEP 3: Does the patient need only verbal/nonverbal cueing or touching/steadying/contact guard assistance fro m one helper? Yes. 1. [id number] ADMISSION PERFORMANCE: Supervision or touching assistance CODE: 04 DOES THE PATIENT USE A WHEELCHAIR/SCOOTER? CODE: EXPR INDICATE THE TYPE OF WHEELCHAIR/SCOOTER USED: CODE: EXPR INDICATE THE TYPE OF WHEELCHAIR/SCOOTER USED: CODE: EXPR BLADDER AND BOWEL: CODE: EXPR CODE: EXPR SIGNATURE PANEL: The following modified sections: 1. [id number] Admission Performance, 1. [id number] Admission Performance, 1. PY8439g Admission Performance, 1. CR1390x Admission Performance, 1. US6816h Admission Performance were [electronically] signed by RAS Hayden on TueOct 24 2019 15:22:25 T-0500 (Central Daylight Time)
--- NOTE | 2019-10-24 19:28 | R.PN ---
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 SUBJECTIVE: Pt denied any depression. Pt denied any Shortness of Breath. Ambulated 1250' with standby assistance using a rolling walker. Self-propelled wheelchair 500' with s tandby assistance. Up and down 3 steps with minimum assistance. She reports improved thoracic pain while using a thoracic brace. VITAL SIGNS Temperature: 98.0 F SBP/DBP: 124/74 Pulse: 68 Resp: 16 MEDICATION ALLERGIES: No Known Drug Allergies (NKDA) ENVIRONMENTAL ALLERGIES: - Substance Allergies None Known - Other Allergies None Known NURSING: - Shower allowing shower - Bladder care per protocol - Skin care per protocol ACTIVITIES OOB only with supervision THERAPIES: - Orthotics/Prosthetics Orthotic Evaluation. Splinting/Casting. - Dietary and Nutrition Adequate Nutrition. Nutritional Education. Nutritional Supplements. PHYSICAL EXAM - Gen Alert and awake Lying in bed No apparent distress Oriented to: person, time, and place - Skin Thoracic incisions intact No abnormalities - Eyes No abnormalities - ENMT No abnormalities - Neck No pain No cervical adenopathy - CVS RRR - Chest Clear - Abd Soft - GI Non distended Deferred - No abnormalities - Ext Mild bilateral lower extremity edema. - MSK 4+/5 weakness in both lower extremities. - Neuro No focal deficits - Psych No abnormalities ASSESSMENT: Pt. is a 83 yo Right-handed white female.On 09/25/2019 she was admitted to [facility] hospital with d iagnosis THORACIC SPINAL CORD COMPRESSION.Her impairment category is Spinal Cord Dysfunction 04 - Ot her Non-traumatic Spinal Cord Dysfunction (04.130).Pre-morbidly, Pt. was independent/mod-I in Self-Ca re, Communication, Transfers Control, Social Cognition, and Safety Awareness; and she had good Locomo tion and Endurance.Currently, she has deficits of Locomotion, Self-Care, Balance, Endurance, Transfer s Control, and Social Cognition.Pt. is now referred to [facility] for acute in -patient rehabilitation in order to maximize patient's functional independence in activities of daily living, strength, ROM, and mobility.- Rehab Goal Patient has realistic goal of being discharged at assistance level 3-modA to reside at Home with Fam micaela/Relatives. MDM/PLAN: - Physical Therapy Gait dysfunction - to improve, our physical therapists will perform initial evaluation of pt's statu s upon admission and devise an individualized program for Gait Training, and Wheel Chair mobility Inability to transfer - to improve, our physical therapists will perform initial evaluation of pt's status upon admission and devise an individualized program for Bed mobility Need for home safety evaluation - to improve, our physical therapists will perform initial evaluatio n of pt's status upon admission and devise an individualized program for Home Evaluation Need in caregiver upon discharge - to improve, our physical therapists will perform initial evaluati on of pt's status upon admission and devise an individualized program for Caregiver Training Edema - to improve, our physical therapists will perform initial evaluation of pt's status upon admi ssion and devise an individualized program for Elevation Training, and Lymphedema Therapy New precaution - to improve, our physical therapists will perform initial evaluation of pt's status upon admission and devise an individualized program for Patient precaution education Poor balance - to improve, our physical therapists will perform initial evaluation of pt's status up on admission and devise an individualized program for Balance Training Poor endurance - to improve, our physical therapists will perform initial evaluation of pt's status upon admission and devise an individualized program for Endurance Training Weakness - to improve, our physical therapists will perform initial evaluation of pt's status upon a dmission and devise an individualized program for Aquatic Therapy, Neuromuscular Reeducation, and Str engthening Achieving independence - to improve, our physical therapists will perform initial evaluation of pt's status upon admission and devise an individualized program for Community Reintegration Activities - Occupational Therapy ADL deficits - to improve, our occupation therapists will perform initial evaluation of pt's status upon admission and devise an individualized program for Bathing, Bed mobility, Community Reintegratio n, Cooking, Dressing, Eating, Fine Motor Skills, Grooming, Homemaking, Kitchen Mobility, Laundry, Pat ient Education, Safety Awareness, Splinting - Positioning, Transfers(Toilet, Tub, Shower), and Wheel Chair Management Cognitive deficits - to improve, our occupation therapists will perform initial evaluation of pt's s tatus upon admission and devise an individualized program for Cognition - orientation Need for healthcare corporate account director - to improve, our occupation therapists will perform initial evaluation of pt's status upon admission and devise an individualized program for Caregiver Training Weakness - to improve, our occupation therapists will perform initial evaluation of pt's status upon admission and devise an individualized program for Aquatic Therapy, Balance, Endurance, UE ROM, and UE strengthening - Other See attached MAR (Medication Administration Record) - Diet Type Continue Regular - Diet - Liquid Texture Continue Regular - Tube Feed Continue N/A - Bladder care per protocol - Skin care per protocol - Diet - Solid Texture Continue Regular - Shower allowing shower FUNCTIONAL STATUS: UPDATED AT WEEKLY TEAM CONFERENCE - Bladder Same accident frequency: 7-Ind - No accidents in the past 7 days - Bowel Same accident frequency: 7-Ind - No accidents in the past 7 days - Walking Same score based on distance walked: 0(N/A) Same score based on distance walked: 1(<=50ft) - Wheelchair Same score based on distance traveled: 0(N/A) FUNCTIONAL STATUS: - Self-Care A. Eating Ind B. Grooming Hank C. Bathing modA D. Dressing - Upper Hank E. Dressing - Lower modA F. Toileting Hank - Sphincter Control G. Bladder control sup H. Bowel control sup - Transfers Control I. Bed/Chair/Wheelchair Hank J. Toilet Hank K. Tub/Shower Hank - Locomotion L. Walk/Wheelchair (B) modA M. Stairs ADNO - Communication N. Comprehension (B) Jaskaran O. Expression (B) Jaskaran - Social Cognition P. Social Interaction Ind Q. Problem Solving Ind R. Memory Ind - Endurance Good - Balance Good - Safety Awareness Good QI SCORES: - Self-Care A. Eating 06-Independent B. Oral hygiene 06-Independent C. Toileting hygiene 03-Partial/moderate assistance E. Shower/bathe self 03-Partial/moderate assistance F. Upper body dressing 04-Supervision or touching assistance G. Lower body dressing 88-Not attempted due to medical condition or safety concerns H. Putting on/taking off footwear 88-Not attempted due to medical condition or safety concerns - Mobility A. Roll left and right 04-Supervision or touching assistance B. Sit to lying 04-Supervision or touching assistance C. Lying to sitting on side of bed 02-Substantial/maximal assistance D. Sit to stand 02-Substantial/maximal assistance E. Chair/[id number] transfer 02-Substantial/maximal assistance F. Toilet transfer 02-Substantial/maximal assistance G. Car transfer 88-Not attempted due to medical condition or safety concerns I. Walk 10 feet 88-Not attempted due to medical condition or safety concerns J. Walk 50 feet with two turns 88-Not attempted due to medical condition or safety concerns K. Walk 150 feet 88-Not attempted due to medical condition or safety concerns L. Walking 10 feet on uneven surfaces 88-Not attempted due to medical condition or safety concerns M. 1 step (curb) 88-Not attempted due to medical condition or safety concerns N. 4 steps 88-Not attempted due to medical condition or safety concerns O. 12 steps 88-Not attempted due to medical condition or safety concerns P. Picking up object 06-Independent R. Wheel 50 feet with two turns 88-Not attempted due to medical condition or safety concerns S. Wheel 150 feet 88-Not attempted due to medical condition or safety concerns - Bladder and Bowel Bladder continence 0-Always continent Bowel continence 0-Always continent - Endurance Fair - Balance Fair - Safety Awareness Fair [facility]IC[facility]: Mobility, Endurance, Safety Awareness, Balance, and Self-Care SIGNATURE PANEL: (CDT)
[2019-10-24] MEDS: DOCUSATE NA/SENNA CONC 1 TAB PO PRN (20:22)
[2019-10-24] MEDS: ROSUVASTATIN 10 MG TAB PO SCH (20:22)
[2019-10-24] MEDS: MONTELUKAST 10 MG TAB PO SCH (20:23)
[2019-10-25 06:35] LABS: Basophils % 0.5 % (0-1.3); MPV 7.6 fL (7.6-11.3); RBC Red Blood Cell Count 4.04 M/uL (3.86-4.86)
[2019-10-25 06:37] LABS: Albumin 2.7 g/dL (3.4-5.0); Potassium 4.1 mmol/L (3.5-5.1)
[2019-10-25] MEDS: THYROID 30 MG TAB PO SCH (07:31)
[2019-10-25] MEDS: PANTOPRAZOLE 40MG TABLET PO SCH (07:31)
[2019-10-25 07:42] LABS: Blood Morphology Comment NOT SEEN (NOT SEEN); Platelet Estimate ADEQ
[2019-10-25] MEDS: FUROSEMIDE 40 MG TABLET PO SCH (07:58)
[2019-10-25] MEDS: LIDOCAINE 4% PATCH TOP SCH (07:58)
[2019-10-25] MEDS: CODEINE 30MG/APAP 300MG TAB PO PRN ×3 (07:59→20:19)
[2019-10-25] MEDS: SMZ./TMP. 800/160 MG TABLET PO SCH ×2 (07:59→20:18)
[2019-10-25] MEDS: MAGNESIUM OXIDE 400 MG TAB PO SCH ×2 (08:00→20:18)
[2019-10-25] MEDS: DULOXETINE 30 MG CAP PO SCH ×2 (08:00→20:18)
[2019-10-25] MEDS: GABAPENTIN 400 MG CAP PO SCH ×3 (08:00→20:18)
[2019-10-25] MEDS: carvediloL 3.125 MG TAB PO SCH ×2 (08:01→17:08)
[2019-10-25] MEDS: APIXABAN 5 MG TABLET PO SCH ×2 (08:01→20:18)
[2019-10-25] MEDS: SPIRONOLACTONE 25 MG TABLET PO SCH (08:02)
[2019-10-25] MEDS: PROMOD 30 ML DOSE PO SCH (08:30)
[2019-10-25] MEDS: DOCUSATE NA/SENNA CONC 1 TAB PO PRN (20:18)
[2019-10-25] MEDS: MONTELUKAST 10 MG TAB PO SCH (20:18)
[2019-10-25] MEDS: ROSUVASTATIN 10 MG TAB PO SCH (20:18)
[2019-10-26] MEDS: CODEINE 30MG/APAP 300MG TAB PO PRN ×4 (02:57→21:17)
[2019-10-26 05:26] VITALS: BMI 30.7
[2019-10-26] MEDS: PANTOPRAZOLE 40MG TABLET PO SCH (07:20)
[2019-10-26] MEDS: THYROID 30 MG TAB PO SCH (07:20)
[2019-10-26] MEDS: GABAPENTIN 400 MG CAP PO SCH ×3 (08:04→20:19)
[2019-10-26] MEDS: SPIRONOLACTONE 25 MG TABLET PO SCH (08:04)
[2019-10-26] MEDS: SMZ./TMP. 800/160 MG TABLET PO SCH ×2 (08:05→19:27)
[2019-10-26] MEDS: MAGNESIUM OXIDE 400 MG TAB PO SCH ×2 (08:05→19:28)
[2019-10-26] MEDS: DULOXETINE 30 MG CAP PO SCH ×2 (08:05→19:28)
[2019-10-26] MEDS: APIXABAN 5 MG TABLET PO SCH ×2 (08:06→19:28)
[2019-10-26] MEDS: carvediloL 3.125 MG TAB PO SCH ×2 (08:06→17:18)
[2019-10-26] MEDS: FUROSEMIDE 40 MG TABLET PO SCH (08:07)
[2019-10-26] MEDS: LIDOCAINE 4% PATCH TOP SCH (08:08)
[2019-10-26] MEDS: PROMOD 30 ML DOSE PO SCH (09:20)
--- NOTE | 2019-10-26 10:08 | P.RH.PN ---
Estimated Length of Stay: 24 Expected Discharge Date: 10/27/19 Discharge Disposition Plan: Home Family Support: Yes Detention Goal: Mobility, Transfers, Self Care Vital Signs: Last Vital Signs Temp 97.0 F 10/26/19 07:12 Pulse 77 10/26/19 08:07 Resp 16 10/26/19 09:07 BP 125/68 10/26/19 08:07 Pulse Ox 97 10/26/19 09:07 Laboratory: Laboratory Last Values WBC 3.7 K/uL (4.3-10.9) L D 10/25/19 05:43 RBC 4.04 M/uL (3.86-4.86) 10/25/19 05:43 Hgb 9.7 g/dL (12.0-15.0) L 10/25/19 05:43 Hct 30.0 % (36.0-45.0) L 10/25/19 05:43 MCV 74.3 fL (80-100) L 10/25/19 05:43 MCH 24.0 pg (27.0-35.0) L 10/25/19 05:43 MCHC 32.2 g/dL (32.0-36.0) 10/25/19 05:43 RDW 16.6 % (12.1-15.2) H 10/25/19 05:43 Plt Count 226 K/uL (152-406) D 10/25/19 05:43 MPV 7.6 fL (7.6-11.3) 10/25/19 05:43 Neutrophils % 47.8 % (41.7-73.7) 10/25/19 05:43 Lymphocytes % 28.0 % (15.3-44.8) 10/25/19 05:43 Monocytes % 16.3 % (3.3-12.3) H 10/25/19 05:43 Eosinophils % 7.4 % (0-4.4) H 10/25/19 05:43 Basophils % 0.5 % (0-1.3) 10/25/19 05:43 Absolute Neutrophils 1.8 K/uL (1.8-8.0) 10/25/19 05:43 Segmented Neutrophils 53 % (40-80) 10/25/19 05:43 Absolute Lymphocytes 1.0 K/uL (0.7-4.9) 10/25/19 05:43 Lymphocytes 26 % (15-42) 10/25/19 05:43 Monocytes 15 % (0-10) H 10/25/19 05:43 Absolute Monocytes 0.6 K/uL (0.1-1.3) 10/25/19 05:43 Eosinophils 6 % (0-3) H 10/25/19 05:43 Absolute Eosinophils 0.3 K/uL (0-0.5) 10/25/19 05:43 Absolute Basophils 0.0 K/uL (0-0.5) 10/25/19 05:43 Morphology Comment Not seen (NOT SEEN) 10/25/19 05:43 Sodium 137 mmol/L (136-145) 10/25/19 05:43 Potassium 4.1 mmol/L (3.5-5.1) 10/25/19 05:43 Chloride 102 mmol/L (98-107) 10/25/19 05:43 Carbon Dioxide 27 mmol/L (21-32) 10/25/19 05:43 BUN 18 mg/dL (7-18) 10/25/19 05:43 Creatinine 1.06 mg/dL (0.55-1.3) 10/25/19 05:43 Estimated GFR 50 mL/min (=/>90) L 10/25/19 05:43 Glucose 88 mg/dL (74-106) 10/25/19 05:43 Calcium 8.6 mg/dL (8.5-10.1) 10/25/19 05:43 Magnesium 2.3 mg/dL (1.8-2.4) 10/18/19 06:15 Albumin 2.7 g/dL (3.4-5.0) L 10/25/19 05:43 Prealbumin 12.0 mg/dL (20-40) L 10/25/19 05:43 Urine Color Yellow 10/22/19 02:00 Urine Appearance Cloudy 10/22/19 02:00 Urine pH 7.0 (5.0-7.0) 10/22/19 02:00 Ur Specific [place] 1.010 (1.005-1.030) 10/22/19 02:00 Glucose (UA)(Auto) Negative (NEG) 10/22/19 02:00 Urine Ketones Negative (NEG) 10/22/19 02:00 Urine Blood Negative (NEG) 10/22/19 02:00 Urine Nitrite Positive (NEG) H 10/22/19 02:00 Urine Bilirubin Negative (NEG) 10/22/19 02:00 Urine Urobilinogen 0.2 mg/dL (0.2-1.0) 10/22/19 02:00 Ur Leukocyte Esterase 3+ (NEG) H 10/22/19 02:00 Urine RBC <5 /HPF (NONE SEEN) 10/22/19 02:00 Urine WBC 20-50 /HPF (<5) H 10/22/19 02:00 Ur Squamous Epith Cells <5 /HPF (NONE SEEN) 10/22/19 02:00 Urine Bacteria >50 /HPF (<20) H 10/22/19 02:00 Urine Culture Reflexed Reflexed 10/22/19 02:00 Urine Total Protein Negative (NEG) 10/22/19 02:00 Weight: 157 lb 8 oz Wound Present: No Closed Surgical Incision Present: No Negative Pressure Wound Therapy Present: No Physician Update: Labs reviewed and are stable. She has done well with physical and occupational therapy. She will have outpatient physical therapy in [place]. Functional Improvement: Patient has met all short-term goals and is progressing well through long-term goals. Patient will require more strengthening on B quads to help prevent/control R knee buckling. Summary: Patient's care plan and fdc goals have been reviewed and revised as necessary. Please see the Rehabilitation Signature page for all necessary signatures.
[2019-10-26] MEDS ORDERED: ONDANSETRON 4 MG (ODT) TAB PO PRN (11:49)
[2019-10-26] MEDS: ROSUVASTATIN 10 MG TAB PO SCH (20:19)
[2019-10-26] MEDS: MONTELUKAST 10 MG TAB PO SCH (20:20)
[2019-10-27] MEDS: LIDOCAINE 4% PATCH TOP SCH (06:54)
[2019-10-27 07:17] VITALS: BP 145/62; TEMP 96.8
[2019-10-27] MEDS: THYROID 30 MG TAB PO SCH (07:23)
[2019-10-27] MEDS: PANTOPRAZOLE 40MG TABLET PO SCH (07:23)
[2019-10-27] MEDS: CODEINE 30MG/APAP 300MG TAB PO PRN (07:26)
[2019-10-27] MEDS: FUROSEMIDE 40 MG TABLET PO SCH (07:27)
[2019-10-27] MEDS: PROMOD 30 ML DOSE PO SCH (07:28)
[2019-10-27] MEDS: carvediloL 3.125 MG TAB PO SCH (07:29)
[2019-10-27] MEDS: GABAPENTIN 400 MG CAP PO SCH (07:29)
[2019-10-27] MEDS: SPIRONOLACTONE 25 MG TABLET PO SCH (07:29)
[2019-10-27] MEDS: MAGNESIUM OXIDE 400 MG TAB PO SCH (07:29)
[2019-10-27] MEDS: DULOXETINE 30 MG CAP PO SCH (07:29)
[2019-10-27] MEDS: APIXABAN 5 MG TABLET PO SCH (07:30)
== END 2019-10-27 11:40 | disposition home or self-care (01) | DRG 950 ==
LOC: 5TH 10-04 18:38
PROVIDERS: ADMIT Psychiatry & Neurology Neurology with Special Qualifications in Child Neurology; ATTEND Psychiatry & Neurology Neurology with Special Qualifications in Child Neurology
DX: Z48.811 Encounter for surgical aftercare following surgery on the nervous system (principal); I10 Essential (primary) hypertension; I25.2 Old myocardial infarction; I25.10 Atherosclerotic heart disease of native coronary artery without angina pectoris; Z11.59 Encounter for screening for other viral diseases; Z96.659 Presence of unspecified artificial knee joint; Z95.0 Presence of cardiac pacemaker
CPT/HCPCS: 36415; 80048; 81001; 81003; 81015; 82040; 83735; 84134; 85025; 87077; 87086; 87088; 87186; 97110; 97112; 97116; 97161; 97530; 97542; U0002